=== PATIENT | female | born 1945 | race Caucasian/White ===

== ENCOUNTER → 2017-01-08 | Outpatient (CLI) | payer OTHER, MEDICARE ==
[~2017-01-08] MED LIST: ACET-1256 PO; ASPCH81X PO; CHOL2000 PO; CYAN10005 PO; ENAL1TAB31 PO; GLC/500 PO; HYDR100T12 PO; HYDR25TA5 PO; INSDGIPEN SQ; LEVO112T4 PO; METO25TA56 PO; MULT-506 PO; NVLGI/PEN SQ; PLV75 PO; POTA20TA16 PO; SIMV80TA2 PO
[2017-01-08 15:17] LABS: THYROID STIMULATING HORMONE 0.451 uIu/ml (0.300-4.500)
[2017-01-08 15:23] LABS: RATIO 16.4 mcg/mg (0-30.0)
[2017-01-09 05:58] LABS: ESTIMATED AVERAGE GLUCOSE 186 mg/dl; HA1C FLAG Normal (Normal)
== END | disposition home or self-care (01) ==
LOC: C.LABBC 10:35
PROVIDERS: ATTEND Physician Assistant
DX: E11.9 Type 2 diabetes mellitus without complications (principal); E03.9 Hypothyroidism, unspecified

== ENCOUNTER → 2017-07-16 | Outpatient (CLI) | payer OTHER, MEDICARE ==
--- NOTE | 2017-07-16 15:27 | DIAGNOSTIC IMAGING REPORT ---
CHEST 2 VIEWS ROUTINE CLINICAL HISTORY: COUGH COMPARISON STUDY: 04/06/2014 FINDINGS: The heart is mildly enlarged. There is no failure. There is no focal pulmonary consolidation. There are no pleural effusions. There is mild prominence of central pulmonary artery similar to the prior study.[ IMPRESSION: No active disease in the chest. Electronically signed by: Jalen Bueno M.D. 07/16/2017 3:26 PM Dictated Date/Time: 07/16/2017 3:26 PM
== END | disposition home or self-care (01) ==
LOC: C.RADBC 15:05
PROVIDERS: ATTEND Internal Medicine
DX: R05 Cough (principal)

== ENCOUNTER → 2017-08-14 | Outpatient (CLI) | payer OTHER, MEDICARE ==
--- NOTE | 2017-08-16 16:27 | POLYSOMNOGRAPH REPORT ---
CLINICAL DATA: 72-year-old female with BMI of 38.41 referred with a history of snoring and a very thick neck. She denies daytime sleepiness or issues. On the evening of 08/14/2017, a home sleep apnea test was performed using a [employer] type 3 monitor. RECORDING RESULTS: Total recording time was 10 hours. The patient's estimated sleep time and patient monitoring time was 8.8 hours. RESPIRATORY DATA: Severe sleep apnea was documented. The GIL was 33.2. There were 107 obstructive, 85 mixed, and 9 central apneic episodes. There were 90 hypopneic episodes. The longest respiratory event 44 seconds. OXIMETRY DATA: Nocturnal hypoxemia was seen. Oxygen rosy 79%. Mean saturation was 91%. Time below 89% was 55 minutes. HEART RATE DATA: Heart rates ranged from 30-55 beats per minute. SNORING DATA: Snoring was recorded throughout the night. SCALE AGENT'S COMMENTS: Hypopneas and apneas were seen but the thermistor was not working well during most of the night. IMPRESSION: Probable severe sleep apnea/hypopnea with an GIL of 33.2 with nocturnal hypoxemia. RECOMMENDATIONS: If there is any question about the diagnosis of sleep apnea, a dedicated in-lab study and possibly a split night study could be performed. Treatment with CPAP or oral appliance may be of benefit. Clinical correlation is needed. MAURICE
== END | disposition home or self-care (01) ==
LOC: C.NEUR 08:55
PROVIDERS: ATTEND Internal Medicine
DX: R05 Cough (principal); R06.83 Snoring; J98.01 Acute bronchospasm; I25.10 Atherosclerotic heart disease of native coronary artery without angina pectoris

== ENCOUNTER → 2017-08-20 | Outpatient (CLI) | payer OTHER, MEDICARE ==
[2017-08-20 14:55] LABS: CREATININE RANDOM URINE 66.6 mg/dl
[2017-08-20 15:07] LABS: RATIO 20.7 mcg/mg (0-30.0)
[2017-08-20 15:08] LABS: ALT/SGPT 26 U/L (12-78); BLOOD UREA NITROGEN 12 mg/dl (7-18); BUN/CREATININE RATIO 20.1 (10-20); CALCIUM 9.8 mg/dl (8.5-10.1); CARBON DIOXIDE 31 mmol/L (21-32); CHLORIDE 103 mmol/L (98-107); CHOLESTEROL 133 mg/dl (0-200); CREATININE 0.59 mg/dl (0.60-1.20); GLUCOSE 99 mg/dl (70-99); POTASSIUM 3.5 mmol/L (3.5-5.1); SODIUM 140 mmol/L (136-145); TRIGLYCERIDES 231 mg/dl (0-150); VERY LOW DENSITY LIPOPROT CALC 46 mg/dl
[2017-08-20 15:27] LABS: ALB/GLOB RATIO 0.9 (0.9-2); ALKALINE PHOSPHATASE 76 U/L (45-117); AST/SGOT 15 U/L (15-37); CHOLESTEROL/HDL RATIO 2.4; HDL CHOLESTEROL 56 mg/dl; LDL CHOLESTEROL CALCULATED 31 mg/dl; THYROID STIMULATING HORMONE 0.996 uIu/ml (0.300-4.500)
[2017-08-21 07:44] LABS: ESTIMATED AVERAGE GLUCOSE 209 mg/dl; HA1C FLAG Normal (Normal)
== END | disposition home or self-care (01) ==
LOC: C.LAB1850 12:43
PROVIDERS: ATTEND Physician Assistant
DX: E11.9 Type 2 diabetes mellitus without complications (principal); E03.9 Hypothyroidism, unspecified

== ENCOUNTER 2017-10-24 14:45 | Emergency (ER) | payer OTHER, MEDICARE ==
[~2017-10-24] VITALS: Ht 157.5 cm; Wt 90.0 kg
[2017-10-24 14:56] VITALS: Ht 157.5 cm; Wt 90.0 kg
[2017-10-24] MEDS ORDERED: SODIUM CHLORIDE 0.9% 1000ML 1,000 ML IV STA (15:22)
--- NOTE | 2017-10-24 15:29 | EMERGENCY ROOM VISIT NOTE ---
History Report prepared by Star: Lavell Dominguez Under the Supervision of: Dr. Kai Sylvester M.D. First contact with patient: 15:05 Chief Complaint: FLU LIKE SX Stated Complaint: FLU LIKE ILLNESS History of Present Illness The patient is a 72 year old female who presents to the Emergency Room with complaints of constant lightheadedness beginning 5.5 hours ago. The patient states it feels like she is going to pass out, but she has not. She reports she was at her PCP earlier today and was sent here for further evaluation. The patient notes her PCP thought she was dehydrated and could possibly have pneumonia. She states she was eating lunch when her symptoms began. The patient reports she was coughing a lot of phlegm up last week, but it has resolved. She notes she also had a subjective fever and chills the other day, and that has also resolved. She reports she is also experiencing lower back pain, but she has a history of sciatica. The patient states she is currently on clopidogrel, and she has a history of diabetes. She reports she quit smoking 40 years ago. The patient notes her has had flu-like symptoms as well, but she developed hers before him. She denies chest pain, shortness of breath, loss of consciousness, recent travel, blood in cough, using hormone cream, abdominal pain, pain with urine, blood in urine, black stool, and blood in stool. Source of History: patient Onset: 5.5 hours ago Position: other (global) Quality: other (lightheadedness) Timing: constant Associated Symptoms: + fevers (resolved), + chills (resolved), + cough ( resolved), + back pain (lower), No LOC, No chest pain, No SOB, No abdominal pain , No urinary symptoms (Pain with urine, blood in urine) Note: Denies: black stool, blood in stool, using hormone cream Review of Systems See HPI for pertinent positives and negatives. A total of ten systems were reviewed and were otherwise negative. Past Medical & Surgical Medical Problems: (1) Anxiety (2) CAD (coronary artery disease) (3) CVA (cerebral infarction) (4) DM (diabetes mellitus) (5) Endometriosis (6) Fibroid (7) HTN (hypertension) (8) Hyperlipidemia Nec/Nos (9) Hypertension Nos (10) Old Myocardial Infarct (11) Sciatica Surgical Problems: (1) H/O: hysterectomy Family History Diabetes mellitus Heart disease Hypertension Social History Smoking Status: Former Smoker Alcohol Use: none Drug Use: none Marital Status: Housing Status: lives with family Occupation Status: retired Current/Historical Medications Scheduled Aspirin (Aspirin Chewable), 81 MG PO QAM Aspirin (Aspirin), 1 TAB PO DAILY Atorvastatin (Lipitor), 80 MG PO DAILY Cholecalciferol (Vitamin D3), 2,000 UNITS PO QAM Clopidogrel Bisulfate (Clopidogrel), 75 MG PO QAM Cyanocobalamin (Vitamin B-12), 2,000 MCG PO QAM Enalapril Maleate (Vasotec), 20 MG PO BID Hydralazine Hcl (Apresoline), 100 MG PO TID Hydrochlorothiazide (Hydrochlorothiazide), 25 MG PO QPM Insulin Aspart (Novolog Flexpen), 15 UNITS SQ AC Insulin Glargine (Lantus Solostar), 45 UNITS SQ QPM Levothyroxine Sodium (Levothyroxine Sodium), 112 MCG PO QAM Metformin Hcl (Glucophage), 1,000 MG PO BID Metoprolol Tartrate (Lopressor) (Lopressor), 12.5 MG PO BID Multivitamin (Multivitamin), 1 TAB PO QAM Oseltamivir (Tamiflu), 75 MG PO BID Potassium Ext Rel (Klor-Con), 20 MEQ PO QAM Scheduled PRN Acetaminophen (Tylenol), 500 MG PO Q8H PRN for Pain Allergies Coded Allergies: Animal Dander (Unverified Allergy, Unknown, SNEZZING, 10/24/17) WAS TOLD NOT TO TAKE A DECONGESTANT SINCE STROKE Molds & Smuts (Unverified Allergy, Unknown, UNKNOWN, 10/24/17) POLLEN (Unverified Allergy, Unknown, MUCUS, WATERY EYES, SNEEZING , ) Ragweed (Unverified Allergy, Unknown, MUCUS, SNEEZING, WATERY EYES , ) Physical Exam Vital Signs Date Time Temp Pulse Resp B/P (MAP) Pulse Ox O2 Delivery O2 Flow Rate FiO2 10/24/17 20:20 92 20 142/71 96 10/24/17 19:01 37.3 75 20 146/70 93 Room Air 10/24/17 16:32 75 20 94/69 94 Room Air 10/24/17 15:59 66 20 141/58 92 Room Air 10/24/17 15:22 65 10/24/17 14:56 36.6 65 16 122/64 94 Room Air Physical Exam Physical Exam GENERAL: She is oriented to person, place, and time. She appears well- developed and well-nourished. She does not appear distressed. ____ HENT: Exam performed. Head: Normocephalic and atraumatic. Right Ear: External ear normal. No mastoid tenderness. Left Ear: External ear normal. No mastoid tenderness. Mouth/Throat: The oropharynx is clear and moist. No trismus in the jaw. No dental abscesses or uvula swelling. No oropharyngeal exudate or tonsillar abscesses. ____ EYES: Conjunctivae and EOM are normal. Pupils are equal, round, and reactive to light. Right eye exhibits no discharge. Left eye exhibits no discharge. No scleral icterus. ____ NECK: Normal range of motion. Neck supple. No JVD present. No spinous process tenderness present. No carotid bruit present. No rigidity. No tracheal deviation and normal range of motion present. No Brudzinski's sign and no Kernig 's sign noted. ____ CV: Normal rate, regular rhythm, normal heart sounds and intact distal pulses. There is no peripheral edema. No palpable left-sided radial pulse. Radial pulse signal was present on Doppler on the LUE. Right upper extremity radial pulse palpable. ____ PULM/CHEST: No respiratory distress. No stridor. She has scant expiratory wheezes and rhonchi at the bases bilaterally. She has no rales. Chest Wall: She exhibits no tenderness. ____ ABD: The abdomen is soft. Bowel sounds are normal. She has no distension. No mass is present. There is no tenderness. There is no rebound, no guarding, no Noel's sign and no tenderness at McBurney's point. Rovsig negative MUSC/SKEL: Normal range of motion. There is no peripheral edema, tenderness or deformity. LYMPH: No cervical adenopathy. ____ NEURO: She is alert and oriented to person, place, and time. She has normal strength. No cranial nerve deficit or sensory deficit. Coordination and gait normal. GCS eye subscore is 4. GCS verbal subscore is 5. GCS motor subscore is 6. cerbellar tests wnl. ____ SKIN: Skin is warm and dry. She is not diaphoretic. ____ PSYCH: She has a normal mood and affect. Her behavior is normal. Judgment and thought content normal. ____ Medical Decision & Procedures ER Provider Diagnostic Interpretation: Radiology results as stated below per my review and radiologist interpretation: CHEST 2 VIEWS ROUTINE HISTORY: 72 years-old Female cough acute cough COMPARISON: Chest radiographs 07/16/2017 TECHNIQUE: PA and lateral views of the chest FINDINGS: Cardiac silhouette is mildly enlarged. Atherosclerosis of the aorta. There is no pneumothorax or large pleural effusion. No lobar airspace consolidation to suggest pneumonia. Patchy subsegmental opacities of the inferior segment lingula are again seen suggesting atelectasis/scarring, unchanged. Bones of the chest appear grossly intact. IMPRESSION: Unchanged subtle opacities of the inferior segment lingula suggest atelectasis. The above report was generated using voice recognition software. It may contain grammatical, syntax or spelling errors. Electronically signed by: Misael Kumar M.D. 10/24/2017 4:25 PM Dictated Date/Time: 10/24/2017 4:[address] ANGIOGRAM OF THE CHEST CLINICAL HISTORY: Dyspnea. COMPARISON STUDY: Chest x-ray dated 10/24/2017. TECHNIQUE: Following the IV administration of 97 cc of Optiray 320, CT angiogram of the chest was performed from the upper abdomen to the thoracic inlet utilizing the pulmonary embolus protocol. Images are reviewed in the axial, sagittal, and coronal planes. 3-D MIPS images are created and assessed. IV contrast was administered without complication. A dose lowering technique was utilized adhering to the principles of ALARA. The examination is degraded by motion artifact. CT DOSE: 724.81 mGy.cm FINDINGS: Thyroid: Atrophic. Thoracic aorta: There is atherosclerotic calcification of the thoracic aorta, which is normal in caliber and demonstrates standard 3-vessel arch anatomy. No dissection is seen. There is high-grade stenosis to complete occlusion at the origin of the left subclavian artery Pulmonary vasculature: The main pulmonary mildly dilated suggesting pulmonary artery hypertension. There are no filling defects identified in main, lobar, or proximal segmental pulmonary branches to suggest pulmonary embolus. Evaluation of the peripheral vessels is degraded by motion artifact. Heart: The heart is enlarged and without pericardial effusion. The coronary arteries and mitral annulus are densely calcified. Lungs and pleural spaces: Evaluation of the lung parenchyma is degraded by motion artifact. There is no airspace consolidation or pleural effusion. The trachea and central airways are patent. Mediastinum: There is no mediastinal lymphadenopathy. Jessica: Clear. Axillae: There is no axillary lymphadenopathy. Upper abdomen: There is a small hiatal hernia. A 1.7 cm adenoma is noted in the left adrenal gland. Partially visualized upper abdominal viscera is otherwise within normal limits. Skeletal structures: The skeletal structures are osteopenic. Degenerative changes noted throughout the thoracic spine and in the shoulders. No lytic or blastic bony lesions are seen. IMPRESSION: 1. Motion degraded examination. 2. There is no evidence of pulmonary embolus in the main, lobar, or proximal segmental pulmonary arteries. 3. Cardiomegaly. 4. There is no airspace consolidation or pleural effusion. 5. There is near complete to complete occlusion at the origin of the left subclavian artery. Note that this may place the patient at risk for subclavian steal phenomenon. Electronically signed by: Brennan Escamilla M.D. 10/24/2017 6:05 PM Dictated Date/Time: 10/24/2017 6:00 PM Laboratory Results 10/24/17 15:15 Red Blood Count 4.49, Mean Corpuscular Volume 91.5, Mean Corpuscular Hemoglobin 29.8, Mean Corpuscular Hemoglobin Concent 32.6, Mean Platelet Volume 10.6, Neutrophils (%) (Auto) 76.9, Lymphocytes (%) (Auto) 10.2, Monocytes (%) (Auto) 12.5, Eosinophils (%) (Auto) 0.0, Basophils (%) (Auto) 0.2, Neutrophils # (Auto ) 6.72, Lymphocytes # (Auto) 0.89, Monocytes # (Auto) 1.09, Eosinophils # (Auto ) 0.00, Basophils # (Auto) 0.02 10/24/17 15:15 Test 10/24/17 15:15 10/24/17 15:40 10/24/17 18:51 10/24/17 19:10 White Blood Count 8.74 K/uL (4.8-10.8) Red Blood Count 4.49 M/uL (4.2-5.4) Hemoglobin 13.4 g/dL (12.0-16.0) Hematocrit 41.1 % (37-47) Mean Corpuscular Volume 91.5 fL (80-100) Mean Corpuscular Hemoglobin 29.8 pg (25-34) Mean Corpuscular Hemoglobin Concent 32.6 g/dl (32-36) Platelet Count 203 K/uL (130-400) Mean Platelet Volume 10.6 fL (7.4-10.4) Neutrophils (%) (Auto) 76.9 % Lymphocytes (%) (Auto) 10.2 % Monocytes (%) (Auto) 12.5 % Eosinophils (%) (Auto) 0.0 % Basophils (%) (Auto) 0.2 % Neutrophils # (Auto) 6.72 K/uL (1.4-6.5) Lymphocytes # (Auto) 0.89 K/uL (1.2-3.4) Monocytes # (Auto) 1.09 K/uL (0.11-0.59) Eosinophils # (Auto) 0.00 K/uL (0-0.5) Basophils # (Auto) 0.02 K/uL (0-0.2) RDW Standard Deviation 48.7 fL (36.4-46.3) RDW Coefficient of Variation 14.4 % (11.5-14.5) Immature Granulocyte % (Auto) 0.2 % Immature Granulocyte # (Auto) 0.02 K/uL (0.00-0.02) Prothrombin Time 10.6 SECONDS (9.0-12.0) Prothromb Time International Ratio 1.0 (0.9-1.1) Activated Partial Thromboplast Time 25.2 SECONDS (21.0-31.0) Partial Thromboplastin Ratio 1.0 D-Dimer 600 ug/L FEU (0-500) Anion Gap 9.0 mmol/L (3-11) Est Creatinine Clear Calc Drug Dose 48.3 ml/min Estimated GFR () 57.0 Estimated GFR (Non- 49.2 BUN/Creatinine Ratio 19.1 (10-20) Calcium Level 9.7 mg/dl (8.5-10.1) Beta-Hydroxybutyric Acid 1.57 mg/dL (0.2-2.81) Influenza Type A Antigen POS for Influ A (NEG) Influenza Type B Antigen Neg for Influ B (NEG) Troponin I < 0.015 ng/ml (0-0.045) Urine Color YELLOW Urine Appearance CLEAR (CLEAR) Urine pH 5.0 (4.5-7.5) Urine Specific [place] > 1.045 (1.000-1.030) Urine Protein NEG (NEG) Urine Glucose (UA) NEG (NEG) Urine Ketones NEG (NEG) Urine Occult Blood NEG (NEG) Urine Nitrite NEG (NEG) Urine Bilirubin NEG (NEG) Urine Urobilinogen NEG (NEG) Urine Leukocyte Esterase SMALL (NEG) Urine WBC (Auto) 5-10 /hpf (0-5) Urine RBC (Auto) 0-4 /hpf (0-4) Urine Hyaline Casts (Auto) 1-5 /lpf (0-5) Urine Epithelial Cells (Auto) >30 /lpf (0-5) Urine Bacteria (Auto) NEG (NEG) Laboratory results reviewed by me Medications Administered Medications (Trade) Dose Ordered Sig/Carli Route Start Time Stop Time Status Last Admin Dose Admin Sodium Chloride 1,000 ml @ 999 mls/hr Q1H1M STAT IV 10/24/17 15:22 10/24/17 16:22 DC 10/24/17 15:55 999 MLS/HR ECG Indication: weakness Rate (beats per minute): 64 Rhythm: normal sinus Findings: no acute ischemic change, no ectopy, other (OH, QRS, QTc are within normal limits, no ST elevation or depression) Change: EKG at 1553: Normal sinus with a rate of 66. OH, QRS, QTc, in normal limits, no ST elevation or depression, no ectopy, no acute ischemic change. No significant change from EKG at 1534. EKG at 1824: Sinus rhythm with a rate of 74. OH, QRS, QTc, in normal limits, no ST elevation or depression. No change from the EKGs at 1534 or 1553. Patient's electrocardiograms were interpreted by me. ED Course 1519: The patient was evaluated in room A03. A complete history and physical exam was performed. 1522: Ordered Sodium Chloride 1000 ml @ 999 mls/hr IV 1840: Vital signs stable. Patient denies any chest pain or difficulty breathing. Flu was positive. CTA of the chest did not show any dissection or pulmonary embolusim. There is near complete to complete occlusion at the origin of the left subclavian artery placing the patient at risk for subclavian steal phenomenon.I discussed the patient's case with Dr. Wagoner, Vascular Surgery. He states the patient is stable to be discharged and followed up as an outpatient. He reports the patient does not need to be on a blood thinner other than aspirin. 1843: I spoke with Dr. Wagoner again. He confirmed it is okay to discharge the patient even though she was dizzy earlier today. 1853: I reevaluated the patient and discussed current test results. The patient is going to have her troponin repeated, if it is negative, she will be discharged. 1754: I reevaluated the patient. DISCHARGE - Plan of care discussed with patient and questions answered. The patient was given both verbal and printed discharge instructions. The patient verbalized understanding and ability to comply. The patient is to seek outpatient follow up as noted in the discharge instructions. The patient verbalized understanding and ability to comply. The patient is discharged in stable condition. The patient was instructed to return for worsening symptoms. Medical Decision Vital signs stable. Patient denies any chest pain or difficulty breathing. Flu was positive. CTA of the chest did not show any dissection or pulmonary embolusim. There is near complete to complete occlusion at the origin of the left subclavian artery placing the patient at risk for subclavian steal phenomenon.I discussed the patient's case with Dr. Wagoner, Vascular Surgery. He states the patient is stable to be discharged and followed up as an outpatient. He reports the patient does not need to be on a blood thinner other than aspirin. 2 sets of troponins negative. The patient was discharged with Tamiflu and aspirin. She'll follow-up with Dr. Wagoner. DISCHARGE - Plan of care discussed with patient and questions answered. The patient was given both verbal and printed discharge instructions. The patient verbalized understanding and ability to comply. The patient is to seek outpatient follow up as noted in the discharge instructions. The patient verbalized understanding and ability to comply. The patient is discharged in stable condition. The patient was instructed to return for worsening symptoms. Medication Reconcilliation Current Medication List: was personally reviewed by me Blood Pressure Screening Patient's blood pressure: Elevated blood pressure Blood pressure disposition: Elevated BP felt to be situational Consults Time Called: 1836 Consulting Physician: Dr. Wagoner, Vascular Surgery Returned Call: 1839 I discussed the patient's case with Dr. Wagoner, Vascular Surgery. He states the patient is able to be discharged and followed up as an outpatient. He reports the patient does not need to be on a blood thinner other than aspirin. 1842: I spoke with Dr. Wagoner again. He confirmed it is okay to discharge the patient even though she was dizzy earlier today. Impression Primary Impression: Influenza A Additional Impression: Subclavian arterial stenosis Scribe Attestation The scribe's documentation has been prepared under my direction and personally reviewed by me in its entirety. I confirm that the note above accurately reflects all work, treatment, procedures, and medical decision making performed by me. The chart was completed utilizing [employer] voice recognition software. Grammatical errors, random word insertions, pronoun errors, and incomplete sentences are an occasional consequence of this system due to software limitations, ambient noise, and hardware issues. Any formal questions or concerns about the content, text, or information contained within the body of this dictation should be directly addressed to the physician for clarification. Departure Information Dispostion Home / Self-Care Prescriptions Aspirin (ASPIRIN) 81 Mg Chw 1 TAB PO DAILY for 30 Days, #30 TAB 3 Refills Prov: Kai Sylvester M.D. 10/24/17 Oseltamivir (Tamiflu) 75 Mg Cap 75 MG PO BID, #10 CAP Prov: Kai Sylvester M.D. 10/24/17 Referrals Raoul Palencia M.D. (PCP) Forms HOME CARE DOCUMENTATION FORM, IMPORTANT VISIT INFORMATION Patient Instructions ED Flu, [facility] Additional Instructions Follow up with Dr. Wagoner, Vascular Surgery. Problem Qualifiers
[2017-10-24 15:34] LABS: BASO % 0.2 %; BASO ABS # 0.02 K/uL (0-0.2); HEMATOCRIT 41.1 % (37-47); HEMOGLOBIN 13.4 g/dL (12.0-16.0); IG# 0.02 K/uL (0.00-0.02); LYMPH % 10.2 %; LYMPH ABS # 0.89 K/uL (1.2-3.4); MEAN CELL VOLUME 91.5 fL (80-100); MEAN CORPUSCULAR HEMOGLOBIN 29.8 pg (25-34); MEAN CORPUSCULAR HGB CONC 32.6 g/dl (32-36); MEAN PLATELET VOLUME 10.6 fL (7.4-10.4); MONO % 12.5 %; MONO ABS # 1.09 K/uL (0.11-0.59); NEUT % 76.9 %; NEUT ABS # 6.72 K/uL (1.4-6.5); PLATELET COUNT 203 K/uL (130-400); RED CELL DISTRIBUTION WIDTH CV 14.4 % (11.5-14.5); RED CELL DISTRIBUTION WIDTH SD 48.7 fL (36.4-46.3); WHITE BLOOD COUNT 8.74 K/uL (4.8-10.8)
[2017-10-24 15:51] LABS: BLOOD UREA NITROGEN 22 mg/dl (7-18); CALCIUM 9.7 mg/dl (8.5-10.1); CARBON DIOXIDE 28 mmol/L (21-32); CREATININE 1.13 mg/dl (0.60-1.20); GLUCOSE 323 mg/dl (70-99); SODIUM 133 mmol/L (136-145)
[2017-10-24 15:52] LABS: PTT PATIENT 25.2 SECONDS (21.0-31.0)
[2017-10-24 16:17] LABS: INFLUENZA B ANTIGEN Neg for Influ B (NEG)
--- NOTE | 2017-10-24 16:26 | DIAGNOSTIC IMAGING REPORT ---
CHEST 2 VIEWS ROUTINE HISTORY: 72 years-old Female cough acute cough COMPARISON: Chest radiographs 07/16/2017 TECHNIQUE: PA and lateral views of the chest FINDINGS: Cardiac silhouette is mildly enlarged. Atherosclerosis of the aorta. There is no pneumothorax or large pleural effusion. No lobar airspace consolidation to suggest pneumonia. Patchy subsegmental opacities of the inferior segment lingula are again seen suggesting atelectasis/scarring, unchanged. Bones of the chest appear grossly intact. IMPRESSION: Unchanged subtle opacities of the inferior segment lingula suggest atelectasis. The above report was generated using voice recognition software. It may contain grammatical, syntax or spelling errors. Electronically signed by: Misael Kumar M.D. 10/24/2017 4:25 PM Dictated Date/Time: 10/24/2017 4:23 PM
[2017-10-24] MEDS ORDERED: OPTIRAY 320 IV PRN (16:45)
[2017-10-24] MEDS ORDERED: ATOR-26 PO (17:32)
--- NOTE | 2017-10-24 18:06 | DIAGNOSTIC IMAGING REPORT ---
CT ANGIOGRAM OF THE CHEST CLINICAL HISTORY: Dyspnea. COMPARISON STUDY: Chest x-ray dated 10/24/2017. TECHNIQUE: Following the IV administration of 97 cc of Optiray 320, CT angiogram of the chest was performed from the upper abdomen to the thoracic inlet utilizing the pulmonary embolus protocol. Images are reviewed in the axial, sagittal, and coronal planes. 3-D MIPS images are created and assessed. IV contrast was administered without complication. A dose lowering technique was utilized adhering to the principles of ALARA. The examination is degraded by motion artifact. CT DOSE: 724.81 mGy.cm FINDINGS: Thyroid: Atrophic. Thoracic aorta: There is atherosclerotic calcification of the thoracic aorta, which is normal in caliber and demonstrates standard 3-vessel arch anatomy. No dissection is seen. There is high-grade stenosis to complete occlusion at the origin of the left subclavian artery Pulmonary vasculature: The main pulmonary mildly dilated suggesting pulmonary artery hypertension. There are no filling defects identified in main, lobar, or proximal segmental pulmonary branches to suggest pulmonary embolus. Evaluation of the peripheral vessels is degraded by motion artifact. Heart: The heart is enlarged and without pericardial effusion. The coronary arteries and mitral annulus are densely calcified. Lungs and pleural spaces: Evaluation of the lung parenchyma is degraded by motion artifact. There is no airspace consolidation or pleural effusion. The trachea and central airways are patent. Mediastinum: There is no mediastinal lymphadenopathy. Jessica: Clear. Axillae: There is no axillary lymphadenopathy. Upper abdomen: There is a small hiatal hernia. A 1.7 cm adenoma is noted in the left adrenal gland. Partially visualized upper abdominal viscera is otherwise within normal limits. Skeletal structures: The skeletal structures are osteopenic. Degenerative changes noted throughout the thoracic spine and in the shoulders. No lytic or blastic bony lesions are seen. IMPRESSION: 1. Motion degraded examination. 2. There is no evidence of pulmonary embolus in the main, lobar, or proximal segmental pulmonary arteries. 3. Cardiomegaly. 4. There is no airspace consolidation or pleural effusion. 5. There is near complete to complete occlusion at the origin of the left subclavian artery. Note that this may place the patient at risk for subclavian steal phenomenon. 2. Electronically signed by: Brennan Escamilla M.D. 10/24/2017 6:05 PM Dictated Date/Time: 10/24/2017 6:00 PM
[2017-10-24 19:01] VITALS: TEMP 37.3
[2017-10-24] MEDS ORDERED: OSEL75CA12 PO (19:43)
[2017-10-24] MEDS ORDERED: ASPI81CH2 PO (19:43)
[2017-10-24 20:20] VITALS: BP 142/71; PULSE 92; O2SAT 96
== END 2017-10-24 20:22 | disposition home or self-care (01) ==
LOC: C.EDB 14:49 → C.EDA 20:22
DX: J09.X2 Influenza due to identified novel influenza A virus with other respiratory manifestations (principal); I77.1 Stricture of artery; M54.40 Lumbago with sciatica, unspecified side; E11.9 Type 2 diabetes mellitus without complications; Z87.891 Personal history of nicotine dependence; I10 Essential (primary) hypertension; E78.5 Hyperlipidemia, unspecified; I25.2 Old myocardial infarction; Z83.3 Family history of diabetes mellitus; Z82.49 Family history of ischemic heart disease and other diseases of the circulatory system; Z79.82 Long term (current) use of aspirin; Z79.4 Long term (current) use of insulin; Z79.84 Long term (current) use of oral hypoglycemic drugs

== ENCOUNTER → 2018-01-23 | Outpatient (CLI) | payer OTHER, MEDICARE ==
[~2018-01-23] MED LIST changes: +ASPI81CH2 PO; +ATOR-26 PO; +OSEL75CA12 PO; +POTA-639 PO; -POTA20TA16 PO; -SIMV80TA2 PO
[2018-01-23 10:36] LABS: BASO % 0.5 %; BASO ABS # 0.04 K/uL (0-0.2); EOS % 3.2 %; EOS ABS # 0.26 K/uL (0-0.5); HEMATOCRIT 40.7 % (37-47); HEMOGLOBIN 12.8 g/dL (12.0-16.0); IG# 0.02 K/uL (0.00-0.02); LYMPH % 29.9 %; LYMPH ABS # 2.43 K/uL (1.2-3.4); MEAN CELL VOLUME 92.5 fL (80-100); MEAN CORPUSCULAR HEMOGLOBIN 29.1 pg (25-34); MEAN CORPUSCULAR HGB CONC 31.4 g/dl (32-36); MEAN PLATELET VOLUME 10.9 fL (7.4-10.4); MONO % 8.1 %; MONO ABS # 0.66 K/uL (0.11-0.59); NEUT % 58.1 %; NEUT ABS # 4.72 K/uL (1.4-6.5); PLATELET COUNT 260 K/uL (130-400); RED CELL DISTRIBUTION WIDTH CV 14.2 % (11.5-14.5); RED CELL DISTRIBUTION WIDTH SD 48.2 fL (36.4-46.3); WHITE BLOOD COUNT 8.13 K/uL (4.8-10.8)
[2018-01-23 11:07] LABS: HEMOGLOBIN A1C 9.5 % (4.5-5.6)
[2018-01-23 11:20] LABS: ALBUMIN 3.3 gm/dl (3.4-5.0); ALKALINE PHOSPHATASE 92 U/L (45-117); ALT/SGPT 27 U/L (12-78); AST/SGOT 13 U/L (15-37); BLOOD UREA NITROGEN 15 mg/dl (7-18); CALCIUM 9.1 mg/dl (8.5-10.1); CARBON DIOXIDE 28 mmol/L (21-32); CHOLESTEROL 145 mg/dl (0-200); CREATININE 0.67 mg/dl (0.60-1.20); GLUCOSE 195 mg/dl (70-99); POTASSIUM 3.9 mmol/L (3.5-5.1); SODIUM 139 mmol/L (136-145); TOTAL PROTEIN 7.2 gm/dl (6.4-8.2)
[2018-01-23 11:32] LABS: LDL CHOLESTEROL CALCULATED 60 mg/dl
== END | disposition home or self-care (01) ==
LOC: C.LABBC 07:13
PROVIDERS: ATTEND Internal Medicine
DX: I25.10 Atherosclerotic heart disease of native coronary artery without angina pectoris (principal); E11.9 Type 2 diabetes mellitus without complications; E03.9 Hypothyroidism, unspecified; I10 Essential (primary) hypertension; E78.5 Hyperlipidemia, unspecified; E11.3299 Type 2 diabetes mellitus with mild nonproliferative diabetic retinopathy without macular edema, unspecified eye; I63.9 Cerebral infarction, unspecified; I65.29 Occlusion and stenosis of unspecified carotid artery; I77.1 Stricture of artery

== ENCOUNTER 2022-07-18 16:35 | Inpatient (IN) ==
--- NOTE | 2022-07-18 16:42 | ED Triage Note ---
Date of Service July 18, 2022 History of Present Illness This patient was briefly evaluated while in triage. An abbreviated physical exam was performed. This patient is a 77-year-old Female. She notes she cannot breathe. She was at Dr. Ramos office and referred here today. She has been short of breath 6 weeks but dx with covid about 2 weeks ago. She is nolonger on Xarelto. She was on that for Afib. Physical Exam GENERAL: 77 year old female. In no acute distress. SKIN: No lesions or rashes. HEART: Regular rate and rhythm. LUNGS: Clear to auscultation. NEURO: Alert and oriented. No deficits. PSYCH: Patient is pleasant and answers all questions appropriately. Initial orders for labs and / or imaging were placed and patient was placed in the waiting area until a bed is available. Please see further documentation for the full ED course.
[2022-07-18 17:29] LABS: Basophils # (auto) 0.06 K/uL (0-0.2); Basophils % (auto) 0.6 %; Eosinophils # (auto) 0.18 K/uL (0-0.50); Eosinophils % (auto) 1.9 %; Hematocrit (blood only) 30.8 % (34.1-44.9); Immature Granulocytes # (auto) 0.13 K/uL (0.00-0.02); Immature Granulocytes % (auto) 1.4 %; Lymphocytes # (auto) 1.72 K/uL (1.2-3.4); Lymphocytes % (auto) 17.9 %; Mean Corpuscular Hemoglobin 23.1 pg (25.0-34.0); Mean Corpuscular Hgb Conc 29.2 g/dL (32.0-36.0); Mean Platelet Volume 10.9 fL (9.4-12.3); Monocytes % (auto) 7.3 %; Neutrophils # (auto) 6.83 K/uL (1.4-6.5); Neutrophils % (auto) 70.9 %; Nucleated RBC # (auto) 0.04 K/uL (0-0); Nucleated RBC % (auto) 0.4 %; Platelet Count 408 K/uL (130-400); RDW Coefficient of Variation 20.2 % (11.5-14.5); RDW Standard Deviation 56.9 fL (36.4-46.3); White Blood Count 9.62 K/ul (4.8-10.8)
[2022-07-18 17:50] LABS: Alanine Aminotransferase 22 U/L (7-52); Albumin Globulin Ratio 1.1 (0.9-2); Albumin Level 3.3 gm/dl (3.4-5.0); Alkaline Phosphatase 61 U/L (34-104); Anion Gap 7 (3-11); Aspartate Aminotransferase 22 U/L (13-39); BUN Creatinine Ratio 16.4 (10-20); Bilirubin,Total 0.4 mg/dl (0.2-1.0); Blood Urea Nitrogen 11 mg/dl (6-23); Calcium 9.2 mg/dl (8.5-10.1); Carbon Dioxide 29 mmol/L (21-32); Chloride 103 mmol/L (98-107); Est GFR (African American) 99.7 ml/min; Globulin 3.1 gm/dl (2.5-4.0); Glucose 150 mg/dl (70-99(Fasting)); Magnesium 1.6 mg/dl (1.7-2.4); Sodium 139 mmol/L (136-145); Total Protein 6.4 gm/dl (6.0-8.3)
[2022-07-18 17:53] LABS: Partial Thromboplastin Ratio 1.1; Partial Thromboplastin Time 28.9 Seconds (21.0-31.0); Prothrombin Time 10.9 Seconds (9.0-12.0)
[2022-07-18 17:55] LABS: Troponin I High Sensitivity 8.3 pg/ml (0-14)
[2022-07-18 17:59] LABS: Anisocytosis Present; Polychromasia 1+
[2022-07-18] MEDS ORDERED: SODIUM CHLORIDE 0.9% 1000ML 500 ML IV ONE (18:33)
--- NOTE | 2022-07-18 18:35 | Emergency Department Note ---
Impression & Plan Hypoxia DC ED Provider Note HPI: The patient is a 77-year-old female with history of coronary artery disease, sleep apnea, paroxysmal atrial fibrillation not currently on any anticoagulation, diastolic heart failure with hyperdynamic ejection fraction at 70% per echo on 05/30/2022, who presents the emergency department with a chief complaint of shortness of breath. Patient states that her shortness of breath has been ongoing for about the past 2 weeks. Patient states that she was diagnosed with COVID-19 10 days ago at a hospital in [place]. Patient states that her symptoms of not resolved and she has been experiencing more shortness of breath with exertion, she denies any chest pain. On arrival here to the ED today the patient is noted to be hypertensive at 221/86, she is otherwise saturating well on room air on my initial assessment, she is conversational, she is in no acute distress. ROS: -Pulmonary: Shortness of breath *10 point review systems was conducted and is otherwise negative unless stated above *Outpatient medications and allergy history reviewed PE: General: Alert, morbidly obese HEENT: Normocephalic, trachea midline Eyes: Extraocular eye movement is intact, no scleral erythema Pulmonary: Clear to auscultation bilaterally, no wheezing, slight tachypnea with mildly diminished breath sounds bilaterally Cardio: Regular rate and rhythm GI: Abdomen is soft, nontender : No suprapubic tenderness MSK: No evidence of trauma or malformation of the extremities, no edema Skin: No evidence of rash Neuro: Alert, no focal deficits Psychiatric: Cooperative front line leader: - An order was placed for continuous cardiac monitoring - Patient was noted to be in sinus rhythm with a rate of 70 EKG: Rate: 65 Rhythm: Sinus rhythm Intervals: Within normal limits ST changes: No ST elevation Time: 1711 Interventions provided in ED: -IV labetalol, supplemental oxygen, IV Lasix, sublingual nitroglycerin Medical Decision Making: Patient presented to the emergency department with worsening shortness of breath. On arrival here to the ED she does display some mild increased work of breathing with tachypnea but she is saturating well on room air initially. IV was established, patient was placed on winder helper [place] patient census. Patient is initially saturating well on room air when hooked up to the monitor, she denies any chest pain. Lab work was obtained that shows a normal high-sensitivity troponin level, baseline anemia, no critical electrolyte abnormalities are noted. CT angiography of the chest was obtained given the patient's shortness of breath and recent COVID-19 positive status as well as travel, this does not show any evidence of pulmonary embolism, does show evidence of mild pulmonary edema. Patient is hypertensive at greater than 200 systolic on arrival, she was given IV labetalol as well as sublingual nitroglycerin with improvement in her blood pressure into the 180s. On my reassessment she is saturating well on 2 L nasal cannula which was placed that she did have an episode of desaturation at 86%. She states she feels improved following these interventions, she states she did recently test positive for COVID-19 therefore she will be retested. At this time I do feel the patient needs to be admitted given her hypertension, pulmonary edema, hypoxia, and increased work of breathing. Case was discussed with the on-call hospitalist, Dr. Laguna, and the patient was admitted to a telemetry bed in stable condition for further care. * CRITICAL CARE TIME: ( 45 ) minutes -Time spent at the bedside independent of any procedures and treatment of hypoxia with oxygen saturations less than 90% on room air requiring supplemental oxygen for correction, treatment of hypertensive urgency and pulmonary edema with IV antihypertensives, diuretics, and sublingual nitroglycerin, discussion with other physicians and arrangement of admission Diagnosis: 1. Hypoxia, acute 2. Pulmonary edema, acute 3. Hypertensive urgency 4. COVID-19 infection 5. Diastolic heart failure with elevated BNP Disposition: Admission Kentrell Isbell DO Emergency Medicine Past Med/Surg History Medical History (Updated 07/18/22 @ 22:46 by Kentrell Isbell DO) Anemia Bulging disc L3-L4, gets injections with Dr. Gordon CAD (coronary artery disease) Circumflex NC s/p circumflex angioplasty (1998) Carotid stenosis Carotid Duplex 03/2020: 60-69% stenosis in right ICA. 50-59% stenosis in the left ICA. Follows with Dr Wagoner. COVID-19 CVA (cerebral vascular accident) (04/01/14) Acute/Subacute right pontine CVA (2013)- residual short-term memory loss, left sided weakness, no BP in left arm Diabetes mellitus, type 2 IDDM Dyslipidemia HTN (hypertension) Hypothyroidism Intracranial vascular stenosis MRA 04/06/2014 - Multifocal areas of [id number] narrowing seen throughout all visualized [place], most pronounced at the bilateral MCA bifurcation and bilateral TRAVEL PROFESSIONAL. Mitral valve disorder Per ECHO 01/2020- calcified papillary muscle head with systolic anterior motion of the mitral leaflet. No significant obstruction. Mixed conductive and sensorineural hearing loss of right ear with restricted hearing of left ear Moderate obstructive sleep apnea Moderate sleep apnea/Hypopnea with nocturnal hypoxemia. Declines CPAP. Paroxysmal atrial fibrillation Dx 03/2020 > no pacer, med controlled, follows with Dr. Caden Roman Subclavian artery stenosis, left Per 03/2020 carotid duplex- left subclavian stenosis, retrograde flow in the left vertebral artery consistent with steal phenomenon. Surgical History History of abdominal hysterectomy (04/1998) bso, endometriosis History of cardiac cath (~1998) no stents History of cataract surgery R/L History of colonoscopy (03/21/16) History of cystoscopy Cystoscopy, Right Ureteroscopy, Retrograde, Right Stent Placement: 07/07/20: LMA#4 at [facility] History of lithotripsy S/P excision of lipoma Family History Sister ALS (amyotrophic lateral sclerosis) Aunt Breast cancer Mother Diabetes Myocardial infarction Hypertension Heart disease Father Diabetes Myocardial infarction Hypertension Heart disease Other Congestive heart failure Coronary heart disease No family history of adverse response to anesthesia No family history of bleeding disorder Denies family history of Ovarian cancer Prostate cancer Lung cancer Colorectal cancer Stroke Social History Smoking Status: Never smoker Second Hand Exposure: No; Hx Alcohol Use: Yes Alcohol type: beer and wine Alcohol Intake Frequency: 2-4 x/Month Hx Substance Use: No Preferred Language: Croatian Communication Ability: Effective Visual Impairment: Limited Hearing Ability: Use of Hearing Aid Radiologist Diagnostic Required: No Beliefs That Will Affect Care: None marital status: Current Living Situation: Spouse current occupational status: retired How many Children do You have: 2 Feels Safe at Home: Yes Childhood Exposure to Second-Hand Smoke: Yes caffeine: Yes Dental Care, Regularly: Yes Physical Activity Frequency: 1-2 Times per Week Seatbelt Use: always Sunscreen Use: Yes Assistive Devices: Hearing Aid - Bilateral Allergies Allergies Allergy/AdvReac Type Severity Reaction Status Date / Time animal dander Allergy Mild Sneezing Verified 07/18/22 15:40 mold Allergy Mild Sneezing, Verified 07/18/22 15:40 mucus, watery eyes pollen extracts Allergy Mild Sneezing, Verified 07/18/22 15:40 mucus, watery eyes ragweed pollen Allergy Mild Sneezing, Verified 07/18/22 15:40 mucus, watery eyes grass pollen Allergy Unknown Sneezing Verified 07/18/22 15:40 No Known Drug Allergies Allergy Verified 07/18/22 15:40 Home Meds Home Medications Medication Instructions Recorded Confirmed lancets 33 gauge (Easy Touch Twist #100 ea 06/16/19 07/18/22 Lancets) cholecalciferol (vitamin D3) 25 1,000 units PO QAM 02/08/20 07/18/22 mcg (1,000 unit) tablet mecobalamin (vitamin B12) 1,000 2,500 mcg PO QAM 10/03/21 07/18/22 mcg chewable tablet acetaminophen 650 mg 1,300 mg PO DAILY PRN sciatica pain 04/03/22 07/18/22 tablet,extended release (Tylenol Arthritis Pain) aspirin 81 mg tablet,delayed 81 mg PO QPM #90 tabs 06/14/22 07/18/22 release fluticasone propionate 50 2 spray intranasal DAILY PRN 06/14/22 07/18/22 mcg/actuation nasal Allergy Symptoms #1 g spray,suspension hydrochlorothiazide 25 mg tablet 25 mg PO QAM 06/14/22 07/18/22 amiodarone 100 mg tablet 100 mg PO QDL 06/21/22 07/18/22 ferrous sulfate 325 mg (65 mg 325 mg PO QAM 06/21/22 07/18/22 iron) tablet multivitamin 1 tab PO QAM 06/21/22 07/18/22 potassium chloride 20 mEq 20 meq PO QAM 06/21/22 07/18/22 tablet,extended release albuterol sulfate 90 mcg/actuation 2 puff inhalation Q6H PRN 07/18/22 07/18/22 aerosol inhaler Shortness Of Breath Or Wheezing Previous Rx's Medication Instructions Recorded hydralazine 100 mg tablet See Rx Instructions .Route 12/15/21 .COMPLEX #270 tabs atorvastatin 80 mg tablet 80 mg PO QPM #90 tabs 01/15/22 enalapril maleate 20 mg tablet 20 mg PO BID #180 tabs 01/18/22 insulin glargine 100 unit/mL (3 30 unit (0.3 mL) subcut HS 90 days 02/16/22 mL) subcutaneous pen (Lantus #30 mL Solostar U-100 Insulin) Easy Touch Test Strip (blood sugar #300 ea 04/03/22 diagnostic) insulin aspart U-100 100 unit/mL 60 unit (0.6 mL) .Route DAILY 04/03/22 (3 mL) subcutaneous pen (Novo days #60 mL Flexpen U-100 Insulin aspart) metformin 500 mg tablet,extended 1,000 mg PO QAM #180 tabs 06/21/22 release 24 hr levothyroxine 112 mcg tablet 112 mcg PO 6XWK #90 tabs 07/13/22 pantoprazole 40 mg tablet,delayed 40 mg PO BID #60 tabs 07/16/22 release Results & Data (ED) Vital Signs Vital Signs - 24 hr 07/18/22 16:41 07/18/22 19:32 07/18/22 19:32 Temperature 37 C Temperature Source Temporal Artery Scan Pulse Rate 65 Pulse Rate [Right Finger] 68 Respiratory Rate 20 28 H Respiratory Effort / Characteristics Labored Respiratory Depth Normal Blood Pressure 221/86 H Blood Pressure [Right Arm] Blood Pressure Mean 131 Blood Pressure Mean [Right Arm] Pulse Oximetry 92 93 93 Oxygen Delivery Method Room Air Room Air Room Air Oxygen Flow Rate Sepsis Recent Fever Within 48 Hours No Sepsis New/Unexplained Change in Mental Status No Sepsis Action Taken by Nursing No Action Required Pulse Oximetry Post Tiitration 07/18/22 20:22 07/18/22 20:39 07/18/22 20:39 Temperature Temperature Source Pulse Rate Pulse Rate [Right Finger] Respiratory Rate Respiratory Effort / Characteristics Respiratory Depth Blood Pressure Blood Pressure [Right Arm] 182/55 H Blood Pressure Mean Blood Pressure Mean [Right Arm] 97 Pulse Oximetry 86 L 97 Oxygen Delivery Method Room Air Nasal Cannula Oxygen Flow Rate 2 Sepsis Recent Fever Within 48 Hours Sepsis New/Unexplained Change in Mental Status Sepsis Action Taken by Nursing Pulse Oximetry Post Tiitration 07/18/22 20:57 07/18/22 21:31 Temperature Temperature Source Pulse Rate Pulse Rate [Right Finger] Respiratory Rate Respiratory Effort / Characteristics Respiratory Depth Blood Pressure Blood Pressure [Right Arm] 203/66 H Blood Pressure Mean Blood Pressure Mean [Right Arm] 111 Pulse Oximetry Oxygen Delivery Method Nasal Cannula Oxygen Flow Rate 2 Sepsis Recent Fever Within 48 Hours Sepsis New/Unexplained Change in Mental Status Sepsis Action Taken by Nursing Pulse Oximetry Post Tiitration 97 Laboratory Data Result diagrams: 07/18/22 17:13 07/18/22 17:13 Lab Results 07/18/22 07/18/22 07/18/22 Range/Units 17:13 17:13 17:13 WBC 9.62 (4.8-10.8) K/ul RBC 3.90 L (3.93-5.22) M/uL Hgb 9.0 L (12.0-16.0) g/dl Hct 30.8 L (34.1-44.9) % MCV 79.0 L (80.0-100.0) fL MCH 23.1 L (25.0-34.0) pg MCHC 29.2 L (32.0-36.0) g/dL RDW Std Deviation 56.9 H (36.4-46.3) fL RDW Coeff of Rosalino 20.2 H (11.5-14.5) % Plt Count 408 H (130-400) K/uL MPV 10.9 (9.4-12.3) fL Immature Gran % (Auto) 1.4 % Neut % (Auto) 70.9 % Lymph % (Auto) 17.9 % [place] % (Auto) 7.3 % Eos % (Auto) 1.9 % Baso % (Auto) 0.6 % Neut # (Auto) 6.83 H (1.4-6.5) K/uL Lymph # (Auto) 1.72 (1.2-3.4) K/uL [place] # (Auto) 0.70 (0.24-0.82) K/uL Eos # (Auto) 0.18 (0-0.50) K/uL Baso # (Auto) 0.06 (0-0.2) K/uL Immature Gran # (Auto) 0.13 H (0.00-0.02) K/uL Absolute Nucleated RBC 0.04 H (0-0) K/uL Nucleated RBC % (auto) 0.4 % Polychromasia 1+ Anisocytosis Present PT 10.9 (9.0-12.0) Seconds INR 1.0 (0.9-1.1) APTT 28.9 (21.0-31.0) Seconds PTT Ratio 1.1 Sodium 139 (136-145) mmol/L Potassium 4.0 (3.5-5.1) mmol/L Chloride 103 (98-107) mmol/L Carbon Dioxide 29 (21-32) mmol/L Anion Gap 7 (3-11) BUN 11 (6-23) mg/dl Creatinine 0.67 (0.6-1.2) mg/dl Est Cr Clr Drug Dosing Not Reportable Est GFR ( Amer) 99.7 ml/min Est GFR (Non-Af Amer) 86.0 ml/min BUN/Creatinine Ratio 16.4 (10-20) Glucose 150 H (70-99(Fasting)) mg/dl Calcium 9.2 (8.5-10.1) mg/dl Magnesium 1.6 L (1.7-2.4) mg/dl Total Bilirubin 0.4 (0.2-1.0) mg/dl AST 22 (13-39) U/L ALT 22 (7-52) U/L Alkaline Phosphatase 61 (34-104) U/L Troponin I High Sens 8.3 (0-14) pg/ml B-Natriuretic Peptide (0-100) pg/ml Total Protein 6.4 (6.0-8.3) gm/dl Albumin 3.3 L (3.4-5.0) gm/dl Globulin 3.1 (2.5-4.0) gm/dl Albumin/Globulin Ratio 1.1 (0.9-2) Procalcitonin (0-0.5) ng/ml SARS-CoV-2 (PCR) (Negative) Influenza Type A (PCR) (Neg) Influenza Type B (PCR) (Neg) RSV (RT-PCR) (Neg) 07/18/22 07/18/22 07/18/22 Range/Units 17:13 17:13 20:31 WBC (4.8-10.8) K/ul RBC (3.93-5.22) M/uL Hgb (12.0-16.0) g/dl Hct (34.1-44.9) % MCV (80.0-100.0) fL MCH (25.0-34.0) pg MCHC (32.0-36.0) g/dL RDW Std Deviation (36.4-46.3) fL RDW Coeff of Rosalino (11.5-14.5) % Plt Count (130-400) K/uL MPV (9.4-12.3) fL Immature Gran % (Auto) % Neut % (Auto) % Lymph % (Auto) % [place] % (Auto) % Eos % (Auto) % Baso % (Auto) % Neut # (Auto) (1.4-6.5) K/uL Lymph # (Auto) (1.2-3.4) K/uL [place] # (Auto) (0.24-0.82) K/uL Eos # (Auto) (0-0.50) K/uL Baso # (Auto) (0-0.2) K/uL Immature Gran # (Auto) (0.00-0.02) K/uL Absolute Nucleated RBC (0-0) K/uL Nucleated RBC % (auto) % Polychromasia Anisocytosis PT (9.0-12.0) Seconds INR (0.9-1.1) APTT (21.0-31.0) Seconds PTT Ratio Sodium (136-145) mmol/L Potassium (3.5-5.1) mmol/L Chloride (98-107) mmol/L Carbon Dioxide (21-32) mmol/L Anion Gap (3-11) BUN (6-23) mg/dl Creatinine (0.6-1.2) mg/dl Est Cr Clr Drug Dosing Est GFR ( Amer) ml/min Est GFR (Non-Af Amer) ml/min BUN/Creatinine Ratio (10-20) Glucose (70-99(Fasting)) mg/dl Calcium (8.5-10.1) mg/dl Magnesium (1.7-2.4) mg/dl Total Bilirubin (0.2-1.0) mg/dl AST (13-39) U/L ALT (7-52) U/L Alkaline Phosphatase (34-104) U/L Troponin I High Sens (0-14) pg/ml B-Natriuretic Peptide 125 H (0-100) pg/ml Total Protein (6.0-8.3) gm/dl Albumin (3.4-5.0) gm/dl Globulin (2.5-4.0) gm/dl Albumin/Globulin Ratio (0.9-2) Procalcitonin < 0.05 (0-0.5) ng/ml SARS-CoV-2 (PCR) POSITIVE A* (Negative) Influenza Type A (PCR) Negative (Neg) Influenza Type B (PCR) Negative (Neg) RSV (RT-PCR) Negative (Neg) Administered Medications Magnesium Sulfate/Dextrose (Magnesium Sulfate / D5w) 1 gm in 100 mls @ 50 mls/hr IV ONE ONE Stop: 07/18/22 23:31 Last Admin: 07/18/22 21:39 Dose: 50 mls/hr Documented By: YAYO Discontinued Medications Furosemide (Furosemide Inj 20 Mg/2 Ml Vial) 20 mg IV ONE ONE Stop: 07/18/22 20:20 Last Admin: 07/18/22 20:30 Dose: 20 mg Documented By: YAYO Hydralazine HCl (Hydralazine Tab 50 Mg Tab) 100 mg PO NOW STA Stop: 07/18/22 21:37 Last Admin: 07/18/22 21:51 Dose: 100 mg Documented By: YAYO Sodium Chloride (Nss 1000ml) 500 mls @ 999 mls/hr IV .Q31M ONE Stop: 07/18/22 19:03 Last Infusion: 07/18/22 20:02 Dose: 0 mls/hr Documented By: Admin: 07/18/22 19:30 Dose: 999 mls/hr Documented By: YAYO Ioversol (Optiray 320 500ml) 116 ml IV ONCE ONE Stop: 07/18/22 19:04 Last Admin: 07/18/22 19:06 Dose: 116 ml Documented By: JOSE Labetalol HCl (Labetalol Hcl Iv 5 Mg/Ml 20ml) 10 mg IV NOW STA Stop: 07/18/22 19:42 Last Admin: 07/18/22 19:50 Dose: 10 mg Documented By: YAYO Co-signed By: ИВАН Nitroglycerin (Nitroglycerin Sl 0.4 Mg/Tab Tab) 0.4 mg SL NOW STA Stop: 07/18/22 20:20 Last Admin: 07/18/22 20:30 Dose: 0.4 mg Documented By: YAYO Imaging Data Radiologist's Impression: Chest CTA 07/18/22 18:32 CT angio chest PE protocol CT DOSE: 912.33 mGy.cm HISTORY: 77 years-old Female with PE. Acute cough with shortness of breath TECHNIQUE: Multiple CTA images of the chest were obtained after the intravenous administration of 116 ml Optiray. Coronal and sagittal MIPS were obtained from the axial data set and were submitted for review. All measurements were obtained according to NASCET criteria. A dose lowering technique was utilized ad alexy to the principles of ALARA. COMPARISON: CTA chest 10/24/2017 FINDINGS: CTA: Moderate cardiomegaly without pericardial effusion. Extensive coronary artery calcifications. There is atherosclerosis of the thoracic aorta without aneurysm or dissection identified. High-grade stenosis at the origin of the left subclavian artery redemonstrated resulting in occlusion versus near occlusion. The segmental and subsegmental pulmonary arterial branches are not well evaluated secondary to respiratory motion artifact and contrast bolus timing. No definite pulmonary emboli identified. CT CHEST: Unremarkable thyroid. Mild paratracheal and subcarinal adenopathy is similar to the prior, favored to be physiologic. Small pleural effusions. No pneumothorax. Intralobular septal thickening with mild intermixed groundglass densities and patchy nodular consolidative opacities measuring up to approximately 1.3 cm. Bronchial wall thickening with right basilar mucous plugging. Right greater left bibasilar dependent predominant consolidation. Mild nonspecific distal esophageal wall thickening. Unremarkable soft tissues. Unchanged 1.9 cm hypodense left adrenal gland lesion, likely benign. Degenerative changes of the shoulders and spine. Right shoulder rotator cuff calcific tendinosis. IMPRESSION: 1. No pulmonary emboli identified. 2. Cardiomegaly with mild interstitial pulmonary edema, small pleural effusions with dependent bibasilar consolidation suggestive of atelectasis. 3. Mild patchy bilateral groundglass densities with nodular areas of consolidation suggestive of a multifocal infectious or inflammatory pneumonitis. Follow-up imaging after treatment course recommended to document resolution. 4. Mild mediastinal lymphadenopathy, likely reactive. ACT 112: Negative or not required by law. The above report was generated using voice recognition software. It may contain grammatical, syntax or spelling errors. Electronically signed by: Ace Kumar M.D. 07/18/2022 7:52 PM Discharge Plan Visit Data Chief Complaint: Shortness of Breath/Dyspnea Stated Complaint: REFERRED BY DOCTOR, TROUBLE BREATHING, PNEUMONIA ED Provider: Kentrell Isbell Discharge Problem: Hypoxia Discharge Instructions Interventions: ED Discharge Assessment Last Done: 07/18/22 22:30 Forms Stand Alone Forms: My Celeste [facility] [place] Prescriptions Prescriptions: No Action atorvastatin 80 mg tablet 80 mg PO QPM Qty: 90 3RF enalapril maleate 20 mg tablet 20 mg PO BID Qty: 180 3RF Label Comments: breakfast and lunch Lantus Solostar U-100 Insulin 100 unit/mL (3 mL) insulin pen 30 unit SQ HS 90 Days Qty: 30 1RF Rx Instructions: 30 units subcut at bedtime; metformin 500 mg tablet extended release 24 hr 1,000 mg PO QAM Qty: 180 3RF levothyroxine 112 mcg tablet 112 mcg PO 6XWK Qty: 90 1RF Rx Instructions: 1 tab 6 mornings/week on empty stomach w/a full glass of water, wait 30 min to eat,drink or take other meds pantoprazole 40 mg tablet,delayed release (DR/EC) 40 mg PO BID Qty: 60 5RF (DME) lancets [Easy Touch Twist Lancets] 33 gauge misc See Dose Instructions .ROUTE .MEDSUPPLY Qty: 100 Rx Instructions: As directed cholecalciferol (vitamin D3) 25 mcg (1,000 unit) tablet 1,000 units PO QAM aspirin 81 mg tablet,delayed release (DR/EC) 81 mg PO QPM Qty: 90 fluticasone propionate 50 mcg/actuation spray,suspension 2 spray intranasal DAILY PRN (Reason: Allergy Symptoms) Qty: 1 mecobalamin (vitamin B12) 1,000 mcg tablet,chewable 2,500 mcg PO QAM insulin aspart U-100 [Novolog Flexpen U-100 Insulin] 100 unit/mL (3 mL) insulin pen 60 unit .ROUTE DAILY 90 Days Qty: 60 1RF Rx Instructions: 60 units daily; up to 20 units with meals at least 3 times daily (DME) Easy Touch Test Strip Strip See Rx Instructions .ROUTE .MEDSUPPLY Qty: 300 3RF Rx Instructions: test blood sugars 3 x daily hydrochlorothiazide 25 mg tablet 25 mg PO QAM albuterol sulfate 90 mcg/actuation HFA aerosol inhaler 2 puff inhalation Q6H PRN (Reason: Shortness Of Breath Or Wheezing) hydralazine 100 mg tablet See Rx Instructions .ROUTE .COMPLEX Qty: 270 3RF Rx Instructions: 50 mg in morning and afternoon; 100 mg in evening acetaminophen [Tylenol Arthritis Pain] 650 mg tablet extended release 1,300 mg PO DAILY PRN (Reason: sciatica pain) ferrous sulfate 325 mg (65 mg iron) Tablet 325 mg PO QAM multivitamin Tablet 1 tab PO QAM amiodarone 100 mg tablet 100 mg PO QDL potassium chloride 20 mEq tablet extended release 20 meq PO QAM Referrals Referrals: Raoul Palencia MD [Primary Care Provider] -
[2022-07-18] MEDS ORDERED: OPTIRAY 320 500ml IV ONE (19:03)
[2022-07-18] MEDS ORDERED: LABETALOL HCL IV 5 MG/ML 20ML IV STA (19:41)
--- NOTE | 2022-07-18 19:55 | CT Scan Report ---
CT angio chest PE protocol CT DOSE: 912.33 mGy.cm HISTORY: 77 years-old Female with PE. Acute cough with shortness of breath TECHNIQUE: Multiple CTA images of the chest were obtained after the intravenous administration of 116 ml Optiray. Coronal and sagittal MIPS were obtained from the axial data set and were submitted for review. All measurements were obtained according to NASCET criteria. A dose lowering technique was u tilized adhering to the principles of ALARA. COMPARISON: CTA chest 10/24/2017 FINDINGS: CTA: Moderate cardiomegaly without pericardial effusion. Extensive coronary artery calcifications. There i s atherosclerosis of the thoracic aorta without aneurysm or dissection identified. High-grade stenosi s at the origin of the left subclavian artery redemonstrated resulting in occlusion versus near occlu cony. The segmental and subsegmental pulmonary arterial branches are not well evaluated secondary to respiratory motion artifact and contrast bolus timing. No definite pulmonary emboli identified. CT CHEST: Unremarkable thyroid. Mild paratracheal and subcarinal adenopathy is similar to the prior, favored to be physiologic. Small pleural effusions. No pneumothorax. Intralobular septal thickening with mild i ntermixed groundglass densities and patchy nodular consolidative opacities measuring up to approximat ashlee 1.3 cm. Bronchial wall thickening with right basilar mucous plugging. Right greater left bibasila r dependent predominant consolidation. Mild nonspecific distal esophageal wall thickening. Unremarkable soft tissues. Unchanged 1.9 cm hypod ense left adrenal gland lesion, likely benign. Degenerative changes of the shoulders and spine. Right shoulder rotator cuff calcific tendinosis. IMPRESSION: 1. No pulmonary emboli identified. 2. Cardiomegaly with mild interstitial pulmonary edema, small pleural effusions with dependent bibasi lar consolidation suggestive of atelectasis. 3. Mild patchy bilateral groundglass densities with nodular areas of consolidation suggestive of a mu ltifocal infectious or inflammatory pneumonitis. Follow-up imaging after treatment course recommended to document resolution. 4. Mild mediastinal lymphadenopathy, likely reactive. ACT 112: Negative or not required by law. The above report was generated using voice recognition software. It may contain grammatical, syntax o r spelling errors. Electronically signed by: Ace Kumar M.D. 07/18/2022 7:52 PM
[2022-07-18] MEDS ORDERED: NITROGLYCERIN SL 0.4 MG/TAB TAB SL STA (20:19)
[2022-07-18] MEDS ORDERED: FUROSEMIDE INJ 20 MG/2 ML VIAL IV ONE (20:19)
--- NOTE | 2022-07-18 20:58 | History & Physical Report ---
Date of Service July 18, 2022 Assessment & Plan (1) Hypoxia: Plan: -Admit to med tele -Patient is currently afebrile, Hypertensive, and stable on 2L NC -Hypoxia could be multifactorial at this time including likely heart failure exacerbation, possible pulmonary edema from HTN, current covid infection, bacterial pneumonia, and obesity hypoventilation syndrome -Patient examines volume overloaded, BNP noted to be 125, imaging showing pulmonary vascular congestion with BL pleural effusions, procal is negative, CTA negative for PE -Was first given 1L NSS in the ED, then 20 mg IV lasix, will continue 20 mg IV BID for now, monitor intake and output as well as daily weight for now -Continue prn O2 for now to keep SpO2 equal to or greater than 95%, wean as able -Will start scheduled duoNebs, incentive spirometry -Will order mucinex for congestion -Monitor AM CBC, BMP, and Mag (2) HTN (hypertension): Plan: -Noted to be hypertensive at 203/66 on arrival to the ED -Was given 10 mg IV labetalol and 0.4 mg SL nitroglycerine, initially resolved but hypertensive again after my exam -Has been asymptomatic, CTA of the chest negative for dissection -She missed her afternoon antihypertensives and evening dose of hydralazine -Will give evening 100 mg PO hydralazine now along with HS enalapril -Her hypertensive could have caused some of the pulmonary congestion noted on imaging, continue to monitor -May need additional doses of IV antihypertensives if continues to be uncontrolled -Continue Hydralazine, enalapril, will hold hydrochlorothiazide while on IV lasix -Continue to monitor on tele (3) Paroxysmal atrial fibrillation: Plan: -Currently rate controlled -Her Xarelto has been held due to anemia and recently diagnosed gastric ulcers -Will continue to hold for now, she will need to check in with her PCP on when to resume -Continue amiodarone (4) Hypomagnesemia: Plan: -Noted to be 1.6 in the ED, likely due to diuretic use and poor oral intake -Will give 1gm IV tonight -Monitor in the Am (5) CAD (coronary artery disease): Plan: -Conitue aspirin (6) Anxiety: Plan: -not currently on medication (7) Dyslipidemia: Plan: -Cotinue statini (8) Type 2 diabetes mellitus: Plan: -Continue HS lantus at 30 units Sub-Q -Monitor BSG ACHS, correction factor of 60 with carb ratio of 20 (9) Hypothyroidism: Plan: -Continue levothyroxine (10) Severe obstructive sleep apnea: Plan: -Patient previously diagnosed but does not use CPAP (11) Anemia: Plan: -Continue iron (12) Gastric ulcer: Plan: -Continue protonix Plan The patient was discussed with Dr. Laguna at the time of admission History of Present Illness Chief Complaint: Worsening SOB Primary Care Provider: Raoul Palencia MD Carey is a 77 year old female with a PMH significant for recently diagnosed Covid infection approximately 10 days ago, aifb (not currently on Xarelto), carotid stenosis, previous CVA in 2013, CAD, Dyslipidemia, DM II, hypothyroidism, sleep apnea, and left subclavian artery stenosis who presented to the [facility] ED on 07/18/22 for worsening SOB and hypoxia at home. Per chart review, the patient was seen at her PCP earlier today for the same symptoms. Per the clinic note, the patient was diagnosed with Covid pneumonia in [place] at the beginning of the month, she was treated with albuterol only. In the ED the patient was noted to be afebrile, hypertensive at 221/86, and initially stable on RA. While in the ED the patient was noted to be 86% on RA and was placed on 2L NC. Labs were remarkable for WBC WNL, stable Hgb, thrombocytosis of 408, absolute neutrophils of 6.83, stable renal function, magnesium of 1.6, BNP of 125. CTA of the chest showed "No pulmonary emboli identified. Cardiomegaly with mild interstitial pulmonary edema, small pleural effusions with dependent bibasilar consolidation suggestive of atelectasis. Mild patchy bilateral ground glass densities with nodular areas of consolidation suggestive of a multifocal infectious or inflammatory pneumonitis. Follow-up imaging after treatment course recommended to document resolution. Mild mediastinal lymphadenopathy, likely reactive. Occlusion versus near occlusion of the left subclavian origin artery appears unchanged.". Prior to admission the patient was given 20 mg IV lasix, 10 mg IV labetalol, 0.4 mg SL Nitroglycerine, and 1L NSS bolus. At the time of the exam the patient was resting comfortably in bed in no acute distress with her sitting bedside. They state that her current issues started on 07/08/22 when she was in [place] and was noted to be SOB. She went to the ED and was diagnosed with covid Pneumonia but was noted to be stable on RA and was discharged with an albuterol inhaler. She states that she had her moderna boost at the end of April. Since being discharged the patient has noted increased SOB especially with with exertion. She has noted more weight gain and swelling in her lower extremities. She developed a productive cough with green sputum which has improved after taking Mucinex. She has been using her albuterol inhaler but it does not seem to improve her symptoms. Over the past two nights she has had to sleep in a recliner as she has experienced severe orthopnea when lying flat. She denies recent fevers, chills, chest pain, abdominal pain, nausea, vomiting ,diarrhea, hematemesis, dysuria, hematuria, bloody bowel movements, melena, and recent falls. She wasn't exactly sure why she was recently taken off of her Xarelto. Per chart review, she was recently diagnosed with anemia, per the workup she underwent colonoscopy and EGD at [facility] on 06/28/22. Her colonoscopy revealed diverticulosis of the sigmoid colon, non-bleeding internal hemorrhoids, and two 3mm and 5 mm polyps. EGD showed a normal esophagus, and non-bleeding gastric ulcers with no stigmata of bleeding. She was started on 40 mg PO Protonix BID. Per the family practice note on 05/22/22, her Xarelto has been held because of the anemia and ulcers. Allergies Allergy/AdvReac Type Severity Reaction Status Date / Time animal dander Allergy Mild Sneezing Verified 07/18/22 15:40 mold Allergy Mild Sneezing, Verified 07/18/22 15:40 mucus, watery eyes pollen extracts Allergy Mild Sneezing, Verified 07/18/22 15:40 mucus, watery eyes ragweed pollen Allergy Mild Sneezing, Verified 07/18/22 15:40 mucus, watery eyes grass pollen Allergy Unknown Sneezing Verified 07/18/22 15:40 No Known Drug Allergies Allergy Verified 07/18/22 15:40 Home Medications Medication Instructions Recorded Confirmed Type lancets 33 gauge (Easy Touch Twist #100 ea 06/16/19 07/18/22 History Lancets) cholecalciferol (vitamin D3) 25 1,000 units PO QAM 02/08/20 07/18/22 History mcg (1,000 unit) tablet mecobalamin (vitamin B12) 1,000 2,500 mcg PO QAM 10/03/21 07/18/22 History mcg chewable tablet hydralazine 100 mg tablet See Rx Instructions .Route 12/15/21 07/18/22 Rx .COMPLEX #270 tabs atorvastatin 80 mg tablet 80 mg PO QPM #90 tabs 01/15/22 07/18/22 Rx enalapril maleate 20 mg tablet 20 mg PO BID #180 tabs 01/18/22 07/18/22 Rx insulin glargine 100 unit/mL (3 30 unit (0.3 mL) subcut HS 90 days 02/16/22 07/18/22 Rx mL) subcutaneous pen (Lantus #30 mL Solostar U-100 Insulin) Easy Touch Test Strip (blood sugar #300 ea 04/03/22 07/18/22 Rx diagnostic) acetaminophen 650 mg 1,300 mg PO DAILY PRN sciatica pain 04/03/22 07/18/22 History tablet,extended release (Tylenol Arthritis Pain) insulin aspart U-100 100 unit/mL 60 unit (0.6 mL) .Route DAILY 90 04/03/22 07/18/22 Rx (3 mL) subcutaneous pen ( #60 mL Flexpen U-100 Insulin aspart) aspirin 81 mg tablet,delayed 81 mg PO QPM #90 tabs 06/14/22 07/18/22 History release fluticasone propionate 50 2 spray intranasal DAILY PRN 06/14/22 07/18/22 History mcg/actuation nasal Allergy Symptoms #1 g spray,suspension hydrochlorothiazide 25 mg tablet 25 mg PO QAM 06/14/22 07/18/22 History amiodarone 100 mg tablet 100 mg PO QDL 06/21/22 07/18/22 History ferrous sulfate 325 mg (65 mg 325 mg PO QAM 06/21/22 07/18/22 History iron) tablet metformin 500 mg tablet,extended 1,000 mg PO QAM #180 tabs 06/21/22 07/18/22 Rx release 24 hr multivitamin 1 tab PO QAM 06/21/22 07/18/22 History potassium chloride 20 mEq 20 meq PO QAM 06/21/22 07/18/22 History tablet,extended release levothyroxine 112 mcg tablet 112 mcg PO 6XWK #90 tabs 07/13/22 07/18/22 Rx pantoprazole 40 mg tablet,delayed 40 mg PO BID #60 tabs 07/16/22 07/18/22 Rx release albuterol sulfate 90 mcg/actuation 2 puff inhalation Q6H PRN 07/18/22 07/18/22 History aerosol inhaler Shortness Of Breath Or Wheezing Past Med/Surg History Medical History (Updated 07/19/22 @ 15:45 by Shireen Mijares MD) Anemia Bulging disc L3-L4, gets injections with Dr. Gordon CAD (coronary artery disease) Circumflex DC s/p circumflex angioplasty (1998) Carotid stenosis Carotid Duplex 03/2020: 60-69% stenosis in right ICA. 50-59% stenosis in the left ICA. Follows with Dr Wagoner. 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 Mitral valve disorder Per ECHO 01/2020- calcified papillary muscle head with systolic anterior motion of the mitral leaflet. No significant obstruction. Mixed conductive and sensorineural hearing loss of right ear with restricted hearing of left ear Moderate obstructive sleep apnea Moderate sleep apnea/Hypopnea with nocturnal hypoxemia. Declines CPAP. Paroxysmal atrial fibrillation Dx 03/2020 > no pacer, med controlled, follows with Dr. Negrete Sciaticvladimir Subclavian artery stenosis, left Per 03/2020 carotid duplex- left subclavian stenosis, retrograde flow in the left vertebral artery consistent with steal phenomenon. Surgical History History of abdominal hysterectomy (04/1998) bso, endometriosis History of cardiac cath (~1998) no stents History of cataract surgery R/L History of colonoscopy (03/21/16) History of cystoscopy Cystoscopy, Right Ureteroscopy, Retrograde, Right Stent Placement: 07/07/20: LMA#4 at [facility] History of lithotripsy S/P excision of lipoma Family History Sister ALS (amyotrophic lateral sclerosis) Aunt Breast cancer Mother Diabetes Myocardial infarction Hypertension Heart disease Father Diabetes Myocardial infarction Hypertension Heart disease Other Congestive heart failure Coronary heart disease No family history of adverse response to anesthesia No family history of bleeding disorder Denies family history of Ovarian cancer Prostate cancer Lung cancer Colorectal cancer Stroke Social History Smoking Status: Former smoker Second Hand Exposure: No; Do You Dip or Chew Tobacco: No; Hx Alcohol Use: Yes Alcohol type: beer and wine Alcohol Intake Frequency: 2-4 x/Month Hx Substance Use: No Preferred Language: Macedonian Communication Ability: Effective Visual Impairment: Limited Hearing Ability: Use of Hearing Aid Tensile Tester Required: No Beliefs That Will Affect Care: None marital status: Current Living Situation: Spouse current occupational status: retired How many Children do You have: 2 Other Information That Helps Us Care for You: No Feels Safe at Home: Yes Safety Concerns: Feels Safe At This Time Childhood Exposure to Second-Hand Smoke: Yes caffeine: Yes Dental Care, Regularly: Yes Physical Activity Frequency: 1-2 Times per Week Seatbelt Use: always Sunscreen Use: Yes Assistive Devices: Glasses and Hearing Aid - Bilateral Review of Systems Review of Systems: Denies current fever, chills, headache, changes in vision, hearing, taste, and smell, chest pain, abdominal pain, nausea, vomiting, diarrhea, hematemesis, melena, dysuria, hematuria, and recent falls. All systems have been reviewed and are otherwise negative. Physical Exam Physical Exam: Physical Exam: General: In no acute distress, stated age, chronically ill-appearing HEENT: Normocephalic, atraumatic, no scleral icterus, pupils around round, symmetrical, and reactive to light, moist mucus membranes, + JV, trachea midline, no thyromegaly Chest/Pulm: No respiratory distress, symmetrical chest expansion, distant breath sounds, decreased breaths sounds noted in the BL Lower lung bautista Cardiac: RRR, no murmurs noted Abdomen: Negative for ascites and bruising, normoactive bowel sounds, soft, non-tender to palpation throughout Musculoskeletal: Symmetrical and without signs of acute trauma, upper and lower extremities with full ROM, no atrophy, spasticity, or flaccidity Extremities: Radial, dorsalis pedis, and posterior tibial pulses are intact and symmetrical, +2 pitting edema noted in the BL LE's Skin: Warm, dry, no rashes , lesions, or scars noted Neuro: Alert and oriented to person, place, month, year, and president, no focal defects, CN II-XII tested and intact, finger to nose test negative, no tremors noted Psych: No acute distress, calm and cooperative during the exam Results & Data Results & Data ([facility]) Vital Signs (Past 12 Hours) Vital Signs Temp Pulse Pulse Resp BP BP Pulse Ox 07/18/22 20:39 97 07/18/22 20:39 86 L 07/18/22 20:22 182/55 H 07/18/22 19:32 93 07/18/22 19:32 68 28 H 93 07/18/22 16:41 37 C 65 20 221/86 H 92 O2 Del Method O2 Flow Rate 07/18/22 20:39 Nasal Cannula 2 07/18/22 20:39 Room Air 07/18/22 20:22 07/18/22 19:32 Room Air 07/18/22 19:32 Room Air 07/18/22 16:41 Room Air Laboratory Results Abnormal lab results 07/18/22 07/18/22 07/18/22 Range/Units 17:13 17:13 17:13 RBC 3.90 L (3.93-5.22) M/uL Hgb 9.0 L (12.0-16.0) g/dl Hct 30.8 L (34.1-44.9) % MCV 79.0 L (80.0-100.0) fL MCH 23.1 L (25.0-34.0) pg MCHC 29.2 L (32.0-36.0) g/dL RDW Std Deviation 56.9 H (36.4-46.3) fL RDW Coeff of Rosalino 20.2 H (11.5-14.5) % Plt Count 408 H (130-400) K/uL Neut # (Auto) 6.83 H (1.4-6.5) K/uL Immature Gran # (Auto) 0.13 H (0.00-0.02) K/uL Absolute Nucleated RBC 0.04 H (0-0) K/uL Glucose 150 H (70-99(Fasting)) mg/dl Magnesium 1.6 L (1.7-2.4) mg/dl B-Natriuretic Peptide 125 H (0-100) pg/ml Albumin 3.3 L (3.4-5.0) gm/dl SARS-CoV-2 (PCR) (Negative) 07/18/22 Range/Units 20:31 RBC (3.93-5.22) M/uL Hgb (12.0-16.0) g/dl Hct (34.1-44.9) % MCV (80.0-100.0) fL MCH (25.0-34.0) pg MCHC (32.0-36.0) g/dL RDW Std Deviation (36.4-46.3) fL RDW Coeff of Rosalino (11.5-14.5) % Plt Count (130-400) K/uL Neut # (Auto) (1.4-6.5) K/uL Immature Gran # (Auto) (0.00-0.02) K/uL Absolute Nucleated RBC (0-0) K/uL Glucose (70-99(Fasting)) mg/dl Magnesium (1.7-2.4) mg/dl B-Natriuretic Peptide (0-100) pg/ml Albumin (3.4-5.0) gm/dl SARS-CoV-2 (PCR) POSITIVE A* (Negative) Diagnostic Findings Chest CTA 07/18/22 18:32 CT angio chest PE protocol CT DOSE: 912.33 mGy.cm HISTORY: 77 years-old Female with PE. Acute cough with shortness of breath TECHNIQUE: Multiple CTA images of the chest were obtained after the intravenous administration of 116 ml Optiray. Coronal and sagittal MIPS were obtained from the axial data set and were submitted for review. All measurements were obtained according to NASCET criteria. A dose lowering technique was utilized adhering to the principles of ALARA. COMPARISON: CTA chest 10/24/2017 FINDINGS: CTA: Moderate cardiomegaly without pericardial effusion. Extensive coronary artery calcifications. There is atherosclerosis of the thoracic aorta without aneurysm or dissection identified. High-grade stenosis at the origin of the left subclavian artery redemonstrated resulting in occlusion versus near occlusion. The segmental and subsegmental pulmonary arterial branches are not well evaluated secondary to respiratory motion artifact and contrast bolus timing. No definite pulmonary emboli identified. CT CHEST: Unremarkable thyroid. Mild paratracheal and subcarinal adenopathy is similar to the prior, favored to be physiologic. Small pleural effusions. No pneumothorax. Intralobular septal thickening with mild intermixed groundglass densities and patchy nodular consolidative opacities measuring up to approximately 1.3 cm. Bronchial wall thickening with right basilar mucous plugging. Right greater left bibasilar dependent predominant consolidation. Mild nonspecific distal esophageal wall thickening. Unremarkable soft tissues. Unchanged 1.9 cm hypodense left adrenal gland lesion, likely benign. Degenerative changes of the shoulders and spine. Right shoulder rotator cuff calcific tendinosis. IMPRESSION: 1. No pulmonary emboli identified. 2. Cardiomegaly with mild interstitial pulmonary edema, small pleural effusions with dependent bibasilar consolidation suggestive of atelectasis. 3. Mild patchy bilateral groundglass densities with nodular areas of consolidation suggestive of a multifocal infectious or inflammatory pneumonitis. Follow-up imaging after treatment course recommended to document resolution. 4. Mild mediastinal lymphadenopathy, likely reactive. ACT 112: Negative or not required by law. The above report was generated using voice recognition software. It may contain grammatical, syntax or spelling errors. Electronically signed by: Ace Kumar M.D. 07/18/2022 7:52 PM ECG Additional Comments: Sinus rhythm with Premature atrial complexes Low voltage QRS Borderline ECG When compared with ECG of 15-APR-2020 01:00, Premature ventricular complexes are no longer Present Premature atrial complexes are now Present Code Status & VTE Plan Code Status Full code VTE Prophylaxis Plan VTE Prophylaxis will be ordered: Yes Supervising Physician Co-Signing Physician Notes Patient seen and examined, chart reviewed, case discussed with JAYLON Santos and I agree with the assessment and plan as above. In brief, patient is a 77yo female with recent Covid-19 10d ago presenting with persistent symptoms, hypoxic on arrival. On exam she is resting comfortably, BP improved as well as hypoxia Oriented x 4, pleasant No rash MMM, Neck supple Crackles in bilateral bases, no wheeze Abdomen is soft, NT/ND Ext warm Labs and images reviewed Assessment/Plan Diuresis Uncertain how much hypoxia is secondary to Covid BP management Remainder as above PG Care Time/CCT Total # of Minutes Spent Total Time Spent with Patient: Total time spent is greater than 50% in coordination of care (as documented) at patient's floor/unit and/or counseling patient: Coding [place] [address] Initial Inpt Care Lvl 3 Patient Type Established Medical Decision Making High Complexity Diagnoses Hypoxia R09.02 HTN (hypertension) I10 Paroxysmal atrial fibrillation I48.0 Hypomagnesemia E83.42 CAD (coronary artery disease) I25.10 Anxiety F41.9 Dyslipidemia E78.5 Type 2 diabetes mellitus E11.9 Hypothyroidism E03.9 Severe obstructive sleep apnea G47.33 Anemia D64.9 Gastric ulcer K25.9
[2022-07-18] MEDS ORDERED: MAGNESIUM SULFATE / D5W 1 GM/100 ML BAG IV ONE (21:32)
[2022-07-18 21:36] LABS: Influenza A virus by PCR Negative (Neg); Influenza B virus by PCR Negative (Neg); RSV by PCR Negative (Neg)
[2022-07-18] MEDS ORDERED: hydrALAZINE TAB 50 MG TAB PO STA (21:36)
[2022-07-18 21:43] LABS: SARS CoV2 RNA(COVID-19) InHosp POSITIVE (Negative)
[2022-07-18] MEDS ORDERED: DEXTROSE 50% 50 ML SYRINGE IV PRN (23:05)
[2022-07-18] MEDS ORDERED: GLUCOSE 40% GEL 15 GM TUBE PO PRN (23:05)
[2022-07-18] MEDS ORDERED: ACETAMINOPHEN 325 MG TAB PO PRN (23:05)
[2022-07-18] MEDS ORDERED: GLUCOSE 10 TAB/TUBE PO PRN (23:05)
[2022-07-18] MEDS ORDERED: GLUCAGON FOR INJ 1 MG VIAL SQ PRN (23:05)
[2022-07-18] MEDS ORDERED: CARBOHYDRATES FOR HYPOGLYCEMIA PO PRN (23:05)
[2022-07-18] MEDS: ALBUT/IPRATROP 3MG/0.5MG NEB 3 ML VIAL NEB SCH (23:31)
[2022-07-18] MEDS: INSULIN ASPART PER UNIT SC SCH (23:46)
[2022-07-19] MEDS: ENALAPRIL MALEATE 10 MG TAB PO SCH ×3 (00:34→22:39)
[2022-07-19] MEDS: ALBUT/IPRATROP 3MG/0.5MG NEB 3 ML VIAL NEB SCH ×2 (02:49→07:29)
[2022-07-19] MEDS: LEVOTHYROXINE SODIUM 112 MCG TABLET PO SCH (06:23)
[2022-07-19 07:02] LABS: Basophils # (auto) 0.07 K/uL (0-0.2); Basophils % (auto) 0.8 %; Eosinophils # (auto) 0.22 K/uL (0-0.50); Eosinophils % (auto) 2.6 %; Hematocrit (blood only) 29.7 % (34.1-44.9); Hemoglobin 8.7 g/dl (12.0-16.0); Immature Granulocytes # (auto) 0.16 K/uL (0.00-0.02); Immature Granulocytes % (auto) 1.9 %; Lymphocytes # (auto) 1.33 K/uL (1.2-3.4); Lymphocytes % (auto) 15.9 %; Mean Corpuscular Hgb Conc 29.3 g/dL (32.0-36.0); Mean Corpuscular Volume 78.4 fL (80.0-100.0); Monocytes # (auto) 0.66 K/uL (0.24-0.82); Monocytes % (auto) 7.9 %; Neutrophils % (auto) 70.9 %; Nucleated RBC # (auto) 0.03 K/uL (0-0); Nucleated RBC % (auto) 0.4 %; Platelet Count 386 K/uL (130-400); RDW Coefficient of Variation 20.3 % (11.5-14.5); RDW Standard Deviation 56.7 fL (36.4-46.3); Red Blood Count 3.79 M/uL (3.93-5.22); White Blood Count 8.34 K/ul (4.8-10.8)
[2022-07-19 07:33] LABS: BUN Creatinine Ratio 13.6 (10-20); Creatinine Clr Calc Pharmacy 76.9 ml/min; Est GFR (African American) 100.2 ml/min; Est GFR (Non-African American) 86.4 ml/min; Potassium 3.7 mmol/L (3.5-5.1)
[2022-07-19 07:44] LABS: Anisocytosis Present; Ovalocytes 1+; Polychromasia 1+
[2022-07-19] MEDS: INSULIN ASPART PER UNIT SC SCH ×4 (08:27→22:39)
[2022-07-19] MEDS: PANTOprazole 40 MG TAB PO SCH ×2 (08:33→22:36)
[2022-07-19] MEDS: guaiFENesin 600 MG TABCR PO SCH ×2 (08:33→22:36)
[2022-07-19] MEDS: hydrALAZINE TAB 50 MG TAB PO SCH ×3 (08:33→22:38)
[2022-07-19] MEDS: CHOLECALCIFEROL 1,000 UNITS 25 MCG TAB PO SCH (08:34)
[2022-07-19] MEDS: FERROUS SULFATE 325 MG TAB PO SCH (08:34)
[2022-07-19] MEDS: POTASSIUM CHLORIDE CRTAB 20 MEQ TABCR PO SCH (08:34)
[2022-07-19] MEDS: MULTIVITAMIN TAB PO SCH (08:34)
[2022-07-19] MEDS ORDERED: CYANOCOBALAMIN (B-12) 2,500 MCG TABLET SCH (09:00)
[2022-07-19] MEDS ORDERED: PNEUMOCOCCAL Polysaccharide Vaccine 25mcg/0.5mL vial/Syr IM ONE (09:00)
[2022-07-19] MEDS ORDERED: FUROSEMIDE INJ 20 MG/2 ML VIAL IV SCH (09:00)
--- NOTE | 2022-07-19 09:28 | Electrocardiogram Report ---
Test Reason : Blood Pressure : / mmHG Vent. Rate : 065 BPM Atrial Rate : 065 BPM P-R Int : 174 ms QRS Dur : 082 ms QT Int : 448 ms P-R-T Axes : 015 047 078 degrees QTc Int : 465 ms Sinus rhythm with Premature atrial complexes Low voltage QRS Borderline ECG When compared with ECG of 15-APR-2020 01:00, Premature ventricular complexes are no longer Present Premature atrial complexes are now Present Confirmed by Edgar Raymundo ([id number]) on 07/19/2022 9:28:14 AM Referred By: Raoul Palencia Confirmed By:Edgar Raymundo
[2022-07-19] MEDS: dexAMETHasone 6 MG in SYRINGE 0 ML IV SCH (10:10)
[2022-07-19] MEDS: ENOXAPARIN INJ 40 MG/0.4 ML SYR SQ SCH (10:10)
[2022-07-19] MEDS ORDERED: ALBUT/IPRATROP 3MG/0.5MG NEB 3 ML VIAL NEB PRN (10:31)
[2022-07-19] MEDS: AMIODARONE 200 MG TAB PO SCH (11:55)
--- NOTE | 2022-07-19 15:02 | Hospitalist Progress Note ---
Date of Service July 19, 2022 Assessment & Plan (1) COVID-19: Plan: Pneumonia due to COVID-19 Patient here with worsening hypoxia and respiratory symptoms secondary to pneumonia from COVID-19. First diagnosed on 07/08 at an outside hospital in [place], [place]. Treated with an albuterol inhaler at that time. CTA chest here with small pleural effusions, interlobular septal thickening with mild intermixed groundglass densities and patchy nodular consolidative opacities measuring up to 1.3 cm, bronchial wall thickening with right basilar mucous plugging, right greater than left bibasilar dependent predominant consolidation, negative for PE -Outside window for Remdesivir -Start dexamethasone 6 mg IV once daily x10-day course -Supplemental O2 to keep pulse ox greater than 92% -Procalcitonin negative, do not suspect bacterial pneumonia -Follow CBC, BMP -Continue CPAP at bedtime -Add flutter valve -Continue albuterol HFA as needed and DuoNebs as needed (2) Hypoxia: Plan: Acute respiratory failure with hypoxia-was requiring 2 L nasal cannula on admission -Hypoxia multifactorial secondary to heart failure exacerbation, covid pneumonia -Patient examines volume overloaded, BNP noted to be 125, imaging showing pulmonary vascular congestion with BL pleural effusions, procal is negative, CTA negative for PE -Was first given 1L NSS in the ED, then 20 mg IV lasix, and then was continued on Lasix 20 mg IV BID x2 doses-discontinue as no longer needed-restart home HCTZ in the morning -Continue supplemental O2 to keep pulse ox greater 92% -Continue albuterol, pulmonary toilet as above -Will order mucinex for congestion Follow chest x-ray to resolution (3) Anemia: Plan: Hemoglobin low but stable from previous at 8.7, microcytic She had a previous recent suspected GI bleed from gastric ulcer seen on EGD Her Xarelto has been on hold since the end of 04/2022 but she remains on aspirin daily Check iron studies, B12, folate in the morning and can give IV iron if remains low -Follow CBC in the morning -Carefully watch for recurrence of bleeding ulcers now that she is on steroids -Continue Protonix twice daily -Discussed with her primary greenhouse grower and he is okay with switching aspirin to Plavix for her antiplatelet given CAD and PAD -Continue to hold Xarelto at this time especially as she remains in sinus rhythm (4) HTN (hypertension): Plan: -Noted to be hypertensive at 203/66 on arrival to the ED -Was given 10 mg IV labetalol and 0.4 mg SL nitroglycerin, initially resolved but hypertensive again today -Has been asymptomatic, CTA of the chest negative for dissection -Continue home enalapril 20 Mg p.o. twice daily, hydralazine 50/50/100 Mg, and restarting home HCTZ after diuresed with IV Lasix as above IV Decadron may be worsening the hypertension now -Add on amlodipine 5 mg daily -She cannot tolerate beta-blockers due to previous bradycardia -Follow blood pressures (5) Paroxysmal atrial fibrillation: Plan: Currently in sinus rhythm -Her Xarelto has been held due to anemia and recently diagnosed gastric ulcers Cannot tolerate beta-blockers due to bradycardia -Continue amiodarone -Monitor on telemetry (6) Hypomagnesemia: Plan: -Noted to be 1.6 in the ED, likely due to diuretic use and poor oral intake Replaced and now normalized (7) CAD (coronary artery disease): Plan: With a history of CABG Change aspirin to Plavix as above for recent gastric ulcers Continue atorvastatin, enalapril She cannot tolerate beta-blockers No acute issues (8) Anxiety: Plan: -not currently on medication (9) Dyslipidemia: Plan: -Continue statin (10) Type 2 diabetes mellitus: Plan: -Continue HS lantus at 30 units Sub-Q With hyperglycemia now due to steroid use-tighten down NovoLog correction factor and carb ratio (11) Hypothyroidism: Plan: -Continue levothyroxine TSH was normal at 4.3 in 04/2022 (12) Severe obstructive sleep apnea: Plan: -Patient previously diagnosed but does not use CPAP (13) Gastric ulcer: Plan: -Continue protonix (14) Subclavian artery stenosis, left: Plan: Noted, do not take blood pressure on the left upper extremity (15) Lumbar radiculopathy: Plan: Continue Tylenol 3 times daily-make scheduled as she takes this at home (16) Peripheral arterial disease: Plan: Switching aspirin to Plavix as above Continue high intensity statin Has a history of left subclavian stenosis, carotid artery stenosis (17) Acute diastolic CHF (congestive heart failure): Plan: As above, with pulmonary edema, diuresed with IV Lasix and now improved Resort back to home HCTZ Plan DVT prophylaxis-add Lovenox SQ, YOVANNY hose to be added Disposition-continued stay on med telemetry, COVID precautions. Asked her to get a copy of her COVID result from outside hospital from 07/08 to show to our infection product controller to see when precautions can be discontinued Admission and Anticipated Discharge Date Admission Date: July 18, 2022 Subjective Patient reports feeling better than yesterday. She is weaned off oxygen to room air when I saw her and appears comfortable. She is still feeling short of breath with ambulating to the bathroom and back off of oxygen. She denies chest pains or abdominal pains. Her blood pressures have remained quite elevated today. No blood in the stool or melena. Does report having a few loose stools since having COVID. She is coughing up some sputum. Telemetry with sinus rhythm with rates in the 50s to 60s Review of Systems Review of Systems: All systems reviewed & are unremarkable except as noted in HPI & below Physical Exam Constitutional: WD/WN, vitals as above Eyes: + anicteric sclerae Neck: trachea midline, no thyromegaly Respiratory: normal respiratory effort, lungs clear to auscultation Auscultation: + diminished lung sounds (Throughout) Cardiovascular: Rate/Rhythm: regular rate and regular rhythm Extremities: + edema (Trace of the legs bilaterally) Chest (Breasts): Chest: normal inspection of chest Gastrointestinal (Abdomen): normal bowel sounds, soft, nontender, no hepatosplenomegaly Musculoskeletal: Extremities: extremities normal to inspection; no cyanosis and no clubbing Skin: no rashes, warm and dry Neurologic: moves all extremities and awake; no focal motor deficits Psychiatric: A+Ox3, euthymic affect Results & Data Results & Data ([facility]) Vital Signs (Past 12 Hours) Vital Signs Temp Pulse Pulse Resp BP Pulse Ox O2 Del Method 07/19/22 13:20 61 183/58 H 07/19/22 12:04 36.6 C 63 20 190/71 H 90 Room Air 07/19/22 12:03 74 195/67 H 07/19/22 11:58 Room Air 07/19/22 08:08 36.8 C 64 20 197/53 H 91 Room Air 07/19/22 07:29 78 18 96 Nasal Cannula 07/19/22 07:05 55 L O2 Flow Rate 07/19/22 13:20 07/19/22 12:04 07/19/22 12:03 07/19/22 11:58 07/19/22 08:08 07/19/22 07:29 2 07/19/22 07:05 Laboratory Results 07/19/22 07/19/22 07/19/22 Range/Units 16:53 15:55 11:48 WBC (4.8-10.8) K/ul RBC (3.93-5.22) M/uL Hgb (12.0-16.0) g/dl Hct (34.1-44.9) % MCV (80.0-100.0) fL MCH (25.0-34.0) pg MCHC (32.0-36.0) g/dL RDW Std Deviation (36.4-46.3) fL RDW Coeff of Rosalino (11.5-14.5) % Plt Count (130-400) K/uL MPV (9.4-12.3) fL Immature Gran % (Auto) % Neut % (Auto) % Lymph % (Auto) % Cowley % (Auto) % Eos % (Auto) % Baso % (Auto) % Neut # (Auto) (1.4-6.5) K/uL Lymph # (Auto) (1.2-3.4) K/uL Cowley # (Auto) (0.24-0.82) K/uL Eos # (Auto) (0-0.50) K/uL Baso # (Auto) (0-0.2) K/uL Immature Gran # (Auto) (0.00-0.02) K/uL Absolute Nucleated RBC (0-0) K/uL Nucleated RBC % (auto) % Polychromasia Anisocytosis Ovalocytes Sodium (136-145) mmol/L Potassium (3.5-5.1) mmol/L Chloride (98-107) mmol/L Carbon Dioxide (21-32) mmol/L Anion Gap (3-11) BUN (6-23) mg/dl Creatinine (0.6-1.2) mg/dl Est Cr Clr Drug Dosing ml/min Est GFR ( Amer) ml/min Est GFR (Non-Af Amer) ml/min BUN/Creatinine Ratio (10-20) Glucose (70-99(Fasting)) mg/dl POC Glucose 333 H* 324 H* 199 H (70-99) mg/dl Calcium (8.5-10.1) mg/dl Magnesium (1.7-2.4) mg/dl B-Natriuretic Peptide (0-100) pg/ml Procalcitonin (0-0.5) ng/ml SARS-CoV-2 (PCR) (Negative) Influenza Type A (PCR) (Neg) Influenza Type B (PCR) (Neg) RSV (RT-PCR) (Neg) 07/19/22 07/19/22 07/19/22 Range/Units 07:53 06:35 06:35 WBC 8.34 (4.8-10.8) K/ul RBC 3.79 L (3.93-5.22) M/uL Hgb 8.7 L (12.0-16.0) g/dl Hct 29.7 L (34.1-44.9) % MCV 78.4 L (80.0-100.0) fL MCH 23.0 L (25.0-34.0) pg MCHC 29.3 L (32.0-36.0) g/dL RDW Std Deviation 56.7 H (36.4-46.3) fL RDW Coeff of Rosalino 20.3 H (11.5-14.5) % Plt Count 386 (130-400) K/uL MPV 11.0 (9.4-12.3) fL Immature Gran % (Auto) 1.9 % Neut % (Auto) 70.9 % Lymph % (Auto) 15.9 % Cowley % (Auto) 7.9 % Eos % (Auto) 2.6 % Baso % (Auto) 0.8 % Neut # (Auto) 5.90 (1.4-6.5) K/uL Lymph # (Auto) 1.33 (1.2-3.4) K/uL Cowley # (Auto) 0.66 (0.24-0.82) K/uL Eos # (Auto) 0.22 (0-0.50) K/uL Baso # (Auto) 0.07 (0-0.2) K/uL Immature Gran # (Auto) 0.16 H (0.00-0.02) K/uL Absolute Nucleated RBC 0.03 H (0-0) K/uL Nucleated RBC % (auto) 0.4 % Polychromasia 1+ Anisocytosis Present Ovalocytes 1+ Sodium 141 (136-145) mmol/L Potassium 3.7 (3.5-5.1) mmol/L Chloride 103 (98-107) mmol/L Carbon Dioxide 32 (21-32) mmol/L Anion Gap 6 (3-11) BUN 9 (6-23) mg/dl Creatinine 0.66 (0.6-1.2) mg/dl Est Cr Clr Drug Dosing 76.9 ml/min Est GFR ( Amer) 100.2 ml/min Est GFR (Non-Af Amer) 86.4 ml/min BUN/Creatinine Ratio 13.6 (10-20) Glucose 139 H (70-99(Fasting)) mg/dl POC Glucose 152 H (70-99) mg/dl Calcium 9.0 (8.5-10.1) mg/dl Magnesium 2.0 (1.7-2.4) mg/dl B-Natriuretic Peptide (0-100) pg/ml Procalcitonin (0-0.5) ng/ml SARS-CoV-2 (PCR) (Negative) Influenza Type A (PCR) (Neg) Influenza Type B (PCR) (Neg) RSV (RT-PCR) (Neg) 07/18/22 07/18/22 07/18/22 Range/Units 23:00 20:31 17:13 WBC (4.8-10.8) K/ul RBC (3.93-5.22) M/uL Hgb (12.0-16.0) g/dl Hct (34.1-44.9) % MCV (80.0-100.0) fL MCH (25.0-34.0) pg MCHC (32.0-36.0) g/dL RDW Std Deviation (36.4-46.3) fL RDW Coeff of Rosalino (11.5-14.5) % Plt Count (130-400) K/uL MPV (9.4-12.3) fL Immature Gran % (Auto) % Neut % (Auto) % Lymph % (Auto) % Cowley % (Auto) % Eos % (Auto) % Baso % (Auto) % Neut # (Auto) (1.4-6.5) K/uL Lymph # (Auto) (1.2-3.4) K/uL Cowley # (Auto) (0.24-0.82) K/uL Eos # (Auto) (0-0.50) K/uL Baso # (Auto) (0-0.2) K/uL Immature Gran # (Auto) (0.00-0.02) K/uL Absolute Nucleated RBC (0-0) K/uL Nucleated RBC % (auto) % Polychromasia Anisocytosis Ovalocytes Sodium (136-145) mmol/L Potassium (3.5-5.1) mmol/L Chloride (98-107) mmol/L Carbon Dioxide (21-32) mmol/L Anion Gap (3-11) BUN (6-23) mg/dl Creatinine (0.6-1.2) mg/dl Est Cr Clr Drug Dosing ml/min Est GFR ( Amer) ml/min Est GFR (Non-Af Amer) ml/min BUN/Creatinine Ratio (10-20) Glucose (70-99(Fasting)) mg/dl POC Glucose 176 H (70-99) mg/dl Calcium (8.5-10.1) mg/dl Magnesium (1.7-2.4) mg/dl B-Natriuretic Peptide (0-100) pg/ml Procalcitonin < 0.05 (0-0.5) ng/ml SARS-CoV-2 (PCR) POSITIVE A* (Negative) Influenza Type A (PCR) Negative (Neg) Influenza Type B (PCR) Negative (Neg) RSV (RT-PCR) Negative (Neg) 07/18/22 Range/Units 17:13 WBC (4.8-10.8) K/ul RBC (3.93-5.22) M/uL Hgb (12.0-16.0) g/dl Hct (34.1-44.9) % MCV (80.0-100.0) fL MCH (25.0-34.0) pg MCHC (32.0-36.0) g/dL RDW Std Deviation (36.4-46.3) fL RDW Coeff of Rosalino (11.5-14.5) % Plt Count (130-400) K/uL MPV (9.4-12.3) fL Immature Gran % (Auto) % Neut % (Auto) % Lymph % (Auto) % Cowley % (Auto) % Eos % (Auto) % Baso % (Auto) % Neut # (Auto) (1.4-6.5) K/uL Lymph # (Auto) (1.2-3.4) K/uL Cowley # (Auto) (0.24-0.82) K/uL Eos # (Auto) (0-0.50) K/uL Baso # (Auto) (0-0.2) K/uL Immature Gran # (Auto) (0.00-0.02) K/uL Absolute Nucleated RBC (0-0) K/uL Nucleated RBC % (auto) % Polychromasia Anisocytosis Ovalocytes Sodium (136-145) mmol/L Potassium (3.5-5.1) mmol/L Chloride (98-107) mmol/L Carbon Dioxide (21-32) mmol/L Anion Gap (3-11) BUN (6-23) mg/dl Creatinine (0.6-1.2) mg/dl Est Cr Clr Drug Dosing ml/min Est GFR ( Amer) ml/min Est GFR (Non-Af Amer) ml/min BUN/Creatinine Ratio (10-20) Glucose (70-99(Fasting)) mg/dl POC Glucose (70-99) mg/dl Calcium (8.5-10.1) mg/dl Magnesium (1.7-2.4) mg/dl B-Natriuretic Peptide 125 H (0-100) pg/ml Procalcitonin (0-0.5) ng/ml SARS-CoV-2 (PCR) (Negative) Influenza Type A (PCR) (Neg) Influenza Type B (PCR) (Neg) RSV (RT-PCR) (Neg) PG Care Time/CCT Total # of Minutes Spent Total Time Spent with Patient: Total time spent is greater than 50% in coordination of care (as documented) at patient's floor/unit and/or counseling patient: Coding Level of Care Code 29446 Subseq Hosp Care Lvl 3 Diagnoses COVID-19 U07.1 Hypoxia R09.02 Anemia D64.9 HTN (hypertension) I10 Paroxysmal atrial fibrillation I48.0 Hypomagnesemia E83.42 CAD (coronary artery disease) I25.10 Anxiety F41.9 Dyslipidemia E78.5 Type 2 diabetes mellitus E11.9 Hypothyroidism E03.9 Severe obstructive sleep apnea G47.33 Gastric ulcer K25.9 Subclavian artery stenosis, left I77.1 Lumbar radiculopathy M54.16 Peripheral arterial disease I73.9 Acute diastolic CHF (congestive heart failure) I50.31
[2022-07-19] MEDS ORDERED: ALBUTEROL HFA 8 GM INHALER INH PRN (15:14)
--- NOTE | 2022-07-19 15:23 | XCELERA ---
[id number]
[2022-07-19] MEDS: CLOPIDOGREL BISULFATE 75 MG TAB PO SCH (15:58)
[2022-07-19] MEDS ORDERED: ASPIRIN 81 MG ECTAB PO SCH (21:00)
[2022-07-19] MEDS: ATORVASTATIN 40 MG TAB PO SCH (22:37)
[2022-07-19] MEDS: LANTUS PER UNIT CHARGE SQ SCH (22:39)
[2022-07-19] MEDS: amLODIPine BESYLATE 5 MG TAB PO SCH (22:39)
[2022-07-19] MEDS: ACETAMINOPHEN 325 MG TAB PO SCH (22:39)
[2022-07-20] MEDS: LEVOTHYROXINE SODIUM 112 MCG TABLET PO SCH (06:14)
[2022-07-20 07:03] LABS: Basophils # (auto) 0.03 K/uL (0-0.2); Basophils % (auto) 0.3 %; Hematocrit (blood only) 31.8 % (34.1-44.9); Hemoglobin 9.3 g/dl (12.0-16.0); Immature Granulocytes # (auto) 0.12 K/uL (0.00-0.02); Immature Granulocytes % (auto) 1.2 %; Lymphocytes # (auto) 0.84 K/uL (1.2-3.4); Lymphocytes % (auto) 8.4 %; Mean Corpuscular Hgb Conc 29.2 g/dL (32.0-36.0); Mean Corpuscular Volume 78.5 fL (80.0-100.0); Mean Platelet Volume 10.9 fL (9.4-12.3); Monocytes # (auto) 0.61 K/uL (0.24-0.82); Monocytes % (auto) 6.1 %; Neutrophils # (auto) 8.36 K/uL (1.4-6.5); Nucleated RBC # (auto) 0.02 K/uL (0-0); Nucleated RBC % (auto) 0.2 %; Platelet Count 428 K/uL (130-400); RDW Coefficient of Variation 20.1 % (11.5-14.5); RDW Standard Deviation 56.2 fL (36.4-46.3); Red Blood Count 4.05 M/uL (3.93-5.22); White Blood Count 9.96 K/ul (4.8-10.8)
[2022-07-20 07:20] LABS: BUN Creatinine Ratio 27.9 (10-20); Calcium 9.4 mg/dl (8.5-10.1); Creatinine Clr Calc Pharmacy 72.9 ml/min; Est GFR (African American) 99.2 ml/min; Est GFR (Non-African American) 85.6 ml/min; Magnesium 2.2 mg/dl (1.7-2.4)
[2022-07-20 07:24] LABS: Anisocytosis Present; Polychromasia 1+
[2022-07-20 07:35] LABS: Ferritin 26.5 ng/ml (8-388)
[2022-07-20 07:41] LABS: Folate (Folic Acid) > 22.30 ng/ml (>5.38)
[2022-07-20 07:42] LABS: Vitamin B12 > 1500 pg/ml (180-914)
[2022-07-20] MEDS: ENALAPRIL MALEATE 10 MG TAB PO SCH ×2 (08:21→21:48)
[2022-07-20] MEDS: amLODIPine BESYLATE 5 MG TAB PO SCH (08:21)
[2022-07-20] MEDS: guaiFENesin 600 MG TABCR PO SCH ×2 (08:21→21:49)
[2022-07-20] MEDS: hydroCHLOROthiazide 25 MG TAB PO SCH (08:22)
[2022-07-20] MEDS: ACETAMINOPHEN 325 MG TAB PO SCH ×3 (08:22→21:47)
[2022-07-20] MEDS: POTASSIUM CHLORIDE CRTAB 20 MEQ TABCR PO SCH (08:22)
[2022-07-20] MEDS: PANTOprazole 40 MG TAB PO SCH ×2 (08:22→21:50)
[2022-07-20] MEDS: CLOPIDOGREL BISULFATE 75 MG TAB PO SCH (08:22)
[2022-07-20] MEDS: hydrALAZINE TAB 50 MG TAB PO SCH ×3 (08:23→21:50)
[2022-07-20] MEDS: CHOLECALCIFEROL 1,000 UNITS 25 MCG TAB PO SCH (08:24)
[2022-07-20] MEDS: MULTIVITAMIN TAB PO SCH (08:24)
[2022-07-20] MEDS: FERROUS SULFATE 325 MG TAB PO SCH (08:24)
[2022-07-20] MEDS: dexAMETHasone 6 MG in SYRINGE 0 ML IV SCH (08:29)
[2022-07-20] MEDS: ENOXAPARIN INJ 40 MG/0.4 ML SYR SQ SCH (08:30)
[2022-07-20] MEDS: INSULIN ASPART PER UNIT SC SCH ×4 (08:59→21:55)
[2022-07-20] MEDS ORDERED: LANTUS PER UNIT CHARGE SQ SCH (09:30)
[2022-07-20] MEDS: CYANOCOBALAMIN (B-12) 2,500 MCG TABLET SL SCH (09:52)
[2022-07-20] MEDS: IRON SUCROSE 300 MG in SODIUM CHLORIDE 0.9% 250 ML IV SCH (10:08)
[2022-07-20] MEDS: AMIODARONE 200 MG TAB PO SCH (12:43)
--- NOTE | 2022-07-20 16:28 | Hospitalist Progress Note ---
Date of Service July 20, 2022 Assessment & Plan (1) COVID-19: Plan: Pneumonia due to COVID-19 Patient here with worsening hypoxia and respiratory symptoms secondary to pneumonia from COVID-19. First diagnosed on 07/08 at an outside hospital in [place], [place]. Treated with an albuterol inhaler at that time. CTA chest here with small pleural effusions, interlobular septal thickening with mild intermixed groundglass densities and patchy nodular consolidative opacities measuring up to 1.3 cm, bronchial wall thickening with right basilar mucous plugging, right greater than left bibasilar dependent predominant consolidation, negative for PE Clinically improving -Outside window for Remdesivir -Started dexamethasone 6 mg IV once daily x10-day course-last day of therapy will be 07/28 but may stop prior to discharge due to severe hyperglycemia -continue Supplemental O2 to keep pulse ox greater than 92%-asked RN to wean off -Procalcitonin negative, do not suspect bacterial pneumonia -Follow CBC, BMP -encouraged CPAP at bedtime-she is willing to trial this and will need outpt sleep study -continue flutter valve -Continue albuterol HFA as needed and DuoNebs as needed -follow chest xray or CT Chest to resolution in 4-6 weeks given nodular opacities (2) Hypoxia: Plan: Acute respiratory failure with hypoxia-was requiring 2 L nasal cannula on admission-weaned to room air, now back on O2 but doubt she really needs it at rest-asked nurse to wean off -Hypoxia multifactorial secondary to heart failure exacerbation, covid pneumonia -was volume overloaded on admission, BNP noted to be 125, imaging showing pulmonary vascular congestion with BL pleural effusions, procal is negative, CTA negative for PE -Was first given 1L NSS in the ED, then 20 mg IV lasix, and then was continued on Lasix 20 mg IV BID x2 doses-discontinued as no longer needed-restarted home HCTZ 07/20 -Continue supplemental O2 to keep pulse ox greater 92% and wean off as able -Continue albuterol, pulmonary toilet as above -continue mucinex for congestion -Will need a 2 step walk test prior to discharge -also, will need outpt formal sleep study as she previously declined CPAP but after much discussion, is willing to try it due to concerns for pulm HTN on ECHO (3) Anemia: Plan: Hemoglobin low but stable from previous at 8.7-9.3, microcytic She had a previous recent suspected GI bleed from gastric ulcers seen on EGD Her Xarelto has been on hold since the end of 04/2022 but she remains on aspirin daily Checked iron studies--> transferrin sat low at 10%, ferritin low at 26--> Give Venofer 300mg IV daily x 3 doses while here - B12, folate both normal -Follow CBC in the morning -Carefully watch for recurrence of bleeding ulcers now that she is on steroids -Continue Protonix twice daily for 3 months -Discussed with her primary station installer and he is okay with switching aspirin to Plavix for her antiplatelet given CAD and PAD -Continue to hold Xarelto at this time especially as she remains in sinus rhythm -advised to f/u for capsule endoscopy if hgb not improving over the next month or so (4) HTN (hypertension): Plan: -Noted to be hypertensive at 203/66 on arrival to the ED -Was given 10 mg IV labetalol and 0.4 mg SL nitroglycerin, but remained quite hypertensive -Has been asymptomatic, CTA of the chest negative for dissection -Continue home enalapril 20 Mg p.o. twice daily, hydralazine 50/50/100 Mg, and HCTZ after diuresed with IV Lasix initially -IV Decadron may be worsening the hypertension now -Added on amlodipine 5 mg daily and BPs improved today -She cannot tolerate beta-blockers due to previous bradycardia -Follow blood pressures in RIGHT ARM ONLY due to severe left SC artery stenosis (5) Pulmonary hypertension: Plan: as above, she is willing to have repeat sleep study outpt to do CPAP titration to treat her RIK also encouraged weight loss O2 as needed continue diuretic (6) Acute diastolic CHF (congestive heart failure): Plan: As above, with pulmonary edema, diuresed with IV Lasix and now improved ECHO here with preserved EF, mild , mild MS, mild MR, mild Pulm HTN -continue home HCTZ -improve BP control as above (7) Paroxysmal atrial fibrillation: Plan: Currently in sinus rhythm -Her Xarelto has been held due to anemia and recently diagnosed gastric ulcers -Cannot tolerate beta-blockers due to bradycardia -Continue amiodarone -Monitor on telemetry (8) CAD (coronary artery disease): Plan: With a history of CABG Changed aspirin to Plavix as above for recent gastric ulcers Continue atorvastatin, enalapril She cannot tolerate beta-blockers No acute issues (9) Type 2 diabetes mellitus: Plan: With ongoing hyperglycemia from steroids -increase Lantus to 15 units in AM and 30 units qPM -will again tighten down NovoLog correction factor and carb ratio to 12 and 4:1 -check A1C in AM, last was 8.0% in 02/2022 (10) Hypothyroidism: Plan: -Continue levothyroxine TSH was normal at 4.3 in 04/2022 (11) Severe obstructive sleep apnea: Plan: -Patient previously diagnosed but does not use CPAP as above, now willing to trial -needs outpt sleep study (12) Gastric ulcer: Plan: -Continue protonix bid x 3 months (13) Peripheral arterial disease: Plan: Left SC artery stenosis Noted, do not take blood pressure on the left upper extremity Switching aspirin to Plavix as above Continue high intensity statin Has a history of left subclavian stenosis, carotid artery stenosis (14) Chronic back pain: Plan: Continue Tylenol 3 times daily- scheduled as she takes this at home Plan DVT prophylaxis- Lovenox SQ, YOVANNY hose COnstipation-add sennakot Disposition-continued stay on med telemetry, COVID precautions. She did bring in a copy of her COVID result from outside hospital from 07/08 to show to our infection temperature control inspector, but they will not remove precautions as she came in with worsening symptoms Plan is hopeful for discharge on Sunday 07/22. Will need 2 step walk test prior to discharge Admission and Anticipated Discharge Date Admission Date: July 18, 2022 Subjective Feels a little better, not SOB at rest. Had a small amount of epistaxis, now on humidified O2 but POx 96%-d/w RN about weaning off O2. Discussed her RIK and she previously declined CPAP but is willing to trial it again-advised repeat sleep study. Encouraged weight loss and gave name of Dr. Floresita Otero for weight management as outpt Discussed ECHO results, Pulm HTN, preserved EF She reports no BM since admission, but appetite is picking up. She is also complaining about not being able to choose her menu and getting a lot of carbs on her plate ie rice, potatoes, pineapple, etc. Spent 35 min with pt and her in room face to face discussing all issues of her care, results, prognosis, discharge plan, outpt plan. Will need a 2 step prior to discharge Tele with SB rates 50s Review of Systems Review of Systems: All systems reviewed & are unremarkable except as noted in HPI & below Physical Exam Constitutional: WD/WN, vitals as above Eyes: + anicteric sclerae Neck: trachea midline, no thyromegaly Respiratory: normal respiratory effort, lungs clear to auscultation Auscultation: + diminished lung sounds (Throughout) Cardiovascular: Rate/Rhythm: regular rhythm and + bradycardic Heart Sounds: + murmur (2/6 SHELBY at RUSB) Extremities: + edema (Trace of the legs bilaterally) Chest (Breasts): Chest: normal inspection of chest Gastrointestinal (Abdomen): normal bowel sounds, soft, nontender, no hepatosplenomegaly Musculoskeletal: Extremities: extremities normal to inspection; no cyanosis and no clubbing Skin: no rashes, warm and dry Neurologic: moves all extremities and awake; no focal motor deficits Psychiatric: A+Ox3, euthymic affect Results & Data Results & Data ([facility]) Vital Signs (Past 12 Hours) Vital Signs Temp Pulse Resp BP Pulse Ox O2 Del Method O2 Flow Rate 07/20/22 12:11 Nasal Cannula 2 07/20/22 12:01 36.6 C 61 18 167/50 H 96 Room Air 07/20/22 08:21 36.6 C 66 20 175/62 H 92 Room Air Laboratory Results 07/20/22 07/20/22 07/20/22 Range/Units 12:00 11:59 11:59 WBC (4.8-10.8) K/ul RBC (3.93-5.22) M/uL Hgb (12.0-16.0) g/dl Hct (34.1-44.9) % MCV (80.0-100.0) fL MCH (25.0-34.0) pg MCHC (32.0-36.0) g/dL RDW Std Deviation (36.4-46.3) fL RDW Coeff of Rosalino (11.5-14.5) % Plt Count (130-400) K/uL MPV (9.4-12.3) fL Immature Gran % (Auto) % Neut % (Auto) % Lymph % (Auto) % [place]orte % (Auto) % Eos % (Auto) % Baso % (Auto) % Neut # (Auto) (1.4-6.5) K/uL Lymph # (Auto) (1.2-3.4) K/uL [place] # (Auto) (0.24-0.82) K/uL Eos # (Auto) (0-0.50) K/uL Baso # (Auto) (0-0.2) K/uL Immature Gran # (Auto) (0.00-0.02) K/uL Absolute Nucleated RBC (0-0) K/uL Nucleated RBC % (auto) % Polychromasia Anisocytosis Sodium (136-145) mmol/L Potassium (3.5-5.1) mmol/L Chloride (98-107) mmol/L Carbon Dioxide (21-32) mmol/L Anion Gap (3-11) BUN (6-23) mg/dl Creatinine (0.6-1.2) mg/dl Est Cr Clr Drug Dosing ml/min Est GFR ( Amer) ml/min Est GFR (Non-Af Amer) ml/min BUN/Creatinine Ratio (10-20) Glucose (70-99(Fasting)) mg/dl POC Glucose 306 H* 340 H* 318 H* (70-99) mg/dl Calcium (8.5-10.1) mg/dl Magnesium (1.7-2.4) mg/dl Iron (35-150) mcg/dl TIBC (250-450) mcg/dl Unsaturated IBC (155-355) mcg/dl Transferrin % Sat (15-50) % Ferritin (8-388) ng/ml Vitamin B12 (180-914) pg/ml Folate (>5.38) ng/ml 07/20/22 07/20/22 07/20/22 Range/Units 08:17 06:33 06:33 WBC (4.8-10.8) K/ul RBC (3.93-5.22) M/uL Hgb (12.0-16.0) g/dl Hct (34.1-44.9) % MCV (80.0-100.0) fL MCH (25.0-34.0) pg MCHC (32.0-36.0) g/dL RDW Std Deviation (36.4-46.3) fL RDW Coeff of Rosalino (11.5-14.5) % Plt Count (130-400) K/uL MPV (9.4-12.3) fL Immature Gran % (Auto) % Neut % (Auto) % Lymph % (Auto) % [place] % (Auto) % Eos % (Auto) % Baso % (Auto) % Neut # (Auto) (1.4-6.5) K/uL Lymph # (Auto) (1.2-3.4) K/uL [place] # (Auto) (0.24-0.82) K/uL Eos # (Auto) (0-0.50) K/uL Baso # (Auto) (0-0.2) K/uL Immature Gran # (Auto) (0.00-0.02) K/uL Absolute Nucleated RBC (0-0) K/uL Nucleated RBC % (auto) % Polychromasia Anisocytosis Sodium 140 (136-145) mmol/L Potassium 4.0 (3.5-5.1) mmol/L Chloride 102 (98-107) mmol/L Carbon Dioxide 32 (21-32) mmol/L Anion Gap 6 (3-11) BUN 19 (6-23) mg/dl Creatinine 0.68 (0.6-1.2) mg/dl Est Cr Clr Drug Dosing 72.9 ml/min Est GFR ( Amer) 99.2 ml/min Est GFR (Non-Af Amer) 85.6 ml/min BUN/Creatinine Ratio 27.9 H (10-20) Glucose 233 H (70-99(Fasting)) mg/dl POC Glucose 231 H (70-99) mg/dl Calcium 9.4 (8.5-10.1) mg/dl Magnesium 2.2 (1.7-2.4) mg/dl Iron 33 L (35-150) mcg/dl TIBC 321 (250-450) mcg/dl Unsaturated IBC 288 (155-355) mcg/dl Transferrin % Sat 10 L (15-50) % Ferritin 26.5 (8-388) ng/ml Vitamin B12 > 1500 H (180-914) pg/ml Folate > 22.30 (>5.38) ng/ml 07/20/22 07/20/22 07/19/22 Range/Units 06:33 03:08 20:25 WBC 9.96 (4.8-10.8) K/ul RBC 4.05 (3.93-5.22) M/uL Hgb 9.3 L (12.0-16.0) g/dl Hct 31.8 L (34.1-44.9) % MCV 78.5 L (80.0-100.0) fL MCH 23.0 L (25.0-34.0) pg MCHC 29.2 L (32.0-36.0) g/dL RDW Std Deviation 56.2 H (36.4-46.3) fL RDW Coeff of Rosalino 20.1 H (11.5-14.5) % Plt Count 428 H (130-400) K/uL MPV 10.9 (9.4-12.3) fL Immature Gran % (Auto) 1.2 % Neut % (Auto) 84.0 % Lymph % (Auto) 8.4 % Laporte % (Auto) 6.1 % Eos % (Auto) 0.0 % Baso % (Auto) 0.3 % Neut # (Auto) 8.36 H (1.4-6.5) K/uL Lymph # (Auto) 0.84 L (1.2-3.4) K/uL [place] # (Auto) 0.61 (0.24-0.82) K/uL Eos # (Auto) 0.00 (0-0.50) K/uL Baso # (Auto) 0.03 (0-0.2) K/uL Immature Gran # (Auto) 0.12 H (0.00-0.02) K/uL Absolute Nucleated RBC 0.02 H (0-0) K/uL Nucleated RBC % (auto) 0.2 % Polychromasia 1+ Anisocytosis Present Sodium (136-145) mmol/L Potassium (3.5-5.1) mmol/L Chloride (98-107) mmol/L Carbon Dioxide (21-32) mmol/L Anion Gap (3-11) BUN (6-23) mg/dl Creatinine (0.6-1.2) mg/dl Est Cr Clr Drug Dosing ml/min Est GFR ( Amer) ml/min Est GFR (Non-Af Amer) ml/min BUN/Creatinine Ratio (10-20) Glucose (70-99(Fasting)) mg/dl POC Glucose 235 H 317 H* (70-99) mg/dl Calcium (8.5-10.1) mg/dl Magnesium (1.7-2.4) mg/dl Iron (35-150) mcg/dl TIBC (250-450) mcg/dl Unsaturated IBC (155-355) mcg/dl Transferrin % Sat (15-50) % Ferritin (8-388) ng/ml Vitamin B12 (180-914) pg/ml Folate (>5.38) ng/ml 07/19/22 07/19/22 07/19/22 Range/Units 20:24 20:23 16:53 WBC (4.8-10.8) K/ul RBC (3.93-5.22) M/uL Hgb (12.0-16.0) g/dl Hct (34.1-44.9) % MCV (80.0-100.0) fL MCH (25.0-34.0) pg MCHC (32.0-36.0) g/dL RDW Std Deviation (36.4-46.3) fL RDW Coeff of Rosalino (11.5-14.5) % Plt Count (130-400) K/uL MPV (9.4-12.3) fL Immature Gran % (Auto) % Neut % (Auto) % Lymph % (Auto) % [place] % (Auto) % Eos % (Auto) % Baso % (Auto) % Neut # (Auto) (1.4-6.5) K/uL Lymph # (Auto) (1.2-3.4) K/uL [place] # (Auto) (0.24-0.82) K/uL Eos # (Auto) (0-0.50) K/uL Baso # (Auto) (0-0.2) K/uL Immature Gran # (Auto) (0.00-0.02) K/uL Absolute Nucleated RBC (0-0) K/uL Nucleated RBC % (auto) % Polychromasia Anisocytosis Sodium (136-145) mmol/L Potassium (3.5-5.1) mmol/L Chloride (98-107) mmol/L Carbon Dioxide (21-32) mmol/L Anion Gap (3-11) BUN (6-23) mg/dl Creatinine (0.6-1.2) mg/dl Est Cr Clr Drug Dosing ml/min Est GFR ( Amer) ml/min Est GFR (Non-Af Amer) ml/min BUN/Creatinine Ratio (10-20) Glucose (70-99(Fasting)) mg/dl POC Glucose 341 H* 301 H* 333 H* (70-99) mg/dl Calcium (8.5-10.1) mg/dl Magnesium (1.7-2.4) mg/dl Iron (35-150) mcg/dl TIBC (250-450) mcg/dl Unsaturated IBC (155-355) mcg/dl Transferrin % Sat (15-50) % Ferritin (8-388) ng/ml Vitamin B12 (180-914) pg/ml Folate (>5.38) ng/ml PG Care Time/CCT Total # of Minutes Spent Total Time Spent with Patient: Total time spent is greater than 50% in coordination of care (as documented) at patient's floor/unit and/or counseling patient: Coding Level of Care Code 21449 Subseq Hosp Care Lvl 3 Diagnoses COVID-19 U07.1 Hypoxia R09.02 Anemia D64.9 HTN (hypertension) I10 Pulmonary hypertension I27.20 Acute diastolic CHF (congestive heart failure) I50.31 Paroxysmal atrial fibrillation I48.0 CAD (coronary artery disease) I25.10 Type 2 diabetes mellitus E11.9 Hypothyroidism E03.9 Severe obstructive sleep apnea G47.33 Gastric ulcer K25.9 Peripheral arterial disease I73.9 Chronic back pain M54.9; G89.29
[2022-07-20] MEDS: DOCUSATE SODIUM/SENNA 50/8.6MG TAB PO SCH (18:09)
[2022-07-20] MEDS: ATORVASTATIN 40 MG TAB PO SCH (21:48)
[2022-07-20] MEDS: LANTUS PER UNIT CHARGE SQ SCH (21:55)
[2022-07-21] MEDS: LEVOTHYROXINE SODIUM 112 MCG TABLET PO SCH (06:03)
[2022-07-21 06:34] LABS: Basophils # (auto) 0.02 K/uL (0-0.2); Basophils % (auto) 0.2 %; Hematocrit (blood only) 31.3 % (34.1-44.9); Hemoglobin 9.2 g/dl (12.0-16.0); Immature Granulocytes # (auto) 0.16 K/uL (0.00-0.02); Immature Granulocytes % (auto) 1.7 %; Lymphocytes # (auto) 0.99 K/uL (1.2-3.4); Lymphocytes % (auto) 10.2 %; Mean Corpuscular Hemoglobin 23.1 pg (25.0-34.0); Mean Corpuscular Hgb Conc 29.4 g/dL (32.0-36.0); Mean Corpuscular Volume 78.4 fL (80.0-100.0); Mean Platelet Volume 10.8 fL (9.4-12.3); Monocytes % (auto) 8.3 %; Neutrophils # (auto) 7.71 K/uL (1.4-6.5); Neutrophils % (auto) 79.6 %; Nucleated RBC # (auto) 0.02 K/uL (0-0); Nucleated RBC % (auto) 0.2 %; Platelet Count 450 K/uL (130-400); RDW Coefficient of Variation 20.4 % (11.5-14.5); RDW Standard Deviation 56.8 fL (36.4-46.3); Red Blood Count 3.99 M/uL (3.93-5.22); White Blood Count 9.68 K/ul (4.8-10.8)
[2022-07-21 07:21] LABS: BUN Creatinine Ratio 30.8 (10-20); Calcium 9.3 mg/dl (8.5-10.1); Creatinine Clr Calc Pharmacy 63.7 ml/min; Est GFR (African American) 86.2 ml/min; Est GFR (Non-African American) 74.4 ml/min; Magnesium 2.3 mg/dl (1.7-2.4); Potassium 4.1 mmol/L (3.5-5.1)
[2022-07-21 07:54] LABS: Anisocytosis Present; Polychromasia 1+
[2022-07-21] MEDS: LANTUS PER UNIT CHARGE SQ SCH ×2 (08:00→22:23)
[2022-07-21] MEDS: hydrALAZINE TAB 50 MG TAB PO SCH ×3 (08:00→21:48)
[2022-07-21] MEDS: ACETAMINOPHEN 325 MG TAB PO SCH ×3 (08:01→21:47)
[2022-07-21] MEDS: dexAMETHasone 6 MG in SYRINGE 0 ML IV SCH (08:01)
[2022-07-21] MEDS: IRON SUCROSE 300 MG in SODIUM CHLORIDE 0.9% 250 ML IV SCH (08:01)
[2022-07-21] MEDS: CLOPIDOGREL BISULFATE 75 MG TAB PO SCH (08:02)
[2022-07-21] MEDS: MULTIVITAMIN TAB PO SCH (08:02)
[2022-07-21] MEDS: amLODIPine BESYLATE 5 MG TAB PO SCH (08:02)
[2022-07-21] MEDS: hydroCHLOROthiazide 25 MG TAB PO SCH (08:02)
[2022-07-21] MEDS: CHOLECALCIFEROL 1,000 UNITS 25 MCG TAB PO SCH (08:02)
[2022-07-21] MEDS: POTASSIUM CHLORIDE CRTAB 20 MEQ TABCR PO SCH (08:02)
[2022-07-21] MEDS: CYANOCOBALAMIN (B-12) 2,500 MCG TABLET SL SCH (08:03)
[2022-07-21] MEDS: ENALAPRIL MALEATE 10 MG TAB PO SCH ×2 (08:03→21:48)
[2022-07-21] MEDS: DOCUSATE SODIUM/SENNA 50/8.6MG TAB PO SCH (08:03)
[2022-07-21] MEDS: PANTOprazole 40 MG TAB PO SCH ×2 (08:04→21:50)
[2022-07-21] MEDS: FERROUS SULFATE 325 MG TAB PO SCH (08:04)
[2022-07-21] MEDS: guaiFENesin 600 MG TABCR PO SCH ×2 (08:04→21:49)
[2022-07-21] MEDS: ENOXAPARIN INJ 40 MG/0.4 ML SYR SQ SCH (08:05)
[2022-07-21 08:45] LABS: Estimated Average Glucose 171 mg/dl; Hemoglobin A1C 7.6 % (4.5-5.6)
[2022-07-21] MEDS: INSULIN ASPART PER UNIT SC SCH ×4 (09:11→22:23)
[2022-07-21] MEDS: AMIODARONE 200 MG TAB PO SCH (12:37)
--- NOTE | 2022-07-21 17:38 | Hospitalist Progress Note ---
Date of Service July 21, 2022 Assessment & Plan (1) COVID-19: Plan: Pneumonia due to COVID-19 Patient here with worsening hypoxia and respiratory symptoms secondary to pneumonia from COVID-19. First diagnosed on 07/08 at an outside hospital in [place], [place]. Treated with an albuterol inhaler at that time. CTA chest here with small pleural effusions, interlobular septal thickening with mild intermixed groundglass densities and patchy nodular consolidative opacities measuring up to 1.3 cm, bronchial wall thickening with right basilar mucous plugging, right greater than left bibasilar dependent predominant consolidation, negative for PE Clinically improving -Outside window for Remdesivir -Started dexamethasone 6 mg IV once daily x10-day course-last day of therapy will be 07/28 but may stop prior to discharge due to severe hyperglycemia -continue Supplemental O2 to keep pulse ox greater than 92%-asked RN to wean off -Procalcitonin negative, do not suspect bacterial pneumonia -Follow CBC, BMP -encouraged CPAP at bedtime-she is willing to trial this and will need outpt sleep study -continue flutter valve -Continue albuterol HFA as needed and DuoNebs as needed -follow chest xray or CT Chest to resolution in 4-6 weeks given nodular opacities Plan is for 2 step on 07/22. Anticipate discharge in next 24 hours. (2) Hypoxia: Plan: Acute respiratory failure with hypoxia-was requiring 2 L nasal cannula on admission-weaned to room air, now back on O2 but doubt she really needs it at rest-asked nurse to wean off -Hypoxia multifactorial secondary to heart failure exacerbation, covid pneumonia -was volume overloaded on admission, BNP noted to be 125, imaging showing pulmonary vascular congestion with BL pleural effusions, procal is negative, CTA negative for PE -Was first given 1L NSS in the ED, then 20 mg IV lasix, and then was continued on Lasix 20 mg IV BID x2 doses-discontinued as no longer needed-restarted home HCTZ 07/20 -Continue supplemental O2 to keep pulse ox greater 92% and wean off as able -Continue albuterol, pulmonary toilet as above -continue mucinex for congestion -Will need a 2 step walk test prior to discharge -also, will need outpt formal sleep study as she previously declined CPAP but after much discussion, is willing to try it due to concerns for pulm HTN on ECHO (3) Anemia: Plan: Hemoglobin low but stable from previous at 8.7-9.3, microcytic She had a previous recent suspected GI bleed from gastric ulcers seen on EGD Her Xarelto has been on hold since the end of 04/2022 but she remains on aspirin daily Checked iron studies--> transferrin sat low at 10%, ferritin low at 26--> Give Venofer 300mg IV daily x 3 doses while here - B12, folate both normal -Follow CBC in the morning -Carefully watch for recurrence of bleeding ulcers now that she is on steroids -Continue Protonix twice daily for 3 months -Discussed with her primary printer operator and he is okay with switching aspirin to Plavix for her antiplatelet given CAD and PAD -Continue to hold Xarelto at this time especially as she remains in sinus rhythm -advised to f/u for capsule endoscopy if hgb not improving over the next month or so (4) HTN (hypertension): Plan: -Noted to be hypertensive at 203/66 on arrival to the ED -Was given 10 mg IV labetalol and 0.4 mg SL nitroglycerin, but remained quite hypertensive -Has been asymptomatic, CTA of the chest negative for dissection -Continue home enalapril 20 Mg p.o. twice daily, hydralazine 50/50/100 Mg, and HCTZ after diuresed with IV Lasix initially -IV Decadron may be worsening the hypertension now -Added on amlodipine 5 mg daily and BPs improved today -She cannot tolerate beta-blockers due to previous bradycardia -Follow blood pressures in RIGHT ARM ONLY due to severe left SC artery stenosis (5) Pulmonary hypertension: Plan: as above, she is willing to have repeat sleep study outpt to do CPAP titration to treat her RIK also encouraged weight loss O2 as needed continue diuretic (6) Acute diastolic CHF (congestive heart failure): Plan: As above, with pulmonary edema, diuresed with IV Lasix and now improved ECHO here with preserved EF, mild , mild MS, mild MR, mild Pulm HTN -continue home HCTZ -improve BP control as above (7) Paroxysmal atrial fibrillation: Plan: Currently in sinus rhythm -Her Xarelto has been held due to anemia and recently diagnosed gastric ulcers -Cannot tolerate beta-blockers due to bradycardia -Continue amiodarone -Monitor on telemetry (8) CAD (coronary artery disease): Plan: With a history of CABG Changed aspirin to Plavix as above for recent gastric ulcers Continue atorvastatin, enalapril She cannot tolerate beta-blockers No acute issues (9) Type 2 diabetes mellitus: Plan: With ongoing hyperglycemia from steroids -increase Lantus to 15 units in AM and 30 units qPM -will again tighten down NovoLog correction factor and carb ratio to 12 and 4:1 -check A1C in AM, last was 8.0% in 02/2022 (10) Hypothyroidism: Plan: -Continue levothyroxine TSH was normal at 4.3 in 04/2022 (11) Severe obstructive sleep apnea: Plan: -Patient previously diagnosed but does not use CPAP as above, now willing to trial -needs outpt sleep study (12) Gastric ulcer: Plan: -Continue protonix bid x 3 months (13) Peripheral arterial disease: Plan: Left SC artery stenosis Noted, do not take blood pressure on the left upper extremity Switching aspirin to Plavix as above Continue high intensity statin Has a history of left subclavian stenosis, carotid artery stenosis (14) Chronic back pain: Plan: Continue Tylenol 3 times daily- scheduled as she takes this at home Plan DVT prophylaxis- Lovenox SQ, YOVANNY hose COnstipation-add sennakot Disposition-continued stay on med telemetry, COVID precautions. She did bring in a copy of her COVID result from outside hospital from 07/08 to show to our infection material control associate, but they will not remove precautions as she came in with worsening symptoms Plan for discharge on 07/22 Admission and Anticipated Discharge Date Admission Date: July 18, 2022 Subjective Patient is doing well. She has no new complaints. Review of Systems Review of Systems: All systems reviewed & are unremarkable except as noted in HPI & below Physical Exam Constitutional: WD/WN, vitals as above Eyes: + anicteric sclerae Neck: trachea midline, no thyromegaly Respiratory: normal respiratory effort, lungs clear to auscultation Auscultation: + diminished lung sounds (Throughout) Cardiovascular: RRR, no murmur, no edema Rate/Rhythm: regular rate, regular rhythm and + bradycardic Heart Sounds: + murmur (2/6 SHELBY at RUSB) Extre mities: + edema (Trace of the legs bilaterally) Chest (Breasts): Chest: normal inspection of chest Gastrointestinal (Abdomen): normal bowel sounds, soft, nontender, no hepatosplenomegaly Musculoskeletal: Extremities: extremities normal to inspection; no cyanosis and no clubbing Skin: no rashes, warm and dry Neurologic: moves all extremities and awake; no focal motor deficits Psychiatric: A+Ox3, euthymic affect Results & Data Results & Data ([facility]) Vital Signs (Past 12 Hours) Vital Signs Temp Pulse Pulse Resp BP Pulse Ox O2 Del Method 07/21/22 14:59 59 L 07/21/22 06:26 51 L 07/21/22 16:57 36.8 C 57 L 18 175/94 H 93 Room Air 07/21/22 11:53 36.9 C 58 L 18 162/63 H 93 Room Air 07/21/22 07:48 36.7 C 54 L 18 171/55 H 92 Room Air PG Care Time/CCT Total # of Minutes Spent Total Time Spent with Patient: Total time spent is greater than 50% in coordination of care (as documented) at patient's floor/unit and/or counseling patient: Coding Level of Care Code 42539 Subseq Hosp Care Lvl 2 Diagnoses COVID-19 U07.1 Hypoxia R09.02 Anemia D64.9 HTN (hypertension) I10 Pulmonary hypertension I27.20 Acute diastolic CHF (congestive heart failure) I50.31 Paroxysmal atrial fibrillation I48.0 CAD (coronary artery disease) I25.10 Type 2 diabetes mellitus E11.9 Hypothyroidism E03.9 Severe obstructive sleep apnea G47.33 Gastric ulcer K25.9 Peripheral arterial disease I73.9 Chronic back pain M54.9; G89.29
[2022-07-21] MEDS: ATORVASTATIN 40 MG TAB PO SCH (21:47)
[2022-07-22] MEDS: LEVOTHYROXINE SODIUM 112 MCG TABLET PO SCH (05:54)
[2022-07-22 07:01] LABS: Creatinine Clr Calc Pharmacy 67.9 ml/min; Est GFR (African American) 91.9 ml/min; Est GFR (Non-African American) 79.3 ml/min
[2022-07-22] MEDS: INSULIN ASPART PER UNIT SC SCH ×2 (08:51→12:42)
[2022-07-22] MEDS: LANTUS PER UNIT CHARGE SQ SCH (08:52)
[2022-07-22] MEDS: POTASSIUM CHLORIDE CRTAB 20 MEQ TABCR PO SCH (09:04)
[2022-07-22] MEDS: DOCUSATE SODIUM/SENNA 50/8.6MG TAB PO SCH (09:04)
[2022-07-22] MEDS: ENOXAPARIN INJ 40 MG/0.4 ML SYR SQ SCH (09:05)
[2022-07-22] MEDS: guaiFENesin 600 MG TABCR PO SCH (09:06)
[2022-07-22] MEDS: ENALAPRIL MALEATE 10 MG TAB PO SCH (09:06)
[2022-07-22] MEDS: hydrALAZINE TAB 50 MG TAB PO SCH (09:06)
[2022-07-22] MEDS: PANTOprazole 40 MG TAB PO SCH (09:06)
[2022-07-22] MEDS: CLOPIDOGREL BISULFATE 75 MG TAB PO SCH (09:07)
[2022-07-22] MEDS: amLODIPine BESYLATE 5 MG TAB PO SCH (09:07)
[2022-07-22] MEDS: CYANOCOBALAMIN (B-12) 2,500 MCG TABLET SL SCH (09:07)
[2022-07-22] MEDS: ACETAMINOPHEN 325 MG TAB PO SCH (09:07)
[2022-07-22] MEDS: hydroCHLOROthiazide 25 MG TAB PO SCH (09:07)
[2022-07-22] MEDS: MULTIVITAMIN TAB PO SCH (09:08)
[2022-07-22] MEDS: FERROUS SULFATE 325 MG TAB PO SCH (09:08)
[2022-07-22] MEDS: CHOLECALCIFEROL 1,000 UNITS 25 MCG TAB PO SCH (09:08)
[2022-07-22] MEDS: IRON SUCROSE 300 MG in SODIUM CHLORIDE 0.9% 250 ML IV SCH (10:45)
[2022-07-22] MEDS: dexAMETHasone 6 MG in SYRINGE 0 ML IV SCH (10:46)
[2022-07-22] MEDS: AMIODARONE 200 MG TAB PO SCH (10:52)
--- NOTE | 2022-07-30 10:26 | Discharge Summary ---
Date of Service July 22, 2022 Admission HPI Per Admitting Provider Carey is a 77 year old female with a PMH significant for recently diagnosed Covid infection approximately 10 days ago, aifb (not currently on Xarelto), carotid stenosis, previous CVA in 2013, CAD, Dyslipidemia, DM II, hypothyroidism, sleep apnea, and left subclavian artery stenosis who presented to the [facility] ED on 07/18/22 for worsening SOB and hypoxia at home. Per chart review, the patient was seen at her PCP earlier today for the same symptoms. Per the clinic note, the patient was diagnosed with Covid pneumonia in [place] at the beginning of the month, she was treated with albuterol only. In the ED the patient was noted to be afebrile, hypertensive at 221/86, and initially stable on RA. While in the ED the patient was noted to be 86% on RA and was placed on 2L NC. Labs were remarkable for WBC WNL, stable Hgb, thrombocytosis of 408, absolute neutrophils of 6.83, stable renal function, magnesium of 1.6, BNP of 125. CTA of the chest showed "No pulmonary emboli identified. Cardiomegaly with mild interstitial pulmonary edema, small pleural effusions with dependent bibasilar consolidation suggestive of atelectasis. Mild patchy bilateral ground glass densities with nodular areas of consolidation suggestive of a multifocal infectious or inflammatory pneumonitis. Follow-up imaging after treatment course recommended to document resolution. Mild mediastinal lymphadenopathy, likely reactive. Occlusion versus near occlusion of the left subclavian origin artery appears unchanged.". Prior to admission the patient was given 20 mg IV lasix, 10 mg IV labetalol, 0.4 mg SL Nitroglycerine, and 1L NSS bolus. At the time of the exam the patient was resting comfortably in bed in no acute distress with her sitting bedside. They state that her current issues started on 07/08/22 when she was in [place] and was noted to be SOB. She went to the ED and was diagnosed with covid Pneumonia but was noted to be stable on RA and was discharged with an albuterol inhaler. She states that she had her moderna boost at the end of April. Since being discharged the patient has noted increased SOB especially with with exertion. She has noted more weight gain and swelling in her lower extremities. She developed a productive cough with green sputum which has improved after taking Mucinex. She has been using her albuterol inhaler but it does not seem to improve her symptoms. Over the past two nights she has had to sleep in a recliner as she has experienced severe orthopnea when lying flat. She denies recent fevers, chills, chest pain, abdominal pain, nausea, vomiting ,diarrhea, hematemesis, dysuria, hematuria, bloody bowel movements, melena, and recent falls. She wasn't exactly sure why she was recently taken off of her Xarelto. Per chart review, she was recently diagnosed with anemia, per the workup she underwent colonoscopy and EGD at [facility] on 06/28/22. Her colonoscopy revealed diverticulosis of the sigmoid colon, non-bleeding internal hemorrhoids, and two 3mm and 5 mm polyps. EGD showed a normal esophagus, and non-bleeding gastric ulcers with no stigmata of bleeding. She was started on 40 mg PO Protonix BID. Per the family practice note on 05/22/22, her Xarelto has been held because of the anemia and ulcers. Principal Diagnosis COVID 19 Discharge Exam Constitutional: WD/WN, vitals as above Eyes: + anicteric sclerae Neck: trachea midline, no thyromegaly Respiratory: normal respiratory effort, lungs clear to auscultation Auscultation: + diminished lung sounds (Throughout) Cardiovascular: RRR, no murmur, no edema Rate/Rhythm: regular rate, regular rhythm and + bradycardic Heart Sounds: + murmur (2/6 SHELBY at RUSB) Extremities: + edema (Trace of the legs bilaterally) Chest (Breasts): Chest: normal inspection of chest Gastrointestinal (Abdomen): normal bowel sounds, soft, nontender, no hepatosplenomegaly Musculoskeletal: Extremities: extremities normal to inspection; no cyanosis and no clubbing Skin: no rashes, warm and dry Neurologic: moves all extremities and awake; no focal motor deficits Psychiatric: A+Ox3, euthymic affect Discharge Data Allergies Allergy/AdvReac Type Severity Reaction Status Date / Time animal dander Allergy Mild Sneezing Verified 07/18/22 15:40 mold Allergy Mild Sneezing, Verified 07/18/22 15:40 mucus, watery eyes pollen extracts Allergy Mild Sneezing, Verified 07/18/22 15:40 mucus, watery eyes ragweed pollen Allergy Mild Sneezing, Verified 07/18/22 15:40 mucus, watery eyes grass pollen Allergy Unknown Sneezing Verified 07/18/22 15:40 No Known Drug Allergies Allergy Verified 07/18/22 15:40 Consultations 07/18/22 20:35 ED Decision to Admit Stat Ordered Studies 07/18/22 18:32 CT angio chest PE protocol Stat Hospital Course (1) COVID-19: Pneumonia due to COVID-19 Patient here with worsening hypoxia and respiratory symptoms secondary to pneumonia from COVID-19. First diagnosed on 07/08 at an outside hospital in [place], [place]. Treated with an albuterol inhaler at that time. CTA chest here with small pleural effusions, interlobular septal thickening with mild intermixed groundglass densities and patchy nodular consolidative opacities measuring up to 1.3 cm, bronchial wall thickening with right basilar mucous plugging, right greater than left bibasilar dependent predominant consolidation, negative for PE Clinically improving -Outside window for Remdesivir -Started dexamethasone 6 mg IV once daily x10-day course-last day of therapy will be 07/28 but may stop prior to discharge due to severe hyperglycemia -continue Supplemental O2 to keep pulse ox greater than 92%-asked RN to wean off -Procalcitonin negative, do not suspect bacterial pneumonia -Follow CBC, BMP -encouraged CPAP at bedtime-she is willing to trial this and will need outpt sleep study -used flutter valve -during hospitalization: albuterol HFA as needed and DuoNebs as needed -recommend chest xray or CT Chest to resolution in 4-6 weeks given nodular opacities -Passed 2 step at discharge. (2) Hypoxia: Acute respiratory failure with hypoxia-was requiring 2 L nasal cannula on admission-weaned to room air, now back on O2 but doubt she really needs it at rest-asked nurse to wean off -Hypoxia multifactorial secondary to heart failure exacerbation, covid pneumonia -was volume overloaded on admission, BNP noted to be 125, imaging showing pulmonary vascular congestion with BL pleural effusions, procal is negative, CTA negative for PE -Was first given 1L NSS in the ED, then 20 mg IV lasix, and then was continued on Lasix 20 mg IV BID x2 doses-discontinued as no longer needed-restarted home HCTZ 07/20 -Continue supplemental O2 to keep pulse ox greater 92% and wean off as able -Continue albuterol, pulmonary toilet as above -continue mucinex for congestion will need outpt formal sleep study as she previously declined CPAP but after much discussion, is willing to try it due to concerns for pulm HTN on ECHO (3) Anemia: Hemoglobin low but stable from previous at 8.7-9.3, microcytic She had a previous recent suspected GI bleed from gastric ulcers seen on EGD Her Xarelto has been on hold since the end of 04/2022 but she remains on aspirin daily Checked iron studies--> transferrin sat low at 10%, ferritin low at 26--> Give Venofer 300mg IV daily x 3 doses while here - B12, folate both normal -Follow CBC in the morning -Carefully watch for recurrence of bleeding ulcers now that she is on steroids -Continue Protonix twice daily for 3 months -Discussed with her primary cosmetic dentist and he is okay with switching aspirin to Plavix for her antiplatelet given CAD and PAD -Continue to hold Xarelto at this time especially as she remains in sinus rhythm -advised to f/u for capsule endoscopy if hgb not improving over the next month or so (4) HTN (hypertension): -Noted to be hypertensive at 203/66 on arrival to the ED -Was given 10 mg IV labetalol and 0.4 mg SL nitroglycerin, but remained quite hypertensive -Has been asymptomatic, CTA of the chest negative for dissection -Continue home enalapril 20 Mg p.o. twice daily, hydralazine 50/50/100 Mg, and HCTZ after diuresed with IV Lasix initially -IV Decadron may be worsening the hypertension now -Added on amlodipine 5 mg daily and BPs improved today -She cannot tolerate beta-blockers due to previous bradycardia -Follow blood pressures in RIGHT ARM ONLY due to severe left SC artery stenosis (5) Pulmonary hypertension: as above, she is willing to have repeat sleep study outpt to do CPAP titration to treat her RIK also encouraged weight loss O2 as needed continue diuretic (6) Acute diastolic CHF (congestive heart failure): As above, with pulmonary edema, diuresed with IV Lasix and now improved ECHO here with preserved EF, mild , mild MS, mild MR, mild Pulm HTN -continue home HCTZ -improve BP control as above (7) Paroxysmal atrial fibrillation: Currently in sinus rhythm -Her Xarelto has been held due to anemia and recently diagnosed gastric ulcers -Cannot tolerate beta-blockers due to bradycardia -Continue amiodarone -Monitor on telemetry (8) CAD (coronary artery disease): With a history of CABG Changed aspirin to Plavix as above for recent gastric ulcers Continue atorvastatin, enalapril She cannot tolerate beta-blockers No acute issues (9) Type 2 diabetes mellitus: With ongoing hyperglycemia from steroids -increase Lantus to 15 units in AM and 30 units qPM -will again tighten down NovoLog correction factor and carb ratio to 12 and 4:1 last was 8.0% in 02/2022 (10) Hypothyroidism: -Continue levothyroxine TSH was normal at 4.3 in 04/2022 (11) Severe obstructive sleep apnea: -Patient previously diagnosed but does not use CPAP as above, now willing to trial -needs outpt sleep study (12) Gastric ulcer: -Continue protonix bid x 3 months (13) Peripheral arterial disease: Left SC artery stenosis Noted, do not take blood pressure on the left upper extremity Switching aspirin to Plavix as above Continue high intensity statin Has a history of left subclavian stenosis, carotid artery stenosis (14) Chronic back pain: Continue Tylenol 3 times daily- scheduled as she takes this at home Total Time Total Time Spent Total Time Spent (In Minutes): 35 Discharge Plan Discharge Items Patient Disposition: Home - Self-Care Reason For Visit: SOB Discharge Diagnosis: COVID 19 Activity: Resume your previous activity Non-emergency contact: Primary Care Provider Call non-emergency contact if: you have any medication questions Follow-up/Referrals: Raoul Palencia MD [Primary Care Provider] - 07/31/22 3:15 pm Diet: Carb Consistent or DM2 and Heart Healthy Addtl Attending Provider Instructions: You were treated for COVID 19. You will continue on dexamethasone 6mg until 07/28 You passed your 2 step so you will no require any supplemental oxygen. We recommended an outpatient sleep study to get you approved for CPAP/BIPAP. Also recommend following with Dr. Floresita Otero for weight loss. In regards to your iron, this was replaced. Will recommend rechecking your level in 3-4 weeks. Pending Studies at Discharge: No Stand-Alone Forms: My Parse, Smoking Cessation Medications and DC Order Prescriptions: New clopidogrel 75 mg Tablet 75 mg PO QAM Qty: 30 0RF amlodipine [Norvasc] 5 mg Tablet 5 mg PO QAM Qty: 30 0RF dexamethasone 6 mg tablet 6 mg PO DAILY Qty: 6 0RF Rx Instructions: take first dose tomorrow. Continued atorvastatin 80 mg tablet 80 mg PO QPM Qty: 90 3RF enalapril maleate 20 mg tablet 20 mg PO BID Qty: 180 3RF Label Comments: breakfast and lunch Lantus Solostar U-100 Insulin 100 unit/mL (3 mL) insulin pen 30 unit SQ HS 90 Days Qty: 30 1RF Rx Instructions: 30 units subcut at bedtime; metformin 500 mg tablet extended release 24 hr 1,000 mg PO QAM Qty: 180 3RF levothyroxine 112 mcg tablet 112 mcg PO 6XWK Qty: 90 1RF Rx Instructions: 1 tab 6 mornings/week on empty stomach w/a full glass of water, wait 30 min to eat,drink or take other meds pantoprazole 40 mg tablet,delayed release (DR/EC) 40 mg PO BID Qty: 60 5RF (DME) lancets [Easy Touch Twist Lancets] 33 gauge misc See Dose Instructions .ROUTE .MEDSUPPLY Qty: 100 Rx Instructions: As directed cholecalciferol (vitamin D3) 25 mcg (1,000 unit) tablet 1,000 units PO QAM fluticasone propionate 50 mcg/actuation spray,suspension 2 spray intranasal DAILY PRN (Reason: Allergy Symptoms) Qty: 1 mecobalamin (vitamin B12) 1,000 mcg tablet,chewable 2,500 mcg PO QAM insulin aspart U-100 [Novolog Flexpen U-100 Insulin] 100 unit/mL (3 mL) insulin pen 60 unit .ROUTE DAILY 90 Days Qty: 60 1RF Rx Instructions: 60 units daily; up to 20 units with meals at least 3 times daily (DME) Easy Touch Test Strip Strip See Rx Instructions .ROUTE .MEDSUPPLY Qty: 300 3RF Rx Instructions: test blood sugars 3 x daily hydrochlorothiazide 25 mg tablet 25 mg PO QAM albuterol sulfate 90 mcg/actuation HFA aerosol inhaler 2 puff inhalation Q6H PRN (Reason: Shortness Of Breath Or Wheezing) hydralazine 100 mg tablet See Rx Instructions .ROUTE .COMPLEX Qty: 270 3RF Rx Instructions: 50 mg in morning and afternoon; 100 mg in evening acetaminophen [Tylenol Arthritis Pain] 650 mg tablet extended release 1,300 mg PO DAILY PRN (Reason: sciatica pain) ferrous sulfate 325 mg (65 mg iron) Tablet 325 mg PO QAM multivitamin Tablet 1 tab PO QAM amiodarone 100 mg tablet 100 mg PO QDL potassium chloride 20 mEq tablet extended release 20 meq PO QAM Discontinued aspirin 81 mg tablet,delayed release (DR/EC) 81 mg PO QPM Qty: 90 Discharge Orders: Discharge Order (Routine); Ordered 07/22/22 Ordered By: Erick Duke/Other Patient Handouts: Managing Type 2 Diabetes Admission Data Admit Date/Time: 07/18/22 20:41 Attending Provider: Erick Joy Admit Provider: Catherine Laguna Primary Care Provider: Raoul Palencia Other Providers: Catherine Laguna Other Interventions: Discharge Summary Assessment (RN) Last Done: 07/22/22 11:57 Coding Level of Care Code D/C DAY MANAGEMENT >30 MINS Diagnoses COVID-19 U07.1 Hypoxia R09.02 Anemia D64.9 HTN (hypertension) I10 Pulmonary hypertension I27.20 Acute diastolic CHF (congestive heart failure) I50.31 Paroxysmal atrial fibrillation I48.0 CAD (coronary artery disease) I25.10 Type 2 diabetes mellitus E11.9 Hypothyroidism E03.9 Severe obstructive sleep apnea G47.33 Gastric ulcer K25.9 Peripheral arterial disease I73.9 Chronic back pain M54.9; G89.29
== END 2022-07-22 13:23 | disposition home or self-care (01) | DRG 177 ==
LOC: ED 16:35 → 2N 20:41 → SUATTDRO 20:41 → 2N 22:30

== ENCOUNTER 2024-11-02 20:18 | Observation (INO) ==
[2024-11-02 21:01] LABS: Albumin Globulin Ratio 1.3 (0.9-2); Albumin Level 3.8 gm/dl (3.4-5.0); BUN Creatinine Ratio 24.7 (10-20); Bilirubin,Total 0.6 mg/dl (0.2-1.0); Creatinine Clr Calc Pharmacy 48.5 ml/min; Potassium 3.9 mmol/L (3.5-5.1); Total Protein 6.8 gm/dl (6.0-8.3)
[2024-11-02 21:12] LABS: Basophils # (auto) 0.05 K/uL (0.00-0.20); Basophils % (auto) 0.5 %; Eosinophils # (auto) 0.15 K/uL (0.00-0.50); Eosinophils % (auto) 1.5 %; Hematocrit (blood only) 38.1 % (37.0-47.0); Hemoglobin 12.5 g/dl (12.0-16.0); Immature Granulocytes # (auto) 0.06 K/uL (0.01-0.20); Immature Granulocytes % (auto) 0.6 %; Lymphocytes # (auto) 1.28 K/uL (1.20-3.40); Lymphocytes % (auto) 12.8 %; Mean Corpuscular Hemoglobin 32.5 pg (25.0-34.0); Mean Corpuscular Hgb Conc 32.8 g/dL (32.0-36.0); Mean Platelet Volume 11.4 fL (9.4-12.4); Neutrophils # (auto) 7.53 K/uL (1.40-6.50); Neutrophils % (auto) 75.6 %; Platelet Count 221 K/uL (130-400); RDW Coefficient of Variation 13.4 % (11.5-14.5); Red Blood Count 3.85 M/uL (4.20-5.40); White Blood Count 9.97 K/ul (4.8-10.8)
[2024-11-02 21:21] LABS: Partial Thromboplastin Ratio 1.3; Partial Thromboplastin Time 36 Seconds (21-31); Prothrombin Time 11.3 Seconds (9.0-12.0)
--- NOTE | 2024-11-02 21:33 | XRay Report ---
Exam(s): XR CXR 1 VIEW EXAM: XR Chest, 1 View CLINICAL HISTORY: Reason for exam: Chest pain, nonspecific. TECHNIQUE: Frontal view of the chest. COMPARISON: No relevant prior studies available. FINDINGS: Lungs: Unremarkable. No consolidation. Pleural space: Left pleural effusion. Heart: Unremarkable. No cardiomegaly. Mediastinum: Unremarkable. Normal mediastinal contour. Bones/joints: Unremarkable. No acute fracture. IMPRESSION: Small left pleural effusion Electronically signed by: Rico Lawson MD 11/02/24 21:33 PM
[2024-11-02 21:55] LABS: Influenza A virus by PCR Negative (Neg); Influenza B virus by PCR Negative (Neg); RSV by PCR Negative (Neg); SARS CoV2 RNA(COVID-19) Ceph NEGATIVE (Negative)
[2024-11-02 22:08] LABS: Magnesium 1.7 mg/dl (1.7-2.4)
[2024-11-02] MEDS: ALBUT/IPRATROP 3MG/0.5MG NEB 3 ML VIAL NEB STA (22:18)
--- NOTE | 2024-11-02 22:26 | Emergency Department Note ---
History of Present Illness General Chief complaint: Shortness of Breath/Dyspnea Stated complaint: SOB, , POS AFIB, OVERACTIVE STOOL Time Seen by Provider: 11/02/24 21:37 History of Present Illness This 79-year-old female with a history significant for circumflex VA status post POBA in 1998 in [place], paroxysmal atrial fibrillation (diagnosed March of 2020), carotid artery stenosis, left subclavian artery stenosis (Vascular surgery/Dr. Wagoner), dyslipidemia, hypertension, gastric ulcers, anemia, and type 2 diabetes. She also has a history of stroke in 2013. Patient presents to the ER complaint of cough, congestion, shortness of breath and not feeling well for the past day. She does not wear oxygen. Nursing is documented 88% on room air. She was placed on nasal cannula and O2 improved. Patient patient also complains of ongoing abdominal pain that she is currently getting worked up by the PCP. No recent endoscopy or colonoscopy. Patient denies vomiting, diarrhea, urinary symptoms. Patient states she is not tolerating the Ozempic or Mounjaro and is currently seeing Dr. Haley for this. Home Medications Medication Instructions Recorded Confirmed Type acetaminophen 650 mg 1,300 mg PO DAILY PRN sciatica pain 04/03/22 09/15/24 History tablet,extended release (Tylenol Arthritis Pain) fluticasone propionate 50 2 spray intranasal DAILY PRN 06/14/22 09/15/24 History mcg/actuation nasal Allergy Symptoms #1 g spray,suspension multivitamin 1 tab PO QAM 06/21/22 09/15/24 History ferrous sulfate 325 mg (65 mg 325 mg PO QAM #90 tabs 08/21/22 09/15/24 Rx iron) tablet apixaban 5 mg tablet (Eliquis) 5 mg PO BID #180 tabs 10/15/23 09/29/24 Rx furosemide 40 mg tablet 40 mg PO BID #180 tabs 12/16/23 09/15/24 Rx enalapril maleate 20 mg tablet 20 mg PO BID #180 tabs 12/25/23 09/15/24 Rx tirzepatide 2.5 mg/0.5 mL 2.5 mg subcut .weekly 02/19/24 09/29/24 History subcutaneous pen injector (Mounjaro) fluocinonide 0.05 % topical cream 1 applic topical BID #60 grams 02/26/24 09/15/24 Rx atorvastatin 80 mg tablet 80 mg PO QPM #90 tabs 03/09/24 09/15/24 Rx blood sugar diagnostic (OneTouch #300 ea 03/09/24 09/02/24 Rx Verio test strips) blood-glucose meter (OneTouch #1 ea 03/10/24 09/02/24 Rx Verio Reflect kit) lancets 32 gauge #300 ea 03/10/24 09/02/24 Rx potassium chloride 20 mEq 40 meq (2 x 20 mEq) PO DAILY #180 05/25/24 09/15/24 Rx tablet,extended release tabs pantoprazole 40 mg tablet,delayed 40 mg PO BID #180 tabs 07/27/24 09/15/24 Rx release insulin aspart U-100 100 unit/mL 20 unit (0.2 mL) subcut TID 90 08/03/24 09/29/24 Rx (3 mL) subcutaneous pen (Novolog days #60 mL FlexPen U-100 Insulin aspart) insulin glargine 100 unit/mL (3 45 unit (0.45 mL) subcut QAM 90 08/03/24 09/15/24 Rx mL) subcutaneous pen (Lantus days #45 mL Solostar U-100 Insulin) levothyroxine 112 mcg tablet 112 mcg PO QAM 09/15/24 09/15/24 History omega 2-hvg-eql-fish oil 1,000 mg 1 cap PO BID 09/15/24 09/15/24 History (120 mg-180 mg) capsule (Fish Oil) vibegron 75 mg tablet (Gemtesa) 75 mg PO DAILY #30 tabs 09/21/24 Rx hydralazine 100 mg tablet See Rx Instructions .Route 09/28/24 Rx .COMPLEX #180 tabs amiodarone 100 mg tablet 100 mg PO QDL #90 tabs 10/19/24 Rx Allergies Allergy/AdvReac Type Severity Reaction Status Date / Time mold Allergy Intermediate Sneezing, Verified 09/29/24 10:16 mucus, watery eyes pollen extracts Allergy Intermediate Sneezing, Verified 09/29/24 10:16 mucus, watery eyes ragweed pollen Allergy Intermediate Sneezing, Verified 09/29/24 10:16 mucus, watery eyes animal dander Allergy Mild Sneezing Verified 09/29/24 10:16 grass pollen Allergy Mild Sneezing Verified 09/29/24 10:16 adhesive tape Allergy Verified 09/29/24 10:16 Past Med/Surg History Problem List (Updated 11/03/24 @ 01:19 by Radha Collazo PA-C) Acute congestive heart failure (Acute) Abdominal pain Adrenal nodule Degenerative lumbar spinal stenosis Scoliosis of lumbar region due to degenerative disease of spine in adult Urgency incontinence Non-proliferative diabetic retinopathy, both eyes Chronic heart failure with preserved ejection fraction Mild intermittent asthma Type 2 diabetes mellitus with insulin therapy Diabetic peripheral neuropathy Anemia On amiodarone therapy Paroxysmal atrial fibrillation Chronic anticoagulation Paroxysmal atrial fibrillation Dx 03/2020 > no pacer, med controlled, follows with Dr. 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 Aortic valve sclerosis Hearing loss Audiogram 12/26/2018 - Mild sensorineural on left. Moderate to severe, mixed on right. Normal tympanogram. Right hearing aid. Hypothyroidism Intracranial vascular stenosis MRA 04/06/2014 - Multifocal areas of [id number] narrowing seen throughout all visualized [place], most pronounced at the bilateral MCA bifurcation and bilateral [employer]. Left ventricular hypertrophy Obesity Osteopenia after menopause Psoriasis Pulmonary hypertension TTEcho 01/17/18 - Normal eRVSP. Subclavian artery stenosis, left Per 03/2020 carotid duplex- left subclavian stenosis, retrograde flow in the left vertebral artery consistent with steal phenomenon. Vitamin D deficiency Carotid stenosis Carotid Duplex 03/2020: 60-69% stenosis in right ICA. 50-59% stenosis in the left ICA. Follows with Dr Wagoner. Peripheral arterial disease Dyslipidemia (Chronic) HTN (hypertension) (Chronic) CAD (coronary artery disease) (Chronic) Circumflex VA s/p circumflex angioplasty (1998) Anxiety Medical History History of atrial fibrillation pt unsure if current>taking eliquis daily Arthritis Urinary urgency History of Mohs micrographic surgery for skin cancer bcc>nose area Hx of gastric ulcer Diabetic neuropathy Hx of migraines Hypertension Hyperlipidemia Sleep apnea can not tolerate device Hypercalcemia Chronic rhinitis Anemia Sciatica Hypothyroidism Diabetes mellitus, type 2 IDDM Bulging disc L3-L4, gets injections with Dr. 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 CVA (cerebral vascular accident) (04/01/14) Acute/Subacute right pontine CVA (2013)- residual short-term memory loss, left sided weakness, no BP in left arm Surgical History History of tooth extraction History of cystoscopy Cystoscopy, Right Ureteroscopy, Retrograde, Right Stent Placement: 07/07/20: LMA#4 at [facility] History of cataract surgery right/left History of cardiac cath (~1998) no stents History of abdominal hysterectomy (04/1998) bso, endometriosis S/P excision of lipoma History of colonoscopy (03/21/16) Family History Sister ALS (amyotrophic lateral sclerosis) Aunt Breast cancer Mother Diabetes Myocardial infarction Hypertension Heart disease Father Diabetes Myocardial infarction Hypertension Heart disease Other Congestive heart failure Coronary heart disease No family history of adverse response to anesthesia No family history of bleeding disorder Denies family history of Ovarian cancer Prostate cancer Lung cancer Colorectal cancer Stroke Social History Smoking Status: Never smoker Tobacco Type: Cigarettes Age Started Using Tobacco: 20; Age Quit Using Tobacco: 27; packs per day: 1; Cigarettes Per Day: Smoked for 2-3 years in college; Second Hand Exposure: No; Do You Dip or Chew Tobacco: No; Hx Alcohol Use: Yes Alcohol type: wine Alcohol Intake Frequency: 2-4 x/Month Hx Substance Use: No Preferred Language: Barbadian Communication Ability: Effective Visual Impairment: Limited Hearing Ability: Use of Hearing Aid Spine Supervisor Required: No Beliefs That Will Affect Care: None marital status: Current Living Situation: Spouse current occupational status: retired How many Children do You have: 2 Feels Safe at Home: Yes Childhood Exposure to Second-Hand Smoke: Yes caffeine: Yes Dental Care, Regularly: Yes Physical Activity Frequency: 1-2 Times per Week Seatbelt Use: always Sunscreen Use: Yes Assistive Devices: Cane, Glasses, Hearing Aid - Melo and Walker Review of Systems A total of 10 systems reviewed and were otherwise negative Physical Exam Vital Signs Vital Signs - 24 hr 11/02/24 20:21 11/02/24 20:25 11/02/24 20:37 Temperature 36.4 C L Temperature Source Temporal Artery Scan Pulse Rate 86 Pulse Rate [Finger] Respiratory Rate 16 Respiratory Effort / Characteristics Non-Labored Spontaneous Non-Labored Spontaneous Respiratory Depth Normal Respiratory Pattern Blood Pressure 158/58 H Blood Pressure [Right Arm] Blood Pressure Mean 91 Blood Pressure Mean [Right Arm] Blood Pressure Position Sitting Pulse Oximetry 94 94 Oxygen Delivery Method Room Air Room Air Room Air Oxygen Flow Rate 0 Sepsis Recent Fever Within 48 Hours No Sepsis New/Unexplained Change in Mental Status N/A Sepsis Action Taken by Nursing No Action Required Oxygen Flow Rate - Titration Pulse Oximetry Post Tiitration 11/02/24 21:17 11/02/24 21:30 11/02/24 21:30 Temperature Temperature Source Pulse Rate 72 Pulse Rate [Finger] 71 Respiratory Rate 28 H Respiratory Effort / Characteristics Respiratory Depth Respiratory Pattern Blood Pressure Blood Pressure [Right Arm] 160/72 H Blood Pressure Mean Blood Pressure Mean [Right Arm] 101 Blood Pressure Position Pulse Oximetry 94 88 L Oxygen Delivery Method Nasal Cannula Room Air Nasal Cannula Oxygen Flow Rate 2 0 Sepsis Recent Fever Within 48 Hours Sepsis New/Unexplained Change in Mental Status Sepsis Action Taken by Nursing Oxygen Flow Rate - Titration 2 Pulse Oximetry Post Tiitration 94 11/02/24 23:21 11/03/24 00:00 11/03/24 01:24 Temperature Temperature Source Pulse Rate 60 Pulse Rate [Finger] 72 67 Respiratory Rate 20 24 Respiratory Effort / Characteristics Non-Labored Non-Labored Respiratory Depth Normal Respiratory Pattern Regular Regular Blood Pressure Blood Pressure [Right Arm] 135/56 L 130/51 L Blood Pressure Mean Blood Pressure Mean [Right Arm] 82 77 Blood Pressure Position Pulse Oximetry 95 93 Oxygen Delivery Method Nasal Cannula Nasal Cannula Oxygen Flow Rate 2 2 Sepsis Recent Fever Within 48 Hours Sepsis New/Unexplained Change in Mental Status Sepsis Action Taken by Nursing Oxygen Flow Rate - Titration Pulse Oximetry Post Tiitration VITALS: Vitals are noted on the nurse's note and reviewed by myself. Vital signs 88% on room air and patient improved on nasal cannula. GENERAL: Pleasant female who appears short of breath, in no acute distress, nondiaphoretic, well-developed well-nourished. SKIN: The skin was without rashes, erythema, edema, or bruising. There is no tenting of the skin. Capillary reflex less than 2 seconds. HEAD: Normocephalic atraumatic. EARS: External auditory canals clear EYES: Pupils equal round and reactive to light and accommodation. Conjunctivae without injection, sclerae without icterus. Extraocular movements intact. NOSE: Patent, no discharge. MOUTH: Mucous membranes moist. Pharynx without erythema or exudate. Uvula midline. Airway patent. Tongue does not deviate. NECK: Supple without nuchal rigidity. No lymphadenopathy. No thyromegaly. Cervical spine is nontender. No JVD. HEART: Regular rate and rhythm LUNGS: Left lower lung with rales. No retractions or accessory muscle use. ABDOMEN: Positive bowel sounds x 4. Normal tympanic percussion. Soft, nontender, without masses or organomegaly. Noel sign negative. No guarding or rebound tenderness. No CVA tenderness MUSCULOSKELETAL: No muscle atrophy, erythema, noted. NEURO: Patient was alert and oriented to person place and time. Normal sensation to light and sharp touch. No focal neurological deficits. Course Administered Medications Discontinued Medications Albuterol (Albut/Ipratrop 3mg/0.5mg Neb 3 Ml Vial) 3 ml NEB NOW STA; Protocol Stop: 11/02/24 22:00 Last Admin: 11/02/24 22:18 Dose: 3 ml Documented By: DAVID Furosemide (Furosemide 40 Mg/4 Ml Vial) 40 mg IV ONE ONE Stop: 11/03/24 01:19 Last Admin: 11/03/24 01:56 Dose: 40 mg Documented By: DOMINIC Ioversol (Optiray 320 125ml) 116 ml IV ONCE ONE Stop: 11/02/24 23:05 Last Admin: 11/02/24 23:04 Dose: 116 ml Documented By: MOMO Medical Decision Making Medical Records Attestation: I reviewed the patient's medical records. Home Medications Current Medication List: was personally reviewed by me Laboratory Data Attestation: I reviewed the patient's lab results. 11/02/24 20:31 11/02/24 20:31 Lab Results 11/02/24 11/02/24 11/02/24 Range/Units 20:30 20:31 20:48 WBC 9.97 (4.8-10.8) K/ul RBC 3.85 L (4.20-5.40) M/uL Hgb 12.5 (12.0-16.0) g/dl Hct 38.1 (37.0-47.0) % MCV 99.0 (80.0-100.0) fL MCH 32.5 (25.0-34.0) pg MCHC 32.8 (32.0-36.0) g/dL RDW Std Deviation 48.0 H (36.4-46.3) fL RDW Coeff of Rosalino 13.4 (11.5-14.5) % Plt Count 221 (130-400) K/uL MPV 11.4 (9.4-12.4) fL Immature Gran % (Auto) 0.6 % Neut % (Auto) 75.6 % Lymph % (Auto) 12.8 % [place] % (Auto) 9.0 % Eos % (Auto) 1.5 % Baso % (Auto) 0.5 % Neut # (Auto) 7.53 H (1.40-6.50) K/uL Lymph # (Auto) 1.28 (1.20-3.40) K/uL [place] # (Auto) 0.90 H (0.11-0.59) K/uL Eos # (Auto) 0.15 (0.00-0.50) K/uL Baso # (Auto) 0.05 (0.00-0.20) K/uL Immature Gran # (Auto) 0.06 (0.01-0.20) K/uL PT 11.3 (9.0-12.0) Seconds INR 1.0 (0.9-1.1) APTT 36 H (21-31) Seconds PTT Ratio 1.3 VBG pH (7.36-7.41) VBG pCO2 (38-50) mmHg VBG pO2 mmHg VBG HCO3 mmol/L VBG O2 Saturation % VBG Base Excess mEq/L Sodium 139 (136-145) mmol/L Potassium 3.9 (3.5-5.1) mmol/L Chloride 105 (98-107) mmol/L Carbon Dioxide 27 (21-32) mmol/L Anion Gap 7 (3-11) BUN 24 H (6-23) mg/dl Creatinine 0.97 (0.6-1.2) mg/dl Est Cr Clr Drug Dosing 48.5 ml/min eGFR 60.18 BUN/Creatinine Ratio 24.7 H (10-20) Glucose 284 H (70-99(Fasting)) mg/dl Calcium 10.0 (8.6-10.3) mg/dl Magnesium 1.7 (1.7-2.4) mg/dl Total Bilirubin 0.6 (0.2-1.0) mg/dl AST 19 (13-39) U/L ALT 21 (7-52) U/L Alkaline Phosphatase 65 (34-104) U/L Troponin I High Sens 13.0 (0-14) pg/ml B-Natriuretic Peptide 165 H (0-100) pg/ml Total Protein 6.8 (6.0-8.3) gm/dl Albumin 3.8 (3.4-5.0) gm/dl Globulin 3.0 (2.5-4.0) gm/dl Albumin/Globulin Ratio 1.3 (0.9-2) Lipase 30 (11-82) U/L TSH 3.367 (0.300-4.500) uIu/ml Adenovirus (PCR) Not Detected (NotDetected) B. pertussis DNA (PCR) Not Detected (NotDetected) B.parapertussis DNA PCR Not Detected (NotDetected) C. pneumoniae DNA (PCR) Not Detected (NotDetected) Coronavirus OC43 (PCR) Not Detected (NotDetected) Coronavirus HKU1 (PCR) Not Detected (NotDetected) Coronavirus 229E (PCR) Not Detected (NotDetected) SARS-CoV-2 (PCR) NEGATIVE (Negative) Coronavirus NL63 (PCR) (NotDetected) Human Metapneumovir PCR (NotDetected) Influenza Type A (PCR) (Neg) Influenza Type B (PCR) (Neg) M. pneumoniae (PCR) (NotDetected) Parainfluenza 1 (PCR) (NotDetected) Parainfluenza 2 (PCR) (NotDetected) Parainfluenza 3 (PCR) (NotDetected) Parainfluenza 4 (PCR) (NotDetected) RSV (RT-PCR) (Neg) RSV (PCR) (NotDetected) Entero/Rhino (PCR) (NotDetected) 11/02/24 11/02/24 11/02/24 Range/Units 20:48 20:48 20:48 WBC (4.8-10.8) K/ul RBC (4.20-5.40) M/uL Hgb (12.0-16.0) g/dl Hct (37.0-47.0) % MCV (80.0-100.0) fL MCH (25.0-34.0) pg MCHC (32.0-36.0) g/dL RDW Std Deviation (36.4-46.3) fL RDW Coeff of Rosalino (11.5-14.5) % Plt Count (130-400) K/uL MPV (9.4-12.4) fL Immature Gran % (Auto) % Neut % (Auto) % Lymph % (Auto) % [place] % (Auto) % Eos % (Auto) % Baso % (Auto) % Neut # (Auto) (1.40-6.50) K/uL Lymph # (Auto) (1.20-3.40) K/uL [place] # (Auto) (0.11-0.59) K/uL Eos # (Auto) (0.00-0.50) K/uL Baso # (Auto) (0.00-0.20) K/uL Immature Gran # (Auto) (0.01-0.20) K/uL PT (9.0-12.0) Seconds INR (0.9-1.1) APTT (21-31) Seconds PTT Ratio VBG pH (7.36-7.41) VBG pCO2 (38-50) mmHg VBG pO2 mmHg VBG HCO3 mmol/L VBG O2 Saturation % VBG Base Excess mEq/L Sodium (136-145) mmol/L Potassium (3.5-5.1) mmol/L Chloride (98-107) mmol/L Carbon Dioxide (21-32) mmol/L Anion Gap (3-11) BUN (6-23) mg/dl Creatinine (0.6-1.2) mg/dl Est Cr Clr Drug Dosing ml/min eGFR BUN/Creatinine Ratio (10-20) Glucose (70-99(Fasting)) mg/dl Calcium (8.6-10.3) mg/dl Magnesium (1.7-2.4) mg/dl Total Bilirubin (0.2-1.0) mg/dl AST (13-39) U/L ALT (7-52) U/L Alkaline Phosphatase (34-104) U/L Troponin I High Sens (0-14) pg/ml B-Natriuretic Peptide (0-100) pg/ml Total Protein (6.0-8.3) gm/dl Albumin (3.4-5.0) gm/dl Globulin (2.5-4.0) gm/dl Albumin/Globulin Ratio (0.9-2) Lipase (11-82) U/L TSH (0.300-4.500) uIu/ml Adenovirus (PCR) (NotDetected) B. pertussis DNA (PCR) (NotDetected) B.parapertussis DNA PCR (NotDetected) C. pneumoniae DNA (PCR) (NotDetected) Coronavirus OC43 (PCR) (NotDetected) Coronavirus HKU1 (PCR) (NotDetected) Coronavirus 229E (PCR) (NotDetected) SARS-CoV-2 (PCR) Not Detected (Negative) Coronavirus NL63 (PCR) Not Detected (NotDetected) Human Metapneumovir PCR Not Detected (NotDetected) Influenza Type A (PCR) Negative Not Detected (Neg) Influenza Type B (PCR) Negative Not Detected (Neg) M. pneumoniae (PCR) Not Detected (NotDetected) Parainfluenza 1 (PCR) Not Detected (NotDetected) Parainfluenza 2 (PCR) Not Detected (NotDetected) Parainfluenza 3 (PCR) Not Detected (NotDetected) Parainfluenza 4 (PCR) Not Detected (NotDetected) RSV (RT-PCR) Negative (Neg) RSV (PCR) Not Detected (NotDetected) Entero/Rhino (PCR) Not Detected (NotDetected) 11/02/24 Range/Units 22:37 WBC (4.8-10.8) K/ul RBC (4.20-5.40) M/uL Hgb (12.0-16.0) g/dl Hct (37.0-47.0) % MCV (80.0-100.0) fL MCH (25.0-34.0) pg MCHC (32.0-36.0) g/dL RDW Std Deviation (36.4-46.3) fL RDW Coeff of Rosalino (11.5-14.5) % Plt Count (130-400) K/uL MPV (9.4-12.4) fL Immature Gran % (Auto) % Neut % (Auto) % Lymph % (Auto) % [place] % (Auto) % Eos % (Auto) % Baso % (Auto) % Neut # (Auto) (1.40-6.50) K/uL Lymph # (Auto) (1.20-3.40) K/uL [place] # (Auto) (0.11-0.59) K/uL Eos # (Auto) (0.00-0.50) K/uL Baso # (Auto) (0.00-0.20) K/uL Immature Gran # (Auto) (0.01-0.20) K/uL PT (9.0-12.0) Seconds INR (0.9-1.1) APTT (21-31) Seconds PTT Ratio VBG pH 7.41 (7.36-7.41) VBG pCO2 46 (38-50) mmHg VBG pO2 41 mmHg VBG HCO3 29 mmol/L VBG O2 Saturation 68.9 % VBG Base Excess 3.8 mEq/L Sodium (136-145) mmol/L Potassium (3.5-5.1) mmol/L Chloride (98-107) mmol/L Carbon Dioxide (21-32) mmol/L Anion Gap (3-11) BUN (6-23) mg/dl Creatinine (0.6-1.2) mg/dl Est Cr Clr Drug Dosing ml/min eGFR BUN/Creatinine Ratio (10-20) Glucose (70-99(Fasting)) mg/dl Calcium (8.6-10.3) mg/dl Magnesium (1.7-2.4) mg/dl Total Bilirubin (0.2-1.0) mg/dl AST (13-39) U/L ALT (7-52) U/L Alkaline Phosphatase (34-104) U/L Troponin I High Sens 22.3 H (0-14) pg/ml B-Natriuretic Peptide (0-100) pg/ml Total Protein (6.0-8.3) gm/dl Albumin (3.4-5.0) gm/dl Globulin (2.5-4.0) gm/dl Albumin/Globulin Ratio (0.9-2) Lipase (11-82) U/L TSH (0.300-4.500) uIu/ml Adenovirus (PCR) (NotDetected) B. pertussis DNA (PCR) (NotDetected) B.parapertussis DNA PCR (NotDetected) C. pneumoniae DNA (PCR) (NotDetected) Coronavirus OC43 (PCR) (NotDetected) Coronavirus HKU1 (PCR) (NotDetected) Coronavirus 229E (PCR) (NotDetected) SARS-CoV-2 (PCR) (Negative) Coronavirus NL63 (PCR) (NotDetected) Human Metapneumovir PCR (NotDetected) Influenza Type A (PCR) (Neg) Influenza Type B (PCR) (Neg) M. pneumoniae (PCR) (NotDetected) Parainfluenza 1 (PCR) (NotDetected) Parainfluenza 2 (PCR) (NotDetected) Parainfluenza 3 (PCR) (NotDetected) Parainfluenza 4 (PCR) (NotDetected) RSV (RT-PCR) (Neg) RSV (PCR) (NotDetected) Entero/Rhino (PCR) (NotDetected) Imaging Data Attestation: I personally reviewed and interpreted this imaging study as follows: Radiologist's Impression: Chest X-Ray 11/02/24 20:25 Exam(s): XR CXR 1 VIEW EXAM: XR Chest, 1 View CLINICAL HISTORY: Reason for exam: Chest pain, nonspecific. TECHNIQUE: Frontal view of the chest. COMPARISON: No relevant prior studies available. FINDINGS: Lungs: Unremarkable. No consolidation. Pleural space: Left pleural effusion. Heart: Unremarkable. No cardiomegaly. Mediastinum: Unremarkable. Normal mediastinal contour. Bones/joints: Unremarkable. No acute fracture. IMPRESSION: Small left pleural effusion Electronically signed by: Rico Lawson MD 11/02/24 21:33 PM Abdomen/Pelvis CT 11/02/24 21:59 Exam(s): CT ABDOMEN + PELVIS With Contrast IV Amt: 116ml optiray 320 EXAM: CT Abdomen and Pelvis With Intravenous Contrast CLINICAL HISTORY: Reason for exam: upper abd pain. TECHNIQUE: Axial computed tomography images of the abdomen and pelvis with intravenous contrast. CTDI is 27.85 mGy and DLP is 1344.93 mGy-cm. Automated exposure control was utilized for the study. A dose lowering technique was utilized adhering to the principles of ALARA. CONTRAST: Patient received 116ml optiray 320 of IV contrast COMPARISON: No relevant prior studies available. FINDINGS: Lung bases: Linear atelectasis at both lung basis. Heart: Dense mitral valve calcifications. ABDOMEN: Liver: Hepatic steatosis. Gallbladder and bile ducts: Unremarkable. No calcified stones. No ductal dilation. Pancreas: Unremarkable. No mass. No ductal dilation. Spleen: Unremarkable. No splenomegaly. Adrenals: Unremarkable. No mass. Kidneys and ureters: Multiple bilateral renal hypodensities likely representing cysts measuring up to 2.8 cm on the left and 1.2 cm on the right. No hydronephrosis. Stomach and bowel: Scattered colonic diverticuli without evidence of diverticulitis. No obstruction. PELVIS: Appendix: No findings to suggest acute appendicitis. Bladder: Unremarkable. No mass. Reproductive: Uterus is surgically absent. ABDOMEN and PELVIS: Intraperitoneal space: Unremarkable. No free air. No significant fluid collection. Bones/joints: No acute fracture. No dislocation. Soft tissues: Unremarkable. Vasculature: Unremarkable. No abdominal aortic aneurysm. Lymph nodes: Unremarkable. No enlarged lymph nodes. IMPRESSION: No acute findings in the abdomen or pelvis. Diverticulosis without evidence of diverticulitis Hepatic steatosis Electronically signed by: Rico Lawson MD 11/03/24 01:10 AM Chest CTA 11/02/24 21:59 Exam(s): CTA CHEST IV Amt: 116ml optiray 320 EXAM: CT Angiography Chest With Intravenous Contrast CLINICAL HISTORY: Reason for exam: PE. TECHNIQUE: Axial computed tomographic angiography images of the chest with intravenous contrast. CTDI is 28.14 mGy and DLP is 831.42 mGy-cm. Automated exposure control was utilized for the study. A dose lowering technique was utilized adhering to the principles of ALARA. MIP reconstructed images were created and reviewed. COMPARISON: No relevant prior studies available. FINDINGS: Pulmonary arteries: Dilated main pulmonary arteries consistent with pulmonary arterial hypertension. No pulmonary embolism. Aorta: 3.7 cm ascending thoracic aortic aneurysm. Lungs: Interlobular septal thickening with mild groundglass opacity within the upper lobes. Pleural space: Trace right and small left bilateral pleural effusions. No pneumothorax. Heart: Marked cardiomegaly. Coronary artery calcification. No significant pericardial effusion. No evidence of RV dysfunction. Bones/joints: No acute fracture. No dislocation. Soft tissues: Unremarkable. Lymph nodes: Unremarkable. No enlarged lymph nodes. IMPRESSION: Trace right and small left bilateral pleural effusions. The prior pulmonary arterial hypertension No pulmonary embolus Very mild pulmonary edema Electronically signed by: Rico Lawson MD 11/03/24 01:[address] [facility] Narrative Prior records/ancillary studies reviewed. Triage Nursing notes reviewed. Additional history obtained from the family. The patient's history was concerning for respiratory difficulties. Differential diagnosis: Etiologies such as infections, reactive airway disease, pneumonia, pneumothorax, COPD, CHF, cardiac ischemia, pulmonary embolism, musculoskeletal, gastrointestinal, as well as others were entertained. Physical examination: As above. ER treatment provided: An order was placed for continuous cardiac monitoring. The monitor shows a rate of 60-100 with a sinus rhythm per my interpretation. Nebulizer, Lasix On reassessment the patient felt better. Diagnostic interpretation by me: The electrocardiogram was ordered for SOB. ECG: Normal sinus, normal nose, no acute ST or T wave changes. Impression normal sinus rhythm independently interpreted by myself The labs Independently Interpreted by myself revealed elevated BNP. Negative troponin. Glucose 284 No worrisome leukocytosis Imaging studies: Chest x-ray was reviewed and read by radiology. Imaging was reviewed and read by radiology Consultation: A consultation was placed with the hospitalist. The case was discussed and diagnostics were reviewed. The patient was evaluated in the ER for further treatment. This appears to be consistent with acute heart failure. Patient is given Lasix. She was hypoxic on room air. She improved with oxygen. Medicine was consulted case is discussed. She will be evaluated for possible admission. By the evaluation outlined above emergent etiologies such as pulmonary embolism, reactive airway disease, pneumonia, pneumothorax, musculoskeletal, serious bacterial infections, as well as others were deemed relatively unlikely. The pt informed about the findings as listed above. All questions were answered and pleased with the treatment. condition. The chart was completed utilizing [employer] recognition software. Grammatical errors, random word insertions, pronoun errors, and incomplete sentences are an occassional consequence of this system due to software limitations, ambient noise, and hardware issues. Any formal questions or concerns about the content, text, or information contained within the body of this dictation should be directly addressed to the physician desk assistant for clarification. Impression & Plan Acute congestive heart failure Discharge Plan Visit Data Chief Complaint: Shortness of Breath/Dyspnea Stated Complaint: SOB, , POS AFIB, OVERACTIVE STOOL ED Provider: [facility] ED Midlevel Provider: Radha Collazo Discharge Problem: Acute congestive heart failure Patient Disposition: Being Evaluated by Hospitalist Condition: Good Forms Stand Alone Forms: My [facility] [employer] Prescriptions Prescriptions: No Action Eliquis 5 mg tablet 5 mg PO BID Qty: 180 3RF furosemide 40 mg tablet 40 mg PO BID Qty: 180 3RF enalapril maleate 20 mg tablet 20 mg PO BID Qty: 180 3RF Patient Comments: breakfast and lunch fluocinonide 0.05 % cream 1 applic topical BID Qty: 60 1RF (DME) OneTouch Verio test strips Strip See Rx Instructions .ROUTE .MEDSUPPLY Qty: 300 3RF Rx Instructions: test blood sugar TID atorvastatin 80 mg tablet 80 mg PO QPM Qty: 90 3RF (DME) blood-glucose meter [OneTouch Verio Reflect] Kit See Rx Instructions .Route Qty: 1 0RF Rx Instructions: Test blood sugars three times a day. E11.9 (DME) lancets 32 gauge misc See Rx Instructions .Route Qty: 300 3RF Rx Instructions: use to test blood sugar TID potassium chloride 20 mEq tablet extended release 40 meq PO DAILY Qty: 180 3RF pantoprazole 40 mg tablet,delayed release (DR/EC) 40 mg PO BID Qty: 180 3RF insulin aspart U-100 [Novolog FlexPen U-100 Insulin] 100 unit/mL (3 mL) insulin pen 20 unit subcut TID 90 Days Qty: 60 3RF Rx Instructions: with meals up to 60 units daily insulin glargine [Lantus Solostar U-100 Insulin] 100 unit/mL (3 mL) insulin pen 45 unit SQ QAM 90 Days Qty: 45 3RF Gemtesa 75 mg tablet 75 mg PO DAILY Qty: 30 2RF hydralazine 100 mg tablet See Rx Instructions .ROUTE .COMPLEX Qty: 180 3RF Rx Instructions: 50 mg in morning and afternoon; 100 mg in evening amiodarone 100 mg tablet 100 mg PO QDL Qty: 90 3RF fluticasone propionate 50 mcg/actuation spray,suspension 2 spray intranasal DAILY PRN (Reason: Allergy Symptoms) Qty: 1 ferrous sulfate 325 mg (65 mg iron) tablet 325 mg PO QAM Qty: 90 1RF Mounjaro 2.5 mg/0.5 mL pen injector 2.5 mg subcut .weekly Patient Comments: last dose taken was 7.5mg on 09/08/24>plans not to take until after EGD scheduled acetaminophen [Tylenol Arthritis Pain] 650 mg tablet extended release 1,300 mg PO DAILY PRN (Reason: sciatica pain) multivitamin Tablet 1 tab PO QAM omega [id number]-[id number]-fish oil [Fish Oil] 1,000 (120-180) mg Capsule 1 cap PO BID levothyroxine 112 mcg tablet 112 mcg PO QAM Referrals Referrals: Jo Ann Echevarria DO [Primary Care Provider] - Discharge Problem: Acute congestive heart failure Qualifiers: Heart failure type: unspecified Qualified Code(s): I50.9 - Heart failure, unspecified
[2024-11-02] MEDS: OPTIRAY 320 125ml IV ONE (23:04)
[2024-11-02 23:15] LABS: Base Excess VBG 3.8 mEq/L; HCO3 VBG 29 mmol/L; Oxygen Saturation VBG 68.9 %; PCO2 VBG 46 mmHg (38-50); PO2 VBG 41 mmHg; pH VBG 7.41 (7.36-7.41)
[2024-11-02 23:22] LABS: Adenovirus PCR Not Detected (NotDetected); Bordetella parapertussis PCR Not Detected (NotDetected); Bordetella pertussis PCR Not Detected (NotDetected); Chlamydia pneumoniae PCR Not Detected (NotDetected); Coronavirus 229E PCR Not Detected (NotDetected); Coronavirus CoV-2 (COVID19)PCR Not Detected (NotDetected); Coronavirus HKU1 PCR Not Detected (NotDetected); Coronavirus NL63 PCR Not Detected (NotDetected); Coronavirus OC43PCR Not Detected (NotDetected); Human Metapneumovirus PCR Not Detected (NotDetected); Influenza A PCR Not Detected (NotDetected); Influenza B PCR Not Detected (NotDetected); Mycoplasma pneumoniae PCR Not Detected (NotDetected); Parainfluenza Virus 1 PCR Not Detected (NotDetected); Parainfluenza Virus 2 PCR Not Detected (NotDetected); Parainfluenza Virus 3 PCR Not Detected (NotDetected); Parainfluenza Virus 4 PCR Not Detected (NotDetected); Respiratory Syncytial VirusPCR Not Detected (NotDetected); Rhinovirus/Enterovirus PCR Not Detected (NotDetected)
[2024-11-02 23:39] LABS: Thyroid Stimulating Hormone 3.367 uIu/ml (0.300-4.500)
--- NOTE | 2024-11-03 00:09 | Emergency Department Note ---
ED Visit Note I was consulted by the Advanced Practice Provider. I personally made/approved the management plan and take responsibility for the patient management. I performed a substantive portion of the visit including laboratory work and imaging. Chest x-ray was performed and reveals a small right pleural effusion. CT imaging of the chest, abdomen and pelvis was ordered by Ruth Collazo PA-C. We reviewed the findings together and felt the patient was stable for discharge. .
--- NOTE | 2024-11-03 01:08 | CT Scan Report ---
Exam(s): CTA CHEST IV Amt: 116ml optiray 320 EXAM: CT Angiography Chest With Intravenous Contrast CLINICAL HISTORY: Reason for exam: PE. TECHNIQUE: Axial computed tomographic angiography images of the chest with intravenous contrast. CTDI is 28.14 mGy and DLP is 831.42 mGy-cm. Automated exposure control was utilized for the study. A dose lowering technique was utilized adhering to the principles of ALARA. MIP reconstructed images were created and reviewed. COMPARISON: No relevant prior studies available. FINDINGS: Pulmonary arteries: Dilated main pulmonary arteries consistent with pulmonary arterial hypertension. No pulmonary embolism. Aorta: 3.7 cm ascending thoracic aortic aneurysm. Lungs: Interlobular septal thickening with mild groundglass opacity within the upper lobes. Pleural space: Trace right and small left bilateral pleural effusions. No pneumothorax. Heart: Marked cardiomegaly. Coronary artery calcification. No significant pericardial effusion. No evidence of RV dysfunction. Bones/joints: No acute fracture. No dislocation. Soft tissues: Unremarkable. Lymph nodes: Unremarkable. No enlarged lymph nodes. IMPRESSION: Trace right and small left bilateral pleural effusions. The prior pulmonary arterial hypertension No pulmonary embolus Very mild pulmonary edema Electronically signed by: Rico Lawson MD 11/03/24 01:08 AM
--- NOTE | 2024-11-03 01:11 | CT Scan Report ---
Exam(s): CT ABDOMEN + PELVIS With Contrast IV Amt: 116ml optiray 320 EXAM: CT Abdomen and Pelvis With Intravenous Contrast CLINICAL HISTORY: Reason for exam: upper abd pain. TECHNIQUE: Axial computed tomography images of the abdomen and pelvis with intravenous contrast. CTDI is 27.85 mGy and DLP is 1344.93 mGy-cm. Automated exposure control was utilized for the study. A dose lowering technique was utilized adhering to the principles of ALARA. CONTRAST: Patient received 116ml optiray 320 of IV contrast COMPARISON: No relevant prior studies available. FINDINGS: Lung bases: Linear atelectasis at both lung basis. Heart: Dense mitral valve calcifications. ABDOMEN: Liver: Hepatic steatosis. Gallbladder and bile ducts: Unremarkable. No calcified stones. No ductal dilation. Pancreas: Unremarkable. No mass. No ductal dilation. Spleen: Unremarkable. No splenomegaly. Adrenals: Unremarkable. No mass. Kidneys and ureters: Multiple bilateral renal hypodensities likely representing cysts measuring up to 2.8 cm on the left and 1.2 cm on the right. No hydronephrosis. Stomach and bowel: Scattered colonic diverticuli without evidence of diverticulitis. No obstruction. PELVIS: Appendix: No findings to suggest acute appendicitis. Bladder: Unremarkable. No mass. Reproductive: Uterus is surgically absent. ABDOMEN and PELVIS: Intraperitoneal space: Unremarkable. No free air. No significant fluid collection. Bones/joints: No acute fracture. No dislocation. Soft tissues: Unremarkable. Vasculature: Unremarkable. No abdominal aortic aneurysm. Lymph nodes: Unremarkable. No enlarged lymph nodes. IMPRESSION: No acute findings in the abdomen or pelvis. Diverticulosis without evidence of diverticulitis Hepatic steatosis Electronically signed by: Rico Lawson MD 11/03/24 01:10 AM
[2024-11-03] MEDS: FUROSEMIDE 40 MG/4 ML VIAL IV ONE (01:56)
--- NOTE | 2024-11-03 02:05 | History & Physical Report ---
Date of Service November 03, 2024 Assessment & Plan (1) Shortness of breath: Plan: 79yo female with history of CAD, HTN, HLP, DM, Hypothyroidism presenting with one day of PRECIADO. Patient hypoxic in the ER to 88% on room air - improved with supplemental O2. Suspect CHF, volume overload - patient with mild elevation of troponin=22.3 and HGM=707. CTA chest with bilateral pleural effusions as well as very mild pulmonary edema. -Admit to medical with telemetry -Diuresis with Lasix 40mg IV BID -Monitor electrolytes and renal function with BMP BID while diuresing -Monitor daily weight, intake and output -Continue supplemental O2 as needed to maintain saturation 94% -Check 2D echo -Trend troponin Plan Atrial Fibrillation - rate controlled, patient anticoagulated on Apixaban -Continue Amiodarone 100mg po daily -Continue Apixaban 5mg po BID Hyperlipidemia - chronic, stable -Continue Atorvastatin 80mg po daily Hypertension -Continue Hydralazine -Continue Enalapril GERD -Continue Protonix Diabetes -Lantus 15u BID and ISS History of Present Illness Chief Complaint: shortness of breath Primary Care Provider: DO Angi Villalpandoshelli Akers is a pleasant 79yo female with history of CAD, AF, HTN, HLP, RIK, DM presenting with shortness of breath x 1 day. Patient reports she has been in her usual state of health until yesterday morning when she developed shortness of breath and PRECIADO. She reports feeling dizzy with ambulation. Also reporting some cough and chest congestion. Patient reports she has been overdoing it lately. She has been busy getting ready to move over the last three days. She also recently travelled to [place] for a wedding - reports her allergy symptoms were very bad in [place]. Patient is planning a trip to [place] the [place] next week. She reports she is compliant with her medications. Has been undergoing workup for abdominal pain as an outpatient - thought possibly secondary to her [place]. She was recommended to take a stool softener and has been taking that twice daily with significant improvement in her abdominal pain. In the ER patient afebrile, HD stable. Saturation of 88% on room air. She was placed on supplemental O2 and feels improved. ER Course: Lasix 40mg IV Albuterol 3mL neb Allergies Allergy/AdvReac Type Severity Reaction Status Date / Time mold Allergy Intermediate Sneezing, Verified 09/29/24 10:16 mucus, watery eyes pollen extracts Allergy Intermediate Sneezing, Verified 09/29/24 10:16 mucus, watery eyes ragweed pollen Allergy Intermediate Sneezing, Verified 09/29/24 10:16 mucus, watery eyes animal dander Allergy Mild Sneezing Verified 09/29/24 10:16 grass pollen Allergy Mild Sneezing Verified 09/29/24 10:16 adhesive tape Allergy Verified 09/29/24 10:16 Home Medications Medication Instructions Recorded Confirmed Type acetaminophen 650 mg 1,300 mg PO DAILY PRN sciatica pain 04/03/22 09/15/24 History tablet,extended release (Tylenol Arthritis Pain) fluticasone propionate 50 2 spray intranasal DAILY PRN 06/14/22 09/15/24 History mcg/actuation nasal Allergy Symptoms #1 g spray,suspension multivitamin 1 tab PO QAM 06/21/22 09/15/24 History ferrous sulfate 325 mg (65 mg 325 mg PO QAM #90 tabs 08/21/22 09/15/24 Rx iron) tablet apixaban 5 mg tablet (Eliquis) 5 mg PO BID #180 tabs 10/15/23 09/29/24 Rx furosemide 40 mg tablet 40 mg PO BID #180 tabs 12/16/23 09/15/24 Rx enalapril maleate 20 mg tablet 20 mg PO BID #180 tabs 12/25/23 09/15/24 Rx tirzepatide 2.5 mg/0.5 mL 2.5 mg subcut .weekly 02/19/24 09/29/24 History subcutaneous pen injector (Analisa) fluocinonide 0.05 % topical cream 1 applic topical BID #60 grams 02/26/24 09/15/24 Rx atorvastatin 80 mg tablet 80 mg PO QPM #90 tabs 03/09/24 09/15/24 Rx blood sugar diagnostic (OneTouch #300 ea 03/09/24 09/02/24 Rx Verio test strips) blood-glucose meter (OneTouch #1 ea 03/10/24 09/02/24 Rx Verio Reflect kit) lancets 32 gauge #300 ea 03/10/24 09/02/24 Rx potassium chloride 20 mEq 40 meq (2 x 20 mEq) PO DAILY #180 05/25/24 09/15/24 Rx tablet,extended release tabs pantoprazole 40 mg tablet,delayed 40 mg PO BID #180 tabs 07/27/24 09/15/24 Rx release insulin aspart U-100 100 unit/mL 20 unit (0.2 mL) subcut TID 90 08/03/24 09/29/24 Rx (3 mL) subcutaneous pen (Novolog days #60 mL FlexPen U-100 Insulin aspart) insulin glargine 100 unit/mL (3 45 unit (0.45 mL) subcut QAM 90 08/03/24 09/15/24 Rx mL) subcutaneous pen (Lantus days #45 mL Solostar U-100 Insulin) levothyroxine 112 mcg tablet 112 mcg PO QAM 09/15/24 09/15/24 History omega 4-lxt-dhn-fish oil 1,000 mg 1 cap PO BID 09/15/24 09/15/24 History (120 mg-180 mg) capsule (Fish Oil) vibegron 75 mg tablet (Gemtesa) 75 mg PO DAILY #30 tabs 09/21/24 Rx hydralazine 100 mg tablet See Rx Instructions .Route 09/28/24 Rx .COMPLEX #180 tabs amiodarone 100 mg tablet 100 mg PO QDL #90 tabs 10/19/24 Rx Past Med/Surg History Problem List (Updated 11/03/24 @ 02:19 by Catherine Laguna DO) Shortness of breath Acute congestive heart failure (Acute) Abdominal pain Adrenal nodule Degenerative lumbar spinal stenosis Scoliosis of lumbar region due to degenerative disease of spine in adult Urgency incontinence Non-proliferative diabetic retinopathy, both eyes Chronic heart failure with preserved ejection fraction Mild intermittent asthma Type 2 diabetes mellitus with insulin therapy Diabetic peripheral neuropathy Anemia On amiodarone therapy Paroxysmal atrial fibrillation Chronic anticoagulation Paroxysmal atrial fibrillation Dx 03/2020 > no pacer, med controlled, follows with Dr. 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 Aortic valve sclerosis Hearing loss Audiogram 12/26/2018 - Mild sensorineural on left. Moderate to severe, mixed on right. Normal tympanogram. Right hearing aid. Hypothyroidism Intracranial vascular stenosis MRA 04/06/2014 - Multifocal areas of nnpb-mg-rmajwjec narrowing seen throughout all visualized cessels of the [place] of [place], most pronounced at the bilateral MCA bifurcation and bilateral SURVEILLANCE SPECIALIST. Left ventricular hypertrophy Obesity Osteopenia after menopause Psoriasis Pulmonary hypertension TTEcho 01/17/18 - Normal eRVSP. Subclavian artery stenosis, left Per 03/2020 carotid duplex- left subclavian stenosis, retrograde flow in the left vertebral artery consistent with steal phenomenon. Vitamin D deficiency Carotid stenosis Carotid Duplex 03/2020: 60-69% stenosis in right ICA. 50-59% stenosis in the left ICA. Follows with Dr Wagoner. Peripheral arterial disease Dyslipidemia (Chronic) HTN (hypertension) (Chronic) CAD (coronary artery disease) (Chronic) Circumflex RI s/p circumflex angioplasty (1998) Anxiety Medical History History of atrial fibrillation pt unsure if current>taking eliquis daily Arthritis Urinary urgency History of Mohs micrographic surgery for skin cancer bcc>nose area Hx of gastric ulcer Diabetic neuropathy Hx of migraines Hypertension Hyperlipidemia Sleep apnea can not tolerate device Hypercalcemia Chronic rhinitis Anemia Sciatica Hypothyroidism Diabetes mellitus, type 2 IDDM Bulging disc L3-L4, gets injections with Dr. 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 CVA (cerebral vascular accident) (04/01/14) Acute/Subacute right pontine CVA (2013)- residual short-term memory loss, left sided weakness, no BP in left arm Surgical History History of tooth extraction History of cystoscopy Cystoscopy, Right Ureteroscopy, Retrograde, Right Stent Placement: 07/07/20: LMA#4 at [facility] History of cataract surgery right/left History of cardiac cath (~1998) no stents History of abdominal hysterectomy (04/1998) bso, endometriosis S/P excision of lipoma History of colonoscopy (03/21/16) Family History Sister ALS (amyotrophic lateral sclerosis) Aunt Breast cancer Mother Diabetes Myocardial infarction Hypertension Heart disease Father Diabetes Myocardial infarction Hypertension Heart disease Other Congestive heart failure Coronary heart disease No family history of adverse response to anesthesia No family history of bleeding disorder Denies family history of Ovarian cancer Prostate cancer Lung cancer Colorectal cancer Stroke Social History Smoking Status: Never smoker Tobacco Type: Cigarettes Age Started Using Tobacco: 20; Age Quit Using Tobacco: 27; packs per day: 1; Cigarettes Per Day: Smoked for 2-3 years in college; Second Hand Exposure: No; Do You Dip or Chew Tobacco: No; Hx Alcohol Use: Yes Alcohol type: wine Alcohol Intake Frequency: 2-4 x/Month Hx Substance Use: No Preferred Language: Sami Communication Ability: Effective Visual Impairment: Limited Hearing Ability: Use of Hearing Aid Accredited Pharmacy Technician Required: No Beliefs That Will Affect Care: None marital status: Current Living Situation: Spouse current occupational status: retired How many Children do You have: 2 Feels Safe at Home: Yes Childhood Exposure to Second-Hand Smoke: Yes caffeine: Yes Dental Care, Regularly: Yes Physical Activity Frequency: 1-2 Times per Week Seatbelt Use: always Sunscreen Use: Yes Assistive Devices: Cane, Glasses, Hearing Aid - Bilateral and Walker Review of Systems Review of Systems: All systems reviewed & are unremarkable except as noted in HPI & below Physical Exam Physical Exam: General: patient resting comfortably, NAD, non-toxic in appearance, AA&O x 4 Skin: warm, dry, intact, no rashes or lesions HEENT: NC/AT, PERRL, EOMI, anicteric sclera, conjunctiva without injection, external ear normal to inspection and nontender, nares patent, moist mucus membranes, dentition intact, no oropharyngeal lesions, neck supple, trachea midline, no LAD, no thyromegaly, no JVD Heart: +S1/S2, irregularly irregular, no m/r/g Lungs: equal air entry bilaterally, faint crackles in bilateral bases, no rhonchi or wheezes Abd: +BS, soft, NT/ND, no masses/organomegaly/ascites Ext: warm, 2+ pulses in UE/LE bilaterally, no clubbing/cyanosis, 1+ edema of bilateral LE edema. Neuro: nonfocal, patient AA&O x 4, speech intact, no facial droop, moving all extremities on command with equal strength 5/5 Results & Data Results & Data Vital Signs (Past 12 Hours) Vital Signs Temp Pulse Pulse Resp BP BP Pulse Ox 11/03/24 01:24 60 11/03/24 01:00 60 24 134/63 96 11/03/24 00:00 67 24 130/51 L 93 11/02/24 23:21 72 20 135/56 L 95 11/02/24 21:30 88 L 11/02/24 21:30 71 28 H 160/72 H 94 11/02/24 21:17 72 11/02/24 20:37 94 11/02/24 20:25 11/02/24 20:21 36.4 C L 86 16 158/58 H 94 O2 Del Method O2 Flow Rate 11/03/24 01:24 11/03/24 01:00 Nasal Cannula 2 11/03/24 00:00 Nasal Cannula 2 11/02/24 23:21 Nasal Cannula 2 11/02/24 21:30 Room Air, Nasal Cannula 0 11/02/24 21:30 Nasal Cannula 2 11/02/24 21:17 11/02/24 20:37 Room Air 0 11/02/24 20:25 Room Air 11/02/24 20:21 Room Air Laboratory Results Laboratory Results WBC 9.97 K/ul (4.8-10.8) 11/02/24 20: RBC 3.85 M/uL (4.20-5.40) L 11/02/24 20:31 Hgb 12.5 g/dl (12.0-16.0) 11/02/24 20:31 Hct 38.1 % (37.0-47.0) 11/02/24 20: MCV 99.0 fL (80.0-100.0) 11/02/24 20: MCH 32.5 pg (25.0-34.0) 11/02/24 20: MCHC 32.8 g/dL (32.0-36.0) 11/02/24 20: RDW Std Deviation 48.0 fL (36.4-46.3) H 11/02/24 20: RDW Coeff of Rosalino 13.4 % (11.5-14.5) 11/02/24 20:31 Plt Count 221 K/uL (130-400) 11/02/24 20: MPV 11.4 fL (9.4-12.4) 11/02/24 20: Immature Gran % (Auto) 0.6 % 11/02/24 20: Neut % (Auto) 75.6 % 11/02/24: Lymph % (Auto) 12.8 % 11/02/24: Pettis % (Auto) 9.0 % 11/02/24: Eos % (Auto) 1.5 % 11/02/24: Baso % (Auto) 0.5 % 11/02/24: Neut # (Auto) 7.53 K/uL (1.40-6.50) H 11/02/24 20: Lymph # (Auto) 1.28 K/uL (1.20-3.40) 11/02/24: Pettis # (Auto) 0.90 K/uL (0.11-0.59) H 11/02/24 20: Eos # (Auto) 0.15 K/uL (0.00-0.50) 11/02/24: Baso # (Auto) 0.05 K/uL (0.00-0.20) 11/02/24: Immature Gran # (Auto) 0.06 K/uL (0.01-0.20) 11/02/24: PT 11.3 Seconds (9.0-12.0) 11/02/24: INR 1.0 (0.9-1.1) 11/02/24: APTT 36 Seconds (21-31) H 11/02/24: PTT Ratio 1.3 11/02/24: VBG pH 7.41 (7.36-7.41) 11/02/24 22:37 VBG pCO2 46 mmHg (38-50) 11/02/24 22: VBG pO2 41 mmHg 11/02/24:37 VBG HCO3 29 mmol/L 11/02/24 22: VBG O2 Saturation 68.9 % 11/02/24 22: VBG Base Excess 3.8 mEq/L 11/02/24 22: Sodium 139 mmol/L (136-145) 11/02/24: Potassium 3.9 mmol/L (3.5-5.1) 11/02/24:31 Chloride 105 mmol/L (98-107) 11/02/24 20:31 Carbon Dioxide 27 mmol/L (21-32) 11/02/24 20:31 Anion Gap 7 (3-11) 11/02/24 20:31 BUN 24 mg/dl (6-23) H 11/02/24 20:31 Creatinine 0.97 mg/dl (0.6-1.2) 11/02/24 20:31 Est Cr Clr Drug Dosing 48.5 ml/min 11/02/24 20:31 eGFR 60.18 11/02/24 20:31 BUN/Creatinine Ratio 24.7 (10-20) H 11/02/24 20:31 Glucose 284 mg/dl (70-99(Fasting)) H 11/02/24 20:31 Calcium 10.0 mg/dl (8.6-10.3) 11/02/24 20:31 Magnesium 1.7 mg/dl (1.7-2.4) 11/02/24 20:31 Total Bilirubin 0.6 mg/dl (0.2-1.0) 11/02/24 20:31 AST 19 U/L (13-39) 11/02/24 20:31 ALT 21 U/L (7-52) 11/02/24 20:31 Alkaline Phosphatase 65 U/L (34-104) 11/02/24 20:31 Troponin I High Sens 22.3 pg/ml (0-14) H 11/02/24 22:37 B-Natriuretic Peptide 165 pg/ml (0-100) H 11/02/24 20:30 Total Protein 6.8 gm/dl (6.0-8.3) 11/02/24 20:31 Albumin 3.8 gm/dl (3.4-5.0) 11/02/24 20:31 Globulin 3.0 gm/dl (2.5-4.0) 11/02/24 20:31 Albumin/Globulin Ratio 1.3 (0.9-2) 11/02/24 20:31 Lipase 30 U/L (11-82) 11/02/24 20:31 TSH 3.367 uIu/ml (0.300-4.500) 11/02/24 20:31 Adenovirus (PCR) Not Detected (NotDetected) 11/02/24 20:48 B. pertussis DNA (PCR) Not Detected (NotDetected) 11/02/24 20:48 B.parapertussis DNA PCR Not Detected (NotDetected) 11/02/24 20:48 C. pneumoniae DNA (PCR) Not Detected (NotDetected) 11/02/24 20:48 Coronavirus OC43 (PCR) Not Detected (NotDetected) 11/02/24 20:48 Coronavirus HKU1 (PCR) Not Detected (NotDetected) 11/02/24 20:48 Coronavirus 229E (PCR) Not Detected (NotDetected) 11/02/24 20:48 SARS-CoV-2 (PCR) NEGATIVE (Negative) 11/02/24 20:48 SARS-CoV-2 (PCR) Not Detected (NotDetected) 11/02/24 20:48 Coronavirus NL63 (PCR) Not Detected (NotDetected) 11/02/24 20:48 Human Metapneumovir PCR Not Detected (NotDetected) 11/02/24 20:48 Influenza Type A (PCR) Negative (Neg) 11/02/24 20:48 Influenza Type A (PCR) Not Detected (NotDetected) 11/02/24 20:48 Influenza Type B (PCR) Negative (Neg) 11/02/24 20:48 Influenza Type B (PCR) Not Detected (NotDetected) 11/02/24 20:48 M. pneumoniae (PCR) Not Detected (NotDetected) 11/02/24 20:48 Parainfluenza 1 (PCR) Not Detected (NotDetected) 11/02/24 20:48 Parainfluenza 2 (PCR) Not Detected (NotDetected) 11/02/24 20:48 Parainfluenza 3 (PCR) Not Detected (NotDetected) 11/02/24 20:48 Parainfluenza 4 (PCR) Not Detected (NotDetected) 11/02/24 20:48 RSV (RT-PCR) Negative (Neg) 11/02/24 20:48 RSV (PCR) Not Detected (NotDetected) 11/02/24 20:48 Entero/Rhino (PCR) Not Detected (NotDetected) 11/02/24 20:48 Impressions Chest X-Ray 11/02/24 20:25 Exam(s): XR CXR 1 VIEW EXAM: XR Chest, 1 View CLINICAL HISTORY: Reason for exam: Chest pain, nonspecific. TECHNIQUE: Frontal view of the chest. COMPARISON: No relevant prior studies available. FINDINGS: Lungs: Unremarkable. No consolidation. Pleural space: Left pleural effusion. Heart: Unremarkable. No cardiomegaly. Mediastinum: Unremarkable. Normal mediastinal contour. Bones/joints: Unremarkable. No acute fracture. IMPRESSION: Small left pleural effusion Electronically signed by: Rico Lawson MD 11/02/24 21:33 PM Abdomen/Pelvis CT 11/02/24 21:59 Exam(s): CT ABDOMEN + PELVIS With Contrast IV Amt: 116ml optiray 320 EXAM: CT Abdomen and Pelvis With Intravenous Contrast CLINICAL HISTORY: Reason for exam: upper abd pain. TECHNIQUE: Axial computed tomography images of the abdomen and pelvis with intravenous contrast. CTDI is 27.85 mGy and DLP is 1344.93 mGy-cm. Automated exposure control was utilized for the study. A dose lowering technique was utilized adhering to the principles of ALARA. CONTRAST: Patient received 116ml optiray 320 of IV contrast COMPARISON: No relevant prior studies available. FINDINGS: Lung bases: Linear atelectasis at both lung basis. Heart: Dense mitral valve calcifications. ABDOMEN: Liver: Hepatic steatosis. Gallbladder and bile ducts: Unremarkable. No calcified stones. No ductal dilation. Pancreas: Unremarkable. No mass. No ductal dilation. Spleen: Unremarkable. No splenomegaly. Adrenals: Unremarkable. No mass. Kidneys and ureters: Multiple bilateral renal hypodensities likely representing cysts measuring up to 2.8 cm on the left and 1.2 cm on the right. No hydronephrosis. Stomach and bowel: Scattered colonic diverticuli without evidence of diverticulitis. No obstruction. PELVIS: Appendix: No findings to suggest acute appendicitis. Bladder: Unremarkable. No mass. Reproductive: Uterus is surgically absent. ABDOMEN and PELVIS: Intraperitoneal space: Unremarkable. No free air. No significant fluid collection. Bones/joints: No acute fracture. No dislocation. Soft tissues: Unremarkable. Vasculature: Unremarkable. No abdominal aortic aneurysm. Lymph nodes: Unremarkable. No enlarged lymph nodes. IMPRESSION: No acute findings in the abdomen or pelvis. Diverticulosis without evidence of diverticulitis Hepatic steatosis Electronically signed by: Rico Lawson MD 11/03/24 01:10 AM Chest CTA 11/02/24 21:59 Exam(s): CTA CHEST IV Amt: 116ml optiray 320 EXAM: CT Angiography Chest With Intravenous Contrast CLINICAL HISTORY: Reason for exam: PE. TECHNIQUE: Axial computed tomographic angiography images of the chest with intravenous contrast. CTDI is 28.14 mGy and DLP is 831.42 mGy-cm. Automated exposure control was utilized for the study. A dose lowering technique was utilized adhering to the principles of ALARA. MIP reconstructed images were created and reviewed. COMPARISON: No relevant prior studies available. FINDINGS: Pulmonary arteries: Dilated main pulmonary arteries consistent with pulmonary arterial hypertension. No pulmonary embolism. Aorta: 3.7 cm ascending thoracic aortic aneurysm. Lungs: Interlobular septal thickening with mild groundglass opacity within the upper lobes. Pleural space: Trace right and small left bilateral pleural effusions. No pneumothorax. Heart: Marked cardiomegaly. Coronary artery calcification. No significant pericardial effusion. No evidence of RV dysfunction. Bones/joints: No acute fracture. No dislocation. Soft tissues: Unremarkable. Lymph nodes: Unremarkable. No enlarged lymph nodes. IMPRESSION: Trace right and small left bilateral pleural effusions. The prior pulmonary arterial hypertension No pulmonary embolus Very mild pulmonary edema Electronically signed by: Rico Lawson MD 11/03/24 01:08 AM Code Status & VTE Plan VTE Prophylaxis Plan VTE Prophylaxis will be ordered: Yes PG Care Time/CCT Total # of Minutes Spent Total Time Spent with Patient: Total time spent is greater than 50% in coordination of care (as documented) at patient's floor/unit and/or counseling patient: Coding Level of Care Code 81441 INT INP/OBS CARE 3/75MIN Diagnoses Shortness of breath R06.02
[2024-11-03] MEDS ORDERED: ACETAMINOPHEN 325 MG TAB PO PRN (04:43)
[2024-11-03] MEDS ORDERED: POLYETHYLENE (MIRALAX) 17 GM PACK PO PRN (04:43)
[2024-11-03] MEDS ORDERED: DOCUSATE SODIUM 100 MG CAP PO PRN (04:43)
[2024-11-03] MEDS ORDERED: CARBOHYDRATES FOR HYPOGLYCEMIA PO PRN (04:43)
[2024-11-03] MEDS ORDERED: GLUCOSE 10 TAB/TUBE PO PRN (04:43)
[2024-11-03] MEDS ORDERED: ONDANSETRON INJ 2 MG/ML 2 ML VIAL IV PRN (04:43)
[2024-11-03] MEDS ORDERED: DEXTROSE 50% 50 ML SYRINGE IV PRN (04:43)
[2024-11-03] MEDS ORDERED: GLUCAGON FOR INJ 1 MG VIAL SQ PRN (04:43)
[2024-11-03] MEDS ORDERED: FLUTICASONE PROPIONATE NA SPR 16 GM BTL PRN (04:43)
[2024-11-03] MEDS ORDERED: GLUCOSE 40% GEL 15 GM TUBE PO PRN (04:43)
[2024-11-03] MEDS: MAGNESIUM SULFATE / D5W 1 GM/100 ML BAG IV SCH (06:33)
[2024-11-03 07:36] LABS: BUN Creatinine Ratio 23.7 (10-20); Calcium 9.8 mg/dl (8.6-10.3); Creatinine Clr Calc Pharmacy 49.9 ml/min; Potassium 3.6 mmol/L (3.5-5.1)
[2024-11-03 07:46] LABS: Troponin I High Sensitivity 17.3 pg/ml (0-14)
[2024-11-03] MEDS: LEVOTHYROXINE SODIUM 112 MCG TABLET PO SCH (08:07)
[2024-11-03] MEDS: ENALAPRIL MALEATE 10 MG TAB PO SCH (08:34)
[2024-11-03] MEDS: PANTOprazole 40 MG TAB PO SCH (08:34)
[2024-11-03] MEDS: FUROSEMIDE 40 MG/4 ML VIAL IV SCH (08:34)
[2024-11-03] MEDS: APIXABAN 5 MG TABLET PO SCH (08:35)
[2024-11-03] MEDS: hydrALAZINE TAB 50 MG TAB PO SCH ×2 (08:35→19:57)
[2024-11-03] MEDS: LANTUS PER UNIT CHARGE SQ SCH (09:11)
[2024-11-03] MEDS: INSULIN ASPART PER UNIT CHARGE SC SCH (09:11)
--- NOTE | 2024-11-03 09:19 | Electrocardiogram Report ---
Test Reason : Blood Pressure : */* mmHG Vent. Rate : 86 BPM Atrial Rate : 86 BPM P-R Int : 170 ms QRS Dur : 84 ms QT Int : 386 ms P-R-T Axes : 73 36 64 degrees QTcB Int : 461 ms Normal sinus rhythm Low voltage QRS Borderline ECG When compared with ECG of 24-Jun-2024 11:43, No significant change was found Confirmed by Edgar Raymundo ([id number]) on 11/03/2024 9:18:48 AM Referred By: REFERRED SELF Confirmed By: Edgar Raymundo
--- NOTE | 2024-11-03 10:58 | XCELERA ---
[id number] \\[id number]
[2024-11-03] MEDS: AMIODARONE 200 MG TAB PO SCH (11:03)
[2024-11-03 14:59] VITALS: RESP 18
[2024-11-03 17:34] LABS: BUN Creatinine Ratio 27.1 (10-20); Calcium 10.2 mg/dl (8.6-10.3); Creatinine Clr Calc Pharmacy 43.4 ml/min
--- NOTE | 2024-11-03 19:28 | Discharge Summary ---
Discharge Summary Date of Service November 03, 2024 Principal Dx & Hospital Course #1 = Principal Diagnosis (1) Shortness of breath: 79 years old female with PMH of FULL CODE @ home, obesity with BMI 35.2 (height 154.94 cm; weight 84.5 kg), GERD on protonix 40mg PO bid, sciatica on tylenol 1,300mg PO daily prn sciatica, allergic rhinitis on qicgdodypyr22yp/spray, 2 sprays to each nostril daily prn allergic rhinitis, hyp othyroidism on synthroid 112ug PO daily, insulin-dependent DM2 with HbA1c 8.2% (12/18/2023, 11:13am) on U-100 insulin 20 units SQ tid with meals and lantus 45 units SQ qam, hyperlipidemia on atorvastatin 80mg PO qpm, HTN on enalapril 20mg PO bid, hydralazine 50mg PO qam, hydralazine 50mg PO afternoon, hydralazine 100mg PO qpm, and lasix 40mg PO bid, paroxysmal AFIB on amiodarone 100mg PO daily and eliquis 5mg PO bid, and chronic diastolic CHF with preserved LVEF 65- 70% and grade II LV diastolic dysfunction (as noted on 11/03/2024, 4:43am) with no orthopnea on an adjustable Sleep Number bed, no paroxysmal nocturnal dyspnea, no platypnea, and dry baseline weight of 180-190 pounds at home, no longer on either Ozempic or Mounjaro (both of which patient took for a combined 1.5 years) due to "stomach ache" associated with both medications, who complained of acute onset of SOB/PRECIADO in walking about 10-15 feet on a horizontal plane at her home on 11/03/2024. In [facility] ER, patient was afebrile @ 36.4 degrees Celsius, HR 86 (regular), BP 158/58, RR 16, and O2 sat 94% on room air (11/02/2024, 8:21pm). cf., repeat O2 sat 88% on room air (11/02/2024, 9:30pm), that increased to 95% on 2 liters/minute via nasal cannula (11/02/2024, 11:21pm). Patient was subsequently admitted to the inpatient hospitalist service @ [facility] on 11/03/2024 with the following diagnoses: 1. Acute hypoxic respiratory failure with admitting O2 sat 88% on room air (11/02/2024, 9:30pm), due to #2 below. 2. Acute exacerbation of chronic diastolic CHF with preserved LVEF 65-70% and grade II LV diastolic dysfunction (as noted on 11/03/2024, 4:43am) with no orthopnea on an adjustable Sleep Number bed, no paroxysmal nocturnal dyspnea, no platypnea, and dry baseline weight of 180-190 pounds at home, no longer on either Ozempic or Mounjaro (both of which patient took for a combined 1.5 years) due to "stomach ache" associated with both medications. 3. Acute type II NSTEMI with troponin-I #1 22.3 pg/mL (11/02/2024, 10:37pm), troponin-I #2 17.3 pg/mL (11/03/2024, 6:58am), troponin-I #3 14.6 pg/mL (11/03/2024, 10:53am), due to demand ischemia due to #1 and #2 above. The following medical issues were addressed while the patient remained in [facility] on 11/03/2024: 1. Pulmonology. Acute hypoxic respiratory failure with admitting O2 sat 88% on room air (11/02/2024, 9:30pm), RESOLVED. Etiology of acute hypoxic respiratory failure is due to acute exacerbation of chronic diastolic CHF with preserved LVEF 65-70% and grade II LV diastolic dysfunction (as noted on 11/03/2024, 4:43am) with no orthopnea on an adjustable Sleep Number bed, no paroxysmal nocturnal dyspnea, no platypnea, and dry baseline weight of 180-190 pounds at home, no longer on either Ozempic or Mounjaro (both of which patient took for a combined 1.5 years) due to "stomach ache" associated with both medications. Of note, CTA chest (11/02/2024, 9:59pm) was negative for acute PE; positive for "very mild pulmonary edema" and "trace right and small left bilateral pleural effusions." Patient subsequently received lasix 40mg IV bid x 1 dose (11/03/2024, 9:00am) and felt "100% better, I am ready to go home now today (11/03/2024)." Subsequently, patient has a discharge O2 sat 95% on room air (11/03/2024, 7:54pm). Hence, patient will continue her home-scheduled regimen of enalapril 20mg PO bid, hydralazine 50mg PO qam, hydralazine 50mg PO afternoon, hydralazine 100mg PO qpm, and lasix 40mg PO bid on hospital discharge back to home on 11/03/2024, as the treatment of chronic diastolic CHF entails treatment of the underlying cause of chronic diastolic CHF, namely, HTN. 2. CV. Acute exacerbation of chronic diastolic CHF with preserved LVEF 65-70% and grade II LV diastolic dysfunction (as noted on 11/03/2024, 4:43am) with no orthopnea on an adjustable Sleep Number bed, no paroxysmal nocturnal dyspnea, no platypnea, and dry baseline weight of 180-190 pounds at home, no longer on either Ozempic or Mounjaro (both of which patient took for a combined 1.5 years) due to "stomach ache" associated with both medications, RESOLVED. As stated in bullet #1 above, patient subsequently received lasix 40mg IV bid x 1 dose (11/03/2024, 9:00am) and felt "100% better, I am ready to go home now today (11/03/2024)." Subsequently, patient has a discharge O2 sat 95% on room air (11/03/2024, 7:54pm). Hence, patient will continue her home-scheduled regimen of enalapril 20mg PO bid, hydralazine 50mg PO qam, hydralazine 50mg PO after noon, hydralazine 100mg PO qpm, and lasix 40mg PO bid on hospital discharge back to home on 11/03/2024, as the treatment of chronic diastolic CHF entails treatment of the underlying cause of chronic diastolic CHF, namely, HTN. 3. CV. Acute type II NSTEMI with troponin-I #1 22.3 pg/mL (11/02/2024, 10:37pm), troponin-I #2 17.3 pg/mL (11/03/2024, 6:58am), troponin-I #3 14.6 pg/mL (11/03/2024, 10:53am), due to demand ischemia due to #1 and #2 above. cf., EKG #1 (11/02/2024, 8:29pm): NSR @ 86, NE 170, QTC 461, no acute ST depressions/elevations, TWI, or q waves (by my review). cf., TTE (11/03/2024, 4:43am): a. compared to 07/19/2022 TTE, no significant change. b. LV EF 65-70%. c. LV wall motion normal. d. LV hypertrophy, concentric, moderate. e. LV diastolic dysfunction, grade II (pseudonormalization pattern). f. RV normal size and normal systolic function. g. Mild . h. Mild MS. i. Mild MR. j. RVSP elevated at 30-40 mm Hg. (as per [facility] CARDS Dr. Edgar Raymundo). Hence, patient was not started on heparin infusion as the clinical index of suspicion for acute NSTEMI remained low. Instead, patient continued her home- scheduled apixaban 5mg PO bid, given CHADS2-VASC score = 6 points (e.g., 2 points for age > 74 years, 1 point for female sex, 1 point for CHF, 1 point for HTN, 1 point for DM) and the need to prophylax against thrombo-embolism in the setting of paroxysmal AFIB. Given the unexpectedly rapid clinical resolution in patient's admitting complaint of acute onset of SOB/PRECIADO in walking about 10-15 feet on a horizontal plane at her home on 11/03/2024, after patient received just 1 dose of lasix 40mg IV bid (11/03/2024, 9:00am), patient's hospital status of INPATIENT ADMISSION was rescinded and replaced by OBSERVATION via Code 44 on 11/03/2024, 7:29pm. Patient was subsequently discharged back to her home on 11/03/2024, 7:32pm, and will follow up with her PCP Dr. Jo Ann Echevarria within 7 days of hospital discharge. Discharge time, 35 minutes. Of this time period, 18 minutes were spent in coordinating patient's discharge. Plan Atrial Fibrillation - rate controlled, patient anticoagulated on Apixaban -Continue Amiodarone 100mg po daily -Continue Apixaban 5mg po BID Hyperlipidemia - chronic, stable -Continue Atorvastatin 80mg po daily Hypertension -Continue Hydralazine -Continue Enalapril GERD -Continue Protonix Diabetes -Lantus 15u BID and ISS Admission HPI Per Admitting Provider Carey Akers is a pleasant 79yo female with history of CAD, AF, HTN, HLP, RIK, DM presenting with shortness of breath x 1 day. Patient reports she has been in her usual state of health until yesterday morning when she developed shortness of breath and PRECIADO. She reports feeling dizzy with ambulation. Also reporting some cough and chest congestion. Patient reports she has been overdoing it lately. She has been busy getting ready to move over the last three days. She also recently travelled to [place] for a wedding - reports her allergy symptoms were very bad in [place]. Patient is planning a trip to [place] on [place] [employer] next [place]. She reports she is compliant with her medications. Has been undergoing workup for abdominal pain as an outpatient - thought possibly secondary to her [place]. She was recommended to take a stool softener and has been taking that twice daily with significant improvement in her abdominal pain. In the ER patient afebrile, HD stable. Saturation of 88% on room air. She was placed on supplemental O2 and feels improved. ER Course: Lasix 40mg IV Albuterol 3mL neb Discharge Exam General: comfortable, coherent, cooperative. Wide awake and alert. Not confused, lethargic, or obtunded. Patient speaks in complete, fluent, and articulate sentences without pause, interruption, cough, or wheeze. HEENT: NC/AT. EOMI, PERRL. No nystagmus, gaze paresis, anisocoria, miosis, mydriasis, hyphema, chemosis, scleral icterus, conjunctivitis, or pterygium. No otorrhea, no rhinorrhea. No pharyngeal discharge or erythema. Neck: Supple, no stridor, bruit, goiter, or hepatojugular reflux. Jugular venous pressure is estimated to be 8 cm above the sternal angle of [place], which is typically 5 cm above the level of the right atrium. Hence, there is no jugular venous distention noted on discharge exam 11/03/2024. Lymphatics: No pre-post auricular, anterior/posterior cervical, supraclavicular/infraclavicular, axillary, epitrochlear, or inguinal adenopathy. Chest: Symmetric rise and fall with respirations. Non-tender to palpation. Heart: RRR, S1 and S2 noted. No S3 or S4 summation gallop noted. No tripartite friction rub. Grade II/ early systolic murmur @ LLSB without radiation to the carotids, axilla, or back, and which remains invariant in regards to the respiratory cycle. Lungs: Clear to auscultation and percussion. No audible expiratory wheeze, egophony, pectoriloquy, increase in tactile fremitus, or flatness/dullness to percussion at the bases. Abdomen: Soft, non-tender, non-distended. No rebound, guarding, Noel's sign, or organomegaly. Bowel sounds auscultated in all 4 quadrants. Extremities: No clubbing, cyanosis, or edema. 2+ pedal pulses bilaterally. Skin: No decubitus ulcer, exanthem, or enanthem. Neurology: Alert and oriented in regards to person, place, time, and situation. DTR+ and symmetric. 5/5 motor strength in all 4 extremities, both proximally and distally. No myoclonus, tremors, or tics. Urology: No nicole catheter. No urethral discharge. Psychiatry: Appropriate affect. Smiles occasionally. No homicidal/suicidal ideation. Discharge Plan Discharge Items Patient Disposition: Home - Self-Care Reason For Visit: SHORTNESS OF BREATH Discharge Diagnosis: Acute exacerbation of chronic diastolic CHF with preserved LVEF 65-70% Condition on Discharge: Good Activity: Resume your previous activity Non-emergency contact: Primary Care Provider Call non-emergency contact if: you have any medication questions Follow-up/Referrals: Jo Ann Echevarria DO [Primary Care Provider] - Diet: Carb Consistent or DM2, Heart Healthy, Low Fat and Low Sodium (2gm) Addtl Attending Provider Instructions: See your PCP Dr. Jo Ann Echevarria within 7 days of hospital discharge for a routine follow up visit. Pending Studies at Discharge: No Stand-Alone Forms: My [employer], Smoking Cessation Medications and DC Order Prescriptions: Continued Eliquis 5 mg tablet 5 mg PO BID Qty: 180 3RF furosemide 40 mg tablet 40 mg PO BID Qty: 180 3RF enalapril maleate 20 mg tablet 20 mg PO BID Qty: 180 3RF Patient Comments: breakfast and lunch fluocinonide 0.05 % cream 1 applic topical BID Qty: 60 1RF (DME) OneTouch Verio test strips Strip See Rx Instructions .ROUTE .MEDSUPPLY Qty: 300 3RF Rx Instructions: test blood sugar TID atorvastatin 80 mg tablet 80 mg PO QPM Qty: 90 3RF (DME) blood-glucose meter [OneTouch Verio Reflect] Kit See Rx Instructions .Route Qty: 1 0RF Rx Instructions: Test blood sugars three times a day. E11.9 (DME) lancets 32 gauge misc See Rx Instructions .Route Qty: 300 3RF Rx Instructions: use to test blood sugar TID potassium chloride 20 mEq tablet extended release 40 meq PO DAILY Qty: 180 3RF pantoprazole 40 mg tablet,delayed release (DR/EC) 40 mg PO BID Qty: 180 3RF insulin aspart U-100 [Novolog FlexPen U-100 Insulin] 100 unit/mL (3 mL) insulin pen 20 unit subcut TID 90 Days Qty: 60 3RF Rx Instructions: with meals up to 60 units daily insulin glargine [Lantus Solostar U-100 Insulin] 100 unit/mL (3 mL) insulin pen 45 unit SQ QAM 90 Days Qty: 45 3RF Gemtesa 75 mg tablet 75 mg PO DAILY Qty: 30 2RF hydralazine 100 mg tablet See Rx Instructions .ROUTE .COMPLEX Qty: 180 3RF Rx Instructions: 50 mg in morning and afternoon; 100 mg in evening amiodarone 100 mg tablet 100 mg PO QDL Qty: 90 3RF fluticasone propionate 50 mcg/actuation spray,suspension 2 spray intranasal DAILY PRN (Reason: Allergy Symptoms) Qty: 1 ferrous sulfate 325 mg (65 mg iron) tablet 325 mg PO QAM Qty: 90 1RF acetaminophen [Tylenol Arthritis Pain] 650 mg tablet extended release 1,300 mg PO DAILY PRN (Reason: sciatica pain) multivitamin Tablet 1 tab PO QAM omega 2-mhp-pdl-fish oil [Fish Oil] 1,000 (120-180) mg Capsule 1 cap PO BID levothyroxine 112 mcg tablet 112 mcg PO QAM Discontinued Mounjaro 2.5 mg/0.5 mL pen injector 2.5 mg subcut .weekly Patient Comments: last dose taken was 7.5mg on 09/08/24>plans not to take until after EGD scheduled Discharge Orders: Discharge Order- CHF (Routine); Ordered 11/03/24 Ordered By: Mark Duke/Other Patient Handouts: Diabetes and Heart Disease, Heart Failure Care Admission Data Admit Date/Time: 11/03/24 02:04 Attending Provider: Mark Randall Admit Provider: Catherine Laguna Primary Care Provider: Jo Ann Echevarria Other Providers: Catherine Laguna Hospital Stay Data Consultations 11/03/24 01:20 ED Decision to Admit Stat Diagnostic Imagining Performed 11/02/24 21:59 CT abd pelvis IV con only Stat CT angio chest PE protocol Stat Pending Results Patient Have Any Pending Studies at Discharge: No Discharge Instructions Given to Patient (Per Discharging Provider) See your PCP Dr. Jo Ann Echevarria within 7 days of hospital discharge for a routine follow up visit. Total Time Total Time Spent Total Time Spent (In Minutes): 35 minutes Coding Level of Care Code INP/OBS EV SAME DAY LV 1,45MIN Diagnoses Shortness of breath R06.02
--- NOTE | 2024-11-03 19:40 | Communication Note ---
Date of Service: November 03, 2024 By CMS guidelines, a determination that the admission or continued stay is not medically necessary has been made by a member of the UR committee and a ph ysician for this hospital stay, therefore a Code 44 will be completed and the Inpatient admission will be changed to outpatient.
--- NOTE | 2024-11-03 19:41 | Communication Note ---
Date of Service: November 03, 2024 By CMS guidelines, a determination that the admission or continued stay is not medically necessary has been made by a member of the UR committee and vladimir hawk for this hospital stay, therefore a Code 44 will be completed and the Inpatient admission will be changed to outpatient.
[2024-11-03 19:55] VITALS: BP 151/55; PULSE 61; TEMP 97.9; O2SAT 95
[2024-11-03] MEDS: ATORVASTATIN 40 MG TAB PO SCH (19:57)
[2024-11-03] MEDS: OMEGA-3 (PURIFIED FISH OIL) 1 GM CAP PO SCH (19:58)
[2024-11-04] MEDS ORDERED: LANCETS SCH (08:00)
== END 2024-11-03 20:28 | disposition home or self-care (01) | DRG 280 ==
LOC: ED 20:18 → EDINP 11-03 02:04 → SUATTDRO 11-03 02:04 → INTOOBSV 11-03 02:04 → 2N 11-03 04:44

== ENCOUNTER 2024-11-26 21:58 | Observation (INO) ==
[2024-11-26 22:26] LABS: Base Excess VBG 3.3 mEq/L; HCO3 VBG 28 mmol/L; Oxygen Saturation VBG 90.9 %; PCO2 VBG 41 mmHg (38-50); PO2 VBG 60 mmHg; pH VBG 7.44 (7.36-7.41)
[2024-11-26 22:32] LABS: Basophils # (auto) 0.04 K/uL (0.00-0.20); Basophils % (auto) 0.5 %; Eosinophils # (auto) 0.06 K/uL (0.00-0.50); Eosinophils % (auto) 0.8 %; Hematocrit (blood only) 35.1 % (37.0-47.0); Hemoglobin 11.5 g/dl (12.0-16.0); Immature Granulocytes # (auto) 0.04 K/uL (0.01-0.20); Immature Granulocytes % (auto) 0.5 %; Lymphocytes # (auto) 1.04 K/uL (1.20-3.40); Lymphocytes % (auto) 13.2 %; Mean Corpuscular Hemoglobin 31.9 pg (25.0-34.0); Mean Corpuscular Hgb Conc 32.8 g/dL (32.0-36.0); Mean Corpuscular Volume 97.2 fL (80.0-100.0); Mean Platelet Volume 11.1 fL (9.4-12.4); Monocytes # (auto) 0.67 K/uL (0.11-0.59); Monocytes % (auto) 8.5 %; Neutrophils # (auto) 6.02 K/uL (1.40-6.50); Neutrophils % (auto) 76.5 %; Platelet Count 170 K/uL (130-400); Red Blood Count 3.61 M/uL (4.20-5.40); White Blood Count 7.87 K/ul (4.8-10.8)
[2024-11-26 22:48] LABS: BUN Creatinine Ratio 23.5 (10-20); Calcium 9.4 mg/dl (8.6-10.3); Creatinine Clr Calc Pharmacy 55.6 ml/min; Potassium 4.3 mmol/L (3.5-5.1)
[2024-11-26] MEDS: FUROSEMIDE 40 MG/4 ML VIAL IV ONE (23:05)
[2024-11-26 23:17] LABS: Adenovirus PCR Not Detected (NotDetected); Bordetella parapertussis PCR Not Detected (NotDetected); Bordetella pertussis PCR Not Detected (NotDetected); Chlamydia pneumoniae PCR Not Detected (NotDetected); Coronavirus 229E PCR Not Detected (NotDetected); Coronavirus CoV-2 (COVID19)PCR Not Detected (NotDetected); Coronavirus HKU1 PCR Not Detected (NotDetected); Coronavirus NL63 PCR Not Detected (NotDetected); Coronavirus OC43PCR Not Detected (NotDetected); Human Metapneumovirus PCR Not Detected (NotDetected); Influenza A (H1 2009) PCR DETECTED (NotDetected); Influenza B PCR Not Detected (NotDetected); Mycoplasma pneumoniae PCR Not Detected (NotDetected); Parainfluenza Virus 1 PCR Not Detected (NotDetected); Parainfluenza Virus 2 PCR Not Detected (NotDetected); Parainfluenza Virus 3 PCR Not Detected (NotDetected); Parainfluenza Virus 4 PCR Not Detected (NotDetected); Partial Thromboplastin Ratio 1.2; Partial Thromboplastin Time 32 Seconds (21-31); Prothrombin Time 10.8 Seconds (9.0-12.0); Respiratory Syncytial VirusPCR Not Detected (NotDetected); Rhinovirus/Enterovirus PCR Not Detected (NotDetected)
--- NOTE | 2024-11-27 00:36 | Emergency Department Note ---
History of Present Illness General Chief Complaint: Shortness of Breath/Dyspnea Stated Complaint: SOB, FAST HEART BEAT, SINUS INFECTION Time Seen by Provider: 11/26/24 22:08 History of Present Illness Provider Complaint: shortness of breath Onset (ago): week(s) (2) Consistency/Duration: + progressively worsening Relieved By: + oxygen and + upright position Exacerbated By: + lying flat, + exertion and + coughing Known history of: congestive heart failure Associated symptoms: + cough, + sputum production, + orthopnea and + chest congestion; no fever or no hemoptysis HPI Narrative: Patient reports compliance with all of her medications including her Eliquis. Related Data Home oxygen amount: none Home Medications Medication Instructions Recorded Confirmed Type acetaminophen 650 mg 1,300 mg PO DAILY PRN sciatica pain 04/03/22 09/15/24 History tablet,extended release (Tylenol Arthritis Pain) fluticasone propionate 50 2 spray intranasal DAILY PRN 06/14/22 09/15/24 History mcg/actuation nasal Allergy Symptoms #1 g spray,suspension multivitamin 1 tab PO QAM 06/21/22 09/15/24 History ferrous sulfate 325 mg (65 mg 325 mg PO QAM #90 tabs 08/21/22 09/15/24 Rx iron) tablet enalapril maleate 20 mg tablet 20 mg PO BID #180 tabs 12/25/23 09/15/24 Rx fluocinonide 0.05 % topical cream 1 applic topical BID #60 grams 02/26/24 09/15/24 Rx atorvastatin 80 mg tablet 80 mg PO QPM #90 tabs 03/09/24 09/15/24 Rx blood sugar diagnostic (OneTouch #300 ea 03/09/24 09/02/24 Rx Verio test strips) blood-glucose meter (OneTouch #1 ea 03/10/24 09/02/24 Rx Verio Reflect kit) lancets 32 gauge #300 ea 03/10/24 09/02/24 Rx potassium chloride 20 mEq 40 meq (2 x 20 mEq) PO DAILY #180 05/25/24 09/15/24 Rx tablet,extended release tabs pantoprazole 40 mg tablet,delayed 40 mg PO BID #180 tabs 07/27/24 09/15/24 Rx release insulin aspart U-100 100 unit/mL 20 unit (0.2 mL) subcut TID 90 08/03/24 09/29/24 Rx (3 mL) subcutaneous pen (Novolog days #60 mL FlexPen U-100 Insulin aspart) insulin glargine 100 unit/mL (3 45 unit (0.45 mL) subcut QAM 90 08/03/24 09/15/24 Rx mL) subcutaneous pen (Lantus days #45 mL Solostar U-100 Insulin) omega 4-kan-srp-fish oil 1,000 mg 1 cap PO BID 09/15/24 09/15/24 History (120 mg-180 mg) capsule (Fish Oil) vibegron 75 mg tablet (Gemtesa) 75 mg PO DAILY #30 tabs 09/21/24 Rx hydralazine 100 mg tablet See Rx Instructions .Route 09/28/24 Rx .COMPLEX #180 tabs amiodarone 100 mg tablet 100 mg PO QDL #90 tabs 10/19/24 Rx levothyroxine 112 mcg tablet 112 mcg PO QAM #90 tabs 11/19/24 Rx apixaban 5 mg tablet (Eliquis) 5 mg PO BID #180 tabs 11/20/24 Rx furosemide 40 mg tablet 40 mg PO BID #180 tabs 11/20/24 Rx Allergies Allergy/AdvReac Type Severity Reaction Status Date / Time mold Allergy Intermediate Sneezing, Verified 09/29/24 10:16 mucus, watery eyes pollen extracts Allergy Intermediate Sneezing, Verified 09/29/24 10:16 mucus, watery eyes ragweed pollen Allergy Intermediate Sneezing, Verified 09/29/24 10:16 mucus, watery eyes animal dander Allergy Mild Sneezing Verified 09/29/24 10:16 grass pollen Allergy Mild Sneezing Verified 09/29/24 10:16 adhesive tape Allergy Verified 09/29/24 10:16 Past Med/Surg History Problem List (Updated 11/27/24 @ 00:36 by Kai Sylvester MD) Influenza (Acute) Acute exacerbation of CHF (congestive heart failure) (Acute) Hypoxia (Acute) Abdominal pain Adrenal nodule Degenerative lumbar spinal stenosis Scoliosis of lumbar region due to degenerative disease of spine in adult Urgency incontinence Non-proliferative diabetic retinopathy, both eyes Chronic heart failure with preserved ejection fraction Mild intermittent asthma Type 2 diabetes mellitus with insulin therapy Diabetic peripheral neuropathy Anemia On amiodarone therapy Paroxysmal atrial fibrillation Chronic anticoagulation Paroxysmal atrial fibrillation Dx 03/2020 > no pacer, med controlled, follows with Dr. 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 Aortic valve sclerosis Hearing loss Audiogram 12/26/2018 - Mild sensorineural on left. Moderate to severe, mixed on right. Normal tympanogram. Right hearing aid. Hypothyroidism Intracranial vascular stenosis MRA 04/06/2014 - Multifocal areas of reuv-bj-lloddpam narrowing seen throughout all visualized cessels of the [place], most pronounced at the bilateral MCA bifurcation and bilateral PROGRESS CLERK. Left ventricular hypertrophy Obesity Osteopenia after menopause Psoriasis Pulmonary hypertension TTEcho 01/17/18 - Normal eRVSP. Subclavian artery stenosis, left Per 03/2020 carotid duplex- left subclavian stenosis, retrograde flow in the left vertebral artery consistent with steal phenomenon. Vitamin D deficiency Carotid stenosis Carotid Duplex 03/2020: 60-69% stenosis in right ICA. 50-59% stenosis in the left ICA. Follows with Dr Wagoner. Peripheral arterial disease Dyslipidemia (Chronic) HTN (hypertension) (Chronic) CAD (coronary artery disease) (Chronic) Circumflex NE s/p circumflex angioplasty (1998) Anxiety Medical History Shortness of breath Acute congestive heart failure History of atrial fibrillation pt unsure if current>taking eliquis daily Arthritis Urinary urgency History of Mohs micrographic surgery for skin cancer bcc>nose area Hx of gastric ulcer Diabetic neuropathy Hx of migraines Hypertension Hyperlipidemia Sleep apnea can not tolerate device Hypercalcemia Chronic rhinitis Anemia Sciatica Hypothyroidism Diabetes mellitus, type 2 IDDM Bulging disc L3-L4, gets injections with Dr. 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 CVA (cerebral vascular accident) (04/01/14) Acute/Subacute right pontine CVA (2013)- residual short-term memory loss, left sided weakness, no BP in left arm Surgical History History of tooth extraction History of cystoscopy Cystoscopy, Right Ureteroscopy, Retrograde, Right Stent Placement: 07/07/20: LMA#4 at [facility] History of cataract surgery right/left History of cardiac cath (~1998) no stents History of abdominal hysterectomy (04/1998) bso, endometriosis S/P excision of lipoma History of colonoscopy (03/21/16) Family History Sister ALS (amyotrophic lateral sclerosis) Aunt Breast cancer Mother Diabetes Myocardial infarction Hypertension Heart disease Father Diabetes Myocardial infarction Hypertension Heart disease Other Congestive heart failure Coronary heart disease No family history of adverse response to anesthesia No family history of bleeding disorder Denies family history of Ovarian cancer Prostate cancer Lung cancer Colorectal cancer Stroke Social History Smoking Status: Never smoker Tobacco Type: Cigarettes Age Started Using Tobacco: 20; Age Quit Using Tobacco: 27; packs per day: 1; Cigarettes Per Day: Smoked for 2-3 years in college; Second Hand Exposure: No; Do You Dip or Chew Tobacco: No; Hx Alcohol Use: Yes Alcohol type: beer and wine Alcohol Intake Frequency: 2-4 x/Month Hx Substance Use: No Preferred Language: Danish Communication Ability: Effective Visual Impairment: Limited Hearing Ability: Use of Hearing Aid Durable Medical Equipment Technician Required: No Beliefs That Will Affect Care: None marital status: Current Living Situation: Spouse Current Living Situation Comment: lives w current occupational status: retired How many Children do You have: 2 Feels Safe at Home: Yes Childhood Exposure to Second-Hand Smoke: Yes caffeine: Yes Dental Care, Regularly: Yes Physical Activity Frequency: 1-2 Times per Week Seatbelt Use: always Sunscreen Use: Yes Assistive Devices: Cane and Walker Physical Exam 2 Vital Signs: Vital Signs - 24 hr 11/26/24 21:58 11/26/24 22:01 11/26/24 22:09 Pulse Rate 92 H Respiratory Rate 22 Respiratory Depth Normal Blood Pressure 194/100 H Blood Pressure [Ri ght Arm] Blood Pressure Matilda n 131 Blood Pressure Matilda n [Right Arm] Pulse Oximetry 87 L 87 L 93 Oxygen Delivery Me thod Nasal Cannula Room Air Nasal Cannula Oxygen Flow Rate 0 2 Sepsis Recent Feve r Within 48 Hours No Sepsis New/Unexpla ined Change in Men ezequiel Status No Sepsis Action Take n by Nursing No Action Required Oxygen Flow Rate - Titration 2 Pulse Oximetry Pos t Tiitration 93 11/26/24 22:15 11/26/24 22:58 Pulse Rate 83 Respiratory Rate Respiratory Depth Blood Pressure Blood Pressure [Ri ght Arm] 182/93 H Blood Pressure Matilda n Blood Pressure Matilda n [Right Arm] 122 Pulse Oximetry Oxygen Delivery Me thod Oxygen Flow Rate Sepsis Recent Feve r Within 48 Hours Sepsis New/Unexpla ined Change in Men ezequiel Status Sepsis Action Take n by Nursing Oxygen Flow Rate - Titration Pulse Oximetry Pos t Tiitration Physical Exam: Physical Exam GENERAL: oriented to person, place, and time. appears well-developed and well- nourished. HENT: Exam performed. - Head: Normocephalic and atraumatic. EYES: Conjunctivae and EOM are normal. Right eye exhibits no discharge. Left eye exhibits no discharge. No scleral icterus. NECK: Normal range of motion. Neck supple. No JVD present. CV: Normal rate, regular rhythm, normal heart sounds and intact distal pulses. 1+ pitting edema of the bilateral lower extremities. Palpable radial pulses bue. PULM/CHEST: Rhonchi bilaterally, mild inspiratory rales bilaterally. ABD: The abdomen is soft. There is no tenderness. NEURO: Motor and sensation grossly intact. SKIN: Skin is warm and dry. He is not diaphoretic. PSYCH: normal mood and affect. Behavior is normal. Judgment and thought content normal. Course Course 2207: The patient was evaluated in room B7. A complete history and physical exam was performed Cardiac monitoring: An order was placed for continuous cardiac monitoring. The monitor shows a rate of 90 with sinus rhythm interpreted by me Patient was found to be hypoxic on room air. Supplemental oxygen was applied which improved the patient's oxygen saturation. 2300: Vital signs stable on supplemental oxygen. Patient's high-sensitivity troponin is elevated 27. proBNP elevated 217. White blood cell count within normal limits. Chest x-ray shows mild cardiomegaly with cephalization. [facility] be given Lasix [facility] [place] 0032: Vital signs stable supplemental oxygen. Patient is positive for influenza. Tamiflu ordered for the patient. Administered Medications Discontinued Medications Furosemide (Furosemide 40 Mg/4 Ml Vial) 40 mg IV ONE ONE Stop: 11/26/24 22:59 Last Admin: 11/26/24 23:05 Dose: 40 mg Documented By: AYAZ Medical Decision Making Medical Records Attestation: I reviewed the patient's medical records. External medical records reviewed. Patient was admitted from November 02, 2024 to November 03, 2024. Patient had an echo done on November 03 which showed an ejection fraction of 65 to 70% with mild valvular aortic stenosis mild mitral stenosis. Laboratory Data Attestation: I reviewed the patient's lab results. 11/26/24 22:15 11/26/24 22:15 Lab Results 11/26/24 Range/Units 22:15 WBC 7.87 (4.8-10.8) K/ul RBC 3.61 L (4.20-5.40) M/uL Hgb 11.5 L (12.0-16.0) g/dl Hct 35.1 L (37.0-47.0) % MCV 97.2 (80.0-100.0) fL MCH 31.9 (25.0-34.0) pg MCHC 32.8 (32.0-36.0) g/dL RDW Std Deviation 47.0 H (36.4-46.3) fL RDW Coeff of Rosalino 13.0 (11.5-14.5) % Plt Count 170 (130-400) K/uL MPV 11.1 (9.4-12.4) fL Immature Gran % (Auto) 0.5 % Neut % (Auto) 76.5 % Lymph % (Auto) 13.2 % Mcdonough % (Auto) 8.5 % Eos % (Auto) 0.8 % Baso % (Auto) 0.5 % Neut # (Auto) 6.02 (1.40-6.50) K/uL Lymph # (Auto) 1.04 L (1.20-3.40) K/uL Mcdonough # (Auto) 0.67 H (0.11-0.59) K/uL Eos # (Auto) 0.06 (0.00-0.50) K/uL Baso # (Auto) 0.04 (0.00-0.20) K/uL Immature Gran # (Auto) 0.04 (0.01-0.20) K/uL PT 10.8 (9.0-12.0) Seconds INR 1.0 (0.9-1.1) APTT 32 H (21-31) Seconds PTT Ratio 1.2 VBG pH 7.44 H (7.36-7.41) VBG pCO2 41 (38-50) mmHg VBG pO2 60 mmHg VBG HCO3 28 mmol/L VBG O2 Saturation 90.9 % VBG Base Excess 3.3 mEq/L Sodium 137 (136-145) mmol/L Potassium 4.3 (3.5-5.1) mmol/L Chloride 104 (98-107) mmol/L Carbon Dioxide 28 (21-32) mmol/L Anion Gap 5 (3-11) BUN 20 (6-23) mg/dl Creatinine 0.85 (0.6-1.2) mg/dl Est Cr Clr Drug Dosing 55.6 ml/min eGFR 70.52 BUN/Creatinine Ratio 23.5 H (10-20) Glucose 227 H (70-99(Fasting)) mg/dl Calcium 9.4 (8.6-10.3) mg/dl Troponin I High Sens 27.0 H (0-14) pg/ml B-Natriuretic Peptide 217 H (0-100) pg/ml Lipase 22 (11-82) U/L Nasal Influ A H1 2008 PCR DETECTED A (NotDetected) Adenovirus (PCR) Not Detected (NotDetected) B. pertussis DNA (PCR) Not Detected (NotDetected) B.parapertussis DNA PCR Not Detected (NotDetected) C. pneumoniae DNA (PCR) Not Detected (NotDetected) Coronavirus OC43 (PCR) Not Detected (NotDetected) Coronavirus HKU1 (PCR) Not Detected (NotDetected) Coronavirus 229E (PCR) Not Detected (NotDetected) SARS-CoV-2 (PCR) Not Detected (NotDetected) Coronavirus NL63 (PCR) Not Detected (NotDetected) Human Metapneumovir PCR Not Detected (NotDetected) Influenza Type B (PCR) Not Detected (NotDetected) M. pneumoniae (PCR) Not Detected (NotDetected) Parainfluenza 1 (PCR) Not Detected (NotDetected) Parainfluenza 2 (PCR) Not Detected (NotDetected) Parainfluenza 3 (PCR) Not Detected (NotDetected) Parainfluenza 4 (PCR) Not Detected (NotDetected) RSV (PCR) Not Detected (NotDetected) Entero/Rhino (PCR) Not Detected (NotDetected) Imaging Data Attestation: I personally reviewed and interpreted this imaging study as follows: My Impression: Chest x-ray shows mild cardiomegaly with cephalization. ECG Data Attestation: I personally reviewed and interpreted this ECG as follows: Interpretation: Sinus rhythm with rate of 86. DE 180 QRS [address] elevation or ST depression. [facility] Narrative 2208: The patient was evaluated in room B7. A complete history and physical exam was performed Cardiac monitoring: An order was placed for continuous cardiac monitoring. The monitor shows a rate of 90 with sinus rhythm interpreted by me Patient was found to be hypoxic on room air. Supplemental oxygen was applied which improved the patient's oxygen saturation. 2300: Vital signs stable on supplemental oxygen. Patient's high-sensitivity troponin is elevated 27. proBNP elevated 217. White blood cell count within normal limits. Chest x-ray shows mild cardiomegaly with cephalization. Patient will be given Lasix [facility] [place] 0032: Vital signs stable supplemental oxygen. Patient is positive for influenza. Tamiflu ordered for the patient. Impression & Plan Hypoxia, Acute exacerbation of CHF (congestive heart failure), Influenza Critical Care Time Critical Care Time: Yes Total Critical Care Time: 36 I have personally spent greater than 36 minutes of critical care time in the direct management of this patient. This includes bedside care, interpretation of diagnostic studies, and testing, discussion with consultants, patient, and family members, and other required patient management activities. This 36 minutes is in excess of all separately billable procedures. Discharge Plan Visit Data Chief Complaint: Shortness of Breath/Dyspnea Stated Complaint: SOB, FAST HEART BEAT, SINUS INFECTION ED Provider: Kai Sylvester Discharge Problem: Hypoxia, Acute exacerbation of CHF (congestive heart failure), Influenza Patient Disposition: Admitted As Inpatient Forms Stand Alone Forms: My [facility] Prescriptions Prescriptions: No Action enalapril maleate 20 mg tablet 20 mg PO BID Qty: 180 3RF Patient Comments: breakfast and lunch fluocinonide 0.05 % cream 1 applic topical BID Qty: 60 1RF (DME) OneTouch Verio test strips Strip See Rx Instructions .ROUTE .MEDSUPPLY Qty: 300 3RF Rx Instructions: test blood sugar TID atorvastatin 80 mg tablet 80 mg PO QPM Qty: 90 3RF (DME) blood-glucose meter [OneTouch Verio Reflect] Kit See Rx Instructions .Route Qty: 1 0RF Rx Instructions: Test blood sugars three times a day. E11.9 (DME) lancets 32 gauge misc See Rx Instructions .Route Qty: 300 3RF Rx Instructions: use to test blood sugar TID potassium chloride 20 mEq tablet extended release 40 meq PO DAILY Qty: 180 3RF pantoprazole 40 mg tablet,delayed release (DR/EC) 40 mg PO BID Qty: 180 3RF insulin aspart U-100 [Novolog FlexPen U-100 Insulin] 100 unit/mL (3 mL) insulin pen 20 unit subcut TID 90 Days Qty: 60 3RF Rx Instructions: with meals up to 60 units daily insulin glargine [Lantus Solostar U-100 Insulin] 100 unit/mL (3 mL) insulin pen 45 unit SQ QAM 90 Days Qty: 45 3RF Gemtesa 75 mg tablet 75 mg PO DAILY Qty: 30 2RF hydralazine 100 mg tablet See Rx Instructions .ROUTE .COMPLEX Qty: 180 3RF Rx Instructions: 50 mg in morning and afternoon; 100 mg in evening amiodarone 100 mg tablet 100 mg PO QDL Qty: 90 3RF levothyroxine 112 mcg tablet 112 mcg PO QAM Qty: 90 1RF Eliquis 5 mg tablet 5 mg PO BID Qty: 180 3RF furosemide 40 mg tablet 40 mg PO BID Qty: 180 3RF fluticasone propionate 50 mcg/actuation spray,suspension 2 spray intranasal DAILY PRN (Reason: Allergy Symptoms) Qty: 1 ferrous sulfate 325 mg (65 mg iron) tablet 325 mg PO QAM Qty: 90 1RF acetaminophen [Tylenol Arthritis Pain] 650 mg tablet extended release 1,300 mg PO DAILY PRN (Reason: sciatica pain) multivitamin Tablet 1 tab PO QAM omega 3-uqo-ivz-fish oil [Fish Oil] 1,000 (120-180) mg Capsule 1 cap PO BID Referrals Referrals: Jo Ann Echevarria DO [Primary Care Provider] -
[2024-11-27] MEDS ORDERED: ALBUT/IPRATROP 3MG/0.5MG NEB 3 ML VIAL NEB PRN (00:44)
--- NOTE | 2024-11-27 01:21 | XRay Report ---
EXAM: XR chest 1V portable CLINICAL HISTORY: Chest pain, nonspecific. TECHNIQUE: An X-ray image of the chest is obtained in AP projection. COMPARISON: X-ray 11/02/24. FINDINGS: Pulmonary Parenchyma: Emphysematous lungs with prominent and coarse broncho vascular markings. No evidence of consolidation, collapse, or focal opacities. No pulmonary nodules are identified. Blunting of the left costophrenic angle. The right costophrenic angle is sharp. Heart and Mediastinum: Enlarged cardiac size. Prominent cesar, keila/vascular. No mediastinal widening or masses. Bony Thorax: Calcification focus lateral to the humeral head likely represents calcific tendinosis. Bony thorax appears intact without fractures or deformities. Soft Tissues: Soft tissues overlying the chest wall are unremarkable. IMPRESSION: 1. Stable mild left pleural effusion. 2. Cardiomegaly. Perihilar pulmonary congestion/inflammatory/infective etiology. 3. Prominent cesar, keila/vascular. Stable 4. Mild COPD changes. Stable. Electronically signed by Byron Wood 11-27-2024 01:20 AM
--- NOTE | 2024-11-27 01:31 | History & Physical Report ---
Date of Service November 27, 2024 Assessment & Plan (1) Acute hypoxemic respiratory failure: (2) Influenza: (3) Acute exacerbation of CHF (congestive heart failure): (4) Paroxysmal atrial fibrillation: (5) Aortic valve sclerosis: (6) Pulmonary hypertension: (7) Carotid stenosis: (8) Peripheral arterial disease: (9) Dyslipidemia: (10) HTN (hypertension): (11) CAD (coronary artery disease): (12) Anxiety: (13) Subclavian artery stenosis, left: (14) Type 2 diabetes mellitus with insulin therapy: (15) Mild intermittent asthma: (16) On amiodarone therapy: (17) RIK (obstructive sleep apnea): (18) Hypothyroidism: Plan 79 yo female PMHx HFpEF (last echo 65-70%), paroxysmal afib (on amiodarone and Eliquis), aortic sclerosis, pulmonary HTN, L-subclavian stenosis, PAD, carotid stenosis, HTN, T2DM on insulin, asthma, GERD, RIK, hypothyroidism, overactive bladder, and anxiety admitted for increasing shortness of breath over the last couple of days. #Acute Respiratory Failure/Influenza A/Asthma Supplemental O2 to maintain sats of >/=92% Will start Tamiflu Solumedrol 60mg x1, continue 40mg BID Duoneb q6h PRN Incentive spirometry Mucinex 1200mg BID Tylenol 1g q8h PRN for fever #CHF exacerbation/Afib/other CV pathologies Mild, s/p 40mg IV Lasix x1 Resume home oral dosing , monitor for signs of increased LE edema Continue amiodarone & Eliquis Suspect SOB largely related to influenza/pulmonary Last echo earlier this month with EF 65-70%\ #T2DM Will continue home dose glargine 45 U daily BSG ACHS ISS #HTN Continue enlalapril, hydralazine #HLD Continue atorvastatin #Hypothyroidism Continue Synthroid #GERD Continue Protonix #OAB Continue Gemtesa YOVANYI: heart healty, DM2 Code status: full DVT prophylaxis: Eliquis Isolation: droplet Disposition: med/tele History of Present Illness Primary Care Provider: Jo Ann Echevarria, DO 79 yo female PMHx HFpEF (last echo 65-70%), paroxysmal afib (on amiodarone and Eliquis), aortic sclerosis, pulmonary HTN, L-subclavian stenosis, PAD, carotid stenosis, HTN, T2DM on insulin, asthma, GERD, RIK, hypothyroidism, and anxiety admitted for increasing shortness of breath over the last couple of days. She has felt intermittently unwell over the last several months and was recently hospitalized for a short time due to CHF exacerbation. Over the last day or two she has become increasingly short of breath and has felt herself wheezing more than usual. She does wear 2L NC O2 at night and over the last two days has been using it intermittently during the day as well. On presentation to the ED she was hypoxemic to 88% on room air. At the time of admission she states that she is starting to feel better after a dose of Lasix and having been on oxygen. She does remain short of breath and coughing at the time of exam. ED course: Lasix 40mg IV x 1 Tamiflu x 1 Labs reveal: Mild troponin elevation that decreased on recheck, mild BNP elevation, +influenza A CXR: 1. Stable mild left pleural effusion. 2. Cardiomegaly. Perihilar pulmonary congestion/inflammatory/infective etiology. 3. Prominent cesar, keila/vascular. Stable 4. Mild COPD changes. Stable. Allergies Allergy/AdvReac Type Severity Reaction Status Date / Time mold Allergy Intermediate Sneezing, Verified 09/29/24 10:16 mucus, watery eyes pollen extracts Allergy Intermediate Sneezing, Verified 09/29/24 10:16 mucus, watery eyes ragweed pollen Allergy Intermediate Sneezing, Verified 09/29/24 10:16 mucus, watery eyes animal dander Allergy Mild Sneezing Verified 09/29/24 10:16 grass pollen Allergy Mild Sneezing Verified 09/29/24 10:16 adhesive tape Allergy Verified 09/29/24 10:16 Home Medications Medication Instructions Recorded Confirmed Type acetaminophen 650 mg 1,300 mg PO DAILY PRN sciatica pain 04/03/22 11/27/24 History tablet,extended release (Tylenol Arthritis Pain) fluticasone propionate 50 2 spray intranasal DAILY PRN 06/14/22 11/27/24 History mcg/actuation nasal Allergy Symptoms #1 g spray,suspension multivitamin 1 tab PO QAM 06/21/22 11/27/24 History ferrous sulfate 325 mg (65 mg 325 mg PO QAM #90 tabs 08/21/22 11/27/24 Rx iron) tablet enalapril maleate 20 mg tablet 20 mg PO BID #180 tabs 12/25/23 11/27/24 Rx fluocinonide 0.05 % topical cream 1 applic topical BID #60 grams 02/26/24 11/27/24 Rx atorvastatin 80 mg tablet 80 mg PO QPM #90 tabs 03/09/24 11/27/24 Rx blood sugar diagnostic (OneTouch #300 ea 03/09/24 09/02/24 Rx Verio test strips) blood-glucose meter (OneTouch #1 ea 03/10/24 09/02/24 Rx Verio Reflect kit) lancets 32 gauge #300 ea 03/10/24 09/02/24 Rx potassium chloride 20 mEq 40 meq (2 x 20 mEq) PO DAILY #180 05/25/24 11/27/24 Rx tablet,extended release tabs pantoprazole 40 mg tablet,delayed 40 mg PO BID #180 tabs 07/27/24 11/27/24 Rx release insulin aspart U-100 100 unit/mL 20 unit (0.2 mL) subcut TID 90 08/03/24 11/27/24 Rx (3 mL) subcutaneous pen (Novolog days #60 mL FlexPen U-100 Insulin aspart) insulin glargine 100 unit/mL (3 45 unit (0.45 mL) subcut QAM 90 08/03/24 11/27/24 Rx mL) subcutaneous pen (Lantus days #45 mL Solostar U-100 Insulin) omega [id number]-euq-[id number]-fish oil 1,000 mg 1 cap PO BID 09/15/24 11/27/24 History (120 mg-180 mg) capsule (Fish Oil) vibegron 75 mg tablet (Gemtesa) 75 mg PO DAILY #30 tabs 09/21/24 11/27/24 Rx hydralazine 100 mg tablet See Rx Instructions .Route 09/28/24 11/27/24 Rx .COMPLEX #180 tabs amiodarone 100 mg tablet 100 mg PO QDL #90 tabs 10/19/24 11/27/24 Rx levothyroxine 112 mcg tablet 112 mcg PO QAM #90 tabs 11/19/24 11/27/24 Rx apixaban 5 mg tablet (Eliquis) 5 mg PO BID #180 tabs 11/20/24 11/27/24 Rx furosemide 40 mg tablet 40 mg PO BID #180 tabs 11/20/24 11/27/24 Rx Past Med/Surg History Problem List (Updated 11/27/24 @ 19:45 by Sim Mcgovern MD) Uncontrolled diabetes mellitus with hyperglycemia Acute on chronic heart failure with preserved ejection fraction (HFpEF) RIK (obstructive sleep apnea) Acute hypoxemic respiratory failure Influenza (Acute) Acute exacerbation of CHF (congestive heart failure) (Acute) Hypoxia (Acute) Abdominal pain Adrenal nodule Degenerative lumbar spinal stenosis Scoliosis of lumbar region due to degenerative disease of spine in adult Urgency incontinence Non-proliferative diabetic retinopathy, both eyes Chronic heart failure with preserved ejection fraction Mild intermittent asthma Type 2 diabetes mellitus with insulin therapy Diabetic peripheral neuropathy Anemia On amiodarone therapy Paroxysmal atrial fibrillation Chronic anticoagulation Paroxysmal atrial fibrillation Dx 03/2020 > no pacer, med controlled, follows with Dr. 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 Aortic valve sclerosis Hearing loss Audiogram 12/26/2018 - Mild sensorineural on left. Moderate to severe, mixed on right. Normal tympanogram. Right hearing aid. Hypothyroidism Intracranial vascular stenosis MRA 04/06/2014 - Multifocal areas of [id number] narrowing seen throughout all visualized [place] of [place], most pronounced at the bilateral MCA bifurcation and bilateral [employer]. Left ventricular hypertrophy Obesity Osteopenia after menopause Psoriasis Pulmonary hypertension TTEcho 01/17/18 - Normal eRVSP. Subclavian artery stenosis, left Per 03/2020 carotid duplex- left subclavian stenosis, retrograde flow in the left vertebral artery consistent with steal phenomenon. Vitamin D deficiency Carotid stenosis Carotid Duplex 03/2020: 60-69% stenosis in right ICA. 50-59% stenosis in the left ICA. Follows with Dr Wagoner. Peripheral arterial disease Dyslipidemia (Chronic) HTN (hypertension) (Chronic) CAD (coronary artery disease) (Chronic) Circumflex [place] s/p circumflex angioplasty (1998) Anxiety Medical History Shortness of breath Acute congestive heart failure History of atrial fibrillation pt unsure if current>taking eliquis daily Arthritis Urinary urgency History of Mohs micrographic surgery for skin cancer bcc>nose area Hx of gastric ulcer Diabetic neuropathy Hx of migraines Hypertension Hyperlipidemia Sleep apnea can not tolerate device Hypercalcemia Chronic rhinitis Anemia Sciatica Hypothyroidism Diabetes mellitus, type 2 IDDM Bulging disc L3-L4, gets injections with Dr. 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 CVA (cerebral vascular accident) (04/01/14) Acute/Subacute right pontine CVA (2013)- residual short-term memory loss, left sided weakness, no BP in left arm Surgical History History of tooth extraction History of cystoscopy Cystoscopy, Right Ureteroscopy, Retrograde, Right Stent Placement: 07/07/20: LMA#4 at [facility] History of cataract surgery right/left History of cardiac cath (~1998) no stents History of abdominal hysterectomy (04/1998) bso, endometriosis S/P excision of lipoma History of colonoscopy (03/21/16) Family History Sister ALS (amyotrophic lateral sclerosis) Aunt Breast cancer Mother Diabetes Myocardial infarction Hypertension Heart disease Father Diabetes Myocardial infarction Hypertension Heart disease Other Congestive heart failure Coronary heart disease No family history of adverse response to anesthesia No family history of bleeding disorder Denies family history of Ovarian cancer Prostate cancer Lung cancer Colorectal cancer Stroke Social History Smoking Status: Former smoker Tobacco Type: Cigarettes Age Started Using Tobacco: 20; Age Quit Using Tobacco: 27; packs per day: 1; Cigarettes Per Day: Smoked for 2-3 years in college; Second Hand Exposure: No; Do You Dip or Chew Tobacco: No; Hx Alcohol Use: No Hx Substance Use: No Preferred Language: Telugu Communication Ability: Effective Visual Impairment: Limited Hearing Ability: Use of Hearing Aid Genetic Counsellor Required: No Beliefs That Will Affect Care: None marital status: Current Living Situation: Spouse Current Living Situation Comment: home current occupational status: retired How many Children do You have: 2 Feels Safe at Home: Yes Safety Concerns: Feels Safe At This Time Childhood Exposure to Second-Hand Smoke: Yes caffeine: Yes Dental Care, Regularly: Yes Physical Activity Frequency: 1-2 Times per Week Seatbelt Use: always Sunscreen Use: Yes Assistive Devices: Cane Review of Systems Review of Systems: reviewed, per HPI Physical Exam Physical Exam: Constitutional: well-appearing, no acute distress HEENT: NCAT, no conjunctival injection CV: regular rhythm, +murmur, extremities well-perfused, no LE edema Resp: +diffuse expiratory and mild inspiratory wheeze, no increased work of breathing GI: nondistended MSK: no gross deformities appreciated Skin: warm, dry, no rash appreciated Neuro: alert, oriented, no focal neurologic deficit appreciated Results & Data Results & Data Vital Signs (Past 12 Hours) Vital Signs Pulse Pulse Resp BP BP Pulse Ox O2 Del Method 11/27/24 00:00 67 18 150/77 H 96 Nasal Cannula 11/26/24 22:58 182/93 H 11/26/24 22:15 83 11/26/24 22:09 93 Nasal Cannula 11/26/24 22:01 92 H 22 194/100 H 87 L Room Air 11/26/24 21:58 87 L Nasal Cannula O2 Flow Rate 11/27/24 00:00 2 11/26/24 22:58 11/26/24 22:15 11/26/24 22:09 2 11/26/24 22:01 11/26/24 21:58 0 Code Status & VTE Plan VTE Prophylaxis Plan VTE Prophylaxis will be ordered: Yes Supervising Physician Co-Signing Physician Notes Attending addendum: I have physically seen this patient, have supervised the medical residents activities, and agree with the H&P unless as otherwise noted. Assessment and Plan: The patient is a 79-year-old female past medical history including HFpEF, paroxysmal atrial fibrillation on amiodarone and Eliquis, aortic sclerosis, pulmonary hypertension, left subclavian stenosis, PAD, carotid stenosis, hypert ension, diabetes mellitus type 2 on insulin, asthma, GERD, RIK, hypothyroidism, overactive bladder, and anxiety, presents to the emergency department with shortness of breath over the past couple days. #Acute respiratory failure with hypoxia/influenza A/asthma exacerbation- Start Tamiflu 75 mg p.o. twice daily Solu-Medrol 60 mg IV now, then 40 mg IV every 12 hours DuoNebs every 6 hours as needed Mucinex 1200 p.o. twice daily Tylenol 1 g IV every 8 hours as needed for mild pain or fever Incentive spirometry CHF exacerbation/atrial fibrillation/hypertension- Status post furosemide 40 mg IV x 1, then reduce oral dosing in the a.m. Continue amiodarone, enalapril, hydralazine, and Eliquis Most recent echocardiogram earlier in the month with ejection fraction 65-70%, will not be repeated Diabetes mellitusContinue glargine 45 units subcu daily Placed on Accu-Cheks with NovoLog SSI Checking hemoglobin A1c Chronic medical conditions: Hyperlipidemia-continue atorvastatin Hypothyroidism-continue Synthroid GERD-continue Protonix Overactive bladder-continue Gemtesa Remaining orders Resident Activity Tracking Resident Involvement: Resident Care Provided Care Provided: Adult [facility] Medicine (10) HTN (hypertension) Hypertension type: secondary to endocrine disorders Qualified Code(s): I15.2 - Hypertension secondary to endocrine disorders
[2024-11-27] MEDS: OSELTAMIVIR PHOSPHATE 75 MG CAP PO STA (01:35)
[2024-11-27] MEDS: methylPREDNISolone 125 MG/2 ML VIAL IV STA (01:36)
[2024-11-27] MEDS: ALBUT/IPRATROP 3MG/0.5MG NEB 3 ML VIAL NEB STA (01:39)
[2024-11-27] MEDS ORDERED: ONDANSETRON INJ 2 MG/ML 2 ML VIAL IV PRN (02:07)
[2024-11-27] MEDS ORDERED: MAGNESIUM HYDROXIDE SUSP 30 ML UDC PO PRN (02:07)
[2024-11-27] MEDS ORDERED: ACETAMINOPHEN 500 MG TAB PO PRN (02:07)
[2024-11-27] MEDS ORDERED: POLYETHYLENE (MIRALAX) 17 GM PACK PO PRN (02:07)
[2024-11-27] MEDS ORDERED: ALUMINUM/MAGNESIUM SUSP 30 ML UDC PO PRN (02:07)
[2024-11-27] MEDS ORDERED: Nursing to Pharmacy Communication SCH (03:00)
[2024-11-27 08:14] LABS: Basophils # (auto) 0.03 K/uL (0.00-0.20); Basophils % (auto) 0.4 %; Hematocrit (blood only) 36.9 % (37.0-47.0); Hemoglobin 11.6 g/dl (12.0-16.0); Immature Granulocytes # (auto) 0.08 K/uL (0.01-0.20); Immature Granulocytes % (auto) 1.1 %; Lymphocytes # (auto) 0.72 K/uL (1.20-3.40); Lymphocytes % (auto) 9.9 %; Mean Corpuscular Hemoglobin 31.1 pg (25.0-34.0); Mean Corpuscular Hgb Conc 31.4 g/dL (32.0-36.0); Mean Corpuscular Volume 98.9 fL (80.0-100.0); Mean Platelet Volume 11.5 fL (9.4-12.4); Monocytes # (auto) 0.42 K/uL (0.11-0.59); Monocytes % (auto) 5.8 %; Neutrophils # (auto) 5.99 K/uL (1.40-6.50); Neutrophils % (auto) 82.8 %; Platelet Count 169 K/uL (130-400); RDW Coefficient of Variation 13.1 % (11.5-14.5); RDW Standard Deviation 47.3 fL (36.4-46.3); Red Blood Count 3.73 M/uL (4.20-5.40); White Blood Count 7.24 K/ul (4.8-10.8)
[2024-11-27 08:39] LABS: Albumin Globulin Ratio 1.2 (0.9-2); Albumin Level 3.4 gm/dl (3.4-5.0); BUN Creatinine Ratio 24.1 (10-20); Bilirubin,Total 0.5 mg/dl (0.2-1.0); Globulin 2.8 gm/dl (2.5-4.0); Potassium 4.4 mmol/L (3.5-5.1); Total Protein 6.2 gm/dl (6.0-8.3)
[2024-11-27] MEDS ORDERED: methylPREDNISolone 125 MG/2 ML VIAL IV SCH (09:00)
[2024-11-27] MEDS ORDERED: ENOXAPARIN INJ 40 MG/0.4 ML SYR SQ SCH (09:00)
[2024-11-27] MEDS: APIXABAN 5 MG TABLET PO SCH (09:52)
[2024-11-27] MEDS: guaiFENesin 600 MG TABCR PO SCH (09:53)
[2024-11-27] MEDS: LANTUS PER UNIT CHARGE SQ SCH ×2 (09:54→21:58)
[2024-11-27] MEDS: hydrALAZINE TAB 50 MG TAB PO SCH ×2 (09:54→22:05)
[2024-11-27] MEDS: LEVOTHYROXINE SODIUM 112 MCG TABLET PO SCH (09:55)
[2024-11-27] MEDS: MULTIVITAMIN TAB PO SCH (09:56)
[2024-11-27] MEDS: PANTOprazole 40 MG TAB PO SCH (09:56)
[2024-11-27] MEDS: methylPREDNISolone 40 MG in SYRINGE 0 ML IV SCH (09:56)
[2024-11-27] MEDS: OSELTAMIVIR PHOSPHATE SUSP 30 MG/5 ML UDP PO SCH (11:29)
[2024-11-27] MEDS: AMIODARONE 200 MG TAB PO SCH (12:50)
[2024-11-27] MEDS: INSULIN ASPART PER UNIT CHARGE SC SCH (14:25)
--- NOTE | 2024-11-27 15:02 | Hospitalist Progress Note ---
Date of Service November 27, 2024 Assessment & Plan (1) Influenza: Plan: fluA infection within window to start Tamiflu thus, started at ER presentation plan 5 days of Rx had transient O2 requirement upon presentation; now stable in RA fluA infection led to asthma exacerbation s/p solumedrol last pm and this am no wheezing at this time BSGs are markedly elevated thus stop IV solumedrol place on scheduled duonebs BID add flutter valve cont mucinex BID of note - no evidence of any complicating bacterial pneumonia (2) Acute on chronic heart failure with preserved ejection fraction (HFpEF): Plan: s/p IV lasix in ER late last pm appear euvolemic at this time resume usual lasix dosing - 40mg PO BID (3) RKI (obstructive sleep apnea): Plan: untreated her chart mentions she is on 2 L NC O2 at HS, but she states she has not used such in 4+ years she cannot use NIPPV - tried it years ago - could not tolerate RIK is by report severe - 2021 sleep study report "Moderate/severe complex sleep apnea with nocturnal hypoxemia improved on BiPAP 18/07 with a backup rate of 12 breaths per minute" untreated RIK could be contributing to #2 and frequent CHF exacerbations will perform overnight oximetry study while here if abnormal (as expected) perhaps we can qualify her for night-time O2 (4) Mild intermittent asthma: Plan: with exacerbation 2nd to fluA infection s/p steroids (solumedrol x 2 doses last 24 hours) no wheezing this afternoon thus stop IV steroids consider short course of PO prednisone starting tomorrow depending on how she is doing (5) Uncontrolled diabetes mellitus with hyperglycemia: Plan: increase lantus to 30 units TID novolog - CF 15; carb ratio 1:5 adjust as needed BSGs ac/hs (6) Paroxysmal atrial fibrillation: Plan: remains in NSR cont amiodarone cont Eliquis (7) Hypothyroidism: Plan: recent TSH 3.3 cont synthroid (8) Dyslipidemia: (9) HTN (hypertension): Plan: resume home meds - hydralazine TID, enalapril BID (10) CAD (coronary artery disease): Plan: no ischemic symptoms at this time cont statin resume JOSÉ MANUEL cont Eliquis Admission and Anticipated Discharge Date Admission Date: November 27, 2024 Subjective Ms Akers reported feeling better today Breathing is improved denies any dyspnea denies any dyspnea on exertion she reports a trip to [place] recently and returned about 1 week ago she mentions other issues including chronic bowel issues (diarrhea fluctuating with constipation), sinus issues, etc Review of Systems Review of Systems: gen - no fevers or chills cv - no chest pain or chest tightness pulm - mild cough only; O2 weaned off earlier today Physical Exam Physical Exam: gen - NAD, resting in bed, eating her meal, no respiratory distress neck - no JVD mouth - MMM heart - RRR, s1 s2 lungs - decreased BS bases, otherwise CTA b/l; no wheeze, no rhonchi, no rales; airation fair-good abd - soft NT ND BS+ ext - no edema, pulses 2+ b/l Results & Data Results & Data Vital Signs (Past 12 Hours) Vital Signs Pulse Pulse Resp BP BP Pulse Ox O2 Del Method 11/27/24 13:01 77 24 140/81 95 11/27/24 11:36 96 Room Air 11/27/24 09:30 65 20 138/80 98 11/27/24 08:00 56 L 24 133/63 95 11/27/24 07:33 60 25 H 143/66 H 94 11/27/24 06:39 59 L 22 155/68 H 98 Nasal Cannula Laboratory Results Laboratory Results - last 24 hr 11/26/24 11/27/24 11/27/24 22:15 00:41 06:55 WBC 7.87 7.24 RBC 3.61 L 3.73 L Hgb 11.5 L 11.6 L Hct 35.1 L 36.9 L MCV 97.2 98.9 MCH 31.9 31.1 MCHC 32.8 31.4 L RDW Std Deviation 47.0 H 47.3 H RDW Coeff of Rosalino 13.0 13.1 Plt Count 170 169 MPV 11.1 11.5 Immature Gran % (Auto) 0.5 1.1 Neut % (Auto) 76.5 82.8 Lymph % (Auto) 13.2 9.9 [place] % (Auto) 8.5 5.8 Eos % (Auto) 0.8 0.0 Baso % (Auto) 0.5 0.4 Neut # (Auto) 6.02 5.99 Lymph # (Auto) 1.04 L 0.72 L [place] # (Auto) 0.67 H 0.42 Eos # (Auto) 0.06 0.00 Baso # (Auto) 0.04 0.03 Immature Gran # (Auto) 0.04 0.08 PT 10.8 INR 1.0 APTT 32 H PTT Ratio 1.2 VBG pH 7.44 H VBG pCO2 41 VBG pO2 60 VBG HCO3 28 VBG O2 Saturation 90.9 VBG Base Excess 3.3 Sodium 137 139 Potassium 4.3 4.4 Chloride 104 102 Carbon Dioxide 28 31 Anion Gap 5 6 BUN 20 20 Creatinine 0.85 0.83 Est Cr Clr Drug Dosing 55.6 57.0 eGFR 70.52 72.56 BUN/Creatinine Ratio 23.5 H 24.1 H Glucose 227 H 319 H* POC Glucose Calcium 9.4 9.0 Total Bilirubin 0.5 AST 19 ALT 17 Alkaline Phosphatase 46 Troponin I High Sens 27.0 H 25.5 H B-Natriuretic Peptide 217 H Total Protein 6.2 Albumin 3.4 Globulin 2.8 Albumin/Globulin Ratio 1.2 Lipase 22 Nasal Influ A H1 2008 PCR DETECTED A Adenovirus (PCR) Not Detected B. pertussis DNA (PCR) Not Detected B.parapertussis DNA PCR Not Detected C. pneumoniae DNA (PCR) Not Detected Coronavirus OC43 (PCR) Not Detected Coronavirus HKU1 (PCR) Not Detected Coronavirus 229E (PCR) Not Detected SARS-CoV-2 (PCR) Not Detected Coronavirus NL63 (PCR) Not Detected Human Metapneumovir PCR Not Detected Influenza Type B (PCR) Not Detected M. pneumoniae (PCR) Not Detected Parainfluenza 1 (PCR) Not Detected Parainfluenza 2 (PCR) Not Detected Parainfluenza 3 (PCR) Not Detected Parainfluenza 4 (PCR) Not Detected RSV (PCR) Not Detected Entero/Rhino (PCR) Not Detected 11/27/24 11/27/24 11/27/24 09:18 13:30 13:33 WBC RBC Hgb Hct MCV MCH MCHC RDW Std Deviation RDW Coeff of Rosalino Plt Count MPV Immature Gran % (Auto) Neut % (Auto) Lymph % (Auto) [place] % (Auto) Eos % (Auto) Baso % (Auto) Neut # (Auto) Lymph # (Auto) [place] # (Auto) Eos # (Auto) Baso # (Auto) Immature Gran # (Auto) PT INR APTT PTT Ratio VBG pH VBG pCO2 VBG pO2 VBG HCO3 VBG O2 Saturation VBG Base Excess Sodium Potassium Chloride Carbon Dioxide Anion Gap BUN Creatinine Est Cr Clr Drug Dosing eGFR BUN/Creatinine Ratio Glucose POC Glucose 341 H* 514 H* 538 H* Calcium Total Bilirubin AST ALT Alkaline Phosphatase Troponin I High Sens B-Natriuretic Peptide Total Protein Albumin Globulin Albumin/Globulin Ratio Lipase Nasal Influ A H1 2008 PCR Adenovirus (PCR) B. pertussis DNA (PCR) B.parapertussis DNA PCR C. pneumoniae DNA (PCR) Coronavirus OC43 (PCR) Coronavirus HKU1 (PCR) Coronavirus 229E (PCR) SARS-CoV-2 (PCR) Coronavirus NL63 (PCR) Human Metapneumovir PCR Influenza Type B (PCR) M. pneumoniae (PCR) Parainfluenza 1 (PCR) Parainfluenza 2 (PCR) Parainfluenza 3 (PCR) Parainfluenza 4 (PCR) RSV (PCR) Entero/Rhino (PCR) 11/27/24 18:01 WBC RBC Hgb Hct MCV MCH MCHC RDW Std Deviation RDW Coeff of Rosalino Plt Count MPV Immature Gran % (Auto) Neut % (Auto) Lymph % (Auto) [place] % (Auto) Eos % (Auto) Baso % (Auto) Neut # (Auto) Lymph # (Auto) [place] # (Auto) Eos # (Auto) Baso # (Auto) Immature Gran # (Auto) PT INR APTT PTT Ratio VBG pH VBG pCO2 VBG pO2 VBG HCO3 VBG O2 Saturation VBG Base Excess Sodium Potassium Chloride Carbon Dioxide Anion Gap BUN Creatinine Est Cr Clr Drug Dosing eGFR BUN/Creatinine Ratio Glucose POC Glucose 311 H* Calcium Total Bilirubin AST ALT Alkaline Phosphatase Troponin I High Sens B-Natriuretic Peptide Total Protein Albumin Globulin Albumin/Globulin Ratio Lipase Nasal Influ A H1 2008 PCR Adenovirus (PCR) B. pertussis DNA (PCR) B.parapertussis DNA PCR C. pneumoniae DNA (PCR) Coronavirus OC43 (PCR) Coronavirus HKU1 (PCR) Coronavirus 229E (PCR) SARS-CoV-2 (PCR) Coronavirus NL63 (PCR) Human Metapneumovir PCR Influenza Type B (PCR) M. pneumoniae (PCR) Parainfluenza 1 (PCR) Parainfluenza 2 (PCR) Parainfluenza 3 (PCR) Parainfluenza 4 (PCR) RSV (PCR) Entero/Rhino (PCR) Diagnostic Findings Chest X-Ray 11/26/24 22:09 EXAM: XR chest 1V portable CLINICAL HISTORY: Chest pain, nonspecific. TECHNIQUE: An X-ray image of the chest is obtained in AP projection. COMPARISON: X-ray 11/02/24. FINDINGS: Pulmonary Parenchyma: Emphysematous lungs with prominent and coarse broncho vascular markings. No evidence of consolidation, collapse, or focal opacities. No pulmonary nodules are identified. Blunting of the left costophrenic angle. The right costophrenic angle is sharp. Heart and Mediastinum: Enlarged cardiac size. Prominent cesar, keila/vascular. No mediastinal widening or masses. Bony Thorax: Calcification focus lateral to the humeral head likely represents calcific tendinosis. Bony thorax appears intact without fractures or deformities. Soft Tissues: Soft tissues overlying the chest wall are unremarkable. IMPRESSION: 1. Stable mild left pleural effusion. 2. Cardiomegaly. Perihilar pulmonary congestion/inflammatory/infective etiology. 3. Prominent cesar, keila/vascular. Stable 4. Mild COPD changes. Stable. Electronically signed by Byron Wood 11-27-2024 01:20 AM PG Care Time/CCT Total # of Minutes Spent Total Time Spent with Patient: Total time spent is greater than 50% in coordination of care (as documented) at patient's floor/unit and/or counseling patient: Coding Level of Care Code None Diagnoses Influenza J11.1 Acute on chronic heart failure with preserved ejection fraction (HFpEF) I50.33 RIK (obstructive sleep apnea) G47.33 Mild intermittent asthma J45.20 Uncontrolled diabetes mellitus with hyperglycemia E11.65 Paroxysmal atrial fibrillation I48.0 Hypothyroidism E03.9 Dyslipidemia E78.5 Hypertension due to endocrine disorder I15.2 Hypertension type: secondary to endocrine disorders CAD (coronary artery disease) I25.10 (9) HTN (hypertension) Hypertension type: secondary to endocrine disorders Qualified Code(s): I15.2 - Hypertension secondary to endocrine disorders
[2024-11-27] MEDS: FUROSEMIDE 40 MG TAB PO STA (19:44)
[2024-11-27] MEDS: ALBUT/IPRATROP 3MG/0.5MG NEB 3 ML VIAL NEB SCH (19:44)
[2024-11-27] MEDS: ATORVASTATIN 40 MG TAB PO SCH (21:57)
[2024-11-27] MEDS: ENALAPRIL MALEATE 10 MG TAB PO SCH (21:57)
--- NOTE | 2024-11-27 22:19 | Electrocardiogram Report ---
Test Reason : Blood Pressure : */* mmHG Vent. Rate : 86 BPM Atrial Rate : 86 BPM P-R Int : 180 ms QRS Dur : 78 ms QT Int : 376 ms P-R-T Axes : 86 34 51 degrees QTcB Int : 449 ms Normal sinus rhythm Low voltage QRS Borderline ECG When compared with ECG of 02-Nov-2024 20:29, No significant change was found Confirmed by Gilbert Carballo ([id number]) on 11/27/2024 10:19:38 PM Referred By: REFERRED SELF Confirmed By: Gilbert Carballo
[2024-11-28 06:54] LABS: BUN Creatinine Ratio 40.2 (10-20); Calcium 8.6 mg/dl (8.6-10.3); Creatinine Clr Calc Pharmacy 42.2 ml/min
[2024-11-28 08:04] LABS: Estimated Average Glucose 203 mg/dl; Hemoglobin A1C 8.7 % (4.5-5.6)
[2024-11-28] MEDS: ALBUTEROL HFA 8 GM INHALER INH ONE (13:15)
[2024-11-28 13:17] VITALS: PULSE 61; O2SAT 99
[2024-11-28 13:31] VITALS: BP 111/59; RESP 19; TEMP 97.9
--- NOTE | 2024-11-28 15:11 | Discharge Summary ---
Discharge Summary Date of Service date of admission - November 27, 2024 date of discharge - November 28, 2024 Principal Dx & Hospital Course #1 = Principal Diagnosis (1) Acute hypoxemic respiratory failure: (2) Influenza: (3) Acute exacerbation of CHF (congestive heart failure): (4) Paroxysmal atrial fibrillation: (5) Aortic valve sclerosis: (6) Pulmonary hypertension: (7) Carotid stenosis: (8) Peripheral arterial disease: (9) Dyslipidemia: (10) HTN (hypertension): (11) CAD (coronary artery disease): (12) Anxiety: (13) Subclavian artery stenosis, left: (14) Type 2 diabetes mellitus with insulin therapy: (15) Mild intermittent asthma: (16) On amiodarone therapy: (17) RIK (obstructive sleep apnea): (18) Hypothyroidism: Plan 79 yo female PMHx HFpEF (last echo 65-70%), paroxysmal afib (on amiodarone and Eliquis), aortic sclerosis, pulmonary HTN, left subclavian stenosis, PAD, carotid stenosis, HTN, T2DM on insulin, asthma, GERD, RIK, hypothyroidism, overactive bladder, and anxiety admitted for increasing shortness of breath over several days prior to admission. She had just returned from [place] in the week prior to admission. At time of ER presentation she tested positive for influenza type A infection. (1) Influenza: * patient was within the window to start Tamiflu thus she was started on such shortly after presentation * plan 5 days of Tamiflu * had transient O2 requirement upon presentation; this was weaned off and she remained stable in RA for the rest of her brief stay * fluA infection led to asthma exacerbation s/p solumedrol x 2 doses while here with resolution of her wheezing * received Duonebs for wheezing/bronchospasm * changed to albuterol MDI via spacer at discharge; patient instructed on use of a spacer device & albuterol MDI * of note - she had no evidence of any complicating bacterial pneumonia while hospitalized (2) Acute on chronic heart failure with preserved ejection fraction (HFpEF): * s/p IV lasix in ER x 1 dose and thereafter appeared euvolemic * no further IV lasix given; her usual lasix dosing of 40mg BID will be resumed the afternoon of 11/29/24 * has f/u with [facility] - Dr Tra Carballo - in late November 2024 (3) RIK (obstructive sleep apnea): * untreated * her chart mentioned she was on 2 L NC O2 at HS, but she states she had not used such in 4+ years * she tried BIPAP years ago & could not tolerate it * RIK is by report severe - 2021 sleep study report - "Moderate/severe complex sleep apnea with nocturnal hypoxemia improved on BiPAP 18/07 with a backup rate of 12 breaths per minute" * untreated RIK could be contributing to #2 and frequent CHF exacerbations * overnight oximetry study was completed; she did qualify for night-time O2 but she declined such (4) Mild intermittent asthma: * with exacerbation 2nd to fluA infection * s/p steroids (solumedrol x 2 doses) with resolution of wheezing * steroid therapy stopped and she was not sent home on prednisone * albuterol MDI with spacer given at discharge (5) Uncontrolled diabetes mellitus with hyperglycemia: * hemoglobin a1c 8.7% * received lantus/novolog during the visit * she was uncontrolled due to steroid use * BSGs were low 200s at discharge * she was asked to INCREASE her lantus to 50 units daily at discharge * continue novolog with meals as previous (6) Paroxysmal atrial fibrillation: * was in NSR during her brief stay * cont amiodarone 100mg daily * cont Eliquis 5mg BID (7) Hypothyroidism: * recent TSH 3.3 * cont synthroid (8) HTN (hypertension): * recommended reduction of her enalapril to 20mg once daily only * recommended reduction of her hydralazine to 50mg TID (previously was taking 100mg at bedtime) (9) CAD (coronary artery disease): * no ischemic symptoms at any time * cont statin * cont enalapril * cont Eliquis Notes For Next Care Provider RIK - overnight oximetry study - qualified for nocturnal O2, but she declined such at discharge Medication Changes From Visit 1. lower enalapril to 20mg daily 2. lower hydralazine to 50mg TID 3. increase lantus to 50 units daily 4. finish tamiflu course 5. resume lasix afternoon of 11/29/24 Admission HPI Per Admitting Provider 79 yo female PMHx HFpEF (last echo 65-70%), paroxysmal afib (on amiodarone and Eliquis), aortic sclerosis, pulmonary HTN, L-subclavian stenosis, PAD, carotid stenosis, HTN, T2DM on insulin, asthma, GERD, RIK, hypothyroidism, and anxiety admitted for increasing shortness of breath over the last couple of days. She has felt intermittently unwell over the last several months and was recently hospitalized for a short time due to CHF exacerbation. Over the last day or two she has become increasingly short of breath and has felt herself wheezing more than usual. She does wear 2L NC O2 at night and over the last two days has been using it intermittently during the day as well. On presentation to the ED she was hypoxemic to 88% on room air. At the time of admission she states that she is starting to feel better after a dose of Lasix and having been on oxygen. She does remain short of breath and coughing at the time of exam. ED course: Lasix 40mg IV x 1 Tamiflu x 1 Labs reveal: Mild troponin elevation that decreased on recheck, mild BNP elevation, +influenza A CXR: 1. Stable mild left pleural effusion. 2. Cardiomegaly. Perihilar pulmonary congestion/inflammatory/infective etiology. 3. Prominent cesar, keila/vascular. Stable 4. Mild COPD changes. Stable. Discharge Exam gen - NAD, resting in bed, no respiratory distress, looks well neck - no JVD mouth - MMM heart - RRR, s1 s2, no murmur lungs - decreased BS bases, otherwise CTA b/l; no wheeze, no rhonchi, no rales; airation good today abd - soft NT ND BS+ ext - no peripheral edema, pulses 2+ b/l Discharge Plan Discharge Items Patient Disposition: Home - Self-Care Reason For Visit: FLU A, CHF EXACERBATION Discharge Diagnosis: 1. influenza A infection - improving 2. mild bronchitis due to #1 - resolving 3. congestive heart failure exacerbation with fluid retention - resolved 4. untreated sleep apnea - strongly consider night-time oxygen 5. history of atrial fibrillation 6. high blood pressure 7. chronic sinus disease Activity: As commented below Activity Comment: gradually increase activities over the next 5-7 days Non-emergency contact: Primary Care Provider and Coffee Shop Manager Call non-emergency contact if: you have any medication questions and your symptoms worsen Follow-up/Referrals: Gilbert Carballo MD [Physician] - (within 2 weeks - recheck of congestive heart failure ) Jo Ann Echevarria DO [Primary Care Provider] - 12/01/24 2:30 pm (APPT. Haseeb VALENCIA PA-C within 1 week ) Diet: Carb Consistent or DM2 and Heart Healthy Addtl Attending Provider Instructions: Mrs Akers, You were hospitalized due to difficulty breathing. This was due to a combination of problems including mild bronchitis from influenza A infection as well as probable fluid retention from congestive heart failure. We did not see pneumonia on your chest x-ray. You improved with Tamiflu anti-viral medicine, albuterol nebulizer treatments, steroids, and diuretics (water pills). During the stay we noted that your blood pressures were either normal or low- normal on LESS blood pressure medicine. I suspect that you are no longer needing as much blood pressure medicine because of your recent weight loss. Recommendations - 1. Tamiflu (Oseltamivir) anti-viral medicine - start AM of 11/29/24. Take twice daily for 3 days. 2. As you approach Saturday of this week you may be around others without worry of passing the influenza to someone else IF - * you have no fever * your symptoms (cough, congestion, etc) are all improving Until that time plan to take it easy at home, rest, focus on good hydration & nutrition, etc. 3. For cough - * albuterol via spacer device (see handout) - 2 puffs every 4 hours as needed for cough/wheezing/shortness of breath * [id number] mucinex up to 1200mg twice daily 4. Blood pressure medicine - * LOWER your enalapril to 20mg once daily each morning; please stop your evening dose; begin this new schedule on 11/29/24 * LOWER your hydralazine to 50mg three times daily (do not take the extra 50mg at bedtime); start this today 5. Diabetes - * please INCREASE your Lantus (glargine) long-acting insulin to 50 units each morning; start this on 11/29/24 6. Furosemide (diuretic) for your congestive heart failure - * please SKIP your morning dose of furosemide on 11/29/24 * RESUME your furosemide tomorrow afternoon, 11/29/24 7. Daily weights - check your weight EVERY MORNING on the same scale; keep a notebook log of your weights. Your weight today is 186 pounds. This appears to be your "dry weight." 8. Please consider use of night-time oxygen for your sleep apnea. Based on testing that we did you do qualify for supplemental night-time oxygen. This may help you feel better overall day to day. Follow-up - see separate section Return to [facility] if - * you have fever over 100 degrees * you have worsening shortness of breath * you have chest pains * you have any concerns about your blood pressure or sugars * any other concerns It was our pleasure to care for you! Please feel better :) -Dr Shaniqua Grant Windows Infrastructure Engineer Provider Instructions: Call 911 and go to the Emergency Room if: * You have tightness or pain in your chest that does not go away with rest or Nitroglycerin * You are very short of breath even with rest Call your doctor if any of the following symptoms or problems start or get worse: * Shortness of breath or difficulty breathing * Wake up at night short of breath * Chest pain * Cough * Swelling of your hands, fee, or legs * More fatigued or tired with your normal activity * Palpitations - sudden fast heart beats WEIGHT * Weigh yourself every morning after using the bathroom. * Use the same scale. * Wear the same amount of clothing. * Write your weight down on your chart. * Call your doctor if you gain more than 2-3 pounds in 1-2 days. This is often one of the first signs of fluid retention from congestive heart failure. Your weight today at time of discharge is 186 pounds. MEDICATIONS * Use this discharge instruction sheet for instructions. * Take your medications at the time your doctor ordered. * Do not skip a dose of your medicines. * If you miss a dose of medicine, take as soon as possible, but DO NOT DOUBLE A DOSE. * Read your medicine information when you get home. * Know all of the side effects of your medicine. * Call your doctor's office if you have any side effects. * Be sure all of your doctors know what medicine and herbs you take (including cold, flu, and herbal medicine). * Pain Medicine: If you do not get relief from your pain, please call your doctor for help. Take the following with you to your follow-up doctor appointments: * Weight Chart * Medication List * List of questions Do not drink excessive alcohol, beer or wine. Pending Studies at Discharge: No Stand-Alone Forms: My [facility], Smoking Cessation Medications and DC Order Prescriptions: New albuterol sulfate 90 mcg/actuation HFA aerosol inhaler 2 inh inhalation Q4H PRN (Reason: shortness of breath or wheezing or cough) Qty: 6.7 0RF Rx Instructions: use with spacer device Continued fluocinonide 0.05 % cream 1 applic topical BID Qty: 60 1RF (DME) OneTouch Verio test strips Strip See Rx Instructions .ROUTE .MEDSUPPLY Qty: 300 3RF Rx Instructions: test blood sugar TID atorvastatin 80 mg tablet 80 mg PO QPM Qty: 90 3RF (DME) blood-glucose meter [OneTouch Verio Reflect] Kit See Rx Instructions .Route Qty: 1 0RF Rx Instructions: Test blood sugars three times a day. E11.9 (DME) lancets 32 gauge misc See Rx Instructions .Route Qty: 300 3RF Rx Instructions: use to test blood sugar TID potassium chloride 20 mEq tablet extended release 40 meq PO DAILY Qty: 180 3RF pantoprazole 40 mg tablet,delayed release (DR/EC) 40 mg PO BID Qty: 180 3RF Gemtesa 75 mg tablet 75 mg PO DAILY Qty: 30 2RF amiodarone 100 mg tablet 100 mg PO QDL Qty: 90 3RF levothyroxine 112 mcg tablet 112 mcg PO QAM Qty: 90 1RF Eliquis 5 mg tablet 5 mg PO BID Qty: 180 3RF furosemide 40 mg tablet 40 mg PO BID Qty: 180 3RF fluticasone propionate 50 mcg/actuation spray,suspension 2 spray intranasal DAILY PRN (Reason: Allergy Symptoms) Qty: 1 ferrous sulfate 325 mg (65 mg iron) tablet 325 mg PO QAM Qty: 90 1RF acetaminophen [Tylenol Arthritis Pain] 650 mg tablet extended release 1,300 mg PO DAILY PRN (Reason: sciatica pain) multivitamin Tablet 1 tab PO QAM Changed enalapril maleate 20 mg tablet 20 mg PO QAM Qty: 180 3RF Patient Comments: breakfast and lunch hydralazine 100 mg tablet See Rx Instructions .ROUTE .COMPLEX Qty: 180 3RF Rx Instructions: 50 mg by mouth three times daily Held omega 2-glx-cfa-fish oil [Fish Oil] 1,000 (120-180) mg Capsule 1 cap PO BID Hold Instructions: please hold for now as Fish Oil interacts with Eliquis and can enhance the effects of Eliquis Discontinued insulin glargine [Lantus Solostar U-100 Insulin] 100 unit/mL (3 mL) insulin pen 45 unit SQ QAM 90 Days Qty: 45 3RF No Action insulin glargine [Lantus Solostar U-100 Insulin] 100 unit/mL (3 mL) insulin pen 50 unit SQ QAM Patient Comments: 25 unit in the AM and 25 units with dinner. insulin aspart U-100 [Novolog FlexPen U-100 Insulin] 100 unit/mL (3 mL) insulin pen 20 unit subcut TID Rx Instructions: with meals up to 60 units daily Jardiance 10 mg tablet 10 mg PO DAILY Qty: 30 6RF Rx Instructions: Take one tablet by mouth once a day. Discharge Orders: Discharge Order (Routine); Ordered 11/28/24 Ordered By: Sim Duke/Other Patient Handouts: Using an Inhaler with a Spacer Admission Data Admit Date/Time: 11/27/24 00:50 Attending Provider: Sim Mcgovern Admit Provider: Lavell Mead Primary Care Provider: Jo Ann Echevarria Other Providers: Mc Narayan Other Interventions: Discharge Summary Assessment (RN) Last Done: 11/28/24 15:28 Hospital Stay Data Procedures Performed Overnight oximetry study Diagnostic Imagining Performed Chest X-Ray 11/26/24 22:09 EXAM: XR chest 1V portable CLINICAL HISTORY: Chest pain, nonspecific. TECHNIQUE: An X-ray image of the chest is obtained in AP projection. COMPARISON: X-ray 11/02/24. FINDINGS: Pulmonary Parenchyma: Emphysematous lungs with prominent and coarse broncho vascular markings. No evidence of consolidation, collapse, or focal opacities. No pulmonary nodules are identified. Blunting of the left costophrenic angle. The right costophrenic angle is sharp. Heart and Mediastinum: Enlarged cardiac size. Prominent cesar, keila/vascular. No mediastinal widening or masses. Bony Thorax: Calcification focus lateral to the humeral head likely represents calcific tendinosis. Bony thorax appears intact without fractures or deformities. Soft Tissues: Soft tissues overlying the chest wall are unremarkable. IMPRESSION: 1. Stable mild left pleural effusion. 2. Cardiomegaly. Perihilar pulmonary congestion/inflammatory/infective etiology. 3. Prominent cesar, keila/vascular. Stable 4. Mild COPD changes. Stable. Electronically signed by Byron Wood 11-27-2024 01:20 AM Pending Results Patient Have Any Pending Studies at Discharge: No Discharge Instructions Given to Patient (Per Discharging Provider) Mrs Akers, Pasha were hospitalized due to difficulty breathing. This was due to a combination of problems including mild bronchitis from influenza A infection as well as probable fluid retention from congestive heart failure. We did not see pneumonia on your chest x-ray. You improved with Tamiflu anti-viral medicine, albuterol nebulizer treatments, steroids, and diuretics (water pills). During the stay we noted that your blood pressures were either normal or low- normal on LESS blood pressure medicine. I suspect that you are no longer needing as much blood pressure medicine because of your recent weight loss. Recommendations - 1. Tamiflu (Oseltamivir) anti-viral medicine - start AM of 11/29/24. Take twice daily for 3 days. 2. As you approach Saturday of this week you may be around others without worry of passing the influenza to someone else IF - * you have no fever * your symptoms (cough, congestion, etc) are all improving Until that time plan to take it easy at home, rest, focus on good hydration & nutrition, etc. 3. For cough - * albuterol via spacer device (see handout) - 2 puffs every 4 hours as needed for cough/wheezing/shortness of breath * [id number] mucinex up to 1200mg twice daily 4. Blood pressure medicine - * LOWER your enalapril to 20mg once daily each morning; please stop your evening dose; begin this new schedule on 11/29/24 * LOWER your hydralazine to 50mg three times daily (do not take the extra 50mg at bedtime); start this today 5. Diabetes - * please INCREASE your Lantus (glargine) long-acting insulin to 50 units each morning; start this on 11/29/24 6. Furosemide (diuretic) for your congestive heart failure - * please SKIP your morning dose of furosemide on 11/29/24 * RESUME your furosemide tomorrow afternoon, 11/29/24 7. Daily weights - check your weight EVERY MORNING on the same scale; keep a notebook log of your weights. Your weight today is 186 pounds. This appears to be your "dry weight." 8. Please consider use of night-time oxygen for your sleep apnea. Based on testing that we did you do qualify for supplemental night-time oxygen. This may help you feel better overall day to day. Follow-up - see separate section Return to [facility] if - * you have fever over 100 degrees * you have worsening shortness of breath * you have chest pains * you have any concerns about your blood pressure or sugars * any other concerns It was our pleasure to care for you! 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
--- NOTE | 2024-11-28 15:11 | Communication Note ---
Date of Service: November 28, 2024 By CMS guidelines, a determination that the admission or continued stay is not medically necessary has been made by a member of the UR committee and a physi marcelo for this hospital stay, therefore a Code 44 will be completed and the Inpatient admission will be changed to outpatient. Sim Mcgovern MD Attending physician
--- NOTE | 2024-11-28 15:28 | Communication Note ---
Date of Service: November 28, 2024 By CMS guidelines, a determination that the admission or continued stay is not medically necessary has been made by a member of the UR committee and a physic darren for this hospital stay, therefore a Code 44 will be completed and the Inpatient admission will be changed to outpatient.
== END 2024-11-28 16:07 | disposition home or self-care (01) ==
LOC: ED 21:58 → SUATTDRO 11-27 00:50 → INTOOBSV 11-27 00:50 → EDINP 11-27 00:50 → 2W 11-28 02:10

== ENCOUNTER 2025-05-20 15:21 | Inpatient (IN) ==
[2025-05-20 16:38] LABS: Hematocrit (blood only) 42.1 % (37.0-47.0); Hemoglobin 13.3 g/dl (12.0-16.0); Immature Granulocytes # (auto) 0.07 K/uL (0.01-0.20); Immature Granulocytes % (auto) 0.7 %; Mean Corpuscular Hemoglobin 31.4 pg (25.0-34.0); Mean Corpuscular Volume 99.5 fL (80.0-100.0); Platelet Count 224 K/uL (130-400); RDW Standard Deviation 50.7 fL (36.4-46.3); Red Blood Count 4.23 M/uL (4.20-5.40); White Blood Count 10.04 K/ul (4.8-10.8)
[2025-05-20 16:57] LABS: Alanine Aminotransferase 13 U/L (7-52); Albumin Globulin Ratio 1.1 (0.9-2); Alkaline Phosphatase 54 U/L (34-104); Anion Gap 8 (3-11); Bilirubin,Total 0.6 mg/dl (0.2-1.0); Blood Urea Nitrogen 37 mg/dl (6-23); Calcium 9.9 mg/dl (8.6-10.3); Carbon Dioxide 30 mmol/L (21-32); Chloride 102 mmol/L (98-107); Globulin 3.3 gm/dl (2.5-4.0); Glucose 248 mg/dl (70-99(Fasting)); Potassium 4.5 mmol/L (3.5-5.1); Sodium 140 mmol/L (136-145); Total Protein 6.8 gm/dl (6.0-8.3)
[2025-05-20] MEDS: SODIUM CHLORIDE 0.9% 500 ML IV STA (17:14)
--- NOTE | 2025-05-20 17:21 | Emergency Department Note ---
Impression & Plan Acute pyelitis, Acute UTI, Elevated lactic acid level ED Provider Note NAME: FAVIO PETIT AGE: 80 SEX: F : 1945 ARRIVES VIA: Walk-In INFORMANT: Patient ED PROVIDER(S): Rico Martell DO CHIEF COMPLAINT: Feeling hot and cold HPI: Patient is a 80-year-old female with a past medical history of CHF, acute hypoxic respiratory failure, diabetes who presents to the ER for dysuria, urgency, or frequency which started on Saturday and through Saturday. She notes she was seen evaluated on Saturday and started on antibiotics. She has been having hot and cold sweats since then. She notes they are getting worse. She was having some shaking. Admits to lower abdominal discomfort. Has back pain but denies anything new. ADDITIONAL HISTORY OBTAINED: Per HPI Chronic Medical/Social Conditions Affecting Care: Per HPI PAST MEDICAL HISTORY:See Below PAST SURGICAL HISTORY:See Below FAMILY HISTORY:See Below SOCIAL HISTORY:See Below HOME MEDICATIONS:See Below ALLERGIES:See Below VITALS:See Below PHYSICAL EXAMINATION: GENERAL: Sitting up in bed, alert, well appearing, well nourished, no distress, non-toxic EYE EXAM: normal conjunctiva. OROPHARYNX: no exudate, no erythema, lips, buccal mucosa, and tongue normal and mucous membranes are moist NECK: supple, no nuchal rigidity, no adenopathy, non-tender LUNGS: Clear to auscultation. Normal chest wall mechanics HEART: no murmurs, S1 normal and S2 normal ABDOMEN: abdomen soft, non-tender, normo-active bowel sounds, no masses, no rebound or guarding. BACK: Back is symmetrical on inspection and there is no deformity, no midline tenderness, no CVA tenderness. SKIN: no rashes and no bruising UPPER EXTREMITIES: upper extremities are grossly normal. LOWER EXTREMITIES: No pitting edema. NEURO EXAM: Normal sensorium, cranial nerves II-XII grossly intact, normal speech, no gross weakness of arms, no gross weakness of legs. MEDICAL DECISION MAKING: Patient is a 80-year-old female who presents ER for the above-stated complaint. IV was established and blood work was obtained. Labs showed no significant leukocytosis or anemia. BMP with a creatinine 1.2. Glucose mildly elevated to 48. LFTs bilirubin was reassuring. UA with leuks and whites consistent with a UTI. CT abdomen pelvis showed inflammation of the bilateral ureters consistent with a bilateral ascending infection. Patient was given 2 g of her IV Rocephin. She given IV fluids. Show updated bedside. Discussed case with Dr. Laguna for further evaluation management treatment. Consults/Care Managements Discussions: Per [facility] Triage Nursing notes reviewed. Limited review of prior medical records performed Vital Signs: reviewed and remarkable for HTN Differential diagnosis: Differential diagnoses includes but is not limited to gastritis, peptic ulcer disease, GERD, gallbladder disease, pancreatitis, small bowel obstruction, appendicitis, diverticulitis, hernia, urinary tract infection, torsion, /ectopic (if female), perforation, trauma, infectious. ER treatment provided: See below Diagnostics interpreted by me include EKG and cardiac monitoring as listed below: -Cardiac Monitoring: An order was placed for continuous cardiac monitoring. The monitor shows a rate of 70 with sinus rhythm. -ECG: none -Laboratory studies:Interpreted by me as stated above in MDM and shown below. Imaging studies: Xrays: As interpreted by me:none CTs show: CT abdomen pelvis per my pulmonary interpretation showed no obvious bowel obstruction CT of the pelvis per radiologist described above Procedures:none Critical Care: None Past Med/Surg History Problem List (Updated 05/20/25 @ 20:24 by Rico Martell DO) Elevated lactic acid level (Acute) Acute UTI (Acute) Acute pyelitis (Acute) Chronic kidney disease, stage 3a Uncontrolled diabetes mellitus with hyperglycemia Acute on chronic heart failure with preserved ejection fraction (HFpEF) RIK (obstructive sleep apnea) Acute hypoxemic respiratory failure Acute exacerbation of CHF (congestive heart failure) (Acute) Hypoxia (Acute) Abdominal pain Adrenal nodule Degenerative lumbar spinal stenosis Scoliosis of lumbar region due to degenerative disease of spine in adult Urgency incontinence Non-proliferative diabetic retinopathy, both eyes Chronic heart failure with preserved ejection fraction Mild intermittent asthma Type 2 diabetes mellitus with insulin therapy Diabetic peripheral neuropathy Anemia On amiodarone therapy Paroxysmal atrial fibrillation Chronic anticoagulation Paroxysmal atrial fibrillation Dx 03/2020 > no pacer, med controlled, follows with Dr. 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 Aortic valve sclerosis Hearing loss Audiogram 12/26/2018 - Mild sensorineural on left. Moderate to severe, mixed on right. Normal tympanogram. Right hearing aid. Hypothyroidism Intracranial vascular stenosis MRA 04/06/2014 - Multifocal areas of [id number] narrowing seen throughout all visualized [place], most pronounced at the bilateral MCA bifurcation and bilateral METER TESTER POLYPHASE. Left ventricular hypertrophy Obesity Osteopenia after menopause Psoriasis Pulmonary hypertension TTEcho 01/17/18 - Normal eRVSP. Subclavian artery stenosis, left Per 03/2020 carotid duplex- left subclavian stenosis, retrograde flow in the left vertebral artery consistent with steal phenomenon. Vitamin D deficiency Carotid stenosis Carotid Duplex 03/2020: 60-69% stenosis in right ICA. 50-59% stenosis in the left ICA. Follows with Dr Wagoner. Peripheral arterial disease Dyslipidemia (Chronic) HTN (hypertension) (Chronic) CAD (coronary artery disease) (Chronic) Medical History Anxiety Shortness of breath Acute congestive heart failure History of atrial fibrillation Arthritis Urinary urgency History of Mohs micrographic surgery for skin cancer Hx of gastric ulcer Diabetic neuropathy Hx of migraines Hypertension Hyperlipidemia Sleep apnea Hypercalcemia Chronic rhinitis Anemia Sciatica Hypothyroidism Diabetes mellitus, type 2 Bulging disc Mitral valve disorder CVA (cerebral vascular accident) (04/01/14) Surgical History History of tooth extraction History of cystoscopy History of cataract surgery History of cardiac cath (~1998) History of abdominal hysterectomy (04/1998) S/P excision of lipoma History of colonoscopy (03/21/16) Family History Sister ALS (amyotrophic lateral sclerosis) Aunt Breast cancer Mother Diabetes Myocardial infarction Hypertension Heart disease Father Diabetes Myocardial infarction Hypertension Heart disease Other Congestive heart failure Coronary heart disease No family history of adverse response to anesthesia No family history of bleeding disorder Denies family history of Ovarian cancer Prostate cancer Lung cancer Colorectal cancer Stroke Social History Smoking Status: Never smoker Tobacco Type: Cigarettes Age Started Using Tobacco: 20; Age Quit Using Tobacco: 27; packs per day: 1; Cigarettes Per Day: Smoked for 2-3 years in college; Second Hand Exposure: No; Do You Dip or Chew Tobacco: No; Hx Alcohol Use: No Hx Substance Use: No Preferred Language: Welsh Communication Ability: Effective Visual Impairment: Limited Hearing Ability: Use of Hearing Aid Production Line Manager Required: No Beliefs That Will Affect Care: None marital status: Current Living Situation: Spouse Current Living Situation Comment: home current occupational status: retired How many Children do You have: 2 Feels Safe at Home: Yes Childhood Exposure to Second-Hand Smoke: Yes caffeine: Yes Dental Care, Regularly: Yes Physical Activity Frequency: 1-2 Times per Week Seatbelt Use: always Sunscreen Use: Yes Assistive Devices: Cane Allergies Allergies Allergy/AdvReac Type Severity Reaction Status Date / Time mold Allergy Intermediate Sneezing, Verified 04/29/25 16:06 mucus, watery eyes pollen extracts Allergy Intermediate Sneezing, Verified 04/29/25 16:06 mucus, watery eyes ragweed pollen Allergy Intermediate Sneezing, Verified 04/29/25 16:06 mucus, watery eyes animal dander Allergy Mild Sneezing Verified 04/29/25 16:06 grass pollen Allergy Mild Sneezing Verified 04/29/25 16:06 adhesive tape Allergy Verified 04/29/25 16:06 Home Meds Home Medications Medication Instructions Recorded Confirmed acetaminophen 650 mg 1,300 mg PO DAILY PRN sciatica pain 04/03/22 04/29/25 tablet,extended release (Tylenol Arthritis Pain) fluticasone propionate 50 2 spray intranasal DAILY PRN 06/14/22 04/29/25 mcg/actuation nasal Allergy Symptoms #1 g spray,suspension multivitamin 1 tab PO QAM 06/21/22 04/29/25 insulin aspart U-100 100 unit/mL 20 unit subcut TID 12/01/24 04/29/25 (3 mL) subcutaneous pen (Novolog FlexPen U-100 Insulin aspart) ferrous sulfate 325 mg (65 mg 325 mg PO Q OTHER DAY 12/28/24 04/29/25 iron) tablet insulin glargine 100 unit/mL (3 25 unit subcut BID 12/28/24 04/29/25 mL) subcutaneous pen (Lantus Solostar U-100 Insulin) Previous Rx's Medication Instructions Recorded fluocinonide 0.05 % topical cream 1 applic topical BID #60 grams 02/26/24 atorvastatin 80 mg tablet 80 mg PO QPM #90 tabs 03/09/24 blood sugar diagnostic (OneTouch #300 ea 03/09/24 Verio test strips) blood-glucose meter (OneTouch #1 ea 03/10/24 Verio Reflect kit) lancets 32 gauge #300 ea 03/10/24 potassium chloride 20 mEq 40 meq (2 x 20 mEq) PO DAILY #180 05/25/24 tablet,extended release tabs pantoprazole 40 mg tablet,delayed 40 mg PO BID #180 tabs 07/27/24 release amiodarone 100 mg tablet 100 mg PO QDL #90 tabs 10/19/24 levothyroxine 112 mcg tablet 112 mcg PO QAM #90 tabs 11/19/24 apixaban 5 mg tablet (Eliquis) 5 mg PO BID #180 tabs 11/20/24 furosemide 40 mg tablet 40 mg PO BID #180 tabs 11/20/24 albuterol sulfate 90 mcg/actuation 2 inh inhalation Q4H PRN shortness 11/28/24 aerosol inhaler of breath or wheezing or cough #6.7 grams hydralazine 100 mg tablet See Rx Instructions .Route 11/28/24 .COMPLEX #180 tabs vibegron 75 mg tablet (Gemtesa) 75 mg PO DAILY #30 tabs 12/24/24 enalapril maleate 20 mg tablet 20 mg PO QAM #180 tabs 01/29/25 empagliflozin 10 mg tablet 10 mg PO DAILY #90 tabs 03/09/25 (Jardiance) nitrofurantoin 100 mg PO Q12H 5 days #10 caps 05/18/25 monohydrate/macrocrystals 100 mg capsule (Macrobid) Results & Data (ED) Vital Signs Vital Signs - 24 hr 05/20/25 15:46 05/20/25 17:20 05/20/25 18:42 Temperature 37.6 C H Temperature Source Temporal Artery Scan Pulse Rate 82 75 Pulse Rate [Apical] 77 Pulse Rate from SpO2 Sensor Pulse Rhythm Regular Respiratory Rate 20 19 Respiratory Effort / Characteristics Non-Labored Spontaneous Non-Labored Spontaneous Respiratory Depth Normal Normal Respiratory Pattern Regular Regular Blood Pressure 161/71 H Blood Pressure [Right Arm] 146/78 H Blood Pressure Mean 101 Blood Pressure Mean [Right Arm] 100 Blood Pressure Position Sitting Pulse Oximetry 93 98 Oxygen Delivery Method Room Air Room Air Sepsis New/Unexplained Change in Mental Status No Sepsis Action Taken by Nursing No Action Required 05/20/25 19:01 05/20/25 19:03 Temperature Temperature Source Pulse Rate 75 Pulse Rate [Apical] Pulse Rate from SpO2 Sensor 75 Pulse Rhythm Respiratory Rate 14 Respiratory Effort / Characteristics Respiratory Depth Respiratory Pattern Blood Pressure 162/71 H Blood Pressure [Right Arm] Blood Pressure Mean 109 Blood Pressure Mean [Right Arm] Blood Pressure Position Pulse Oximetry 92 Oxygen Delivery Method Sepsis New/Unexplained Change in Mental Status Sepsis Action Taken by Nursing Laboratory Data 05/20/25 Unknown 05/20/25 Unknown Lab Results 05/20/25 05/20/25 05/20/25 Range/Units 17:44 19:52 Unknown WBC 10.04 (4.8-10.8) K/ul RBC 4.23 (4.20-5.40) M/uL Hgb 13.3 (12.0-16.0) g/dl Hct 42.1 (37.0-47.0) % MCV 99.5 (80.0-100.0) fL MCH 31.4 (25.0-34.0) pg MCHC 31.6 L (32.0-36.0) g/dL RDW Std Deviation 50.7 H (36.4-46.3) fL RDW Coeff of [place] 13.9 (11.5-14.5) % Plt Count 224 (130-400) K/uL MPV 11.2 (9.4-12.4) fL Immature Gran % (Auto) 0.7 % Neut % (Auto) 78.8 % Lymph % (Auto) 8.2 % [place] % (Auto) 11.6 % Eos % (Auto) 0.4 % Baso % (Auto) 0.3 % Neut # (Auto) 7.92 H (1.40-6.50) K/uL Lymph # (Auto) 0.82 L (1.20-3.40) K/uL [place] # (Auto) 1.16 H (0.11-0.59) K/uL Eos # (Auto) 0.04 (0.00-0.50) K/uL Baso # (Auto) 0.03 (0.00-0.20) K/uL Immature Gran # (Auto) 0.07 (0.01-0.20) K/uL Sodium 140 (136-145) mmol/L Potassium 4.5 (3.5-5.1) mmol/L Chloride 102 (98-107) mmol/L Carbon Dioxide 30 (21-32) mmol/L Anion Gap 8 (3-11) BUN 37 H (6-23) mg/dl Creatinine 1.28 H (0.6-1.2) mg/dl Est Cr Clr Drug Dosing Not Reportable eGFR 42.88 BUN/Creatinine Ratio 28.9 H (10-20) Glucose 248 H (70-99(Fasting)) mg/dl Lactate 2.2 H* 1.7 (0.4-2.0) mmol/L Calcium 9.9 (8.6-10.3) mg/dl Total Bilirubin 0.6 (0.2-1.0) mg/dl AST 18 (13-39) U/L ALT 13 (7-52) U/L Alkaline Phosphatase 54 (34-104) U/L Total Protein 6.8 (6.0-8.3) gm/dl Albumin 3.5 (3.4-5.0) gm/dl Globulin 3.3 (2.5-4.0) gm/dl Albumin/Globulin Ratio 1.1 (0.9-2) Procalcitonin Cancelled Urine Color Yellow Urine Appearance Clear (Clear) Urine pH 5.5 (4.5-7.5) Ur Specific [place] 1.016 (1.000-1.030) Urine Protein Trace H (Negative) Urine Glucose (UA) 3+ H (Negative) Urine Ketones Negative (Negative) Urine Blood 3+ H (Negative) Urine Nitrite Negative (Negative) Urine Bilirubin Negative (Negative) Urine Urobilinogen Negative (Negative) Ur Leukocyte Esterase Trace H (Negative) Urine WBC (Auto) 6-10 H (0-5) /hpf Urine RBC (Auto) >20 H (0-2) /hpf U Hyaline Cast (Auto) 0-2 (0-2) /lpf U Epithel Cells (Auto) 0-2 (0-2) /hpf Urine Bacteria (Auto) None Seen (None Seen) Urine Comment Administered Medications Discontinued Medications Sodium Chloride (Nss) 500 mls @ 999 mls/hr IV .Q31M STA Stop: 05/20/25 16:31 Last Infusion: 05/20/25 19:20 Dose: Infused Documented By: Admin: 05/20/25 17:14 Dose: 999 mls/hr Documented By: CESAR Sodium Chloride (Nss) 1,000 mls @ 999 mls/hr IV .Q1H1M ONE Stop: 05/20/25 18:20 Last Admin: 05/20/25 18:32 Dose: 999 mls/hr Documented By: [facility] Ceftriaxone Sodium (Rocephin) 2,000 mg in 50 mls @ 100 mls/hr IV NOW STA Stop: 05/20/25 17:51 Last Infusion: 05/20/25 19:20 Dose: Infused Documented By: Admin: 05/20/25 18:32 Dose: 100 mls/hr Documented By: [facility] Ioversol (Optiray 320 100ml) 93 ml IV ONCE ONE Stop: 05/20/25 17:56 Last Admin: 05/20/25 17:55 Dose: 93 ml Documented By: [facility]O Imaging Data Radiologist's Impression: Abdomen/Pelvis CT 05/20/25 17:22 EXAMINATION: CT of the abdomen and pelvis performed after the administration of IV contrast TECHNIQUE: Helical CT images from the lung bases through the symphysis pubis were obtained with contrast. Coronal and sagittal reformatted images were generated at a workstation for further assessment. Dose reduction techniques were achieved by using automatic exposure control and/or adjustment of mA and/or kV according to patient size and/or use of iterative reconstruction technique. COMPARISON: November 02, 2024 HISTORY: Abdominal pain FINDINGS: Lower chest: No consolidation. No pleural effusion or pneumothorax. Liver: No suspicious liver lesions. Portal veins appear patent. Gallbladder: No gallstones. No evidence of acute cholecystitis. Spleen: Normal size. Pancreas: No suspicious pancreatic lesions. The pancreatic duct is not dilated. Adrenal glands: 2.2 cm left adrenal nodule. Normal right adrenal gland. Kidneys: No hydronephrosis or obstructing renal stones. There is dilatory fat stranding is noted about the renal medullary regions, left greater than right. Bilateral ureteral urothelial hyperenhancement. Scattered renal cysts. Bladder / Pelvic organs: Unremarkable. Bowel: No bowel obstruction. No abnormal bowel wall thickening. The appendix is not seen. Sigmoid diverticulosis without diverticulitis. Lymph nodes: No retroperitoneal, mesenteric, or pelvic lymphadenopathy. Peritoneum / Retroperitoneum: No free fluid or air within the abdomen. Vessels: No infrarenal aortic aneurysm. Heavy aortoiliac calcification. Bones and soft tissues: No suspicious lesion in the bones. IMPRESSION: Findings of bilateral renal pyelitis and ureteritis. The kidneys otherwise normally enhance, without definite specific evidence for pyelonephritis, although which is difficult to exclude by imaging alone. Technically indeterminate left adrenal nodule measuring 2.2 cm, although possibly an adenoma. Recommend follow-up MRI. Electronically signed by Sadi Fraser 05-20-2025 6:35 PM Discharge Plan Visit Data Chief Complaint: Illness Stated Complaint: E-COLI INFECTION, NAUSEA ED Provider: Rico Martell Discharge Problem: Acute pyelitis, Acute UTI, Elevated lactic acid level Condition: Fair Forms Stand Alone Forms: My [facility] [email or web address] Prescriptions Prescriptions: No Action fluocinonide 0.05 % cream 1 applic topical BID Qty: 60 1RF (DME) OneTouch Verio test strips Strip See Rx Instructions .ROUTE .MEDSUPPLY Qty: 300 3RF Rx Instructions: test blood sugar TID atorvastatin 80 mg tablet 80 mg PO QPM Qty: 90 3RF (DME) blood-glucose meter [OneTouch Verio Reflect] Kit See Rx Instructions .Route Qty: 1 0RF Rx Instructions: Test blood sugars three times a day. E11.9 (DME) lancets 32 gauge misc See Rx Instructions .Route Qty: 300 3RF Rx Instructions: use to test blood sugar TID potassium chloride 20 mEq tablet extended release 40 meq PO DAILY Qty: 180 3RF pantoprazole 40 mg tablet,delayed release (DR/EC) 40 mg PO BID Qty: 180 3RF amiodarone 100 mg tablet 100 mg PO QDL Qty: 90 3RF levothyroxine 112 mcg tablet 112 mcg PO QAM Qty: 90 1RF Eliquis 5 mg tablet 5 mg PO BID Qty: 180 3RF furosemide 40 mg tablet 40 mg PO BID Qty: 180 3RF Gemtesa 75 mg tablet 75 mg PO DAILY Qty: 30 11RF enalapril maleate 20 mg tablet 20 mg PO QAM Qty: 180 3RF Patient Comments: breakfast and lunch nitrofurantoin monohyd/m-cryst [Macrobid] 100 mg capsule 100 mg PO Q12H 5 Days Qty: 10 0RF Rx Instructions: must administer with a meal/food fluticasone propionate 50 mcg/actuation spray,suspension 2 spray intranasal DAILY PRN (Reason: Allergy Symptoms) Qty: 1 Jardiance 10 mg tablet 10 mg PO DAILY Qty: 90 3RF Rx Instructions: Take one tablet by mouth once a day. ferrous sulfate 325 mg (65 mg iron) tablet 325 mg PO Q OTHER DAY insulin aspart U-100 [Novolog FlexPen U-100 Insulin] 100 unit/mL (3 mL) insulin pen 20 unit subcut TID Rx Instructions: with meals up to 60 units daily insulin glargine [Lantus Solostar U-100 Insulin] 100 unit/mL (3 mL) insulin pen 25 unit SQ BID Patient Comments: 25 unit in the AM and 25 units with dinner. acetaminophen [Tylenol Arthritis Pain] 650 mg tablet extended release 1,300 mg PO DAILY PRN (Reason: sciatica pain) multivitamin Tablet 1 tab PO QAM hydralazine 100 mg tablet See Rx Instructions .ROUTE .COMPLEX Qty: 180 3RF Rx Instructions: 50 mg by mouth three times daily albuterol sulfate 90 mcg/actuation HFA aerosol inhaler 2 inh inhalation Q4H PRN (Reason: shortness of breath or wheezing or cough) Qty: 6.7 0RF Rx Instructions: use with spacer device Referrals Referrals: Jo Ann Echevarria DO [Primary Care Provider] -
[2025-05-20 17:47] LABS: Appearance Urine Clear (Clear); Bacteria Urine Automated None Seen (None Seen); Cast Urine Automated 0-2 /lpf (0-2); Epithelial Cell Urine Auto 0-2 /hpf (0-2); Glucose Urine UA 3+ (Negative); RBC Urine Automated >20 /hpf (0-2)
[2025-05-20] MEDS: OPTIRAY 320 100ml IV ONE (17:55)
[2025-05-20] MEDS: cefTRIAXone SODIUM 2,000 MG/50 ML BAG IV STA (18:32)
[2025-05-20] MEDS: SODIUM CHLORIDE 0.9% 1,000 ML IV ONE (18:32)
--- NOTE | 2025-05-20 18:36 | CT Scan Report ---
EXAMINATION: CT of the abdomen and pelvis performed after the administration of IV contrast TECHNIQUE: Helical CT images from the lung bases through the symphysis pubis were obtained with contrast. Coronal and sagittal reformatted images were generated at a workstation for further assessment. Dose reduction techniques were achieved by using automatic exposure control and/or adjustment of mA and/or kV according to patient size and/or use of iterative reconstruction technique. COMPARISON: November 02, 2024 HISTORY: Abdominal pain FINDINGS: Lower chest: No consolidation. No pleural effusion or pneumothorax. Liver: No suspicious liver lesions. Portal veins appear patent. Gallbladder: No gallstones. No evidence of acute cholecystitis. Spleen: Normal size. Pancreas: No suspicious pancreatic lesions. The pancreatic duct is not dilated. Adrenal glands: 2.2 cm left adrenal nodule. Normal right adrenal gland. Kidneys: No hydronephrosis or obstructing renal stones. There is dilatory fat stranding is noted about the renal medullary regions, left greater than right. Bilateral ureteral urothelial hyperenhancement. Scattered renal cysts. Bladder / Pelvic organs: Unremarkable. Bowel: No bowel obstruction. No abnormal bowel wall thickening. The appendix is not seen. Sigmoid diverticulosis without diverticulitis. Lymph nodes: No retroperitoneal, mesenteric, or pelvic lymphadenopathy. Peritoneum / Retroperitoneum: No free fluid or air within the abdomen. Vessels: No infrarenal aortic aneurysm. Heavy aortoiliac calcification. Bones and soft tissues: No suspicious lesion in the bones. IMPRESSION: Findings of bilateral renal pyelitis and ureteritis. The kidneys otherwise normally enhance, without definite specific evidence for pyelonephritis, although which is difficult to exclude by imaging alone. Technically indeterminate left adrenal nodule measuring 2.2 cm, although possibly an adenoma. Recommend follow-up MRI. Electronically signed by Sadi Fraser 05-20-2025 6:35 PM
--- NOTE | 2025-05-20 19:54 | History & Physical Report ---
Date of Service May 20, 2025 Assessment & Plan (1) Acute UTI: (2) Acute pyelitis: (3) Acute on chronic heart failure with preserved ejection fraction (HFpEF): (4) RIK (obstructive sleep apnea): (5) Type 2 diabetes mellitus with insulin therapy: (6) HTN (hypertension): (7) CAD (coronary artery disease): (8) Peripheral arterial disease: (9) Dyslipidemia: (10) Pulmonary hypertension: (11) Hypothyroidism: (12) Paroxysmal atrial fibrillation: (13) Chronic kidney disease, stage 3a: Plan 80 yo female PMHx CAD, HFpEF (last echo 11/03/24 w/EF65-70%), paroxysmal a fib on Eliquis, PAD, RIK not on CPAP, pulmonary HTN, T2DM on insulin, peripheral neuropathy, hypothyroidism, HLD, HTN admitted found to have bilateral pyelonephritis. #Pyelonephritis b/l CT + for bilateral renal pyelitis, ureteritis; no evidence of stone Had elevated lactate on admission, resolved on recheck History of UTIs, all nearly pansensitive Continue ceftriaxone 2g daily Follow UCx and BCx for results/sensitivities Pain/Fever control with Tylenol PRN Continue gentle IV hydration #LEVAR on CKD-III Continue IVF Follow BMP Hold enalapril #RIK/OHS/Pulmonary HTN Not on CPAP Supplemental O2 to maintain sats >90% #CAD/PAD/HFpEF/Afib/HTN/HLD Most recent echo EF 65-70% Does not appear in acute failure Rates well controlled Continue amiodarone Continue Eliquis Continue atorvastatin Continue furosemide Hold enalapril in setting of LEVAR #T2DM Hold home medications Basal bolus insulin Pharmacy glycemic consult placed FENGI: heart healthy, DM2 diet; fluids NSS @ 80cc/hr Code status: full code DVT prophylaxis: Heparin BID Disposition: [facility] History of Present Illness Primary Care Provider: Jo Ann Echevarria, DO 80 yo female PMHx CAD, HFpEF (last echo 11/03/24 w/EF65-70%), paroxysmal a fib on Eliquis, PAD, RIK not on CPAP, pulmonary HTN, T2DM on insulin, peripheral neuropathy, hypothyroidism, HLD, HTN admitted found to have bilateral pyelonephritis. Recently dropped an ipad on her R foot and had a foot wound. Treated with amoxicillin and developed diarrhea. Subsequently developed UTI symptoms with dysuria and urinary freuqency. Has since developed chills and presented to the ER. Denies CP, SOB, N/V/D. Denies significant discomfort. ED course: Labs reveal no leukocytosis, LEVAR (baseline Cr ~0.9), elevated lactate (repeat normal) CTAP reveals b/l renal pyelitis, ureteritis Rec'd 1.5L NSS, 2g ceftriaxone Allergies Allergy/AdvReac Type Severity Reaction Status Date / Time mold Allergy Intermediate Sneezing, Verified 04/29/25 16:06 mucus, watery eyes pollen extracts Allergy Intermediate Sneezing, Verified 04/29/25 16:06 mucus, watery eyes ragweed pollen Allergy Intermediate Sneezing, Verified 04/29/25 16:06 mucus, watery eyes animal dander Allergy Mild Sneezing Verified 04/29/25 16:06 grass pollen Allergy Mild Sneezing Verified 04/29/25 16:06 adhesive tape Allergy Verified 04/29/25 16:06 Home Medications Medication Instructions Recorded Confirmed Type acetaminophen 650 mg 1,300 mg PO DAILY PRN sciatica pain 04/03/22 04/29/25 History tablet,extended release (Tylenol Arthritis Pain) fluticasone propionate 50 2 spray intranasal DAILY PRN 06/14/22 04/29/25 History mcg/actuation nasal Allergy Symptoms #1 g spray,suspension multivitamin 1 tab PO QAM 06/21/22 04/29/25 History fluocinonide 0.05 % topical cream 1 applic topical BID #60 grams 02/26/24 04/29/25 Rx atorvastatin 80 mg tablet 80 mg PO QPM #90 tabs 03/09/24 04/29/25 Rx blood sugar diagnostic (OneTouch #300 ea 03/09/24 04/29/25 Rx Verio test strips) blood-glucose meter (OneTouch #1 ea 03/10/24 04/29/25 Rx Verio Reflect kit) lancets 32 gauge #300 ea 03/10/24 04/29/25 Rx potassium chloride 20 mEq 40 meq (2 x 20 mEq) PO DAILY #180 05/25/24 04/29/25 Rx tablet,extended release tabs pantoprazole 40 mg tablet,delayed 40 mg PO BID #180 tabs 07/27/24 04/29/25 Rx release amiodarone 100 mg tablet 100 mg PO QDL #90 tabs 10/19/24 04/29/25 Rx levothyroxine 112 mcg tablet 112 mcg PO QAM #90 tabs 11/19/24 04/29/25 Rx apixaban 5 mg tablet (Eliquis) 5 mg PO BID #180 tabs 11/20/24 04/29/25 Rx furosemide 40 mg tablet 40 mg PO BID #180 tabs 11/20/24 04/29/25 Rx albuterol sulfate 90 mcg/actuation 2 inh inhalation Q4H PRN shortness 11/28/24 04/29/25 Rx aerosol inhaler of breath or wheezing or cough #6.7 grams hydralazine 100 mg tablet See Rx Instructions .Route 11/28/24 04/29/25 Rx .COMPLEX #180 tabs insulin aspart U-100 100 unit/mL 20 unit subcut TID 12/01/24 04/29/25 History (3 mL) subcutaneous pen (Novolog FlexPen U-100 Insulin aspart) vibegron 75 mg tablet (Gemtesa) 75 mg PO DAILY #30 tabs 12/24/24 04/29/25 Rx ferrous sulfate 325 mg (65 mg 325 mg PO Q OTHER DAY 12/28/24 04/29/25 History iron) tablet insulin glargine 100 unit/mL (3 25 unit subcut BID 12/28/24 04/29/25 History mL) subcutaneous pen (Lantus Solostar U-100 Insulin) enalapril maleate 20 mg tablet 20 mg PO QAM #180 tabs 01/29/25 04/29/25 Rx empagliflozin 10 mg tablet 10 mg PO DAILY #90 tabs 03/09/25 04/29/25 Rx (Jardiance) nitrofurantoin 100 mg PO Q12H 5 days #10 caps 05/18/25 Rx monohydrate/macrocrystals 100 mg capsule (Macrobid) Past Med/Surg History Problem List Elevated lactic acid level (Acute) Acute UTI (Acute) Acute pyelitis (Acute) Chronic kidney disease, stage 3a Uncontrolled diabetes mellitus with hyperglycemia Acute on chronic heart failure with preserved ejection fraction (HFpEF) RIK (obstructive sleep apnea) Acute hypoxemic respiratory failure Acute exacerbation of CHF (congestive heart failure) (Acute) Hypoxia (Acute) Abdominal pain Adrenal nodule Degenerative lumbar spinal stenosis Scoliosis of lumbar region due to degenerative disease of spine in adult Urgency incontinence Non-proliferative diabetic retinopathy, both eyes Chronic heart failure with preserved ejection fraction Mild intermittent asthma Type 2 diabetes mellitus with insulin therapy Diabetic peripheral neuropathy Anemia On amiodarone therapy Paroxysmal atrial fibrillation Chronic anticoagulation Paroxysmal atrial fibrillation Dx 03/2020 > no pacer, med controlled, follows with Dr. 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 Aortic valve sclerosis Hearing loss Audiogram 12/26/2018 - Mild sensorineural on left. Moderate to severe, mixed on right. Normal tympanogram. Right hearing aid. Hypothyroidism Intracranial vascular stenosis MRA 04/06/2014 - Multifocal areas of [id number] narrowing seen throughout all visualized cessels of the [place], most pronounced at the bilateral MCA bifurcation and bilateral CARE PROGRAM RESIDENT. Left ventricular hypertrophy Obesity Osteopenia after menopause Psoriasis Pulmonary hypertension TTEcho 01/17/18 - Normal eRVSP. Subclavian artery stenosis, left Per 03/2020 carotid duplex- left subclavian stenosis, retrograde flow in the left vertebral artery consistent with steal phenomenon. Vitamin D deficiency Carotid stenosis Carotid Duplex 03/2020: 60-69% stenosis in right ICA. 50-59% stenosis in the left ICA. Follows with Dr Wagoner. Peripheral arterial disease Dyslipidemia (Chronic) HTN (hypertension) (Chronic) CAD (coronary artery disease) (Chronic) Medical History Anxiety Shortness of breath Acute congestive heart failure History of atrial fibrillation pt unsure if current>taking eliquis daily Arthritis Urinary urgency History of Mohs micrographic surgery for skin cancer bcc>nose area Hx of gastric ulcer Diabetic neuropathy Hx of migraines Hypertension Hyperlipidemia Sleep apnea can not tolerate device Hypercalcemia Chronic rhinitis Anemia Sciatica Hypothyroidism Diabetes mellitus, type 2 IDDM Bulging disc L3-L4, gets injections with Dr. 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 CVA (cerebral vascular accident) (04/01/14) Acute/Subacute right pontine CVA (2013)- residual short-term memory loss, left sided weakness, no BP in left arm Surgical History History of tooth extraction History of cystoscopy Cystoscopy, Right Ureteroscopy, Retrograde, Right Stent Placement: 07/07/20: LMA#4 at [facility] History of cataract surgery right/left History of cardiac cath (~1998) no stents History of abdominal hysterectomy (04/1998) bso, endometriosis S/P excision of lipoma History of colonoscopy (03/21/16) Family History Sister ALS (amyotrophic lateral sclerosis) Aunt Breast cancer Mother Diabetes Myocardial infarction Hypertension Heart disease Father Diabetes Myocardial infarction Hypertension Heart disease Other Congestive heart failure Coronary heart disease No family history of adverse response to anesthesia No family history of bleeding disorder Denies family history of Ovarian cancer Prostate cancer Lung cancer Colorectal cancer Stroke Social History Smoking Status: Former smoker Tobacco Type: Cigarettes Age Started Using Tobacco: 20; Age Quit Using Tobacco: 27; packs per day: 1; Cigarettes Per Day: Smoked for 2-3 years in [employer]; Smoking End Date: 1971; Second Hand Exposure: No; Do You Dip or Chew Tobacco: No; Hx Alcohol Use: Yes Alcohol type: beer and wine Alcohol Intake Frequency: 2-4 x/Month Hx Substance Use: No Preferred Language: Romanian Communication Ability: Effective Visual Impairment: Limited Hearing Ability: Use of Hearing Aid Civil Service Clerk Required: No Beliefs That Will Affect Care: None marital status: Current Living Situation: Spouse Current Living Situation Comment: lives with at home current occupational status: retired How many Children do You have: 2 Feels Safe at Home: Yes Safety Concerns: Feels Safe At This Time Childhood Exposure to Second-Hand Smoke: Yes caffeine: Yes Dental Care, Regularly: Yes Physical Activity Frequency: 1-2 Times per Week Seatbelt Use: always Sunscreen Use: Yes Assistive Devices: Cane and Hearing Aid - Bilateral Review of Systems Review of Systems: reviewed, per HPI Physical Exam Physical Exam: Constitutional: well-appearing, no acute distress HEENT: NCAT, no conjunctival injection CV: regular rhythm, no murmur appreciated, extremities well-perfused, no LE edema Resp: CTABL, no wheezes/rales/rhonchi appreciated, no increased work of breathing GI: nondistended MSK: no gross deformities appreciated Skin: warm, dry, no rash appreciated Neuro: alert, oriented, no focal neurologic deficit appreciated Results & Data Results & Data Vital Signs (Past 12 Hours) Vital Signs Temp Pulse Pulse Resp BP BP Pulse Ox 05/20/25 19:03 75 14 92 05/20/25 19:01 162/71 H 05/20/25 18:42 75 05/20/25 17:20 77 19 146/78 H 98 05/20/25 15:46 37.6 C H 82 20 161/71 H 93 O2 Del Method 05/20/25 19:03 05/20/25 19:01 05/20/25 18:42 05/20/25 17:20 Room Air 05/20/25 15:46 Room Air Laboratory Results Laboratory Results WBC 10.04 K/ul (4.8-10.8) 05/20/25 Unknown RBC 4.23 M/uL (4.20-5.40) 05/20/25 Unknown Hgb 13.3 g/dl (12.0-16.0) 05/20/25 Unknown Hct 42.1 % (37.0-47.0) 05/20/25 Unknown MCV 99.5 fL (80.0-100.0) 05/20/25 Unknown MCH 31.4 pg (25.0-34.0) 05/20/25 Unknown MCHC 31.6 g/dL (32.0-36.0) L 05/20/25 Unknown RDW Std Deviation 50.7 fL (36.4-46.3) H 05/20/25 Unknown RDW Coeff of [place] 13.9 % (11.5-14.5) 05/20/25 Unknown Plt Count 224 K/uL (130-400) 05/20/25 Unknown MPV 11.2 fL (9.4-12.4) 05/20/25 Unknown Immature Gran % (Auto) 0.7 % 05/20/25 Unknown Neut % (Auto) 78.8 % 05/20/25 Unknown Lymph % (Auto) 8.2 % 05/20/25 Unknown [place] % (Auto) 11.6 % 05/20/25 Unknown Eos % (Auto) 0.4 % 05/20/25 Unknown Baso % (Auto) 0.3 % 05/20/25 Unknown Neut # (Auto) 7.92 K/uL (1.40-6.50) H 05/20/25 Unknown Lymph # (Auto) 0.82 K/uL (1.20-3.40) L 05/20/25 Unknown [place] # (Auto) 1.16 K/uL (0.11-0.59) H 05/20/25 Unknown Eos # (Auto) 0.04 K/uL (0.00-0.50) 05/20/25 Unknown Baso # (Auto) 0.03 K/uL (0.00-0.20) 05/20/25 Unknown Immature Gran # (Auto) 0.07 K/uL (0.01-0.20) 05/20/25 Unknown Sodium 140 mmol/L (136-145) 05/20/25 Unknown Potassium 4.5 mmol/L (3.5-5.1) 05/20/25 Unknown Chloride 102 mmol/L (98-107) 05/20/25 Unknown Carbon Dioxide 30 mmol/L (21-32) 05/20/25 Unknown Anion Gap 8 (3-11) 05/20/25 Unknown BUN 37 mg/dl (6-23) H 05/20/25 Unknown Creatinine 1.28 mg/dl (0.6-1.2) H 05/20/25 Unknown Est Cr Clr Drug Dosing Not Reportable 05/20/25 Unknown eGFR 42.88 05/20/25 Unknown BUN/Creatinine Ratio 28.9 (10-20) H 05/20/25 Unknown Glucose 248 mg/dl (70-99(Fasting)) H 05/20/25 Unknown POC Glucose 153 mg/dl (70-99) H 05/21/25 00:35 Lactate 1.7 mmol/L (0.4-2.0) 05/20/25 19:52 Calcium 9.9 mg/dl (8.6-10.3) 05/20/25 Unknown Total Bilirubin 0.6 mg/dl (0.2-1.0) 05/20/25 Unknown AST 18 U/L (13-39) 05/20/25 Unknown ALT 13 U/L (7-52) 05/20/25 Unknown Alkaline Phosphatase 54 U/L (34-104) 05/20/25 Unknown Total Protein 6.8 gm/dl (6.0-8.3) 05/20/25 Unknown Albumin 3.5 gm/dl (3.4-5.0) 05/20/25 Unknown Globulin 3.3 gm/dl (2.5-4.0) 05/20/25 Unknown Albumin/Globulin Ratio 1.1 (0.9-2) 05/20/25 Unknown Procalcitonin Cancelled 05/20/25 Unknown Urine Color Yellow 05/20/25 Unknown Urine Appearance Clear (Clear) 05/20/25 Unknown Urine pH 5.5 (4.5-7.5) 05/20/25 Unknown Ur Specific [place] 1.016 (1.000-1.030) 05/20/25 Unknown Urine Protein Trace (Negative) H 05/20/25 Unknown Urine Glucose (UA) 3+ (Negative) H 05/20/25 Unknown Urine Ketones Negative (Negative) 05/20/25 Unknown Urine Blood 3+ (Negative) H 05/20/25 Unknown Urine Nitrite Negative (Negative) 05/20/25 Unknown Urine Bilirubin Negative (Negative) 05/20/25 Unknown Urine Urobilinogen Negative (Negative) 05/20/25 Unknown Ur Leukocyte Esterase Trace (Negative) H 05/20/25 Unknown Urine WBC (Auto) 6-10 /hpf (0-5) H 05/20/25 Unknown Urine RBC (Auto) >20 /hpf (0-2) H 05/20/25 Unknown U Hyaline Cast (Auto) 0-2 /lpf (0-2) 05/20/25 Unknown U Epithel Cells (Auto) 0-2 /hpf (0-2) 05/20/25 Unknown Urine Bacteria (Auto) None Seen (None Seen) 05/20/25 Unknown Urine Comment 05/20/25 Unknown Impressions Abdomen/Pelvis CT 05/20/25 17:22 EXAMINATION: CT of the abdomen and pelvis performed after the administration of IV contrast TECHNIQUE: Helical CT images from the lung bases through the symphysis pubis were obtained with contrast. Coronal and sagittal reformatted images were generated at a workstation for further assessment. Dose reduction techniques were achieved by using automatic exposure control and/or adjustment of mA and/or kV according to patient size and/or use of iterative reconstruction technique. COMPARISON: November 02, 2024 HISTORY: Abdominal pain FINDINGS: Lower chest: No consolidation. No pleural effusion or pneumothorax. Liver: No suspicious liver lesions. Portal veins appear patent. Gallbladder: No gallstones. No evidence of acute cholecystitis. Spleen: Normal size. Pancreas: No suspicious pancreatic lesions. The pancreatic duct is not dilated. Adrenal glands: 2.2 cm left adrenal nodule. Normal right adrenal gland. Kidneys: No hydronephrosis or obstructing renal stones. There is dilatory fat stranding is noted about the renal medullary regions, left greater than right. Bilateral ureteral urothelial hyperenhancement. Scattered renal cysts. Bladder / Pelvic organs: Unremarkable. Bowel: No bowel obstruction. No abnormal bowel wall thickening. The appendix is not seen. Sigmoid diverticulosis without diverticulitis. Lymph nodes: No retroperitoneal, mesenteric, or pelvic lymphadenopathy. Peritoneum / Retroperitoneum: No free fluid or air within the abdomen. Vessels: No infrarenal aortic aneurysm. Heavy aortoiliac calcification. Bones and soft tissues: No suspicious lesion in the bones. IMPRESSION: Findings of bilateral renal pyelitis and ureteritis. The kidneys otherwise normally enhance, without definite specific evidence for pyelonephritis, although which is difficult to exclude by imaging alone. Technically indeterminate left adrenal nodule measuring 2.2 cm, although possibly an adenoma. Recommend follow-up MRI. Electronically signed by Sadi Fraser 05-20-2025 6:35 PM Code Status & VTE Plan VTE Prophylaxis Plan VTE Prophylaxis will be ordered: Yes Supervising Physician Co-Signing Physician Notes Patient seen examined, chart reviewed, case discussed with Dr. Mead and I agree with the assessment plan as document above. In brief, patient is a 80-year-old female with history of coronary artery disease, heart failure with preserved ejection fraction, paroxysmal atrial fibrillation on Eliquis and diab etes presenting with bilateral pyelonephritis. Patient has had chills ongoing for several days. On exam she is resting comfortably, no acute distress HEENTmoist mucous membranes, neck supple Heart+ S1, S2 Lungs - CTA Abd - soft, NT/ND, +CVA tenderness Ext - warm, well perfused labs and images reviewed. Significant for mild elevation in creatinine = 1.28 findings of bilateral renal pyelitis and ureteritis Assessment/plan Continue ceftriaxone Gentle IV fluids Pain control and antiemetics as needed Remainder as above Resident Activity Tracking Resident Involvement: Resident Care Provided Care Provided: Adult Hospital Medicine (6) HTN (hypertension) Hypertension type: secondary to endocrine disorders Qualified Code(s): I15.2 - Hypertension secondary to endocrine disorders
[2025-05-20] MEDS ORDERED: GLUCOSE 40% GEL 15 GM TUBE PO PRN (20:03)
[2025-05-20] MEDS ORDERED: CARBOHYDRATES FOR HYPOGLYCEMIA PO PRN (20:03)
[2025-05-20] MEDS ORDERED: GLUCOSE 10 TAB/TUBE PO PRN (20:03)
[2025-05-20] MEDS ORDERED: GLUCAGON FOR INJ 1 MG VIAL SQ PRN (20:03)
[2025-05-20] MEDS ORDERED: DEXTROSE 50% 50 ML SYRINGE IV PRN (20:03)
[2025-05-20] MEDS ORDERED: Patient's HEIGHT &/or WEIGHT Needed STA (20:16)
[2025-05-20] MEDS ORDERED: MELATONIN 3 MG TAB PO PRN (21:31)
[2025-05-20] MEDS ORDERED: ALUMINUM/MAGNESIUM SUSP 30 ML UDC PO PRN (21:31)
[2025-05-20] MEDS ORDERED: ONDANSETRON INJ 2 MG/ML 2 ML VIAL IV PRN (21:31)
[2025-05-20] MEDS ORDERED: MAGNESIUM HYDROXIDE SUSP 30 ML UDC PO PRN (21:31)
[2025-05-20] MEDS ORDERED: POLYETHYLENE (MIRALAX) 17 GM PACK PO PRN (21:31)
[2025-05-20] MEDS: ACETAMINOPHEN 325 MG TAB PO PRN (22:12)
[2025-05-20] MEDS: INSULIN ASPART PER UNIT CHARGE SC SCH (22:25)
[2025-05-20] MEDS: LANTUS PER UNIT CHARGE SQ SCH (22:25)
[2025-05-20] MEDS: HEPARIN SOD 5,000 UNIT/0.5 ML VIAL SQ SCH (22:27)
--- NOTE | 2025-05-21 02:04 | Billing Data ---
Date of Service May 20, 2025 Coding Level of Care Code 53549 INT INP/OBS CARE
[2025-05-21] MEDS: SODIUM CHLORIDE 0.9% 1,000 ML IV SCH (02:08)
[2025-05-21 07:45] LABS: Hematocrit (blood only) 35.3 % (37.0-47.0); Hemoglobin 11.0 g/dl (12.0-16.0); Immature Granulocytes # (auto) 0.06 K/uL (0.01-0.20); Immature Granulocytes % (auto) 0.7 %; Mean Corpuscular Hemoglobin 31.0 pg (25.0-34.0); Mean Corpuscular Volume 99.4 fL (80.0-100.0); Platelet Count 204 K/uL (130-400); RDW Standard Deviation 50.1 fL (36.4-46.3); Red Blood Count 3.55 M/uL (4.20-5.40); White Blood Count 8.85 K/ul (4.8-10.8)
[2025-05-21 07:53] LABS: A calco-baum cmplx NotReported Not Detected (NotDetected); Bact fragilis Not Reported Not Detected (NotDetected); Blood Culture Id Panel See PCR Comment (NotDetected); C auris Not Reported Not Detected (NotDetected); CTX-M Resistant Gene Not Detected (NotDetected); Calbicans Not Reported Not Detected (NotDetected); Candida glabrata Not Reported Not Detected (NotDetected); Candida krusei Not Reported Not Detected (NotDetected); Cneoformans/gatti Not Reported Not Detected (NotDetected); Cparapsilosis Not Reported Not Detected (NotDetected); Ctropicalis Not Reported Not Detected (NotDetected); E cloacae compx Not Reported Not Detected (NotDetected); Efaecalis Not Reported Not Detected (NotDetected); Efaecium Not Reported Not Detected (NotDetected); Enterobacterales DETECTED (NotDetected); Enterobacterales Not Reported DETECTED (NotDetected); Escherichia coli Not Reported DETECTED (NotDetected); H influenzae Not Reported Not Detected (NotDetected); IMP Resistant Gene Not Detected (NotDetected); K aerogenes Not Reported Not Detected (NotDetected); KPC Resistant Gene Not Detected (NotDetected); Koxytoca Not Reported Not Detected (NotDetected); Kpneumoniae grp Not Reported Not Detected (NotDetected); Lmonocyt Not Reported Not Detected (NotDetected); N meningitidis Not Reported Not Detected (NotDetected); NDM Resistant Gene Not Detected (NotDetected); OXA 48 Like Resistant Gene Not Detected (NotDetected); P aeruginosa Not Reported Not Detected (NotDetected); Proteus spp Not Reported Not Detected (NotDetected); Salmonella spp Not Reported Not Detected (NotDetected); Staph lugdunensis Not Reported Not Detected (NotDetected); Staph spp. Not Reported Not Detected (NotDetected); Staphaureus Not Reported Not Detected (NotDetected); Staphepi Not Reported Not Detected (NotDetected); Stenmaltophilia Not Reported Not Detected (NotDetected); Strep agal(GrpB) Not Reported Not Detected (NotDetected); Strep pneum Not Reported Not Detected (NotDetected); Strep pyog (GrpA) Not Reported Not Detected (NotDetected); Strep spp Not Reported Not Detected (NotDetected); VIM Resistant Gene Not Detected (NotDetected); mcr-1 Colistin Resistant Gene Not Detected (NotDetected)
[2025-05-21 08:04] LABS: Anion Gap 6.0 (3-11); Blood Urea Nitrogen 37.0 mg/dl (6-23); Calcium 8.8 mg/dl (8.6-10.3); Carbon Dioxide 29.0 mmol/L (21-32); Chloride 105.0 mmol/L (98-107); Creatinine Clr Calc Pharmacy 41.4 ml/min; Glucose 118.0 mg/dl (70-99(Fasting)); Potassium 3.7 mmol/L (3.5-5.1); Sodium 140.0 mmol/L (136-145)
--- NOTE | 2025-05-21 09:46 | Hospitalist Progress Note ---
Date of Service May 21, 2025 Assessment & Plan (1) Acute UTI: (2) Acute pyelitis: (3) Acute on chronic heart failure with preserved ejection fraction (HFpEF): (4) RIK (obstructive sleep apnea): (5) Type 2 diabetes mellitus with insulin therapy: (6) HTN (hypertension): (7) CAD (coronary artery disease): (8) Peripheral arterial disease: (9) Dyslipidemia: (10) Pulmonary hypertension: (11) Hypothyroidism: (12) Paroxysmal atrial fibrillation: (13) Chronic kidney disease, stage 3a: Plan 80 yo female PMHx CAD, HFpEF (last echo 11/03/24 w/EF65-70%), paroxysmal a fib on Eliquis, PAD, RIK not on CPAP, pulmonary HTN, T2DM on insulin, peripheral neuropathy, hypothyroidism, HLD, HTN admitted found to have bilateral pyelonephritis. #Pyelonephritis b/l CT + for bilateral renal pyelitis, ureteritis; no evidence of stone Had elevated lactate on admission, resolved on recheck History of UTIs, all nearly pansensitive Continue ceftriaxone 2g daily Follow UCx and BCx for results/sensitivities Pain/Fever control with Tylenol PRN Continue gentle IV hydration #LEVAR on CKD-III Continue IVF Follow BMP Hold enalapril #RIK/OHS/Pulmonary HTN Not on CPAP Supplemental O2 to maintain sats >90% #CAD/PAD/HFpEF/Afib/HTN/HLD Most recent echo EF 65-70% Does not appear in acute failure Rates well controlled Continue amiodarone Continue Eliquis Continue atorvastatin Continue furosemide Hold enalapril in setting of LEVAR #T2DM Hold home medications Basal bolus insulin Pharmacy glycemic consult placed FENGI: heart healthy, DM2 diet; fluids NSS @ 80cc/hr Code status: full code DVT prophylaxis: Heparin BID Disposition: [facility] Admission and Anticipated Discharge Date Admission Date: May 20, 2025 Subjective Doing very well. Denies fevers chills abdominal pain flank discomfort nausea lightheadedness or any other symptoms. Eating and ambulating. Fever yesterday and has defervesced since. Review of Systems Review of Systems: reviewed, per HPI Physical Exam Physical Exam: Constitutional: well-appearing, no acute distress HEENT: NCAT, no conjunctival injection CV: regular rhythm, no murmur appreciated, extremities well-perfused, no LE edema Resp: CTABL, no wheezes/rales/rhonchi appreciated, no increased work of breathing GI: nondistended MSK: no gross deformities appreciated Skin: warm, dry, no rash appreciated Neuro: alert, oriented, no focal neurologic deficit appreciated Results & Data Results & Data Vital Signs (Past 12 Hours) Vital Signs Temp Pulse Pulse Resp BP Pulse Ox O2 Del Method 05/21/25 08:09 36.9 C 65 19 116/69 90 Room Air 05/21/25 07:19 62 05/21/25 06:08 92 Room Air 05/21/25 03:03 36.6 C 59 L 18 130/73 98 Nasal Cannula 05/20/25 22:51 Nasal Cannula O2 Flow Rate 05/21/25 08:09 05/21/25 07:19 05/21/25 06:08 05/21/25 03:03 2 05/20/25 22:51 2 Laboratory Results Abnormal Labs 05/20/25 05/20/25 05/20/25 17:44 18:06 21:04 RBC Hgb Hct MCHC RDW Std Deviation Neut # (Auto) Lymph # (Auto) [place] # (Auto) BUN Creatinine BUN/Creatinine Ratio Glucose POC Glucose 186 H Lactate 2.2 H* Urine Protein Urine Glucose (UA) Urine Blood Ur Leukocyte Esterase Urine WBC (Auto) Urine RBC (Auto) Enterobacterales (PCR) DETECTED A E. coli (PCR) DETECTED A 05/20/25 05/20/25 05/20/25 21:37 21:42 21:47 RBC Hgb Hct MCHC RDW Std Deviation Neut # (Auto) Lymph # (Auto) [place] # (Auto) BUN Creatinine BUN/Creatinine Ratio Glucose POC Glucose 363 H* 451 H* 316 H* Lactate Urine Protein Urine Glucose (UA) Urine Blood Ur Leukocyte Esterase Urine WBC (Auto) Urine RBC (Auto) Enterobacterales (PCR) E. coli (PCR) 05/20/25 05/21/25 05/21/25 Unknown 00:35 07:13 RBC 3.55 L Hgb 11.0 L Hct 35.3 L MCHC 31.6 L 31.2 L RDW Std Deviation 50.7 H 50.1 H Neut # (Auto) 7.92 H Lymph # (Auto) 0.82 L [place] # (Auto) 1.16 H 1.47 H BUN 37 H 37 H Creatinine 1.28 H BUN/Creatinine Ratio 28.9 H 33.9 H Glucose 248 H 118 H POC Glucose 153 H Lactate Urine Protein Trace H Urine Glucose (UA) 3+ H Urine Blood 3+ H Ur Leukocyte Esterase Trace H Urine WBC (Auto) 6-10 H Urine RBC (Auto) >20 H Enterobacterales (PCR) E. coli (PCR) 05/21/25 07:54 RBC Hgb Hct MCHC RDW Std Deviation Neut # (Auto) Lymph # (Auto) [place] # (Auto) BUN Creatinine BUN/Creatinine Ratio Glucose POC Glucose 123 H Lactate Urine Protein Urine Glucose (UA) Urine Blood Ur Leukocyte Esterase Urine WBC (Auto) Urine RBC (Auto) Enterobacterales (PCR) E. coli (PCR) PG Care Time/CCT Total # of Minutes Spent Total Time Spent with Patient: Total time spent is greater than 50% in coordination of care (as documented) at patient's floor/unit and/or counseling patient: Coding Level of Care Code 51216 SUB INP/OBS CARE 2/35MIN Diagnoses Acute UTI N39.0 Acute pyelitis N10 Acute on chronic heart failure with preserved ejection fraction (HFpEF) I50.33 RIK (obstructive sleep apnea) G47.33 Type 2 diabetes mellitus with insulin therapy E11.9; Z79.4 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
--- NOTE | 2025-05-21 09:49 | Hospitalist Progress Note ---
Date of Service May 21, 2025 Assessment & Plan (1) Acute UTI: (2) Acute pyelitis: (3) Acute on chronic heart failure with preserved ejection fraction (HFpEF): (4) RIK (obstructive sleep apnea): (5) Type 2 diabetes mellitus with insulin therapy: (6) HTN (hypertension): (7) CAD (coronary artery disease): (8) Peripheral arterial disease: (9) Dyslipidemia: (10) Pulmonary hypertension: (11) Hypothyroidism: (12) Paroxysmal atrial fibrillation: (13) Chronic kidney disease, stage 3a: Plan 80 yo female PMHx CAD, HFpEF (last echo 11/03/24 w/EF65-70%), paroxysmal a fib on Eliquis, PAD, RIK not on CPAP, pulmonary HTN, T2DM on insulin, peripheral neuropathy, hypothyroidism, HLD, HTN admitted found to have bilateral pyelonephritis. #Pyelonephritis b/l CT + for bilateral renal pyelitis, ureteritis; no evidence of stone Had elevated lactate on admission, resolved on recheck History of UTIs, all nearly pansensitive Continue ceftriaxone 2g daily Follow UCx and BCx for results/sensitivities Pain/Fever control with Tylenol PRN Continue gentle IV hydration #LEVAR on CKD-III Continue IVF Follow BMP Hold enalapril #RIK/OHS/Pulmonary HTN Not on CPAP Supplemental O2 to maintain sats >90% #CAD/PAD/HFpEF/Afib/HTN/HLD Most recent echo EF 65-70% Does not appear in acute failure Rates well controlled Continue amiodarone Continue Eliquis Continue atorvastatin Continue furosemide Hold enalapril in setting of LEVAR #T2DM Hold home medications Basal bolus insulin Pharmacy glycemic consult placed #Incidental adrenal nodule Outpatient MRI FENGI: heart healthy, DM2 diet; fluids NSS @ 80cc/hr Code status: full code DVT prophylaxis: Heparin BID Disposition: [facility] – [place] Admission and Anticipated Discharge Date Admission Date: May 20, 2025 Subjective Doing very well. Denies fevers chills abdominal pain flank discomfort nausea lightheadedness or any other symptoms. Eating and ambulating. Fever yesterday and has defervesced since. We discussed incidental adrenal nodule and outpatient MRI She will follow-up with her urologist Review of Systems Review of Systems: reviewed, per HPI Physical Exam Physical Exam: Constitutional: well-appearing, no acute distress HEENT: NCAT, no conjunctival injection CV: regular rhythm, no murmur appreciated, extremities well-perfused, no LE edema Resp: CTABL, no wheezes/rales/rhonchi appreciated, no increased work of breathing GI: nondistended MSK: no gross deformities appreciated Skin: warm, dry, no rash appreciated Neuro: alert, oriented, no focal neurologic deficit appreciated Results & Data Results & Data Vital Signs (Past 12 Hours) Vital Signs Temp Pulse Pulse Resp BP Pulse Ox O2 Del Method 05/21/25 08:09 36.9 C 65 19 116/69 90 Room Air 05/21/25 07:19 62 05/21/25 06:08 92 Room Air 05/21/25 03:03 36.6 C 59 L 18 130/73 98 Nasal Cannula 05/20/25 22:51 Nasal Cannula O2 Flow Rate 05/21/25 08:09 05/21/25 07:19 05/21/25 06:08 05/21/25 03:03 2 05/20/25 22:51 2 PG Care Time/CCT Total # of Minutes Spent Total Time Spent with Patient: Total time spent is greater than 50% in coordination of care (as documented) at patient's floor/unit and/or counseling patient: Coding Level of Care Code 44802 SUB INP/OBS CARE 2/35MIN Diagnoses Acute UTI N39.0 Acute pyelitis N10 Acute on chronic heart failure with preserved ejection fraction (HFpEF) I50.33 RIK (obstructive sleep apnea) G47.33 Type 2 diabetes mellitus with insulin therapy E11.9; Z79.4 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
--- NOTE | 2025-05-21 10:05 | Infectious Disease Consult ---
Date of Consultation May 21, 2025 Assessment & Plan (1) E coli bacteremia: (2) Acute pyelitis: Plan Problems: #E coli bacteremia #Bilateral renal pyelitis and ureteritis Micro: 05/20 BCx x2: GNRs in 3/4 bottles 05/17 UCx: E coli (R amp, amp/sul. S cefaz, amox/clav, cipro, levo, TMP/SMX) Abx: Ceftriaxone 05/20 - present 80 yo M with CAD, HFpEF, paroxysmal afib on Eliquis, PAD, RIK not on CPAP, pulmonary HTN, T2DM on insulin, peripheral neuropathy, hypothyroidism, HLD, HTN who presented on 05/20 with dysuria, urinary urgency, frequency, found to have bilateral renal pyelitis and ureteritis, c/b E Coli bacteremia. It appears she recently had a urine culture collected on 05/17 which grew E coli, and she was prescribed nitrofurantoin 100 mg PO q12h on 05/18/25. On presentation, T 37.6 (became febrile to 38.1 later in the evening), WBC 10.04, Cr 1.28, lactate 2.2. UA with 6-[address] A/P with IV contrast showed bilateral renal pyelitis and ureteritis; kidneys normally enhance without definite specific evidence for pyelonephritis although difficult to exclude by imaging alone. Pt was started on ceftriaxone 2 g IV q24h. BCx with GNRs in 3/4 bottles, Biofire positive for E coli, no resistance detected. Discussion: E coli bacteremia likely 2/2 E coli UTI with bilateral renal pyelitis and ureteritis. Recent UCx from 05/17 indicates susceptibility to nitrofurantoin, however this is not preferred therapy for ascending UTIs given limited penetration into kidney tissue, which could be why symptoms progressed. Recommendations: - Continue ceftriaxone 2 g IV q24h - Follow-up E coli sensitivities from blood culture - Anticipate transition to PO antibiotics to complete a total 7 day course through 05/27. Pending susceptibilities, options include amox/clav 875 mg PO TID, cephalexin 1 g PO q6h (if S to cefazolin), cefpodoxime 400 mg PO BID (if not S to cefazolin, but S to 3rd generation cephalosporin). Note higher dosing given GNR bacteremia. Likely would avoid fluoroquinolones if pt is on amiodarone at home, given concern for QTc prolongation. Please note that ID does not round or write notes over the weekend. If questions or concerns arise, please contact the Infectious Disease Call Center and ask to speak with the covering ID physician. Consultation Information This patient recommendation is based on a telemedicine consult request which was completed asynchronously through chart review and information provided by the primary physician. The patient was not seen or examined today. The evaluation is consultative in nature and all patient care and treatment decisions can either be accepted or rejected by the patient's primary hospital-based treating physician using their own independent medical judgment for their patient. Billposting Supervisor contact information: Please call [facility] Center [phone]. (Phone Number For Physician Use Only) An e-consult was done as the video cart is not functioning. Time Spent Reviewing Chart: 31+ minutes History of Present Illness Reason for Consultation: GNR bacteremia Attending Physician: Gerardo Laguna MD History of Present Illness 80 yo M with CAD, HFpEF, paroxysmal afib on Eliquis, PAD, RIK not on CPAP, pulmonary HTN, T2DM on insulin, peripheral neuropathy, hypothyroidism, HLD, HTN who presented on 05/20 with dysuria, urinary urgency, frequency, as well as chills. It appears she recently had a urine culture collected on 05/17 which grew E coli, and she was prescribed nitrofurantoin 100 mg PO q12h on 05/18/25. On presentation, T 37.6 (became febrile to 38.1 later in the evening), WBC 10.04, Cr 1.28, lactate 2.2. UA with 6-[address] A/P with IV contrast showed bilateral renal pyelitis and ureteritis; kidneys normally enhance without definite specific evidence for pyelonephritis although difficult to exclude by imaging alone. Pt was started on ceftriaxone 2 g IV q24h. BCx with GNRs in 3/4 bottles, Biofire positive for E coli, no resistance detected. Allergies Allergy/AdvReac Type Severity Reaction Status Date / Time mold Allergy Intermediate Sneezing, Verified 04/29/25 16:06 mucus, watery eyes pollen extracts Allergy Intermediate Sneezing, Verified 04/29/25 16:06 mucus, watery eyes ragweed pollen Allergy Intermediate Sneezing, Verified 04/29/25 16:06 mucus, watery eyes animal dander Allergy Mild Sneezing Verified 04/29/25 16:06 grass pollen Allergy Mild Sneezing Verified 04/29/25 16:06 adhesive tape Allergy Verified 04/29/25 16:06 Home Medications Medication Instructions Recorded Confirmed Type acetaminophen 650 mg 1,300 mg PO DAILY PRN sciatica pain 04/03/22 04/29/25 History tablet,extended release (Tylenol Arthritis Pain) fluticasone propionate 50 2 spray intranasal DAILY PRN 06/14/22 04/29/25 History mcg/actuation nasal Allergy Symptoms #1 g spray,suspension multivitamin 1 tab PO QAM 06/21/22 04/29/25 History fluocinonide 0.05 % topical cream 1 applic topical BID #60 grams 02/26/24 04/29/25 Rx atorvastatin 80 mg tablet 80 mg PO QPM #90 tabs 03/09/24 04/29/25 Rx blood sugar diagnostic (OneTouch #300 ea 03/09/24 04/29/25 Rx Verio test strips) blood-glucose meter (OneTouch #1 ea 03/10/24 04/29/25 Rx Verio Reflect kit) lancets 32 gauge #300 ea 03/10/24 04/29/25 Rx potassium chloride 20 mEq 40 meq (2 x 20 mEq) PO DAILY #180 05/25/24 04/29/25 Rx tablet,extended release tabs pantoprazole 40 mg tablet,delayed 40 mg PO BID #180 tabs 07/27/24 04/29/25 Rx release amiodarone 100 mg tablet 100 mg PO QDL #90 tabs 10/19/24 04/29/25 Rx levothyroxine 112 mcg tablet 112 mcg PO QAM #90 tabs 11/19/24 04/29/25 Rx apixaban 5 mg tablet (Eliquis) 5 mg PO BID #180 tabs 11/20/24 04/29/25 Rx furosemide 40 mg tablet 40 mg PO BID #180 tabs 11/20/24 04/29/25 Rx albuterol sulfate 90 mcg/actuation 2 inh inhalation Q4H PRN shortness 11/28/24 04/29/25 Rx aerosol inhaler of breath or wheezing or cough #6.7 grams hydralazine 100 mg tablet See Rx Instructions .Route 11/28/24 04/29/25 Rx .COMPLEX #180 tabs insulin aspart U-100 100 unit/mL 20 unit subcut TID 12/01/24 04/29/25 History (3 mL) subcutaneous pen (Novolog FlexPen U-100 Insulin aspart) vibegron 75 mg tablet (Gemtesa) 75 mg PO DAILY #30 tabs 12/24/24 04/29/25 Rx ferrous sulfate 325 mg (65 mg 325 mg PO Q OTHER DAY 12/28/24 04/29/25 History iron) tablet insulin glargine 100 unit/mL (3 25 unit subcut BID 12/28/24 04/29/25 History mL) subcutaneous pen (Lantus Solostar U-100 Insulin) enalapril maleate 20 mg tablet 20 mg PO QAM #180 tabs 01/29/25 04/29/25 Rx empagliflozin 10 mg tablet 10 mg PO DAILY #90 tabs 03/09/25 04/29/25 Rx (Jardiance) nitrofurantoin 100 mg PO Q12H 5 days #10 caps 05/18/25 Rx monohydrate/macrocrystals 100 mg capsule (Macrobid) Patient History Medical History Anxiety Shortness of breath Acute congestive heart failure History of atrial fibrillation pt unsure if current>taking eliquis daily Arthritis Urinary urgency History of Mohs micrographic surgery for skin cancer bcc>nose area Hx of gastric ulcer Diabetic neuropathy Hx of migraines Hypertension Hyperlipidemia Sleep apnea can not tolerate device Hypercalcemia Chronic rhinitis Anemia Sciatica Hypothyroidism Diabetes mellitus, type 2 IDDM Bulging disc L3-L4, gets injections with Dr. 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 CVA (cerebral vascular accident) (04/01/14) Acute/Subacute right pontine CVA (2013)- residual short-term memory loss, left sided weakness, no BP in left arm Surgical History History of tooth extraction History of cystoscopy Cystoscopy, Right Ureteroscopy, Retrograde, Right Stent Placement: 07/07/20: LMA#4 at [facility] History of cataract surgery right/left History of cardiac cath (~1998) no stents History of abdominal hysterectomy (04/1998) bso, endometriosis S/P excision of lipoma History of colonoscopy (03/21/16) Family History Sister ALS (amyotrophic lateral sclerosis) Aunt Breast cancer Mother Diabetes Myocardial infarction Hypertension Heart disease Father Diabetes Myocardial infarction Hypertension Heart disease Other Congestive heart failure Coronary heart disease No family history of adverse response to anesthesia No family history of bleeding disorder Denies family history of Ovarian cancer Prostate cancer Lung cancer Colorectal cancer Stroke Social History Smoking Status: Former smoker Tobacco Type: Cigarettes Age Started Using Tobacco: 20; Age Quit Using Tobacco: 27; packs per day: 1; Cigarettes Per Day: Smoked for 2-3 years in college; Smoking End Date: 1971; Second Hand Exposure: No; Do You Dip or Chew Tobacco: No; Hx Alcohol Use: Yes Alcohol type: beer and wine Alcohol Intake Frequency: 2-4 x/Month Hx Substance Use: No Preferred Language: Urdu Communication Ability: Effective Visual Impairment: Limited Hearing Ability: Use of Hearing Aid Outreach Director Required: No Beliefs That Will Affect Care: None marital status: Current Living Situation: Spouse Current Living Situation Comment: lives with at home current occupational status: retired How many Children do You have: 2 Feels Safe at Home: Yes Safety Concerns: Feels Safe At This Time Childhood Exposure to Second-Hand Smoke: Yes caffeine: Yes Dental Care, Regularly: Yes Physical Activity Frequency: 1-2 Times per Week Seatbelt Use: always Sunscreen Use: Yes Assistive Devices: Cane and Hearing Aid - Bilateral Results & Data Vital Signs (Past 12 Hours) Vital Signs Temp Pulse Pulse Resp BP Pulse Ox O2 Del Method 05/21/25 08:09 36.9 C 65 19 116/69 90 Room Air 05/21/25 07:19 62 05/21/25 06:08 92 Room Air 05/21/25 03:03 36.6 C 59 L 18 130/73 98 Nasal Cannula 05/20/25 22:51 Nasal Cannula O2 Flow Rate 05/21/25 08:09 05/21/25 07:19 05/21/25 06:08 05/21/25 03:03 2 05/20/25 22:51 2 Laboratory Results Short CBC 05/20/25 05/21/25 Range/Units Unknown 07:13 WBC 10.04 8.85 (4.8-10.8) K/ul Hgb 13.3 11.0 L (12.0-16.0) g/dl Hct 42.1 35.3 L (37.0-47.0) % Plt Count 224 204 (130-400) K/uL BMP 05/20/25 05/21/25 Unknown 07:13 Sodium 140 140 Potassium 4.5 3.7 Chloride 102 105 Carbon Dioxide 30 29 BUN 37 H 37 H Creatinine 1.28 H 1.09 Glucose 248 H 118 H Calcium 9.9 8.8 Liver Function 05/20/25 Range/Units Unknown Total Bilirubin 0.6 (0.2-1.0) mg/dl AST 18 (13-39) U/L ALT 13 (7-52) U/L Alkaline Phosphatase 54 (34-104) U/L Albumin 3.5 (3.4-5.0) gm/dl Urine 05/20/25 Range/Units Unknown Urine Color Yellow Urine Appearance Clear (Clear) Urine pH 5.5 (4.5-7.5) Ur Specific [place] 1.016 (1.000-1.030) Urine Protein Trace H (Negative) Urine Glucose (UA) 3+ H (Negative) Diagnostic Findings Abdomen/Pelvis CT 05/20/25 17:22 EXAMINATION: CT of the abdomen and pelvis performed after the administration of IV contrast TECHNIQUE: Helical CT images from the lung bases through the symphysis pubis were obtained with contrast. Coronal and sagittal reformatted images were generated at a workstation for further assessment. Dose reduction techniques were achieved by using automatic exposure control and/or adjustment of mA and/or kV according to patient size and/or use of iterative reconstruction technique. COMPARISON: November 02, 2024 HISTORY: Abdominal pain FINDINGS: Lower chest: No consolidation. No pleural effusion or pneumothorax. Liver: No suspicious liver lesions. Portal veins appear patent. Gallbladder: No gallstones. No evidence of acute cholecystitis. Spleen: Normal size. Pancreas: No suspicious pancreatic lesions. The pancreatic duct is not dilated. Adrenal glands: 2.2 cm left adrenal nodule. Normal right adrenal gland. Kidneys: No hydronephrosis or obstructing renal stones. There is dilatory fat stranding is noted about the renal medullary regions, left greater than right. Bilateral ureteral urothelial hyperenhancement. Scattered renal cysts. Bladder / Pelvic organs: Unremarkable. Bowel: No bowel obstruction. No abnormal bowel wall thickening. The appendix is not seen. Sigmoid diverticulosis without diverticulitis. Lymph nodes: No retroperitoneal, mesenteric, or pelvic lymphadenopathy. Peritoneum / Retroperitoneum: No free fluid or air within the abdomen. Vessels: No infrarenal aortic aneurysm. Heavy aortoiliac calcification. Bones and soft tissues: No suspicious lesion in the bones. IMPRESSION: Findings of bilateral renal pyelitis and ureteritis. The kidneys otherwise normally enhance, without definite specific evidence for pyelonephritis, although which is difficult to exclude by imaging alone. Technically indeterminate left adrenal nodule measuring 2.2 cm, although possibly an adenoma. Recommend follow-up MRI. Electronically signed by Sadi Fraser 05-20-2025 6:35 PM Medications Administered Current Inpatient Medications Acetaminophen (Acetaminophen 325 Mg Tab) 650 mg PO Q4H PRN PRN Reason: Pain or Fever Stop: 06/19/25 21:30 Last Admin: 05/20/25 22:12 Dose: 650 mg Al Hydrox/Mg Hydrox/Simethicone (Aluminum/Magnesium Susp 30 Ml Udc) 15 ml PO Q4H PRN PRN Reason: Dyspepsia Stop: 06/19/25 21:30 Dextrose (Dextrose 50% 50 Ml Syringe) 25 - 50 ml IV UD PRN; Protocol PRN Reason: Hypoglycemia Protocol Stop: 06/19/25 20:02 Glucagon (Glucagon For Inj 1 Mg Vial) 1 mg SQ UD PRN; Protocol PRN Reason: Hypoglycemia Protocol Stop: 06/19/25 20:02 Glucose (Glucose 40% Gel 15 Gm Tube) 15 - 30 gm PO UD PRN; Protocol PRN Reason: Hypoglycemia Protocol Stop: 06/19/25 20:02 Glucose (Glucose 10 Tab/Tube) 4 - 8 tab PO UD PRN; Protocol PRN Reason: Hypoglycemia Protocol Stop: 06/19/25 20:02 Heparin Sodium (Porcine) (Heparin Sod 5,000 Unit/0.5 Ml Vial) 5,000 units SQ Q12 [facility] Stop: 06/19/25 21:30 Last Admin: 05/21/25 09:28 Dose: 5,000 units Sodium Chloride (Nss) 1,000 mls @ 80 mls/hr IV .[id number] [facility] Stop: 05/22/25 02:59 Last Admin: 05/21/25 02:08 Dose: 80 mls/hr Cefepime HCl (Maxipime 2000mg) 2,000 mg in 20 mls @ 5 mls/min IV Q8H [facility]; Protocol Stop: 06/04/25 10:14 Insulin Aspart (Insulin Aspart Per Unit Charge) 0 units SC ACHS [facility] Stop: 06/19/25 20:59 Last Admin: 05/21/25 09:29 Dose: 6 units Insulin Glargine (Lantus Per Unit Charge) 25 units SQ BID [facility] Stop: 06/19/25 20:59 Last Admin: 05/21/25 09:29 Dose: 25 units Magnesium Hydroxide (Magnesium Hydroxide Susp 30 Ml Udc) 30 ml PO Q12H PRN PRN Reason: Constipation Stop: 06/19/25 21:30 Melatonin (Melatonin 3 Mg Tab) 6 mg PO HS PRN PRN Reason: Sleep Stop: 06/19/25 21:30 Miscellaneous (Carbohydrates For Hypoglycemia ) 15 - 30 gm PO UD PRN PRN Reason: Hypoglycemia Protocol Stop: 06/19/25 20:02 Ondansetron HCl (Ondansetron Inj 2 Mg/Ml 2 Ml Vial) 4 mg IV Q6H PRN PRN Reason: Nausea Stop: 06/19/25 21:30 Polyethylene Glycol (Polyethylene (Miralax) 17 Gm Pack) 17 gm PO DAILY PRN PRN Reason: Constipation Stop: 06/19/25 21:30
[2025-05-21] MEDS ORDERED: CEFEPIME 2000MG 2,000 MG/20 ML SYR IV SCH (10:15)
[2025-05-21] MEDS: cefTRIAXone SODIUM 2,000 MG/50 ML BAG IV SCH (17:52)
[2025-05-21] MEDS: ATORVASTATIN 40 MG TAB PO SCH (21:38)
[2025-05-22] MEDS: ALBUT/IPRATROP 3MG/0.5MG NEB 3 ML VIAL NEB PRN (03:28)
--- NOTE | 2025-05-22 10:14 | Hospitalist Progress Note ---
Date of Service May 22, 2025 Assessment & Plan (1) Acute UTI: (2) Acute pyelitis: (3) Acute on chronic heart failure with preserved ejection fraction (HFpEF): (4) RIK (obstructive sleep apnea): (5) Type 2 diabetes mellitus with insulin therapy: (6) HTN (hypertension): (7) CAD (coronary artery disease): (8) Peripheral arterial disease: (9) Dyslipidemia: (10) Pulmonary hypertension: (11) Hypothyroidism: (12) Paroxysmal atrial fibrillation: (13) Chronic kidney disease, stage 3a: Plan 80 yo female PMHx CAD, HFpEF (last echo 11/03/24 w/EF65-70%), paroxysmal a fib on Eliquis, PAD, RIK not on CPAP, pulmonary HTN, T2DM on insulin, peripheral neuropathy, hypothyroidism, HLD, HTN admitted found to have bilateral pyelonephritis. #Pyelonephritis b/l, E. coli CT + for bilateral renal pyelitis, ureteritis; no evidence of stone Had elevated lactate on admission, resolved on recheck History of UTIs, all nearly pansensitive Continue ceftriaxone 2g daily ID following Blood cultures E. coli bacteremia. Repeat NTD. #LEVAR on CKD-III improved avoid nephrotoxic meds Follow BMP #RIK/OHS/Pulmonary HTN Not on CPAP Supplemental O2 to maintain sats >90% #CAD/PAD/HFpEF/Afib/HTN/HLD Most recent echo EF 65-70% Does not appear in acute failure Rates well controlled Continue amiodarone Continue Eliquis Continue atorvastatin Continue furosemide #T2DM Hold home medications Basal bolus insulin Pharmacy glycemic consult placed FENGI: heart healthy, DM2 diet; fluids NSS @ 80cc/hr Code status: full code DVT prophylaxis: Heparin BID Disposition: [facility] Admission and Anticipated Discharge Date Admission Date: May 20, 2025 Subjective Sitting up in a chair in good spirits entirely asymptomatic. Review of Systems Review of Systems: reviewed, per HPI Physical Exam Physical Exam: Constitutional: well-appearing, no acute distress HEENT: NCAT, no conjunctival injection CV: regular rhythm, no murmur appreciated, extremities well-perfused, no LE edema Resp: CTABL, no wheezes/rales/rhonchi appreciated, no increased work of breathing GI: nondistended MSK: no gross deformities appreciated Skin: warm, dry, no rash appreciated Neuro: alert, oriented, no focal neurologic deficit appreciated Results & Data Results & Data Vital Signs (Past 12 Hours) Vital Signs Temp Pulse Pulse Resp BP Pulse Ox O2 Del Method 05/22/25 08:44 Room Air 05/22/25 08:21 36.8 C 58 L 20 127/66 96 Nasal Cannula 05/22/25 05:45 59 L 05/22/25 03:29 64 18 Nasal Cannula 05/22/25 02:32 36.7 C 66 16 160/65 H 94 Nasal Cannula 05/21/25 23:10 37.4 C 73 16 166/68 H 91 Nasal Cannula O2 Flow Rate 05/22/25 08:44 05/22/25 08:21 2 05/22/25 05:45 05/22/25 03:29 2 05/22/25 02:32 2 05/21/25 23:10 2 PG Care Time/CCT Total # of Minutes Spent Total Time Spent with Patient: Total time spent is greater than 50% in coordination of care (as documented) at patient's floor/unit and/or counseling patient: Coding Level of Care Code 00852 SUB INP/OBS CARE 2/35MIN Diagnoses Acute UTI N39.0 Acute pyelitis N10 Acute on chronic heart failure with preserved ejection fraction (HFpEF) I50.33 RIK (obstructive sleep apnea) G47.33 Type 2 diabetes mellitus with insulin therapy E11.9; Z79.4 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
[2025-05-22] MEDS ORDERED: FLUTICASONE PROPIONATE NA SPR 16 GM BTL PRN (10:47)
[2025-05-22] MEDS ORDERED: ALBUTEROL HFA 8 GM INHALER INH PRN (10:47)
[2025-05-22] MEDS: VIBEGRON 75 MG TAB PO SCH (11:15)
[2025-05-22] MEDS: APIXABAN 5 MG TABLET PO SCH (11:16)
[2025-05-22] MEDS: ENALAPRIL MALEATE 10 MG TAB PO SCH (11:16)
[2025-05-22] MEDS: FERROUS SULFATE 325 MG TAB PO SCH (11:16)
[2025-05-22] MEDS: LEVOTHYROXINE SODIUM 112 MCG TABLET PO SCH (11:16)
[2025-05-22] MEDS: FUROSEMIDE 40 MG TAB PO SCH (11:16)
[2025-05-22] MEDS: AMIODARONE 200 MG TAB PO SCH (11:17)
[2025-05-22] MEDS: POTASSIUM CHLORIDE CRTAB 20 MEQ TABCR PO SCH (11:22)
[2025-05-22] MEDS: SODIUM CHLORIDE 0.65% NA SOLN 45 ML (OCEAN) PRN (11:23)
[2025-05-22] MEDS: BETAMETHASONE DIP AUG (DIPROLENE) 0.05% CR 15 GM TUBE EXT SCH (11:42)
[2025-05-22] MEDS: ALBUT/IPRATROP 3MG/0.5MG NEB 3 ML VIAL NEB SCH (13:37)
[2025-05-22] MEDS: ARTIFICIAL TEARS OPB PRN (15:22)
[2025-05-23 06:30] LABS: Hematocrit (blood only) 34.4 % (37.0-47.0); Hemoglobin 11.2 g/dl (12.0-16.0); Mean Corpuscular Hemoglobin 32.2 pg (25.0-34.0); Mean Corpuscular Volume 98.9 fL (80.0-100.0); Platelet Count 199 K/uL (130-400); RDW Standard Deviation 48.0 fL (36.4-46.3); Red Blood Count 3.48 M/uL (4.20-5.40); White Blood Count 8.65 K/ul (4.8-10.8)
[2025-05-23 06:54] LABS: Alanine Aminotransferase 30.0 U/L (7-52); Albumin Globulin Ratio 0.9 (0.9-2); Alkaline Phosphatase 49.0 U/L (34-104); Anion Gap 6.0 (3-11); Bilirubin,Total 0.4 mg/dl (0.2-1.0); Blood Urea Nitrogen 35.0 mg/dl (6-23); Calcium 8.9 mg/dl (8.6-10.3); Carbon Dioxide 27.0 mmol/L (21-32); Chloride 110.0 mmol/L (98-107); Creatinine Clr Calc Pharmacy 46.8 ml/min; Globulin 3.0 gm/dl (2.5-4.0); Glucose 124.0 mg/dl (70-99(Fasting)); Potassium 4.1 mmol/L (3.5-5.1); Sodium 143.0 mmol/L (136-145); Total Protein 5.8 gm/dl (6.0-8.3)
[2025-05-23] MEDS: EMPAGLIFLOZIN EXT SCH (08:56)
[2025-05-23] MEDS: MULTIVITAMIN TAB PO SCH (08:57)
--- NOTE | 2025-05-23 09:19 | Hospitalist Progress Note ---
Date of Service May 23, 2025 Assessment & Plan (1) Acute UTI: (2) Acute pyelitis: (3) Acute on chronic heart failure with preserved ejection fraction (HFpEF): (4) RIK (obstructive sleep apnea): (5) Type 2 diabetes mellitus with insulin therapy: (6) HTN (hypertension): (7) CAD (coronary artery disease): (8) Peripheral arterial disease: (9) Dyslipidemia: (10) Pulmonary hypertension: (11) Hypothyroidism: (12) Paroxysmal atrial fibrillation: (13) Chronic kidney disease, stage 3a: Plan 80 yo female PMHx CAD, HFpEF (last echo 11/03/24 w/EF65-70%), paroxysmal a fib on Eliquis, PAD, RIK not on CPAP, pulmonary HTN, T2DM on insulin, peripheral neuropathy, hypothyroidism, HLD, HTN admitted found to have bilateral pyelonephritis. #Pyelonephritis b/l, E. coli CT + for bilateral renal pyelitis, ureteritis; no evidence of stone Had elevated lactate on admission, resolved on recheck History of UTIs, all nearly pansensitive Continue ceftriaxone 2g daily ID following Blood cultures E. coli bacteremia. Repeat NTD. #LEVAR on CKD-III improved avoid nephrotoxic meds Follow BMP #RIK/OHS/Pulmonary HTN Not on CPAP Supplemental O2 to maintain sats >90% #CAD/PAD/HFpEF/Afib/HTN/HLD Most recent echo EF 65-70% Does not appear in acute failure Rates well controlled Continue amiodarone Continue Eliquis Continue atorvastatin Continue furosemide #T2DM Hold home medications Basal bolus insulin Pharmacy glycemic consult placed FENGI: heart healthy, DM2 diet; fluids NSS @ 80cc/hr Code status: full code DVT prophylaxis: Heparin BID Disposition: MSO Admission and Anticipated Discharge Date Admission Date: May 20, 2025 Subjective Sitting up in a chair Entirely unchanged no abdominal pain nausea fevers chills or any other symptoms in good spirits Review of Systems Review of Systems: reviewed, per HPI Physical Exam Physical Exam: Constitutional: well-appearing, no acute distress HEENT: NCAT, no conjunctival injection CV: regular rhythm, no murmur appreciated, extremities well-perfused, no LE edema Resp: CTABL, no wheezes/rales/rhonchi appreciated, no increased work of breathing GI: nondistended MSK: no gross deformities appreciated Skin: warm, dry, no rash appreciated Neuro: alert, oriented, no focal neurologic deficit appreciated Results & Data Results & Data Vital Signs (Past 12 Hours) Vital Signs Temp Pulse Pulse Resp BP Pulse Ox O2 Del Method 05/23/25 08:09 36.4 C L 63 18 148/70 H 96 Room Air 05/23/25 07:07 65 05/23/25 04:00 36.5 C 56 L 18 107/66 92 Room Air 05/23/25 00:41 Room Air 05/23/25 00:24 65 05/22/25 23:07 37.0 C 66 18 143/86 H 96 Room Air PG Care Time/CCT Total # of Minutes Spent Total Time Spent with Patient: Total time spent is greater than 50% in coordination of care (as documented) at patient's floor/unit and/or counseling patient: Coding Level of Care Code 23942 SUB INP/OBS CARE 2/35MIN Diagnoses Acute UTI N39.0 Acute pyelitis N10 Acute on chronic heart failure with preserved ejection fraction (HFpEF) I50.33 RIK (obstructive sleep apnea) G47.33 Type 2 diabetes mellitus with insulin therapy E11.9; Z79.4 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
[2025-05-23 23:06] VITALS: RESP 18
[2025-05-24 06:06] LABS: Hematocrit (blood only) 37.7 % (37.0-47.0); Hemoglobin 11.8 g/dl (12.0-16.0); Mean Corpuscular Hemoglobin 31.1 pg (25.0-34.0); Mean Corpuscular Volume 99.2 fL (80.0-100.0); Platelet Count 242 K/uL (130-400); RDW Standard Deviation 49.1 fL (36.4-46.3); Red Blood Count 3.80 M/uL (4.20-5.40); White Blood Count 8.53 K/ul (4.8-10.8)
[2025-05-24 06:22] LABS: Alanine Aminotransferase 34.0 U/L (7-52); Albumin Globulin Ratio 1.0 (0.9-2); Alkaline Phosphatase 51.0 U/L (34-104); Anion Gap 5.0 (3-11); Bilirubin,Total 0.4 mg/dl (0.2-1.0); Blood Urea Nitrogen 35.0 mg/dl (6-23); Calcium 8.9 mg/dl (8.6-10.3); Carbon Dioxide 28.0 mmol/L (21-32); Chloride 109.0 mmol/L (98-107); Creatinine Clr Calc Pharmacy 33.1 ml/min; Globulin 3.1 gm/dl (2.5-4.0); Glucose 120.0 mg/dl (70-99(Fasting)); Potassium 4.2 mmol/L (3.5-5.1); Sodium 142.0 mmol/L (136-145); Total Protein 6.1 gm/dl (6.0-8.3)
[2025-05-24 11:54] VITALS: BP 132/65; TEMP 98.1; O2SAT 97
--- NOTE | 2025-05-24 12:04 | Infectious Disease Progress Nt ---
Date of Service May 24, 2025 Assessment & Plan (1) E coli bacteremia: (2) Acute pyelitis: Plan Problems: #E coli bacteremia #Bilateral renal pyelitis and ureteritis Micro: 05/20 BCx x2: E coli in 3/4 bottles (R amp, amp/sul. I amox/clav. S cefazolin) 05/17 UCx: E coli (R amp, amp/sul. S cefaz, amox/clav, cipro, levo, TMP/SMX) Abx: Ceftriaxone 05/20 - present 80 yo M with CAD, HFpEF, paroxysmal afib on Eliquis, PAD, RIK not on CPAP, pulmonary HTN, T2DM on insulin, peripheral neuropathy, hypothyroidism, HLD, HTN who presented on 05/20 with dysuria, urinary urgency, frequency, found to have bilateral renal pyelitis and ureteritis, c/b E coli bacteremia. It appears she recently had a urine culture collected on 05/17 which grew E coli, and she was prescribed nitrofurantoin 100 mg PO q12h on 05/18/25. On presentation, T 37.6 (became febrile to 38.1 later in the evening), WBC 10.04, Cr 1.28, lactate 2.2. UA with 6-[address] A/P with IV contrast showed bilateral renal pyelitis and ureteritis; kidneys normally enhance without definite specific evidence for pyelonephritis although difficult to exclude by imaging alone. Pt was started on ceftriaxone 2 g IV q24h. BCx with E coli in 3/4 bottles. Discussion: E coli bacteremia likely 2/2 E coli UTI with bilateral renal pyelitis and ureteritis. Recent UCx from 05/17 indicates susceptibility to nitrofurantoin, however this is not preferred therapy for ascending UTIs given limited penetration into kidney tissue, which could be why symptoms progressed. Recommendations: - Stopped ceftriaxone. Started cephalexin 1 g PO q8h (dose reduced from 1 g q6h given CrCl 30-49) to complete total 7 day course through 05/27 Will sign off. Admission and Anticipated Discharge Date Admission Date: May 20, 2025 Subjective This patient recommendation is based on a telemedicine consult request which was completed asynchronously through chart review and information provided by the primary physician. The patient was not seen or examined today. The evaluation is consultative in nature and all patient care and treatment decisions can either be accepted or rejected by the patient's primary hospital-based treating physician using their own independent medical judgment for their patient. Time Spent Reviewing Chart: 11 - 20 minutes Afebrile without leukocytosis 05/21 BCx NGTD Results & Data Vital Signs (Past 12 Hours) Vital Signs Temp Pulse Pulse Resp BP Pulse Ox O2 Del Method 05/24/25 11:53 36.7 C 54 L 18 132/65 97 Room Air 05/24/25 07:47 52 L 18 158/75 H 93 Room Air 05/24/25 07:12 56 L 05/24/25 03:51 37.0 C 54 L 18 140/59 L 95 Room Air 05/24/25 00:49 63
--- NOTE | 2025-05-24 12:30 | Discharge Summary ---
Discharge Summary Date of Service May 24, 2025 She is doing very well sitting up in a chair this morning entirely asymptomatic really wants to go home. We discussed extensively All aspects of her care and follow-up plan. We discussed mild LEVAR, blood pressure medication adjustments and holding Lasix and she will have blood work done tomorrow with her primary care doctor to reevaluate this. She understands To monitor blood pressure at home Discussed with ID attending via secure chat who is deciding on dose adjustment for Cephalexin if needed after speaking with pharmacy Update ID Attending spoke with pharmacy they recommend cefazolin 1 g every 8 hours regardless of renal function Principal Dx & Hospital Course #1 = Principal Diagnosis (1) Acute UTI: (2) Acute pyelitis: (3) Acute on chronic heart failure with preserved ejection fraction (HFpEF): (4) RIK (obstructive sleep apnea): (5) Type 2 diabetes mellitus with insulin therapy: (6) HTN (hypertension): (7) CAD (coronary artery disease): (8) Peripheral arterial disease: (9) Dyslipidemia: (10) Pulmonary hypertension: (11) Hypothyroidism: (12) Paroxysmal atrial fibrillation: (13) Chronic kidney disease, stage 3a: Plan 80 yo female PMHx CAD, HFpEF (last echo 11/03/24 w/EF65-70%), paroxysmal a fib on Eliquis, PAD, RIK not on CPAP, pulmonary HTN, T2DM on insulin, peripheral neuropathy, hypothyroidism, HLD, HTN admitted found to have bilateral pyelo nephritis. #Pyelonephritis b/l, E. coli CT + for bilateral renal pyelitis, ureteritis; no evidence of stone Had elevated lactate on admission, resolved on recheck History of UTIs, all nearly pansensitive Continue ceftriaxone 2g daily then cephalexin on discharge through 05/27 ID following Blood cultures E. coli bacteremia. Repeat NTD. #LEVAR on CKD-III avoid nephrotoxic meds Follow BMP JOSÉ MANUEL inhibitor and LASIX HELD FOR 1-2 DAYS FOLLOW UP WITH PCP TO REASSESS FOR SAFE RESUMPTION BASED ON REPEAT BLOOD WORKS OUTPATIENT #RIK/OHS/Pulmonary HTN Not on CPAP Supplemental O2 to maintain sats >90% #CAD/PAD/HFpEF/Afib/HTN/HLD Most recent echo EF 65-70% Does not appear in acute failure Rates well controlled Continue amiodarone Continue Eliquis Continue atorvastatin JOSÉ MANUEL inhibitor and LASIX HELD FOR 1-2 DAYS FOLLOW UP WITH PCP TO REASSESS FOR SAFE RESUMPTION BASED ON REPEAT BLOOD WORKS OUTPATIENT HTN home meds. as above. hydralazine increased #T2DM Hold home medications Basal bolus insulin Pharmacy glycemic consult placed FENGI: heart healthy, DM2 diet; fluids NSS @ 80cc/hr Code status: full code DVT prophylaxis: Heparin BID Disposition: home Admission HPI Per Admitting Provider 80 yo female PMHx CAD, HFpEF (last echo 11/03/24 w/EF65-70%), paroxysmal a fib on Eliquis, PAD, RIK not on CPAP, pulmonary HTN, T2DM on insulin, peripheral neuropathy, hypothyroidism, HLD, HTN admitted found to have bilateral pyelonephritis. Recently dropped an ipad on her R foot and had a foot wound. Treated with amoxicillin and developed diarrhea. Subsequently developed UTI symptoms with dysuria and urinary freuqency. Has since developed chills and presented to the ER. Denies CP, SOB, N/V/D. Denies significant discomfort. ED course: Labs reveal no leukocytosis, LEVAR (baseline Cr ~0.9), elevated lactate (repeat normal) CTAP reveals b/l renal pyelitis, ureteritis Rec'd 1.5L NSS, 2g ceftriaxone Discharge Exam Constitutional: well-appearing, no acute distress HEENT: NCAT, no conjunctival injection CV: regular rhythm, no murmur appreciated, extremities well-perfused, no LE edema Resp: CTABL, no wheezes/rales/rhonchi appreciated, no increased work of breathing GI: nondistended MSK: no gross deformities appreciated Skin: warm, dry, no rash appreciated Neuro: alert, oriented, no focal neurologic deficit appreciated Discharge Plan Discharge Items Patient Disposition: Home - Self-Care Reason For Visit: PYELO Discharge Diagnosis: Pyelonephritis Condition on Discharge: Fair Activity: Resume your previous activity Non-emergency contact: Primary Care Provider and Urologist Call non-emergency contact if: you have any medication questions, your symptoms worsen, your pain is concerning for you and you have a fever Follow-up/Referrals: Jo Ann Echevarria DO [Primary Care Provider] - 06/03/25 11:00 am Diet: Carb Consistent or DM2, Heart Healthy and Low Fat Addtl Attending Provider Instructions: Follow-up with your primary care doctor or urologist in 1 week. Follow-up r egarding your adrenal nodule. As we discussed monitor your blood pressure closely at home. Because of the mild strain on your kidneys, We are holding your Lasix and lisinopril. Please repeat your blood work through primary doctor tomorrow. They can decide on when you can safely resume these medications. In the interim, I increased your hydralazine blood pressure medication dosage. Stay hydrated and avoid NSAIDs. Pending Studies at Discharge: No Stand-Alone Forms: My [facility], Smoking Cessation Medications and DC Order Prescriptions: New cephalexin 500 mg Capsule 1,000 mg PO Q8H 5 Days Qty: 30 0RF hydralazine 50 mg Tablet 50 mg PO QID 30 Days Qty: 120 0RF Continued fluocinonide 0.05 % cream 1 applic topical BID Qty: 60 1RF (DME) OneTouch Verio test strips Strip See Rx Instructions .ROUTE .MEDSUPPLY Qty: 300 3RF Rx Instructions: test blood sugar TID atorvastatin 80 mg tablet 80 mg PO QPM Qty: 90 3RF (DME) blood-glucose meter [OneTouch Verio Reflect] Kit See Rx Instructions .Route Qty: 1 0RF Rx Instructions: Test blood sugars three times a day. E11.9 (DME) lancets 32 gauge misc See Rx Instructions .Route Qty: 300 3RF Rx Instructions: use to test blood sugar TID potassium chloride 20 mEq tablet extended release 40 meq PO DAILY Qty: 180 3RF amiodarone 100 mg tablet 100 mg PO QDL Qty: 90 3RF levothyroxine 112 mcg tablet 112 mcg PO QAM Qty: 90 1RF Eliquis 5 mg tablet 5 mg PO BID Qty: 180 3RF Gemtesa 75 mg tablet 75 mg PO DAILY Qty: 30 11RF fluticasone propionate 50 mcg/actuation spray,suspension 2 spray intranasal DAILY PRN (Reason: Allergy Symptoms) Qty: 1 Jardiance 10 mg tablet 10 mg PO DAILY Qty: 90 3RF Rx Instructions: Take one tablet by mouth once a day. ferrous sulfate 325 mg (65 mg iron) tablet 325 mg PO Q OTHER DAY insulin aspart U-100 [Novolog FlexPen U-100 Insulin] 100 unit/mL (3 mL) insulin pen 20 unit subcut TID Rx Instructions: with meals up to 60 units daily insulin glargine [Lantus Solostar U-100 Insulin] 100 unit/mL (3 mL) insulin pen 25 unit SQ BID Patient Comments: 25 unit in the AM and 25 units with dinner. acetaminophen [Tylenol Arthritis Pain] 650 mg tablet extended release 1,300 mg PO DAILY PRN (Reason: sciatica pain) multivitamin Tablet 1 tab PO QAM pantoprazole 40 mg tablet,delayed release (DR/EC) 40 mg PO DAILY albuterol sulfate 90 mcg/actuation HFA aerosol inhaler 2 inh inhalation Q4H PRN (Reason: shortness of breath or wheezing or cough) Qty: 6.7 0RF Rx Instructions: use with spacer device Held furosemide 40 mg tablet 40 mg PO BID Qty: 180 3RF Hold Instructions: Resume on 05/26/25. Check in with primary care doctor on when to resume this medication based on your blood works (to see if your kidney function is improved) enalapril maleate 20 mg tablet 20 mg PO QAM Qty: 180 3RF Hold Instructions: Resume on 05/26/25. Check in with primary care doctor on when to resume this medication based on your blood works (to see if your kidney function is improved) Patient Comments: breakfast and lunch Discontinued hydralazine 100 mg tablet See Rx Instructions .ROUTE .COMPLEX Qty: 180 3RF Rx Instructions: 50 mg by mouth three times daily Discharge Orders: Discharge Order (Routine); Ordered 05/24/25 Ordered By: Gerardo Laguna Admission Data Admit Date/Time: 05/20/25 19:52 Attending Provider: Gerardo Laugna Admit Provider: Lavell Mead Primary Care Provider: Jo Ann Echevarria Other Providers: Catherine Laguna; Chuyita Valera; Vesta Hatfield; Lilliam Sandoval Antonie J.; Sheela Douglass; Vivian Simons Hospital Stay Data Consultations 05/20/25 18:35 ED Decision to Admit Stat 05/21/25 09:58 Consult Infectious Diseases Routine Diagnostic Imagining Performed 05/20/25 17:22 CT abd pelvis IV con only Stat Pending Results Patient Have Any Pending Studies at Discharge: No Discharge Instructions Given to Patient (Per Discharging Provider) Follow-up with your primary care doctor or urologist in 1 week. Follow-up regarding your adrenal nodule. As we discussed monitor your blood pressure closely at home. Because of the mild strain on your kidneys, We are holding your Lasix and lisinopril. Please repeat your blood work through primary doctor tomorrow. They can decide on when you ca n safely resume these medications. In the interim, I increased your hydralazine blood pressure medication dosage. Stay hydrated and avoid NSAIDs. Total Time Total Time Spent Total Time Spent (In Minutes): 35 Coding Level of Care Code 46243 INP/OBS DISCH >30 MIN Diagnoses Acute UTI N39.0 Acute pyelitis N10 Acute on chronic heart failure with preserved ejection fraction (HFpEF) I50.33 RIK (obstructive sleep apnea) G47.33 Type 2 diabetes mellitus with insulin therapy E11.9; Z79.4 Hypertension due to endocrine disorder I15.2 Hypertension type: secondary to endocrine disorders CAD (coronary artery disease) I25.10 Peripheral arterial disease I73.9 Dyslipidemia E78.5 Pulmonary hypertension I27.20 Hypothyroidism E03.9 Paroxysmal atrial fibrillation I48.0 Chronic kidney disease, stage 3a N18.31
[2025-05-24 12:47] VITALS: PULSE 64
== END 2025-05-24 13:28 | disposition home or self-care (01) | DRG 689 ==
LOC: ED 15:21 → SUATTDRO 19:52 → 2N 19:52